=== PATIENT | female | born 1960 | race Caucasian/White ===

== ENCOUNTER 2020-01-02 15:56 | Outpatient (REF) | payer BC, SELFPAY ==
--- NOTE | 2020-01-02 16:01 | MM_ITS ---
EXAMINATION: MM SCREENING DIGITAL BREAST TOMOSYNTHESIS, BILATERAL CLINICAL INFORMATION: Screening. Asymptomatic. The lifetime risk of breast cancer based on the Tyrer-Cuzick Model is 12.9%. COMPARISON: Mammography: December 27, 2018 and studies dating back to July 02, 2011 TECHNIQUE: Digital breast tomosynthesis is performed in both the craniocaudal and mediolateral oblique views along with computer-aided detection (CAD). Synthesized 2D images are generated from the tomosynthesis. FINDINGS: The breasts are heterogeneously dense, which may obscure small masses (ACR BI-RADS breast composition Category c). There are no significant masses, abnormal calcifications, or other abnormalities. MM/MM tomosynthesis screening BI IMPRESSION: There are no significant changes from prior study. ASSESSMENT: BI-RADS 1: Negative RECOMMENDATION: Routine annual mammography screening. This patient's information was entered into a reminder system with a target due date for their next mammogram.
== END 2020-01-02 15:57 | disposition home or self-care (01) ==
LOC: HO.MAMMO 15:56
PROVIDERS: PCP Internal Medicine; Visit Provider Internal Medicine
DX: Z12.31 Encounter for screening mammogram for malignant neoplasm of breast (principal)
CPT/HCPCS: 77063; 77067

== ENCOUNTER 2020-01-16 17:06 | Outpatient (REF) | payer BC, SELFPAY | END 2020-01-16 17:07 | disposition home or self-care (01) | LOC: HO.LAB 17:06 | PROVIDERS: Visit Provider Internal Medicine | DX: Z20.828 Contact with and (suspected) exposure to other viral communicable diseases (principal) | CPT/HCPCS: C9803; U0003 ==

== ENCOUNTER → 2022-07-28 15:29 | Outpatient (BNVA) | payer BC, SELFPAY | PROVIDERS: PCP Internal Medicine; Visit Provider Physician Assistant Surgical ==

== ENCOUNTER 2022-08-15 09:48 | Outpatient (REF) | payer BC, SELFPAY ==
[2022-08-15 11:03] LABS: MANUAL DIFF FLAG NO
[2022-08-15 11:11] LABS: Eosinophils Absolute Auto 0.2 X10*3/uL (0.0-0.4); Eosinophils Percent Auto 5.7 % (0-4); Hematocrit 42.1 % (37.0-47.0); Lymphocytes Absolute Auto 1.3 X10*3/uL (1.2-4.9); Lymphocytes Percent Auto 42.3 % (20-40); Mean Corpuscular HGB Conc 33.3 g/dl (31.0-35.0); Mean Corpuscular Hemoglobin 30.4 pg (27.0-33.0); Mean Corpuscular Volume 91.3 fL (80.0-98.0); Mean Platelet Volume 9.1 fL (9.4-12.3); Monocytes Absolute Auto 0.2 X10*3/uL (0.1-1.2); Neutrophils Absolute Auto 1.3 x10*3/uL (2.0-8.3); Platelet Count 282 X10*3/uL (160-400); Red Blood Count 4.61 X10*6/uL (4.20-5.50)
[2022-08-15 11:17] LABS: Estimated Average Glucose 94 mg/dL; Hemoglobin A1c % 4.9 %
[2022-08-15 11:50] LABS: Alanine Aminotransferase 28 U/L (0-31); Albumin Level 4.2 g/dL (3.5-5.0); Alkaline Phosphatase 111 U/L (39-117); Anion Gap 12 (12-20); Aspartate Amino Transferase 35 U/L (5-31); Bilirubin Total 0.8 mg/dL (0.0-1.0); Blood Urea Nitrogen 15 mg/dL (9-16); Calcium 9.7 mg/dL (8.4-10.2); Carbon Dioxide 26 mmol/L (22-29); Chloride 107 mmol/L (96-108); Cholesterol 180 mg/dL; Estimated Glomerular Filt Rate > 60; Glucose Random 82 mg/dL (60-115); HDL Cholesterol 71 mg/dL; Iron 119 mcg/dL (30-160); LDL Cholesterol Calculated 96 mg/dl; Percent Iron Saturation 38 % (15-50); Sodium 141 mmol/L (135-145); Total Iron Binding Capacity 313 mcg/dL (228-428); Total Protein 6.9 g/dL (6.5-8.0); Triglycerides 69 mg/dL; Unsaturated Iron Binding 194 ug/dL
[2022-08-15 12:10] LABS: Ferritin 45 ng/mL (10-250); Insulin 3 uU/mL (2-29); Vitamin D 25-OH Total 60.8 ng/mL (>30)
[2022-08-15 12:24] LABS: Vitamin B12 > 2000 pg/mL (200-900)
[2022-08-19 05:03] LABS: Zinc 101 mcg/dL (60-130)
[2022-08-19 14:18] LABS: Calcium (PTHI) 9.3 mg/dL (8.6-10.4); PTHI 42 pg/mL (16-77)
[2022-08-20 02:43] LABS: Vitamin A 58 mcg/dL (38-98)
[2022-08-22 12:48] LABS: Vitamin B1 44 nmol/L (8-30)
== END 2022-08-15 09:49 | disposition home or self-care (01) ==
LOC: HO.HMGCLDS 09:48
PROVIDERS: PCP Internal Medicine; Visit Provider Physician Assistant Surgical
DX: Z98.84 Bariatric surgery status (principal); K91.2 Postsurgical malabsorption, not elsewhere classified
CPT/HCPCS: 36415; 80053; 80061; 82306; 82607; 82728; 82746; 83036; 83525; 83540; 83970; 84425; 84443; 84590; 84630; 85025; 86140

== ENCOUNTER 2022-09-18 15:39 | Outpatient (REF) | payer BC, SELFPAY ==
--- NOTE | ~2022-09-18 | MM_ITS ---
EXAMINATION: MM SCREENING DIGITAL BREAST TOMOSYNTHESIS, BILATERAL CLINICAL INFORMATION: Screening. Asymptomatic. The lifetime risk of breast cancer based on the Tyrer-Cuzick Model is 20.%. COMPARISON: Mammography: This study is compared with prior exams dating back to 2018. TECHNIQUE: Digital breast tomosynthesis is performed in both the craniocaudal and mediolateral oblique views along with computer-aided detection (CAD). Synthesized 2D images are generated from the tomosynthesis. FINDINGS: There are scattered areas of fibroglandular density (ACR BI-RADS breast composition Category b). There are no significant masses, abnormal calcifications, or other abnormalities. MM/MM tomosynthesis screening BI IMPRESSION: No mammographic evidence of malignancy. ASSESSMENT: BI-RADS BI-RADS 1 - Negative RECOMMENDATION: Routine annual mammography screening. 1 year F/U This examination should not preclude the clinical evaluation of a suspicious palpable abnormality. This patient's information was entered into a reminder system with a target due date for their next mammogram.
== END 2022-09-18 15:40 | disposition home or self-care (01) ==
LOC: HO.MAMMO 15:39
PROVIDERS: PCP Internal Medicine; Visit Provider Internal Medicine
DX: Z12.31 Encounter for screening mammogram for malignant neoplasm of breast (principal)
CPT/HCPCS: 77063; 77067

== ENCOUNTER → 2022-09-18 15:45 | Outpatient (BNV) | payer BC, SELFPAY | PROVIDERS: PCP Internal Medicine; Visit Provider Radiology Diagnostic Radiology | DX: Z12.31 Encounter for screening mammogram for malignant neoplasm of breast (principal) | CPT/HCPCS: 77063; 77067 ==

== ENCOUNTER 2022-11-19 09:56 | Outpatient (AMB) | payer BC, SELFPAY ==
[2022-11-19 10:00] VITALS: BP 132/70; PULSE 58; RESP 12; O2SAT 98; BMI 28.3
--- NOTE | 2022-11-19 10:00 | MHC.PC.OV ---
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 Patient states that she thinks she may have arthritis in her neck, her knees, hips, her foot. 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 Required: No Accompanied by: Self / Same As Patient Allergies Seasonal Allergies Allergy (Intermediate, Verified 11/19/22 10:17) Headache cat dander Allergy (Mild, Verified 11/19/22 10:17) Sneezing dog dander Allergy (Mild, Verified 11/19/22 10:17) Sneezing Medication List - Last Reconciled 11/19/22 by TRACY Barry biotin 10,000 mcg PO DAILY calcium carbonate (Calcium) 600 mg PO DAILY cetirizine (Zyrtec) 10 mg PO DAILY PRN cholecalciferol (vitamin D3) 50 mcg PO DAILY multivitamin with iron (Daily Multiple Vitamins with Iron tablet) 1 tab PO DAILY solifenacin 10 mg PO DAILY Tobacco use date assessed: 11/19/22 Dental Screening Dental Screen Date: 11/19/22 Did you have a dental visit in the last 12 months?: Yes Did you have a dental problem in the last 6 months where you did not have access to dental care?: No Was dental information given to patient?: Patient has dentist HPI HPI Comments History of Present Illness Details 62-year-old female new patient presents today to establish care. Past medical history significant for osteoarthritis hx bilateral knee pain for years, Patient sates about 7 years ago was told that she need knee replacements in the future, s/p cortisone injections in right knee. Patient reports she was previously followed by Dr. Hein for this, your referral entered. Patient also reports that she has ongoing left hip pain for few months and occasional clicking. Left hip x-ray ordered. Patient reports followed by weight management for history of gastric bypass surgery, complete lab work done in July 2022. Repeat blood work deferred at this time. Mammogram: Completed in August 2022, Bi-rad negative Eye exam: Scheduled in November, patient reports goes annually. Pap smear: Has not had a Pap smear in years, referral entered OBGYN. Colonoscopy: Scheduled in January. Complete lab work done in July After patient being checked out and patient was leaving this appointment she had turned around and came to this [facility] office and reported that she has been having some memory problems, patient advised to schedule follow-up in 2 weeks to further discuss this matter. [facility] Medical History (Updated 11/19/22 @ 10:28 by TRACY Barry) No pertinent past medical history Surgical History (Updated 11/19/22 @ 10:20 by TRACY Barry) History of Esmer-en-Y gastric bypass Hx of lumpectomy Hx of tonsillectomy Hx of bladder repair surgery Hx of foot surgery Hx of eye surgery Hx of gastric bypass Family History (Updated 11/19/22 @ 10:21 by TRACY Barry) Mother Hypertension Diabetes Father Hx of CABG Hypertension Social History (Updated 11/19/22 @ 10:22 by TRACY Barry) Housing: House Alcohol intake: current Alcohol intake frequency: a few times a month Patient Tobacco Use Status: Former Tobacco user Tobacco use type: Cigarette Cigarette Packs Per Day: 1 Cigarettes Per Day: 20 Years Smoked: 20 e-Cigarette/Vaping Use: Never Used service: No Current occupational status: employed and retired Cognitive needs: No Hearing needs: No Vision needs: Yes Review of Systems Const Denies chills, Denies fatigue, Denies fever(s) and Denies poor appetite Eyes Denies no additional complaints ENT Reports Normal hearing present Card Denies chest pain, Denies syncope, Denies rapid heart rate and Denies dyspnea Resp Denies cough and Denies dyspnea GI Denies change in stool character, Denies constipation, Denies diarrhea, Denies nausea and Denies vomiting Denies urinary frequency, Denies dysuria and Denies urinary urgency Neuro Reports Normal hearing present, Denies confusion and Denies syncope Psych Denies confusion Endo Denies fatigue Physical exam (Primary Care) Vital Signs: Last Vital Signs Pulse 58 11/19/22 10:00 Resp 12 11/19/22 10:00 BP 132/70 11/19/22 10:00 Pulse Ox 98 11/19/22 10:00 Oxygen Delivery Method Room Air 11/19/22 10:00 BMI result Body Mass Index 28.3 Tobacco/Smoking Status: Tobacco use Status Tobacco use date assessed 11/19/22 11/19/22 10:14 Patient Tobacco Use Status Former Tobacco user 11/19/22 10:22 Tobacco use type Cigarette 11/19/22 10:22 e-Cigarette/Vaping Use Never Used 11/19/22 10:22 Const General: No confusion Orientation/consciousness: No confusion HENMT Head: Yes normocephalic and Yes atraumatic Ears: external ears normal and TM's normal bilaterally General nose exam: Normal external nose present and Normal nasal mucous membranes and turbinates present Face and sinus: Yes normal facial exam and Yes sinuses nontender Mouth: moist mucous membranes Throat: Yes tonsils normal Eyes Conjunctivae: conjunctivae normal Sclerae: sclerae normal Pupils: Equal, round and reactive pupils present and Pupils normal by confrontation EOM: EOMs intact bilaterally Direct Ophthalmoscopy: normal light reflex Neck Neck: Yes no lymphadenopathy and Yes supple Thyroid: Thyroid normal Chest Chest palpation & inspection: normal inspection of the chest Resp Effort & Inspection: normal respiratory effort Auscultation: clear to auscultation bilaterally, no crackles, no rhonchi and no wheezes Cardio Rate: regular rate Rhythm: regular rhythm Peripheral pulses: radial pulses present and dorsalis pedis present GI Inspection: Yes normal to inspection Palpation (GI): Soft to palpation, nontender and No hepatosplenomegaly present Auscultation: normoactive bowel sounds Skin General skin exam: no rashes or lesions noted Neuro General: No confusion Cranial nerves: Yes Equal, round and reactive pupils present and Yes Normal hearing present Cognition (Neuro): normal cognition Gait exam (Neuro): Normal gait present Motor exam (neuro): 5/5 motor strength present throughout Deep tendon reflexes (DTR's): Right brachioradialis reflex intensity grade: 2+, Left brachioradialis reflex intensity grade: 2+, Right patellar reflex intensity grade: 2+ and Left patellar reflex intensity grade: 2+ Extrem General: No edema Assessment and Plan Assessment & Plan (1) Bilateral knee pain: Code(s): M25.561 - Pain in right knee; M25.562 - Pain in left knee Plan: Can take Tylenol Arthritis as needed for pain. Bilateral knee x-rays ordered. Referral sent to orthopedic. (2) Left hip pain: Code(s): M25.552 - Pain in left hip Plan: Can take [id number] Tylenol as needed for pain, left hip x-ray ordered. 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
== END 2022-11-19 10:41 | disposition home or self-care (01) ==
PROVIDERS: PCP Internal Medicine; Visit Provider Nurse Practitioner Family
DX: M25.561 Pain in right knee (principal); M25.562 Pain in left knee; M25.552 Pain in left hip; M19.90 Unspecified osteoarthritis, unspecified site; Z00.00 Encounter for general adult medical examination without abnormal findings
CPT/HCPCS: 99204

== ENCOUNTER 2022-11-19 10:52 | Outpatient (REF) | payer BC, SELFPAY ==
--- NOTE | ~2022-11-19 | XR_ITS ---
EXAMINATION: XR KNEE AP STANDING, BILATERAL CLINICAL INFORMATION: Right knee pain. COMPARISON: Bilateral knee radiographs dated 01/30/2016. TECHNIQUE: AP bilateral standing view of the knees was obtained. FINDINGS: Moderate to severe right and moderate left medial compartment joint space narrowing. Bilateral tricompartmental marginal osteophytes. No osseous erosion. No fracture or dislocation. No concerning lytic or blastic osseous lesion. No abnormal soft tissue calcification. XR/XR knee standing BI IMPRESSION: Tricompartmental osteoarthritis, most prominent within the medial compartment bilaterally. Findings are more prominent on the right and have slightly progressed when compared to the prior examination.
--- NOTE | ~2022-11-19 | XR_ITS ---
EXAMINATION: XR HIP, LEFT CLINICAL INFORMATION: Left hip pain. COMPARISON: None available. TECHNIQUE: Two views of the left hip. FINDINGS: No significant joint space narrowing. Small lateral acetabular marginal osteophytes. No osseous erosion. No evidence of avascular necrosis. No acute fracture or dislocation. XR/XR hip LT min 2V IMPRESSION: Mild left hip osteoarthritis.
== END 2022-11-19 10:53 | disposition home or self-care (01) ==
LOC: HO.XRAY 10:52
PROVIDERS: PCP Internal Medicine; Visit Provider Nurse Practitioner Family
DX: M25.552 Pain in left hip (principal); M25.561 Pain in right knee; M25.562 Pain in left knee
CPT/HCPCS: 73502; 73565

== ENCOUNTER 2022-12-14 13:31 | Outpatient (AMB) | payer BC, SELFPAY ==
[2022-12-14 13:35] VITALS: BP 132/76; PULSE 70; O2SAT 98; BMI 28.7
--- NOTE | 2022-12-14 13:35 | MHC.PC.OV ---
Vital Signs 12/14/22 13:35 Height 5 ft 2 in Weight 157 lb BMI 28.7 BP 132/76 Blood Pressure Location Lt brachial Position Sitting Pulse 70 Pulse Source Pulse Oximeter Pulse Oximetry (%) 98 Oxygen Delivery Method Room Air Intake Visit Reasons: Memory Problem Allergies Seasonal Allergies Allergy (Intermediate, Verified 12/14/22 13:35) Headache cat dander Allergy (Mild, Verified 12/14/22 13:35) Sneezing dog dander Allergy (Mild, Verified 12/14/22 13:35) Sneezing Tobacco use date assessed: 11/19/22 Dental Screening Dental Screen Date: 12/14/22 Did you have a dental visit in the last 12 months?: Yes Did you have a dental problem in the last 6 months where you did not have access to dental care?: No Was dental information given to patient?: Patient has dentist HPI HPI Comments History of Present Illness Details 62-year-old female past medical history significant for arthritis. Patient presents today for memory problems. Patient states she has trouble remembering things such as peoples names, or what she wanted talk about. Maybe a few times a week. Patient states hx worked 25 years over night, no works day shift x 7 years. will fall asleep maybe 2 years and then shes wide awake. Patient states has tried melatonin but doesnt like the way it makes her feel weird, like her skin is crawling. will trial hydorxyzine Mini-mental status exam completed patient patient was able to recall 3 words provided in the beginning of this appointment. Patient reports past history of sleep apnea however states snoring at resolved following her gastric bypass surgery. Given patient reporting memory trouble will repeat repeat sleep study to ensure resolution sleep apnea. [facility] Medical History No pertinent past medical history Surgical History History of Esmer-en-Y gastric bypass Hx of lumpectomy Hx of tonsillectomy Hx of bladder repair surgery Hx of foot surgery Hx of eye surgery Hx of gastric bypass Family History Mother Hypertension Diabetes Father Hx of CABG Hypertension Social History Housing: House Alcohol intake: current Alcohol intake frequency: a few times a month Patient Tobacco Use Status: Former Tobacco user Tobacco use type: Cigarette Cigarette Packs Per Day: 1 Cigarettes Per Day: 20 Years Smoked: 20 e-Cigarette/Vaping Use: Never Used service: No Current occupational status: employed and retired Cognitive needs: No Hearing needs: No Vision needs: Yes Questionnaire PHQ-9 Over the last 2 weeks, how often have you been bothered by any of the following problems? 1. Little interest or pleasure in doing things: not at all 2. Feeling down, depressed, or hopeless: not at all 3. Trouble falling or staying asleep, or sleeping too much: not at all 4. Feeling tired or having little energy: not at all 5. Poor appetite or overeating: not at all 6. Feeling bad about yourself - or that you are a failure or have let yourself or your family down: not at all 7. Trouble concentrating on things, such as reading the newspaper or watching television: not at all 8. Moving or speaking so slowly that other people could have noticed. Or the opposite - being so fidgety or restless that you have been moving around a lot more than usual: not at all 9. Thoughts that you would be better off or of hurting yourself in some way: not at all Total score: 0 Source: Developed by Drs. Montez Hartman, Gabbie Delgado, Dragan Drake and colleagues, with an educational jessenia from [employer]. Thrive Questionnaire Date Thrive assessed: 12/14/22 I am a: Patient What is your living situation today?: I have a steady place to live Within the past 12 months, did the food you bought not last and you didn't have the money to get more?: Never true Within the past 12 months, did you worry whether your food would run out before you got money to buy more?: Never true Do you have trouble paying for medicines?: No Do you have trouble getting transportation to medical appointments?: No Do you have trouble paying your heating and electricity bill?: No Do you have trouble taking care of your child, family member or friend?: No Do you have trouble with day-to-day activities such as bathing, preparing meals, shopping, managing finances, etc.?: No Are you currently unemployed and looking for a job?: No Are you interested in more education?: No Please select the resources that you would like help with: None AUDIT C Alcohol Use Questionnaire (AUDIT-C) 1. How often do you have a drink containing alcohol?: Never Total Score: 0 RICH-7 AMB Questionnaire RICH-7 Date RICH - 7 assessed: 12/14/22 Feeling nervous, anxious, or on edge: 0 = Not at all Not being able to stop or control worryin = Not at all Worrying too much about different things: 0 = Not at all Trouble relaxin = Not at all Being so restless that it is hard to sit still: 0 = Not at all Becoming easily annoyed or irritable: 0 = Not at all Feeling afraid as if something awful might happen: 0 = Not at all Total RICH-7 score (0-4 normal; 5-9 mild; 10-14 moderate; 15-21 severe): 0 Source: Developed by Drs. Montez Hartman, Gabbie Delgado, Dragan Drake and colleagues, with an educational jessenia from [employer]. Review of Systems Const Denies chills, Denies fatigue, Denies fever(s) and Denies poor appetite Eyes Denies no additional complaints ENT Reports Normal hearing present Card Denies chest pain, Denies syncope, Denies rapid heart rate and Denies dyspnea Resp Denies cough and Denies dyspnea GI Denies change in stool character, Denies constipation, Denies diarrhea, Denies nausea and Denies vomiting Denies urinary frequency, Denies dysuria and Denies urinary urgency Neuro Reports Normal hearing present, Denies confusion, Denies syncope and Reports other (memory difficulties ) Psych Denies confusion Endo Denies fatigue Physical exam (Primary Care) Vital Signs: Last Vital Signs Pulse 70 12/14/22 13:35 BP 132/76 12/14/22 13:35 Pulse Ox 98 12/14/22 13:35 Oxygen Delivery Method Room Air 12/14/22 13:35 BMI result Body Mass Index 28.7 Tobacco/Smoking Status: Tobacco use Status Tobacco use date assessed 11/19/22 12/14/22 13:36 Patient Tobacco Use Status Former Tobacco user 12/14/22 13:36 Tobacco use type Cigarette 12/14/22 13:36 e-Cigarette/Vaping Use Never Used 12/14/22 13:36 PHQ-9: PHQ-9 Score PHQ-9: Total score 0 12/14/22 14:53 Thrive Assessment: Date of Thrive Assessment Date Thrive assessed 12/14/22 12/14/22 13:36 Const General: No confusion Orientation/consciousness: No confusion HENMT Head: Yes normocephalic and Yes atraumatic Eyes Conjunctivae: conjunctivae normal Sclerae: sclerae normal Pupils: Equal, round and reactive pupils present and Pupils normal by confrontation EOM: EOMs intact bilaterally Direct Ophthalmoscopy: normal light reflex Cardio Rate: regular rate Rhythm: regular rhythm Peripheral pulses: radial pulses present and dorsalis pedis present Neuro General: No confusion Cranial nerves: Yes Equal, round and reactive pupils present and Yes Normal hearing present Cognition (Neuro): normal cognition Gait exam (Neuro): Normal gait present Extrem General: No edema Assessment and Plan Assessment & Plan (1) Memory change: Code(s): R41.3 - Other amnesia Plan: Referral entered to Neurology for thorough evaluation (2) Sleep apnea: Code(s): G47.30 - Sleep apnea, unspecified Plan: Sleep study ordered to further evaluate Orders: Orders Comprehensive [place]. Panel Fast 12/14/22 R41.3 - Other amnesia Lipid Panel 12/14/22 Z13.220 - Encounter for screening for lipoid disorders RT home sleep study 12/14/22 G47.30 - Sleep apnea, unspecified Complete Blood Count Auto Diff 12/14/22 Z13.0 - Encounter for screening for diseases of the blood and blood-forming organs and certain disorders involving the immune mechanism TSH reflex Free T4 12/14/22 Z13.29 - Encounter for screening for other suspected endocrine disorder Referrals Neurology Referral R41.3 - Other amnesia Coding Level of Care Code Est Pt Level 3 (08053) Diagnoses Memory change R41.3 Sleep apnea G47.30
== END 2022-12-14 14:08 | disposition home or self-care (01) ==
PROVIDERS: PCP Internal Medicine; Visit Provider Nurse Practitioner Family
DX: R41.3 Other amnesia (principal); G47.30 Sleep apnea, unspecified
CPT/HCPCS: 99213

== ENCOUNTER 2022-12-17 14:30 | Outpatient (AMB) | payer BC, SELFPAY ==
[2022-12-17 14:34] VITALS: BMI 28.7
--- NOTE | 2022-12-17 14:34 | MHC.OFFVIS ---
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 Patient is a previous patient of Dr. Hein. States her both knees are as bad however her right knee swells often and feels hot to touch and her left knee has pain that radiates to her hip. Denies knee giving out or doing P.T.. Patient has tried cortisone injections in the past which gave her minimal relief. She has not tried a viscosupplementation injection. The patient states that several days ago she did fall onto both of her knees. She has not tried wearing a knee brace. She has taken Tylenol which point her only mild relief. She is not able to tolerate anti-inflammatory medicines because of previous gastric bypass surgery. Allergies Seasonal Allergies Allergy (Intermediate, Verified 12/17/22 14:43) Headache cat dander Allergy (Mild, Verified 12/17/22 14:43) Sneezing dog dander Allergy (Mild, Verified 12/17/22 14:43) Sneezing Medication List - Last Reconciled 12/17/22 by William Rodrigez MD biotin 10,000 mcg PO DAILY calcium carbonate (Calcium) 600 mg PO DAILY cetirizine (Zyrtec) 10 mg PO DAILY PRN cholecalciferol (vitamin D3) 50 mcg PO DAILY multivitamin with iron (Daily Multiple Vitamins with Iron tablet) 1 tab PO DAILY solifenacin 10 mg PO DAILY PFSH Medical History No pertinent past medical history Surgical History History of Esmer-en-Y gastric bypass Hx of lumpectomy Hx of tonsillectomy Hx of bladder repair surgery Hx of foot surgery Hx of eye surgery Hx of gastric bypass Family History Mother Hypertension Diabetes Father Hx of CABG Hypertension Social History (Updated 12/17/22 @ 14:44 by Marcella Mclaughlin [facility]) Housing: House Alcohol intake: current Alcohol intake frequency: a few times a month Patient Tobacco Use Status: Former Tobacco user Tobacco use type: Cigarette Cigarette Packs Per Day: 1 Cigarettes Per Day: 20 Years Smoked: 20 e-Cigarette/Vaping Use: Never Used service: No Current occupational status: employed and 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 Cognitive needs: No Hearing needs: No Vision needs: Yes Physical Exam Vital Signs: BMI result Body Mass Index 28.7 Const Other: Well-nourished well-developed very friendly female awake alert and oriented x3 in no acute distress Extrem Other: Bilateral lower extremity examination shows good capillary refill, no skin lesions noted, normal sensation light touch Bilateral knee examination shows minimal effusions, palpable crepitus with range of motion, pain with range of motion, range of motion from -3 degrees to 115 degrees, no instability Results Reviewed Results Reviewed: X-rays of the patient's bilateral knee show joint space narrowing, subchondral sclerosis, no acute bony abnormalities Assessment & Plan Assessment & Plan (1) Arthritis of left knee: Code(s): M17.12 - Unilateral primary osteoarthritis, left knee Plan: Ms. Meza presents with bilateral knee pains due to degenerative joint disease. I had a lengthy discussion with the patient regarding the treatment options. She wishes to hold off on surgery for as long as possible. I agree with this plan. She has not gotten good relief from cortisone injections in the past. Thus, I will see whether not her insurance company will cover a viscosupplementation injection for both of her knees. I will see her back once the injections are available. I will also have the patient fitted for knee braces to help with her discomfort and instability. I do find that the knee braces are a medical necessity to help prevent further falls. The patient will follow-up as instructed. Feel free to call me at any time should questions regarding her orthopedic management arise. Thank you very much for asking me to see this very friendly patient. I spent 22 minutes in reviewing the patient's records and imaging studies, seeing the patient and documenting in the medical record. (2) Arthritis of right knee: Code(s): M17.11 - Unilateral primary osteoarthritis, right knee Coding Level of Care Code New Pt Level 2 (39799) Diagnoses Arthritis of left knee M17.12 Arthritis of right knee M17.11
== END 2022-12-17 15:15 | disposition home or self-care (01) ==
PROVIDERS: PCP Internal Medicine; Visit Provider Orthopaedic Surgery
DX: M17.0 Bilateral primary osteoarthritis of knee (principal)
CPT/HCPCS: 99202

== ENCOUNTER → 2022-12-17 14:30 | Outpatient (BNVA) | payer BC, SELFPAY | PROVIDERS: PCP Internal Medicine; Visit Provider Orthopaedic Surgery ==

== ENCOUNTER 2022-12-25 06:03 | Outpatient (REF) | payer BC, SELFPAY ==
[2022-12-25 11:36] LABS: MANUAL DIFF FLAG NO
[2022-12-25 11:42] LABS: Basophils Absolute Auto 0.1 X10*3/uL (0.0-0.2); Basophils Percent Auto 1.8 % (0-2); Eosinophils Absolute Auto 0.2 X10*3/uL (0.0-0.4); Eosinophils Percent Auto 5.5 % (0-4); Hematocrit 39.8 % (37.0-47.0); Hemoglobin 13.2 g/dl (12.0-16.0); Imm Gran Abs Auto 0.01 X10*3/uL (0.00-0.03); Imm Gran Pct Auto 0.3 % (0.0-0.4); Lymphocytes Absolute Auto 1.9 X10*3/uL (1.2-4.9); Lymphocytes Percent Auto 49.9 % (20-40); Mean Corpuscular HGB Conc 33.2 g/dl (31.0-35.0); Mean Corpuscular Hemoglobin 30.7 pg (27.0-33.0); Mean Corpuscular Volume 92.6 fL (80.0-98.0); Monocytes Absolute Auto 0.3 X10*3/uL (0.1-1.2); Monocytes Percent Auto 8.7 % (2-11); Neutrophils Absolute Auto 1.3 x10*3/uL (2.0-8.3); Neutrophils Percent Auto 33.8 % (45-73); Platelet Count 312 X10*3/uL (160-400); Red Cell Distribution Width 13.2 % (11.0-16.0); White Blood Count 3.8 X10*3/uL (4.8-10.8)
[2022-12-25 12:10] LABS: Alanine Aminotransferase 37 U/L (0-31); Albumin Level 4.1 g/dL (3.5-5.0); Alkaline Phosphatase 115 U/L (39-117); Anion Gap 12 (12-20); Aspartate Amino Transferase 41 U/L (5-31); Bilirubin Total 0.7 mg/dL (0.0-1.0); Blood Urea Nitrogen 13 mg/dL (9-16); Calcium 9.6 mg/dL (8.4-10.2); Carbon Dioxide 27 mmol/L (22-29); Chloride 107 mmol/L (96-108); Cholesterol 175 mg/dL (<200); Estimated Glomerular Filt Rate > 60; Glucose Fasting 83 mg/dL (60-99); HDL Cholesterol 74 mg/dL (>40); LDL Cholesterol Calculated 90 mg/dL (<100); Potassium 3.9 mmol/L (3.3-5.1); Sodium 142 mmol/L (135-145); Total Protein 6.7 g/dL (6.5-8.0); Triglycerides 59 mg/dL (<150)
[2022-12-25 12:28] LABS: TSH reflex Free T4 2.43 uIU/mL (0.32-4.0)
== END 2022-12-25 06:04 | disposition home or self-care (01) ==
LOC: HO.HMGCLDS 06:03
PROVIDERS: PCP Internal Medicine; Visit Provider Nurse Practitioner Family
DX: Z13.220 Encounter for screening for lipoid disorders (principal); Z13.29 Encounter for screening for other suspected endocrine disorder; Z13.0 Encounter for screening for diseases of the blood and blood-forming organs and certain disorders involving the immune mechanism; R41.3 Other amnesia; E78.5 Hyperlipidemia, unspecified
CPT/HCPCS: 36415; 80053; 80061; 84443; 85025

== ENCOUNTER 2023-01-04 15:22 | Outpatient (AMB) | payer BC, SELFPAY ==
--- NOTE | 2023-01-04 15:25 | A.OFFVIS_ITS ---
Intake VS Expanded 01/04/23 15:33 BP 139/85 Blood Pressure Location Rt brachial Blood Pressure Position Sitting Pulse 75 Pulse Source Pulse Oximeter Temp 97.7 F Temperature Source Temporal Artery Scan Pulse Oximetry 98 Oxygen Delivery Method Room Air Height 5 ft 2 in Weight 155 lb 6.4 oz BMI 28.4 Body Fat % 31.3 Body Fat Mass 48.6 Fat Free Mass 106.8 Visceral Fat Rating 8.0 Body Water % 48.6 Body Water Mass 75.4 Muscle Mass/Score 101.2 Basal Metabolic Rate/Score 1,425 Intake Visit Reasons: (OV) PO LRYGB 07/16/16 Allergies Seasonal Allergies Allergy (Intermediate, Verified 01/04/23 15:29) Headache cat dander Allergy (Mild, Verified 01/04/23 15:29) Sneezing dog dander Allergy (Mild, Verified 01/04/23 15:29) Sneezing Medication List - Last Reconciled 01/04/23 by Heather Johnson PA-C azelastine-fluticasone 137-50 mcg/spray 1 spray intranasal BID biotin 10,000 mcg PO DAILY calcium carbonate (Calcium) 600 mg PO DAILY cetirizine (Zyrtec) 10 mg PO DAILY PRN cholecalciferol (vitamin D3) 50 mcg PO DAILY multivitamin with iron (Daily Multiple Vitamins with Iron tablet) 1 tab PO DAILY solifenacin 10 mg PO DAILY HPI HPI Comments History of Present Illness Details GBP roger roberts in June 2016 - no complications. Has issues with constipation, not using fiber daily, misunderstood instructions. Would like to weight about 135 lbs. Has mildy elevated LFT's and ULS has been ordered by PCP. Works 5d/wk for 12 hours per day. 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 Exercise - has bike and eliiptical at home - 2 d/week. [facility] Medical History (Updated 01/04/23 @ 15:39 by Heather Johnson PA-C) Sleep apnea No pertinent past medical history Surgical History (Updated 01/04/23 @ 15:39 by Heather Johnson PA-C) History of Esmer-en-Y gastric bypass Hx of lumpectomy Hx of tonsillectomy Hx of bladder repair surgery Hx of foot surgery Hx of eye surgery Hx of gastric bypass Family History Mother Hypertension Diabetes Father Hx of CABG Hypertension Social History Housing: House Alcohol intake: current Alcohol intake frequency: a few times a month Patient Tobacco Use Status: Former Tobacco user Tobacco use type: Cigarette Cigarette Packs Per Day: 1 Cigarettes Per Day: 20 Years Smoked: 20 e-Cigarette/Vaping Use: Never Used service: No Current occupational status: employed and 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 Labs done in June 2022. Meal plan changes for 70 gram per day coffee 5a m- Premier protein cereal with fruit 9am - half shake 12pm - half shake 5pm - 3 oz protein and 3 oz vegetable Exericse - Pilates, TBP duirng the week for 3 d and weekends elliptical RTO May for 7 years appt and labs. I spent 30 minutes in total with patient reviewing/updating records, examining the patient and counseling the patient on weight management as detailed above. (2) Urinary incontinence: Code(s): R32 - Unspecified urinary incontinence (3) Hx of gastric bypass: Code(s): Z98.84 - Bariatric surgery status Coding Level of Care Code Est Pt Level 4 (94201) Diagnoses Overweight E66.3 Urinary incontinence R32 Hx of gastric bypass Z98.84
[2023-01-04 15:33] VITALS: BP 139/85; PULSE 75; TEMP 36.5; O2SAT 98; BMI 28.4
== END 2023-01-04 16:03 | disposition home or self-care (01) ==
PROVIDERS: Visit Provider Physician Assistant
DX: E66.3 Overweight (principal); Z68.28 Body mass index [BMI] 28.0-28.9, adult; Z98.84 Bariatric surgery status; R32 Unspecified urinary incontinence
CPT/HCPCS: 99214

== ENCOUNTER → 2023-01-04 15:22 | Outpatient (BNVA) | payer BC, SELFPAY | PROVIDERS: Visit Provider Physician Assistant ==

== ENCOUNTER 2023-01-26 14:24 | Outpatient (AMB) | payer BC, SELFPAY ==
--- NOTE | 2023-01-26 14:39 | MHC.OFFVIS ---
Intake Vital Signs 01/26/23 14:49 Height 5 ft 2 in Weight 155 lb BMI 28.3 Intake Visit Reasons: Bilateral knee pain Intake Note: Ibis 62 yr old female presents today for bilateral knee pain. Patient is a previous patient of Dr. Hein. States her both knees are as bad however her right knee swells often and feels hot to touch and her left knee has pain that radiates to her hip. Denies knee giving out or doing P.T.. Patient has tried cortisone injections in the past which gave her minimal relief. She has not tried a viscosupplementation injection. The patient states that several days ago she did fall onto both of her knees. She has not tried wearing a knee brace. She has taken Tylenol which point her only mild relief. She is not able to tolerate anti-inflammatory medicines because of previous gastric bypass surgery. Allergies Seasonal Allergies Allergy (Intermediate, Verified 01/26/23 14:50) Headache cat dander Allergy (Mild, Verified 01/26/23 14:50) Sneezing dog dander Allergy (Mild, Verified 01/26/23 14:50) Sneezing Medication List - Last Reconciled 01/27/23 by William Rodrigez MD azelastine-fluticasone 137-50 mcg/spray 1 spray intranasal BID biotin 10,000 mcg PO DAILY calcium carbonate (Calcium) 600 mg PO DAILY cetirizine (Zyrtec) 10 mg PO DAILY PRN cholecalciferol (vitamin D3) 50 mcg PO DAILY multivitamin with iron (Daily Multiple Vitamins with Iron tablet) 1 tab PO DAILY solifenacin 10 mg PO DAILY [facility] Medical History (Updated 01/04/23 @ 15:39 by Heather Johnson PA-C) Sleep apnea No pertinent past medical history Surgical History History of Esmer-en-Y gastric bypass Hx of lumpectomy Hx of tonsillectomy Hx of bladder repair surgery Hx of foot surgery Hx of eye surgery Hx of gastric bypass Family History Mother Hypertension Diabetes Father Hx of CABG Hypertension Social History Housing: House Alcohol intake: current Alcohol intake frequency: a few times a month Patient Tobacco Use Status: Former Tobacco user Tobacco use type: Cigarette Cigarette Packs Per Day: 1 Cigarettes Per Day: 20 Years Smoked: 20 e-Cigarette/Vaping Use: Never Used service: No Current occupational status: employed and 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 Cognitive needs: No Hearing needs: No Vision needs: Yes Physical Exam Vital Signs: BMI result Body Mass Index 28.3 Const Other: Well-nourished well-developed very friendly female awake alert and oriented x3 in no acute distress Extrem Other: Bilateral lower extremity examination shows good capillary refill, no skin lesions noted, normal sensation light touch Bilateral knee examination shows minimal effusions, palpable crepitus with range of motion, pain with range of motion, no instability Office Procedures Joint Injection/Drain Joint Injection/Drain Primary Site: left knee Injected: 20 mg of (Euflexxa) and 1% plain lidocaine Procedure: The patient tolerated the procedure well Coding 58937 - Large joint Procedure code (CPT) selection complete Joint Injection/Drain Joint Injection/Drain Primary Site: right knee Prep: site was prepped using aseptic technique Injected: 20 mg of (Euflexxa) and 1% plain lidocaine Procedure: The patient tolerated the procedure well Coding 53689 - Large joint Procedure code (CPT) selection complete Results Reviewed Results Reviewed: X-rays of the patient's bilateral knee show joint space narrowing, subchondral sclerosis, no acute bony abnormalities Assessment & Plan Assessment & Plan (1) Arthritis of left knee: Code(s): M17.12 - Unilateral primary osteoarthritis, left knee (2) Arthritis of right knee: Code(s): M17.11 - Unilateral primary osteoarthritis, right knee Plan: Ms. Meza presents with bilateral knee pains due to degenerative joint disease. I had a lengthy discussion with the patient regarding the treatment options. She wishes to hold off on surgery for as long as possible. I agree with this plan. She has not gotten good relief from cortisone injections in the past. Thus, the risks and benefits of bilateral knee Euflexxa viscosupplementation injections were discussed at length with the patient. The patient wished to proceed. She tolerated the injections well. She will continue with her home exercise program. She will follow up next week as scheduled. Feel free to call me at any time should questions regarding her orthopedic management arise. I spent 22 minutes in reviewing the patient's records and imaging studies, seeing the patient and documenting in the medical record. (3) Bilateral knee pain: Code(s): M25.561 - Pain in right knee; M25.562 - Pain in left knee Orders: Orders AMB Joint Injection/Aspiration 01/26/23 M17.12 - Unilateral primary osteoarthritis, left knee AMB Joint Injection/Aspiration 01/26/23 M17.11 - Unilateral primary osteoarthritis, right knee Coding Level of Care Code Est Pt Level 2 (48270) Diagnoses Arthritis of left knee M17.12 Arthritis of right knee M17.11 Bilateral knee pain M25.561; M25.562 CPT Codes Coding - 93002 Large joint: 74463 - Large joint ([id number]) Coding - 77858 Large joint: 41227 - Large joint ([id number])
[2023-01-26 14:49] VITALS: BMI 28.3
== END 2023-01-26 15:04 | disposition home or self-care (01) ==
PROVIDERS: PCP Internal Medicine; Visit Provider Orthopaedic Surgery
DX: M17.0 Bilateral primary osteoarthritis of knee (principal)
CPT/HCPCS: 20610; 99213

== ENCOUNTER → 2023-01-26 14:24 | Outpatient (BNVA) | payer BC, SELFPAY | PROVIDERS: PCP Internal Medicine; Visit Provider Orthopaedic Surgery | DX: M17.0 Bilateral primary osteoarthritis of knee (principal) | CPT/HCPCS: 20610; J7323 ==

== ENCOUNTER → 2023-01-28 15:31 | Outpatient (REF) | payer BC, SELFPAY | LOC: HO.SL 15:31 | PROVIDERS: PCP Internal Medicine; Visit Provider Nurse Practitioner Family | DX: G47.30 Sleep apnea, unspecified (principal); R06.83 Snoring | CPT/HCPCS: 95806 ==

== ENCOUNTER → 2023-01-28 15:40 | Outpatient (BNV) | payer BC, SELFPAY | PROVIDERS: PCP Internal Medicine; Visit Provider Internal Medicine | DX: R06.83 Snoring (principal) | CPT/HCPCS: 95806 ==

== ENCOUNTER 2023-01-29 08:50 | Outpatient (REF) | payer BC, SELFPAY ==
--- NOTE | ~2023-01-29 | US_ITS ---
EXAMINATION: US ABDOMEN COMPLETE CLINICAL INFORMATION: Other specified abnormal findings of blood chemistry. COMPARISON: Ultrasound abdomen complete 05/15/2016 and 08/22/2013. TECHNIQUE: Real-time imaging of the abdominal viscera. FINDINGS: PANCREAS: Normal. ABDOMINAL AORTA: There is atherosclerotic calcification the mid to distal segments. The proximal segment is mildly aneurysmal, measuring 3.4 x 3.4 cm. INFERIOR VENA CAVA: Visualized portions are normal. LIVER: There is borderline hepatomegaly, with a longitudinal span of 17.0 cm. The liver contour is normal. Parenchymal echogenicity is normal. No focal hepatic lesion. There is mild biliary ductal dilatation. GALLBLADDER: Normal. The gallbladder is physiologically distended without evidence of stones, sludge, polyps, wall thickening or pericholecystic fluid. COMMON BILE DUCT: Upper normal in caliber, measuring 0.7 cm in diameter. RIGHT KIDNEY: Normal. No hydronephrosis. No renal calculi or focal parenchymal lesions. The kidney measures 9.9 cm in maximum dimension. LEFT KIDNEY: Normal. No hydronephrosis. No renal calculi or focal parenchymal lesions. The kidney measures 9.0 cm in maximum dimension. SPLEEN: Normal. The spleen measures 9.1 cm in maximum dimension. FREE FLUID: None. US/US abdomen complete IMPRESSION: 1. There is borderline hepatomegaly, and mild intrahepatic biliary ductal dilatation is seen. 2. The common bile duct is upper normal in caliber. 3. There is a mild proximal abdominal aortic aneurysm.
[2023-01-29 11:22] LABS: HBS Num1 0.57 mIU/mL (0-7.99); HBc Num1 0.07 S/CO (0.00-0.79); Hepatitis A Antibody IgM 0.24 Index (0-0.79); Hepatitis B Core Antibody Nonreactive (Nonreactive); Hepatitis B Surface Antigen Negative (Negative); ~HepC Num1 0.09 S/CO (0.00-0.79); ~Hepatitis A Antibody IgM Nonreactive (Nonreactive); ~Hepatitis B Surface Antibody NONREACTIVE (Nonreactive); ~Hepatitis C Antibody Nonreactive (Nonreactive)
== END 2023-01-29 08:51 | disposition home or self-care (01) ==
LOC: HO.US 08:50
PROVIDERS: PCP Internal Medicine; Visit Provider Nurse Practitioner Family
DX: R79.89 Other specified abnormal findings of blood chemistry (principal)
CPT/HCPCS: 36415; 76700; 86704; 86706; 86709; 86803; 87340

== ENCOUNTER 2023-02-02 14:26 | Outpatient (AMB) | payer BC, SELFPAY ==
--- NOTE | 2023-02-02 14:46 | MHC.OFFVIS ---
Intake Intake Visit Reasons: OV - Left Knee Euflexxa #2 Intake Note: Ibis is a 62 year old female who presnets today for her bilateral knee Euflexxa #2. She reports mild to moderate discomfort in both of her knees. She denies any fevers or chills. Allergies Seasonal Allergies Allergy (Intermediate, Verified 01/26/23 14:50) Headache cat dander Allergy (Mild, Verified 01/26/23 14:50) Sneezing dog dander Allergy (Mild, Verified 01/26/23 14:50) Sneezing PFSH Medical History (Updated 01/04/23 @ 15:39 by Heather Johnson PA-C) Sleep apnea No pertinent past medical history Surgical History History of Esmer-en-Y gastric bypass Hx of lumpectomy Hx of tonsillectomy Hx of bladder repair surgery Hx of foot surgery Hx of eye surgery Hx of gastric bypass Family History Mother Hypertension Diabetes Father Hx of CABG Hypertension Social History Housing: House Alcohol intake: current Alcohol intake frequency: a few times a month Patient Tobacco Use Status: Former Tobacco user Tobacco use type: Cigarette Cigarette Packs Per Day: 1 Cigarettes Per Day: 20 Years Smoked: 20 e-Cigarette/Vaping Use: Never Used service: No Current occupational status: employed and 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 Cognitive needs: No Hearing needs: No Vision needs: Yes Physical Exam Extrem Other: Bilateral knee examination shows minimal effusions, palpable crepitus with range of motion, pain with range of motion, no instability Office Procedures Joint Injection/Drain Joint Injection/Drain Primary Site: left knee Prep: site was prepped using aseptic technique Injected: 20 mg of (Euflexxa) and 1% plain lidocaine Procedure: The patient tolerated the procedure well Coding 39503 - Large joint Procedure code (CPT) selection complete Joint Injection/Drain Joint Injection/Drain Primary Site: right knee Prep: site was prepped using aseptic technique Injected: 20 mg of (Euflexxa) and 1% plain lidocaine Procedure: The patient tolerated the procedure well Coding 58659 - Large joint Procedure code (CPT) selection complete Results Reviewed Results Reviewed: X-rays of the patient's bilateral knee show joint space narrowing, subchondral sclerosis Assessment & Plan Assessment & Plan (1) Arthritis of left knee: Code(s): M17.12 - Unilateral primary osteoarthritis, left knee (2) Arthritis of right knee: Code(s): M17.11 - Unilateral primary osteoarthritis, right knee Plan Ms. Meza presents with bilateral knee pains due to degenerative joint disease. The risks and benefits of a 2nd set of Euflexxa injections were discussed at length with the patient. The patient wished to proceed. She tolerated the injections well. She will continue with her home exercise program. She will follow up next week as instructed. Feel free to call me at any time should questions regarding her orthopedic management arise. Orders: Orders AMB Joint Injection/Aspiration 02/02/23 M17.11 - Unilateral primary osteoarthritis, right knee AMB Joint Injection/Aspiration 02/02/23 M17.12 - Unilateral primary osteoarthritis, left knee Coding Level of Care Code Procedure Only Diagnoses Arthritis of left knee M17.12 Arthritis of right knee M17.11 CPT Codes Coding - 98140 Large joint: 26551 - Large joint ([id number]) Coding - 90423 Large joint: 95849 - Large joint ([id number])
== END 2023-02-02 15:25 | disposition home or self-care (01) ==
PROVIDERS: PCP Internal Medicine; Visit Provider Orthopaedic Surgery
DX: M17.0 Bilateral primary osteoarthritis of knee (principal)
CPT/HCPCS: 20610

== ENCOUNTER → 2023-02-02 14:26 | Outpatient (BNVA) | payer BC, SELFPAY | PROVIDERS: PCP Internal Medicine; Visit Provider Orthopaedic Surgery | DX: M17.0 Bilateral primary osteoarthritis of knee (principal) | CPT/HCPCS: 20610; J7323 ==

== ENCOUNTER 2023-02-09 14:24 | Outpatient (AMB) | payer BC, SELFPAY ==
--- NOTE | 2023-02-09 14:27 | MHC.OFFVIS ---
Intake Vital Signs 02/09/23 14:28 Height 5 ft 2 in Weight 155 lb BMI 28.3 Intake Visit Reasons: Bilateral Knee Euflexxa #3 Intake Note: Ibis is a 62 year old female who presents today for her bilateral knee Euflexxa #3. The patient states that she has gotten mild relief from the 1st 2 injections. She denies any fevers or chills. Allergies Seasonal Allergies Allergy (Intermediate, Verified 02/09/23 14:28) Headache cat dander Allergy (Mild, Verified 02/09/23 14:28) Sneezing dog dander Allergy (Mild, Verified 02/09/23 14:28) Sneezing PFSH Medical History (Updated 02/09/23 @ 13:05 by TRACY Barry) Sleep apnea No pertinent past medical history Surgical History History of Esmer-en-Y gastric bypass Hx of lumpectomy Hx of tonsillectomy Hx of bladder repair surgery Hx of foot surgery Hx of eye surgery Hx of gastric bypass Family History Mother Hypertension Diabetes Father Hx of CABG Hypertension Social History Housing: House Alcohol intake: current Alcohol intake frequency: a few times a month Patient Tobacco Use Status: Former Tobacco user Tobacco use type: Cigarette Cigarette Packs Per Day: 1 Cigarettes Per Day: 20 Years Smoked: 20 e-Cigarette/Vaping Use: Never Used service: No Current occupational status: employed and 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 Cognitive needs: No Hearing needs: No Vision needs: Yes Physical Exam Vital Signs: BMI result Body Mass Index 28.3 Extrem Other: Bilateral knee examination shows minimal effusions, palpable crepitus with range of motion, pain with range of motion, no instability Office Procedures Joint Injection/Drain Joint Injection/Drain Primary Site: right knee Prep: site was prepped using aseptic technique Injected: 20 mg of (Euflexxa) and 1% plain lidocaine Procedure: The patient tolerated the procedure well Coding 41328 - Large joint Procedure code (CPT) selection complete Joint Injection/Drain Joint Injection/Drain Primary Site: left knee Prep: site was prepped using aseptic technique Injected: 20 mg of (Euflexxa) and 1% plain lidocaine Procedure: The patient tolerated the procedure well Coding 02365 - Large joint Procedure code (CPT) selection complete Results Reviewed Results Reviewed: X-rays of the patient's bilateral knee show joint space narrowing, subchondral sclerosis, no acute bony abnormalities Assessment & Plan Assessment & Plan (1) Arthritis of left knee: Code(s): M17.12 - Unilateral primary osteoarthritis, left knee (2) Arthritis of right knee: Code(s): M17.11 - Unilateral primary osteoarthritis, right knee Plan Ms. Meza presents with bilateral knee pains due to degenerative joint disease. I had a lengthy discussion with the patient regarding the treatment options. She wishes to hold off on surgery for as long as possible. She has not gotten good relief from cortisone injections in the past. The risks and benefits of her 3rd set of Euflexxa injections were discussed at length with the patient. The patient wished to proceed. She tolerated the injections well. She will continue with her home exercise program. She will contact me prior to her follow-up appointment in 3 months should any questions or concerns arise. Feel free to call me at any time should questions regarding her orthopedic management arise. Orders: Orders AMB Joint Injection/Aspiration 02/09/23 M17.12 - Unilateral primary osteoarthritis, left knee AMB Joint Injection/Aspiration 02/09/23 M17.11 - Unilateral primary osteoarthritis, right knee Coding Level of Care Code Procedure Only Diagnoses Arthritis of left knee M17.12 Arthritis of right knee M17.11 CPT Codes Coding - 22985 Large joint: 17475 - Large joint ([id number]) Coding - 22648 Large joint: 16474 - Large joint ([id number])
[2023-02-09 14:28] VITALS: BMI 28.3
== END 2023-02-09 15:02 | disposition home or self-care (01) ==
PROVIDERS: PCP Internal Medicine; Visit Provider Orthopaedic Surgery
DX: M17.0 Bilateral primary osteoarthritis of knee (principal)
CPT/HCPCS: 20610

== ENCOUNTER → 2023-02-09 14:24 | Outpatient (BNVA) | payer BC, SELFPAY | PROVIDERS: PCP Internal Medicine; Visit Provider Orthopaedic Surgery | DX: M17.0 Bilateral primary osteoarthritis of knee (principal) | CPT/HCPCS: 20610; J7323 ==

== ENCOUNTER 2023-02-18 13:44 | Outpatient (AMB) | payer BC, SELFPAY ==
--- NOTE | 2023-02-18 13:45 | MHC.OFFVIS ---
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 Pt reports having trouble word finding, and losing word what she knows. But it happens occasionally, not daily basis. It takes time to find the word. She noticed that it happens more since last year. 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 Denies difficulty concentration or learning new information. Denies head injury or headache. She takes cares of bills and finances. She reports hx of gastric bypass in 2016 and lost 150 lb. Pt had a home sleep study, and the result was no sleep apnea. She reports that she does not sleep well. No problem falling asleep but wakes up almost every 2 hrs. 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 She tried melatonin but she felt weird and not using it. 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 She has new prescription glasses, trifocal glass, she sees better. No hearing problems. She check her hearing every year. Denies depression or anxiety. [facility] Medical History Sleep apnea No pertinent past medical history Surgical History History of Esmer-en-Y gastric bypass Hx of lumpectomy Hx of tonsillectomy Hx of bladder repair surgery Hx of foot surgery Hx of eye surgery Hx of gastric bypass Family History Mother Hypertension Diabetes Father Hx of CABG Hypertension Social History Housing: House Alcohol intake: current Alcohol intake frequency: a few times a month Patient Tobacco Use Status: Former Tobacco user Tobacco use type: Cigarette Cigarette Packs Per Day: 1 Cigarettes Per Day: 20 Years Smoked: 20 e-Cigarette/Vaping Use: Never Used service: No Current occupational status: employed and 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 Cognitive needs: No Hearing needs: No Vision needs: Yes Review of Systems Const All systems reviewed & are unremarkable except as noted in HPI and below Physical Exam Vital Signs: Last Vital Signs Pulse 82 02/18/23 13:49 BP 114/76 02/18/23 13:49 Pulse Ox 98 02/18/23 13:49 Oxygen Delivery Method Room Air 02/18/23 13:49 BMI result Body Mass Index 28.8 Const General: cooperative Nutritional Appearance: overweight Orientation/consciousness: patient oriented x3 Neck Neck: Yes full ROM and Yes supple Resp Effort & Inspection: normal respiratory effort and able to speak in complete sentences Neuro General: patient oriented x3 and gait normal Cranial nerves: Yes CN's II-XII intact bilaterally Cognition (Neuro): normal cognition Gait exam (Neuro): Normal gait present Motor exam (neuro): 5/5 motor strength present throughout, Pronator motor function not present and no tremor noted Psych Appearance: grossly normal Mental Status: mental status grossly normal Speech and movement: Normal speech and movement present Affect: normal affect Attitude: cooperative Orientation What is the (year) (season) (date) (day) (month)?: year, season, date, day and month Where are we (state) (county) (town or city) (hospital) (floor)?: state, county, town or city, hospital/clinic and floor Registration Name of 3 unrelated objects clearly and slowly, then ask patient to repeat all 3 of them. (1st repeat determines score. Make sure they can repeat all three): object 1, object 2 and object 3 Attention & Calculation (CHOOSE ONE) Spell WORLD backwards (DLROW): 5 letters Recall Ask patient to repeat the 3 items from question #3.: object 1, object 2 and object 3 Language Show patient a wristwatch & ask what it is. Repeat for pencil.: watch and pencil Ask the patient to repeat the phrase 'No ifs, ands, or buts' after you.: correct Ask the patient to 'take a piece of paper with their right hand' 'fold paper in half' 'place paper on floor': take paper in right hand, fold paper in half and place paper on floor Print the sentence 'CLOSE YOUR EYES' on a piece. If patient actually closes eyes then score.: followed written direction Give patient a blank piece of paper & ask to write a sentence. Score if it contains a noun & verb.: sentence contains subject and verb Ask patient to copy figure of intersecting pentagons exactly. Score if all 10 angles & 2 intersects are included.: all 10 angles present & 2 are intersected Score Score: 30 Assessment & Plan Assessment & Plan (1) Word finding difficulty: Code(s): R47.89 - Other speech disturbances (2) Sleeping difficulty: Code(s): G47.9 - Sleep disorder, unspecified Plan Word finding difficulty can be from sleep deprivation. Pt did well MMSE today. Sleep hygiene education provided. Advised patient to try magnesium supplement for sleep. Refer patient speech therapy to do cognitive therapy. Orders: Referrals Speech and Hearing Referral R41.3 - Other amnesia Coding Level of Care Code New Pt Level 4 (24362) Diagnoses Word finding difficulty R47.89 Sleeping difficulty G47.9
[2023-02-18 13:49] VITALS: BP 114/76; PULSE 82; O2SAT 98; BMI 28.8
== END 2023-02-18 14:34 | disposition home or self-care (01) ==
PROVIDERS: PCP Internal Medicine; Visit Provider Nurse Practitioner Family
DX: R47.89 Other speech disturbances (principal); G47.9 Sleep disorder, unspecified
CPT/HCPCS: 99204

== ENCOUNTER → 2023-02-18 13:44 | Outpatient (BNVA) | payer BC, SELFPAY | PROVIDERS: PCP Internal Medicine; Visit Provider Nurse Practitioner Family ==

== ENCOUNTER 2023-05-07 07:37 | Day surgery (SDC) | payer BC, SELFPAY ==
[2023-05-05 14:29] VITALS: BMI 28.4
--- NOTE | 2023-05-05 15:02 | HO.ANESPROP2 ---
HPI - Anesthesia Eval Consult details Narrative: 63yo F for Colonoscopy PMFSH Active Problems Active Problems: All Active Problems (Updated 05/05/23 @ 14:30 by Hortencia Canseco RN) Sleeping difficulty (Acute) Word finding difficulty (Acute) Snoring (Acute) Urinary incontinence (Acute) Elevated LFTs (Acute) Arthritis of right knee (Acute) Arthritis of left knee (Acute) Memory change (Acute) Left hip pain (Acute) Bilateral knee pain (Acute) Arthritis (Acute) Overweight (Acute) Hx of gastric bypass (Acute) Past Medical History Medical History Urinary incontinence Arthritis Sleep apnea Family History Family History Mother Hypertension Diabetes Father Hx of CABG Hypertension Surgical History Surgical History H/O colonoscopy History of Esmer-en-Y gastric bypass Hx of lumpectomy Hx of tonsillectomy Hx of bladder repair surgery Hx of foot surgery Hx of eye surgery Hx of gastric bypass Social History Social History Housing: House Alcohol intake: current Alcohol intake frequency: a few times a month Patient Tobacco Use Status: Former Tobacco user Tobacco use type: Cigarette Cigarette Packs Per Day: 1 Cigarettes Per Day: 20 Years Smoked: 20 e-Cigarette/Vaping Use: Never Used Use of substances other than those prescribed or required for medical reasons: No Are you DNR?: No Advance Directives: No Advance Directives Information Provided: Yes Patient : No service: No Current occupational status: employed and 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 Cognitive needs: No Hearing needs: No Vision needs: Yes Meds Allergies Allergy/AdvReac Type Severity Reaction Status Date / Time Seasonal Allergies Allergy Intermediate Headache Verified 05/07/23 07:46 cat dander Allergy Mild Sneezing Verified 05/07/23 07:46 dog dander Allergy Mild Sneezing Verified 05/07/23 07:46 Home Medications Medication Instructions Recorded Confirmed Last Taken Type solifenacin 10 mg tablet 10 mg PO DAILY 07/28/22 05/07/23 Unknown History biotin 5,000 mcg disintegrating 10,000 mcg PO DAILY 11/19/22 05/07/23 Unknown History tablet calcium carbonate 600 mg calcium 600 mg PO DAILY 11/19/22 05/07/23 Unknown History (1,500 mg) tablet (Calcium) cetirizine 10 mg capsule (Zyrtec) 10 mg PO DAILY PRN Allergy Symptoms 11/19/22 05/07/23 Unknown History cholecalciferol (vitamin D3) 50 50 mcg PO DAILY 11/19/22 05/07/23 Unknown History mcg (2,000 unit) capsule multivitamin with iron (Daily 1 tab PO DAILY 11/19/22 05/07/23 Unknown History Multiple Vitamins with Iron tablet) azelastine 137 mcg-fluticasone 50 1 spray intranasal BID 01/04/23 05/07/23 Unknown History mcg/spray nasal spray Exam Height,Weight and Vital Signs: Height 5 ft 2.5 in Weight 71.668 kg Assessment and Plan Assessment Anesthesia Assessment: Chart Reviewed
[2023-05-07 07:46] VITALS: BMI 27.9
[2023-05-07 08:13] VITALS: BP 129/61; PULSE 58; RESP 16; TEMP 37.1; O2SAT 100
--- NOTE | 2023-05-07 08:29 | HO.ANESPROP2 ---
[facility] Active Problems Active Problems: All Active Problems (Updated 05/05/23 @ 14:32 by Hortencia Canseco RN) Sleeping difficulty (Acute) Word finding difficulty (Acute) Snoring (Acute) Urinary incontinence (Acute) Elevated LFTs (Acute) Arthritis of right knee (Acute) Arthritis of left knee (Acute) Memory change (Acute) Left hip pain (Acute) Bilateral knee pain (Acute) Arthritis (Acute) Overweight (Acute) Hx of gastric bypass (Acute) Past Medical History Medical History Urinary incontinence Arthritis Sleep apnea Functional capacity: independent ambulation Patient : No Family History Family History Mother Hypertension Diabetes Father Hx of CABG Hypertension Family history of problems with anesthesia: No Surgical History Surgical History H/O colonoscopy History of Esmer-en-Y gastric bypass Hx of lumpectomy Hx of tonsillectomy Hx of bladder repair surgery Hx of foot surgery Hx of eye surgery Hx of gastric bypass Social History Social History Housing: House Alcohol intake: current Alcohol intake frequency: a few times a month Patient Tobacco Use Status: Former Tobacco user Tobacco use type: Cigarette Cigarette Packs Per Day: 1 Cigarettes Per Day: 20 Years Smoked: 20 e-Cigarette/Vaping Use: Never Used Use of substances other than those prescribed or required for medical reasons: No Are you DNR?: No Advance Directives: No Advance Directives Information Provided: Yes service: No 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 occupational status: employed and 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 Cognitive needs: No Hearing needs: No Vision needs: Yes Meds Allergies Allergy/AdvReac Type Severity Reaction Status Date / Time Seasonal Allergies Allergy Intermediate Headache Verified 05/07/23 07:46 cat dander Allergy Mild Sneezing Verified 05/07/23 07:46 dog dander Allergy Mild Sneezing Verified 05/07/23 07:46 Active Medications: Current Medications Lactated Ringer's (Lr) 1,000 mls @ 100 mls/hr IVCONT .Q10H MIGUEL Sodium Biphosphate/Sodium Phosphate (Sodium Phosphate,Deaf Smith-Dibasic 133 Ml Enema) 133 ml MT ONCE PRN PRN Reason: Poor Colonoscopy Prep Results Home Medications Medication Instructions Recorded Confirmed Last Taken Type solifenacin 10 mg tablet 10 mg PO DAILY 07/28/22 05/07/23 Unknown History biotin 5,000 mcg disintegrating 10,000 mcg PO DAILY 11/19/22 05/07/23 Unknown History tablet calcium carbonate 600 mg calcium 600 mg PO DAILY 11/19/22 05/07/23 Unknown History (1,500 mg) tablet (Calcium) cetirizine 10 mg capsule (Zyrtec) 10 mg PO DAILY PRN Allergy Symptoms 11/19/22 05/07/23 Unknown History cholecalciferol (vitamin D3) 50 50 mcg PO DAILY 11/19/22 05/07/23 Unknown History mcg (2,000 unit) capsule multivitamin with iron (Daily 1 tab PO DAILY 11/19/22 05/07/23 Unknown History Multiple Vitamins with Iron tablet) azelastine 137 mcg-fluticasone 50 1 spray intranasal BID 01/04/23 05/07/23 Unknown History mcg/spray nasal spray Exam Height,Weight and Vital Signs: Height 5 ft 2.5 in Weight 70.307 kg Last Vital Signs Temp 98.8 F 05/07/23 08:13 Pulse 58 05/07/23 08:13 Resp 16 05/07/23 08:13 BP 129/61 05/07/23 08:13 Pulse Ox 100 05/07/23 08:13 O2 Del Method Room Air 05/07/23 08:13 Airway Mallampati Class: II TM Dist: >3cm Neck ROM: Full Heart: RRR Lungs: CTA Assessment and Plan Final Anesthetic Review Family History of Problems with Anesthesia: No NPO: Yes ASA Class: II Final Preanesthetic Review: Meds/Allgs Chart Reviewed, Consent Obtained/Reviewed and Anes Risks/Benef Reviewed Patient Risk: Low Procedure Risk: Low Anesthetic Plan Anesthetic Plan: MAC: Disposition: Standard PACU
[2023-05-07] MEDS: Lactated Ringers 1,000 ML 100 ML IVCONT (08:31)
--- NOTE | 2023-05-07 09:42 | PM.OP ---
Brief Operative Note Date of Service: 05/07/23 Pre-op diagnosis: Screening Post-op diagnosis: other (Colon polyp) Procedure: Colonoscopy to the cecum with hot snare polypectomy Surgeon: Montez Muñoz MD Anesthesia: MAC Was an Business Systems Analyst used for this Procedure?: No Estimated blood loss (mL): 0 Pathology: other (A. Polyp at 20cm) Condition: stable Disposition: PACU
[2023-05-07 09:43] VITALS: BP 105/54; PULSE 50; RESP 16; TEMP 36.1; O2SAT 98
[2023-05-07 09:58] VITALS: BP 109/56; PULSE 51; RESP 16; TEMP 36.1; O2SAT 98
--- NOTE | 2023-05-07 10:10 | HO.POSTANES ---
Post Anesthesia Evaluation Post Anesthesia Evaluation Date of Service: 05/07/23 Vital Signs: Vital Signs Temp Pulse Resp BP Pulse Ox O2 Del Method 05/07/23 09:58 97 F 51 16 109/56 L 98 Room Air 05/07/23 09:43 97 F 50 16 105/54 L 98 Room Air 05/07/23 08:13 98.8 F 58 16 129/61 100 Room Air Anesthesia: Monitored Mental Status: Awake Pain Control: Satisfactory Nausea/Vomiting: None Hydration: Adequate Anesthesia-Related Issues: No Anes. Related Issues
--- NOTE | 2023-05-07 12:29 | OP_ITS ---
DATE OF SERVICE: 05/07/2023 SURGEON: Montez Muñoz MD INDICATIONS: The patient presents for evaluation of colorectal cancer screening. Full consent has been obtained from her for this, including risks of bleeding and perforation. PREOPERATIVE DIAGNOSIS: Colorectal cancer screening. POSTOPERATIVE DIAGNOSIS: Colorectal cancer screening, colon polyp, mild diverticulosis, and internal hemorrhoids. PROCEDURE PERFORMED: Colonoscopy to the cecum with hot snare polypectomy. ESTIMATED BLOOD LOSS: COMPLICATIONS: ANESTHESIA: Monitored anesthesia care. ASSISTANTS: SPECIMENS: DESCRIPTION OF PROCEDURE: The patient was placed in the left lateral decubitus position. The digital rectal exam revealed no abnormalities. The Olympus video pediatric colonoscope was entered into the rectum and advanced easily to the cecum. Once in the cecum, I did identify normal-appearing cecal pouch with appendiceal orifice and a normal-appearing ileocecal valve. The entire cecum and ileocecal valve appeared normal. The scope was slowly withdrawn, assessing all mucosal surfaces carefully. Preparation was excellent. At 20 cm was an approximately 12 mm flat, but raised polyp. This was removed by hot snare polypectomy in piecemeal fashion. Pieces were recovered by suction. The polypectomy site appeared clean, without any sign of residual polyp nor bleeding. I did not visualize any other polyps, colitis, or angiodysplasia. There was a mild amount of sigmoid diverticulosis. In the rectum, scope was retroflexed, visualizing internal hemorrhoids, but no other pathology. The rectal mucosa appeared normal. Scope was straightened and withdrawn from the patient. She tolerated the procedure well and was returned to the recovery area in stable condition. IMPRESSION: 1. Colon polyp. 2. Diverticulosis. 3. Internal hemorrhoids. PLAN: The results of biopsies will be checked. I would recommend a repeat colonoscopy in 5 years for further screening. She was advised not to use any aspirin or NSAIDs for 1 week. MD RADHA Parsons/LETY / [phone] DIONICIO
== END 2023-05-07 10:30 | disposition home or self-care (01) ==
PROVIDERS: PCP Internal Medicine; Visit Provider Internal Medicine
PROC: 0DJD8ZZ Inspection of Lower Intestinal Tract, Via Natural or Artificial Opening Endoscopic (ICD-10-PCS; CPT 45378; principal; 2023-05-07 08:50)
DX: Z12.11 Encounter for screening for malignant neoplasm of colon (principal); Z86.010 Personal history of colon polyps; D12.5 Benign neoplasm of sigmoid colon; K57.30 Diverticulosis of large intestine without perforation or abscess without bleeding; K64.8 Other hemorrhoids; K59.00 Constipation, unspecified; R32 Unspecified urinary incontinence; G47.33 Obstructive sleep apnea (adult) (pediatric); J30.2 Other seasonal allergic rhinitis; Z87.891 Personal history of nicotine dependence; Z98.84 Bariatric surgery status; Z98.890 Other specified postprocedural states; Z79.52 Long term (current) use of systemic steroids; Z79.899 Other long term (current) drug therapy
CPT/HCPCS: 45385; 88305; J2704

== ENCOUNTER 2023-05-11 12:59 | Outpatient (AMB) | payer BC, SELFPAY ==
--- NOTE | 2023-05-11 13:05 | A.OFFVIS_ITS ---
Intake Vital Signs 05/11/23 13:06 Height 5 ft 2.5 in Weight 158 lb BMI 28.4 BP 124/74 Intake Visit Reasons: New patient Annual Electrical Test Engineer: Electrical Test Engineer Present (Estela) Allergies Seasonal Allergies Allergy (Intermediate, Verified 05/11/23 13:10) Headache cat dander Allergy (Mild, Verified 05/11/23 13:10) Sneezing dog dander Allergy (Mild, Verified 05/11/23 13:10) Sneezing HPI HPI Comments History of Present Illness Details She is a postmenopausal woman presenting for her annual supervisor fitting examination. She is doing well with no concerns. Attempting to eat a healthy diet with calcium and vitamin D and stays active with exercise. Currently sexually active with her . Denies any vaginal dryness or irritation. Last pap smear; 2014. Last mammogram; 2022. Colonoscopy is UTD. Denies any family history of breast, ovarian or colon cancer. PFSH Medical History Urinary incontinence Arthritis Sleep apnea Surgical History H/O colonoscopy History of Esmer-en-Y gastric bypass Hx of lumpectomy Hx of tonsillectomy Hx of bladder repair surgery Hx of foot surgery Hx of eye surgery Hx of gastric bypass Family History Mother Hypertension Diabetes Father Hx of CABG Hypertension Prostate CA Bone cancer Sister History of breast cancer Cervical cancer Maternal Grandmother History of breast cancer Paternal Aunt History of breast cancer Social History Housing: House Alcohol intake: current Alcohol intake frequency: a few times a month Patient Tobacco Use Status: Former Tobacco user Tobacco use type: Cigarette Cigarette Packs Per Day: 1 Cigarettes Per Day: 20 Years Smoked: 20 e-Cigarette/Vaping Use: Never Used service: No Current occupational status: employed and 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 Sexually active: Yes Sexual orientation: Straight/Heterosexual Gender identity: Female Cognitive needs: No Hearing needs: No Vision needs: Yes Female Reproductive History Menstrual Total pregnancies: 7 Full term: 3 Number of Living Children: 3 Ab spontaneous: 4 Date of last pap smear: 01/03/15 (neg pap and hpv) Date of Mammogram: 09/18/22 (Birad 1) Review of Systems Const All systems reviewed & are unremarkable except as noted in HPI and below Reports as per HPI Eyes Reports no additional complaints ENT Reports no additional complaints Card Reports no additional complaints Resp Reports no additional complaints GI Reports as per HPI and Reports no additional complaints Reports as per HPI Musc Reports no additional complaints Skin/Breast Reports as per HPI Neuro Reports no additional complaints Psych Reports no additional complaints Endo Reports no additional complaints Damian/Lymph Reports no additional complaints Aller/Immun Reports no additional complaints Physical Exam Vital Signs: Last Vital Signs BP 124/74 05/11/23 13:06 BMI result Body Mass Index 28.4 Const General: cooperative, healthy appearing, no acute distress, well developed and alert Orientation/consciousness: patient oriented x3 HEENT Head: Yes normal to inspection Eyes General: appearance normal, both eyes and all related structures Neck Neck: Yes normal visual inspection Thyroid: Thyroid normal Chest Chest palpation & inspection: normal inspection of the chest and other (no puckering, dimpling, peau de orange, retraction, discharge, masses) Breast/axilla inspection: normal inspection of the breasts Breast/axilla palpation: normal palpation of the breasts Resp Effort & Inspection: normal respiratory effort GI Inspection: Yes normal to inspection Palpation (GI): Soft to palpation Rectal Exam - Female: deferred General: Yes bladder normal to palpation External Female Exam: normal external appearance and normal appearance of the urethra Speculum Exam - Vagina: normal appearance of the vagina, normal palpation, normal vaginal discharge and vagina atrophic Speculum Exam - Cervix: normal appearance of the cervix, normal palpation and Other cervical findings present (bled with Pap) Bimanual exam- vagina & uterus: normal bimanual exam, normal palpation, uterine size normal, bladder normal to palpation, normal palpation and non-tender Bimanual Exam- Adnexa, other: no masses Skin General skin exam: no rashes or lesions noted Rashes: no rashes Neuro General: patient oriented x3 Cognition (Neuro): normal cognition Extrem General: Yes normal to inspection Psych Attitude: cooperative Thought process: Normal thought process present Assessment & Plan Assessment & Plan (1) Encounter for well woman exam with routine gynecological exam: Code(s): Z01.419 - Encounter for gynecological examination (general) (routine) without abnormal findings Plan Discussed: Current recommendations for pap smears per ASCCP guidelines. Breast awareness, periodic self breast exams and yearly mammogram. Maintain a healthy lifestyle, well balanced diet including Calcium 1,200 mg and Vitamin D 600 IU daily, and routine exercise. Contact the office with any postmenopausal bleeding. Patient verbalizes understanding and agrees to the plan of care. She was given opportunity to ask questions and all questions were answered to the best of my ability. RTO in 1 year for annual supervisor fitting exam. This note is constructed using voice recognition software. While every effort has been made to ensure accuracy, human service technician errors may have been included. Orders: Orders Pap Smear Today Z01.419 - Encounter for gynecological examination (general) (routine) without abnormal findings Coding Level of Care Code New Pt Prev Care 40-64y(03983) Diagnoses Encounter for well woman exam with routine gynecological exam Z01.419
[2023-05-11 13:06] VITALS: BP 124/74; BMI 28.4
== END 2023-05-11 13:48 | disposition home or self-care (01) ==
PROVIDERS: PCP Internal Medicine; Visit Provider Advanced Practice Midwife
DX: Z01.419 Encounter for gynecological examination (general) (routine) without abnormal findings (principal)
CPT/HCPCS: 99386

== ENCOUNTER 2023-05-11 12:59 | Outpatient (REF) | payer BC, SELFPAY ==
[2023-05-13 21:14] LABS: HPV mRNA E6/E7 rflx Not Detected (Not Detected)
== END 2023-05-11 13:00 | disposition home or self-care (01) ==
LOC: HO.LNP 12:59
PROVIDERS: PCP Internal Medicine; Visit Provider Advanced Practice Midwife
DX: Z01.419 Encounter for gynecological examination (general) (routine) without abnormal findings (principal); Z11.51 Encounter for screening for human papillomavirus (HPV)
CPT/HCPCS: 87624; 88142

== ENCOUNTER 2023-06-29 14:42 | Outpatient (AMB) | payer BC, SELFPAY ==
--- NOTE | 2023-06-29 14:42 | A.OFFVIS_ITS ---
Vital Signs 06/29/23 14:43 Height 5 ft 2.5 in Weight 158 lb BMI 28.4 Intake Visit Reasons: OV- B/L Knee pain Intake Note: Ibis is a 63 year old female who presents for a follow up for her bilateral knee pain. Patient reports she had her final bilateral euflexxa injections on 02-09-2023 and it gave her relief. She states once in a while she feels some jabbing pain. No pain today. She denies any locking or giving way. Housekeeping Laundry Worker Required: No Accompanied by: Self / Same As Patient Allergies Seasonal Allergies Allergy (Intermediate, Verified 06/29/23 14:43) Headache cat dander Allergy (Mild, Verified 06/29/23 14:43) Sneezing dog dander Allergy (Mild, Verified 06/29/23 14:43) Sneezing Medication List - Last Reconciled 06/29/23 by William Rodrigez MD azelastine-fluticasone 137-50 mcg/spray 1 spray intranasal BID biotin 10,000 mcg PO DAILY calcium carbonate (Calcium 600) 600 mg PO DAILY cetirizine (Zyrtec) 10 mg PO DAILY PRN cholecalciferol (vitamin D3) 50 mcg PO DAILY multivitamin with iron (Daily Multiple Vitamins with Iron tablet) 1 tab PO DAILY solifenacin 10 mg PO DAILY PFSH Medical History Urinary incontinence Arthritis Sleep apnea Surgical History H/O colonoscopy History of Esmer-en-Y gastric bypass Hx of lumpectomy Hx of tonsillectomy Hx of bladder repair surgery Hx of foot surgery Hx of eye surgery Hx of gastric bypass Family History Mother Hypertension Diabetes Father Hx of CABG Hypertension Prostate CA Bone cancer Sister History of breast cancer Cervical cancer Maternal Grandmother History of breast cancer Paternal Aunt History of breast cancer Social History Housing: House Alcohol intake: current Alcohol intake frequency: a few times a month Patient Tobacco Use Status: Former Tobacco user Tobacco use type: Cigarette Cigarette Packs Per Day: 1 Cigarettes Per Day: 20 Years Smoked: 20 e-Cigarette/Vaping Use: Never Used service: No 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 occupational status: employed and 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 Sexual 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: Straight/Heterosexual Gender identity: Female Cognitive needs: No Hearing needs: No Vision needs: Yes Physical Exam Vital Signs: BMI result Body Mass Index 28.4 Const Other: Well-nourished well-developed very friendly female awake alert and oriented x3 in no acute distress Extrem Other: Bilateral lower extremity examination shows good capillary refill, no skin lesions noted, normal sensation light touch Bilateral knee examination shows minimal effusions, palpable crepitus with range of motion, pain with range of motion, no instability Assessment & Plan Assessment & Plan (1) Arthritis of right knee: Code(s): M17.11 - Unilateral primary osteoarthritis, right knee Category: Medical (2) Arthritis of left knee: Code(s): M17.12 - Unilateral primary osteoarthritis, left knee Category: Medical Plan Ms. Meza presents with bilateral knee pains due to degenerative joint disease. I had a lengthy discussion with the patient regarding the treatment options. At this point the patient's symptoms are tolerable to her. She will continue with her activity modifications. She will follow up with me on an as-needed basis should his symptoms worsen in any way. Feel free to call me at any time should questions regarding her orthopedic management arise. I spent 20 minutes in reviewing the patient's records and imaging studies, seeing the patient and documenting in the medical record. Coding Level of Care Code Est Pt Level 3 (69921) Diagnoses Arthritis of right knee M17.11 Arthritis of left knee M17.12
[2023-06-29 14:43] VITALS: BMI 28.4
== END 2023-06-29 15:01 | disposition home or self-care (01) ==
PROVIDERS: PCP Internal Medicine; Visit Provider Orthopaedic Surgery
DX: M17.0 Bilateral primary osteoarthritis of knee (principal)
CPT/HCPCS: 99213

== ENCOUNTER → 2023-06-29 14:42 | Outpatient (BNVA) | payer BC, SELFPAY | PROVIDERS: PCP Internal Medicine; Visit Provider Orthopaedic Surgery ==

== ENCOUNTER 2023-07-01 11:13 | Outpatient (AMB) | payer BC, SELFPAY ==
--- NOTE | 2023-07-01 11:35 | A.OFFVIS_ITS ---
Vital Signs 07/01/23 11:46 Height 5 ft 2.5 in Weight 164 lb BMI 29.5 BP 124/70 Blood Pressure Location Rt brachial Position Sitting Pulse 66 Pulse Source Pulse Oximeter Pulse Oximetry (%) 98 Oxygen Delivery Method Room Air Intake Visit Reasons: 4 mo f/u Amnesia - LVM w/add Intake Note: Patient presents for 4 month's f/u. Allergies Seasonal Allergies Allergy (Intermediate, Verified 07/01/23 11:38) Headache cat dander Allergy (Mild, Verified 07/01/23 11:38) Sneezing dog dander Allergy (Mild, Verified 07/01/23 11:38) Sneezing Medication List - Last Reconciled 07/01/23 by TRACY Vargas azelastine-fluticasone 137-50 mcg/spray 1 spray intranasal BID biotin 10,000 mcg PO DAILY calcium carbonate (Calcium 600) 600 mg PO DAILY cetirizine (Zyrtec) 10 mg PO DAILY PRN cholecalciferol (vitamin D3) 50 mcg PO DAILY multivitamin with iron (Daily Multiple Vitamins with Iron tablet) 1 tab PO DAILY solifenacin 10 mg PO DAILY HPI Comments Details: 63-yr-old female presents for f/u visit. Pt has recently had a new bladder stimulator replacement, states she she has always had a weak bladder which was exacerbated after having children. She is f/ b Dr Sanchez at Urology. Pt reports she continues to have difficulty sleeping more than 2 hrs. 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 Her HST showed AHI 1.7/hr, O2 ramy 84%, and snoring 67% of study. PCP referred her to ENT- but has not heard yet. Does note a h/o allergies- uses zyrtec and nasal sprays. Pt thought was snoring was better after wt loss surgery. Previously tried Melatonin- but it made her feel weird. May have occasional word finding difficulty, but the words do eventually come to her. [facility] Medical History (Updated 07/01/23 @ 11:46 by Farheen Wilson CMA) Sacral neurostimulator in situ Urinary incontinence Arthritis Sleep apnea Surgical History H/O colonoscopy History of Esmer-en-Y gastric bypass Hx of lumpectomy Hx of tonsillectomy Hx of bladder repair surgery Hx of foot surgery Hx of eye surgery Hx of gastric bypass Family History Mother Hypertension Diabetes Father Hx of CABG Hypertension Prostate CA Bone cancer Sister History of breast cancer Cervical cancer Maternal Grandmother History of breast cancer Paternal Aunt History of breast cancer Social History Housing: House Alcohol intake: current Alcohol intake frequency: a few times a month Patient Tobacco Use Status: Former Tobacco user Tobacco use type: Cigarette Cigarette Packs Per Day: 1 Cigarettes Per Day: 20 Years Smoked: 20 e-Cigarette/Vaping Use: Never Used service: No Current occupational status: employed and 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 Sexual orientation: Straight/Heterosexual Gender identity: Female Cognitive needs: No Hearing needs: No Vision needs: Yes Review of Systems Const All systems reviewed & are unremarkable except as noted in HPI and below Physical Exam Vital Signs: Last Vital Signs Pulse 66 07/01/23 11:46 BP 124/70 07/01/23 11:46 Pulse Ox 98 07/01/23 11:46 Oxygen Delivery Method Room Air 07/01/23 11:46 BMI result Body Mass Index 29.5 Const General: cooperative and no acute distress Orientation/consciousness: patient oriented x3 HEENT Head: Yes normocephalic Resp Effort & Inspection: normal respiratory effort and able to speak in complete sentences Neuro General: patient oriented x3, gait normal and CN's II-XI intact bilaterally Cognition (Neuro): normal cognition Motor exam (neuro): 5/5 motor strength present throughout Psych Appearance: grossly normal Mental Status: mental status grossly normal Speech and movement: Normal speech and movement present Affect: normal affect Attitude: cooperative Thought process: Normal thought process present Thought content: Normal thought content present Insight: Good insight present (Psych) Judgement: Good judgement present (Psych) Assessment & Plan Assessment & Plan (1) Sleeping difficulty: Code(s): G47.9 - Sleep disorder, unspecified Category: Medical (2) Word finding difficulty: Code(s): R47.89 - Other speech disturbances Category: Medical (3) Snoring: Code(s): R06.83 - Snoring Category: Medical Plan Information shared on sleep hygiene and because cognitive behavioral therapy strategies to optimize sleep hygiene, specifically r/t shift-work disorder. She may benefit from re-trying Melatonin 1-3mg extended release at onste of sleep- as melatonin is more helpful in shift work disorder. Concur w/ referral to ENT. Will f/u on status. Monitor cognition. Coding Level of Care Code Est Pt Level 3 (51258) Diagnoses Sleeping difficulty G47.9 Word finding difficulty R47.89 Snoring R06.83
[2023-07-01 11:46] VITALS: BP 124/70; PULSE 66; O2SAT 98; BMI 29.5
== END 2023-07-01 12:09 | disposition home or self-care (01) ==
PROVIDERS: PCP Internal Medicine; Visit Provider Nurse Practitioner Family
DX: G47.9 Sleep disorder, unspecified (principal); R47.89 Other speech disturbances; R06.83 Snoring
CPT/HCPCS: 99213

== ENCOUNTER → 2023-07-01 11:13 | Outpatient (BNVA) | payer BC, SELFPAY | PROVIDERS: PCP Internal Medicine; Visit Provider Nurse Practitioner Family ==

== ENCOUNTER 2023-07-07 15:22 | Outpatient (AMB) | payer BC, SELFPAY ==
--- NOTE | 2023-07-07 15:24 | A.OFFVIS_ITS ---
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 Required: No Allergies Seasonal Allergies Allergy (Intermediate, Verified 07/07/23 15:36) Headache cat dander Allergy (Mild, Verified 07/07/23 15:36) Sneezing dog dander Allergy (Mild, Verified 07/07/23 15:36) Sneezing Medication List - Last Reconciled 07/07/23 by KEVIN Salazar azelastine-fluticasone 137-50 mcg/spray 1 spray intranasal BID biotin 10,000 mcg PO DAILY calcium carbonate (Calcium 600) 600 mg PO DAILY cetirizine (Zyrtec) 10 mg PO DAILY PRN cholecalciferol (vitamin D3) 50 mcg PO DAILY multivitamin with iron (Daily Multiple Vitamins with Iron tablet) 1 tab PO DAILY solifenacin 10 mg PO DAILY HPI Comments Details: 63-year-old female returns to the office today in follow-up. She is approximately 7 years status post gastric bypass performed on 07/16/2016. Weight today is 160.8 lb with a BMI of 28.9. She states she sometimes gets a burning sensation when eating and recognizes she is eating too quickly. Occasionally straining to move bowels. Started fiber gummy 2 daily over the last six months. Out of work for the last month due to changing bladder stim battery. typically 12 hr work days 3 am-3 pm States her goal is 135 pounds. Meal plan: coffee 2 % milk and a banana cup of cheerios coffee fruit or protein bar (pure protein-20 gm) premier protein 30 gm rtd shake 3 oz protein and 2 oz rice or potatoe or veg Drinking 16 oz water daily Exercise plan: on feet at work. Any post op complications: None SHARLENE: Resolved DM: Never HTN: Never Hyperlipidemia: Never GERD:?0-5 scale ??0 = no symptoms ??1 = symptoms noticeable but not bothersome 2 =symptoms bothersome but not daily ? 3 = symptoms bothersome and daily 4 = symptoms affect daily activities 5 = symptoms are incapacitating, unable to do daily activities ? How bad is the heartburn: 0 ? Heartburn while lying down: 0 ? Heartburn when standing up: 0 ? Heartburn after meals: 0 ? Does heartburn change your diet: 0 ? Does heartburn wake you up from sleep: 0 ? Do you have difficulty swallowin ? Do you have pain with swallowin ? If you take medicine for your reflux, does this affect your daily life: 0 Satisfaction with present condition - satisfied or not satisfied: mostly satisfied [facility] Medical History Sacral neurostimulator in situ Urinary incontinence Arthritis Sleep apnea Surgical History H/O colonoscopy History of Esmer-en-Y gastric bypass Hx of lumpectomy Hx of tonsillectomy Hx of bladder repair surgery Hx of foot surgery Hx of eye surgery Hx of gastric bypass Family History Mother Hypertension Diabetes Father Hx of CABG Hypertension Prostate CA Bone cancer Sister History of breast cancer Cervical cancer Maternal Grandmother History of breast cancer Paternal Aunt History of breast cancer Social History Housing: House Alcohol intake: current Alcohol intake frequency: a few times a month Patient Tobacco Use Status: Former Tobacco user Tobacco use type: Cigarette Cigarette Packs Per Day: 1 Cigarettes Per Day: 20 Years Smoked: 20 e-Cigarette/Vaping Use: Never Used service: No Current occupational status: employed and 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 Sexual orientation: Straight/Heterosexual Gender identity: Female Cognitive needs: No Hearing needs: No Vision needs: Yes Physical Exam Const General: cooperative and no acute distress Orientation/consciousness: patient oriented x3 Resp Effort & Inspection: normal respiratory effort Auscultation: clear to auscultation bilaterally Cardio Rate: regular rate Rhythm: regular rhythm GI Inspection: Yes normal to inspection and Yes incision (well healed) Palpation (GI): Soft to palpation and no masses Neuro General: patient oriented x3 Assessment & Plan Assessment & Plan (1) Hx of gastric bypass: Code(s): Z98.84 - Bariatric surgery status Category: Surgical Plan: Check yearly labs. Change meal plan: Coffee Half bar Half bar Premier protein ready to drink shake Meal 3 oz protein 2 oz veggies Fresh fruit Increase water intake to 50 oz daily Resume cardio activities including stationary bike and elliptical which she has at home. Return to the office 3 months (2) Constipation: Code(s): K59.00 - Constipation, unspecified Category: Medical Plan: Discussed the importance of water intake and constipation. Offered stool softeners. Patient declined. States she will get [id number] Colace Orders: Orders Insulin Today E66.3 - Overweight, Z98.84 - Bariatric surgery status Hemoglobin A1c Today E66.3 - Overweight, Z98.84 - Bariatric surgery status Complete Blood Count Auto Diff Today E66.3 - Overweight, Z98.84 - Bariatric surgery status Lipid Panel Today E66.3 - Overweight, Z98.84 - Bariatric surgery status Vitamin B12 and Folate Today E66.3 - Overweight, Z98.84 - Bariatric surgery status Vitamin B1 Today E66.3 - Overweight, Z98.84 - Bariatric surgery status TSH reflex Free T4 Today E66.3 - Overweight, Z98.84 - Bariatric surgery status Vitamin D 25-OH Total Today E66.3 - Overweight, Z98.84 - Bariatric surgery status Basic Metabolic Panel Today E66.3 - Overweight, Z98.84 - Bariatric surgery status IRON PROFILE Today E66.3 - Overweight, Z98.84 - Bariatric surgery status Zinc Today E66.3 - Overweight, Z98.84 - Bariatric surgery status C Reactive Protein Today E66.3 - Overweight, Z98.84 - Bariatric surgery status Vitamin A Today E66.3 - Overweight, Z98.84 - Bariatric surgery status Ferritin Today E66.3 - Overweight, Z98.84 - Bariatric surgery status
[2023-07-07 15:30] VITALS: BP 160/88; PULSE 77; TEMP 36.3; O2SAT 99; BMI 29.4
== END 2023-07-07 16:02 | disposition home or self-care (01) ==
PROVIDERS: PCP Internal Medicine; Visit Provider Physician Assistant Surgical
DX: K59.00 Constipation, unspecified (principal); E66.3 Overweight; Z68.29 Body mass index [BMI] 29.0-29.9, adult; Z98.84 Bariatric surgery status
CPT/HCPCS: 99214

== ENCOUNTER → 2023-07-07 15:22 | Outpatient (BNVA) | payer BC, SELFPAY | PROVIDERS: PCP Internal Medicine; Visit Provider Physician Assistant Surgical ==

== ENCOUNTER 2023-09-23 15:01 | Outpatient (AMB) | payer BC, SELFPAY ==
--- NOTE | 2023-09-23 15:02 | MHC.OFFVIS ---
Intake Visit Reasons: OV - Bilateral Knee Pain Intake Note: Ibis is a 63 year old female who presents with complaints of progressively worsening bilateral knee pains. The patient describes her pains as sharp in nature. Her pains have gotten worse over the last year in spite of continued non operative treatments. She has failed the last 3 months of a home exercise program as well as Tylenol and anti-inflammatory medicines. She has had cortisone injections in the past which gave her minimal relief. She has had a series of Euflexxa viscosupplementation injections given into both of her knees which gave her very good relief. Her bilateral knee pains are interfering with her activities of daily living and her ability to sleep well through the night. The patient wishes to hold off on surgery for as long as possible. Allergies Seasonal Allergies Allergy (Intermediate, Verified 09/23/23 15:02) Headache cat dander Allergy (Mild, Verified 09/23/23 15:02) Sneezing dog dander Allergy (Mild, Verified 09/23/23 15:02) Sneezing Medication List - Last Reconciled 09/24/23 by William Rodrigez MD azelastine-fluticasone 137-50 mcg/spray 1 spray intranasal BID biotin 10,000 mcg PO DAILY calcium carbonate (Calcium 600) 600 mg PO DAILY cetirizine (Zyrtec) 10 mg PO DAILY PRN cholecalciferol (vitamin D3) 50 mcg PO DAILY multivitamin with iron (Daily Multiple Vitamins with Iron tablet) 1 tab PO DAILY solifenacin 10 mg PO DAILY PFSH Medical History Sacral neurostimulator in situ Urinary incontinence Arthritis Sleep apnea Surgical History H/O colonoscopy History of Esmer-en-Y gastric bypass Hx of lumpectomy Hx of tonsillectomy Hx of bladder repair surgery Hx of foot surgery Hx of eye surgery Hx of gastric bypass Family History Mother Hypertension Diabetes Father Hx of CABG Hypertension Prostate CA Bone cancer Sister History of breast cancer Cervical cancer Maternal Grandmother History of breast cancer Paternal Aunt History of breast cancer Social History Housing: House Alcohol intake: current Alcohol intake frequency: a few times a month Patient Tobacco Use Status: Former Tobacco user Tobacco use type: Cigarette Cigarette Packs Per Day: 1 Cigarettes Per Day: 20 Years Smoked: 20 e-Cigarette/Vaping Use: Never Used service: No Current occupational status: employed and 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 Sexual orientation: Straight/Heterosexual Gender identity: Female Cognitive needs: No Hearing needs: No Vision needs: Yes Physical Exam Const Other: Well-nourished well-developed very friendly female awake alert and oriented x3 in no acute distress Extrem Other: Bilateral lower extremity examination shows good capillary refill, no skin lesions noted, normal sensation light touch Bilateral knee examination shows minimal effusions, palpable crepitus with range of motion, pain with range of motion, range of motion from -3 degrees to 115 degrees, no instability Results Reviewed Results Reviewed: X-rays of the patient's bilateral knee show joint space narrowing, subchondral sclerosis, no acute bony abnormalities Assessment & Plan Assessment & Plan (1) Osteoarthritis of left knee: Code(s): M17.12 - Unilateral primary osteoarthritis, left knee Category: Medical (2) Osteoarthritis of right knee: Code(s): M17.11 - Unilateral primary osteoarthritis, right knee Category: Medical Plan Ms. Meza presents with bilateral knee pains due to osteoarthritis. I had a lengthy discussion with the patient regarding the treatment options. She wishes to hold off on surgery for as long as possible. I agree with this plan. She has not gotten good relief from cortisone injections in the past. She has gotten good relief from Euflexxa injections in the past. Thus, I will see whether or not the patient's insurance company will cover a series of 3 Euflexxa viscosupplementation injections for both of her knees. I will see her back once the injections are available. Feel free to call me at any time should questions regarding her orthopedic management arise. I spent 21 minutes in reviewing the patient's records and imaging studies, seeing the patient and documenting in the medical record. Coding Level of Care Code Est Pt Level 3 (91949) Diagnoses Osteoarthritis of left knee M17.12 Osteoarthritis of right knee M17.11
== END 2023-09-23 15:23 | disposition home or self-care (01) ==
PROVIDERS: PCP Internal Medicine; Visit Provider Orthopaedic Surgery
DX: M17.0 Bilateral primary osteoarthritis of knee (principal)
CPT/HCPCS: 99213

== ENCOUNTER → 2023-09-23 15:01 | Outpatient (BNVA) | payer BC, SELFPAY | PROVIDERS: PCP Internal Medicine; Visit Provider Orthopaedic Surgery ==

== ENCOUNTER 2023-09-24 15:28 | Outpatient (REF) | payer BC, SELFPAY | END 2023-09-24 15:29 | disposition home or self-care (01) | LOC: HO.MAMMO 15:28 | PROVIDERS: PCP Internal Medicine; Visit Provider Internal Medicine | DX: Z12.31 Encounter for screening mammogram for malignant neoplasm of breast (principal) | CPT/HCPCS: 77063; 77067 ==

== ENCOUNTER → 2023-09-24 15:45 | Outpatient (BNV) | payer BC, SELFPAY | PROVIDERS: PCP Internal Medicine; Visit Provider Radiology Diagnostic Radiology | DX: Z12.31 Encounter for screening mammogram for malignant neoplasm of breast (principal) | CPT/HCPCS: 77063; 77067 ==

== ENCOUNTER 2023-10-27 08:35 | Outpatient (AMB) | payer BC, SELFPAY ==
--- NOTE | 2023-10-27 08:51 | MHC.OFFWIV ---
Intake Vital Signs 10/27/23 08:52 Height 5 ft 2 in Weight 162 lb BMI 29.6 BP 130/90 H Blood Pressure Location Rt brachial Position Sitting Pulse 58 Pulse Source Pulse Oximeter Pulse Oximetry (%) 99 Oxygen Delivery Method Room Air Intake Visit Reasons: EP- Lower back pain Intake Note: Patient here for lower left sided back pain. she woke up yesterday with the discomfort, difficulty walking, bending and stated that when she has to be she is unable to hold it due to the pain. Patient Tobacco Use Status: Former Tobacco user Allergies Seasonal Allergies Allergy (Intermediate, Verified 10/27/23 08:53) Headache cat dander Allergy (Mild, Verified 10/27/23 08:53) Sneezing dog dander Allergy (Mild, Verified 10/27/23 08:53) Sneezing Do you need a note to return to daycare/school/sports/work: Yes HPI EP- Lower back pain HPI Details This note is constructed using voice recognition software. While every effort has been made to ensure accuracy, website project manager errors may have been included. The patient is a 63 year old female who presents to the clinic today with left lower back pain since yesterday on waking. She reports having a bladder stimulator, which has been moved from the same area due to battery change. She denies numbness/tingling in the leg, or new/worsened loss of control of bladder/bowel. She tried tylenol, which did not help. She is unable to take oral NSAIDs due to history gastric bypass. She denies fever, chills. [facility] Medical History Sacral neurostimulator in situ Urinary incontinence Arthritis Sleep apnea Surgical History H/O colonoscopy History of Esmer-en-Y gastric bypass Hx of lumpectomy Hx of tonsillectomy Hx of bladder repair surgery Hx of foot surgery Hx of eye surgery Hx of gastric bypass Family History Mother Hypertension Diabetes Father Hx of CABG Hypertension Prostate CA Bone cancer Sister History of breast cancer Cervical cancer Maternal Grandmother History of breast cancer Paternal Aunt History of breast cancer Social History Housing: House Alcohol intake: current Alcohol intake frequency: a few times a month Patient Tobacco Use Status: Former Tobacco user Tobacco use type: Cigarette Cigarette Packs Per Day: 1 Cigarettes Per Day: 20 Years Smoked: 20 e-Cigarette/Vaping Use: Never Used service: No Current occupational status: employed and 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 Sexual orientation: Straight/Heterosexual Gender identity: Female Cognitive needs: No Hearing needs: No Vision needs: Yes Review of Systems Const All systems reviewed & are unremarkable except as noted in HPI and below Physical Exam Vital Signs: Last Vital Signs Pulse 58 10/27/23 08:52 BP 130/90 H 10/27/23 08:52 Pulse Ox 99 10/27/23 08:52 Oxygen Delivery Method Room Air 10/27/23 08:52 BMI result Body Mass Index 29.6 Const General: cooperative, healthy appearing, comfortable, no acute distress and alert Orientation/consciousness: patient oriented x3 Limitations: no limitations General: Yes no CVA tenderness Back/Spine/Pelvis Other: Left lumbar region TTP with increased muscle bulking. Negative SLR/Wells SLR. Normal rotation, flexion, extension. Back: no CVA tenderness Skin General skin exam: no rashes or lesions noted, elasticity normal and turgor normal Neuro General: patient oriented x3 Extrem General: Yes normal to inspection, Yes full ROM, Yes capillary refill normal and Yes normal exam except as noted Psych Appearance: grossly normal Mental Status: mental status grossly normal Speech and movement: Normal speech and movement present Affect: normal affect Assessment & Plan Assessment & Plan (1) Low back pain: Code(s): M54.50 - Low back pain, unspecified Qualifiers: Chronicity: acute Back pain laterality: left Sciatica presence: without sciatica Qualified Code(s): M54.50 - Low back pain, unspecified Plan: Supportive measures encouraged and reviewed. Prednisone ordered for anti inflammatory effects as well as cyclobenzaprine for support. Advised heat/ice, topical muscle rubs. Advised follow up as needed with worsening or failure to resolve with pcp for consideration of need of physical therapy or alteration to plan of care. Plan See above for full details and plan. Medications: New prednisone 40 mg (2 x 20 mg) PO DAILY 3 days 6 tabs 0RF cyclobenzaprine 5 mg PO BEDTIME 3 days PRN 3 tabs 0RF muscle spasm Coding Level of Care Code Est Pt Level 3 (18351) Diagnoses Acute left-sided low back pain without sciatica M54.50 Chronicity: acute Back pain laterality: left Sciatica presence: without sciatica
[2023-10-27 08:52] VITALS: BP 130/90; PULSE 58; O2SAT 99; BMI 29.6
== END 2023-10-27 09:28 | disposition home or self-care (01) ==
PROVIDERS: PCP Internal Medicine; Visit Provider Registered Nurse
DX: M54.50 Low back pain, unspecified (principal)
CPT/HCPCS: 99213

== ENCOUNTER 2023-12-09 15:08 | Outpatient (AMB) | payer BC, SELFPAY ==
--- NOTE | 2023-12-09 15:09 | MHC.OFFVIS ---
Intake Visit Reasons: Bilateral knee pain Intake Note: Ibis is a 63 year old female who presents with complaints of progressively worsening bilateral knee pains. She describes her pains as sharp in nature. Her pains have gotten worse over the last 6 months in spite of continued non operative treatments. She has had cortisone injections in the past which gave her minimal relief. She has also had viscosupplementation injections which gave her good relief. She wishes to hold off on surgery for as long as possible. She has tried Tylenol and anti-inflammatory medicines which gave her minimal relief. She denies any locking or giving way. Allergies Seasonal Allergies Allergy (Intermediate, Verified 10/27/23 08:53) Headache cat dander Allergy (Mild, Verified 10/27/23 08:53) Sneezing dog dander Allergy (Mild, Verified 10/27/23 08:53) Sneezing Medication List - Last Reconciled 12/10/23 by William Rodrigez MD azelastine-fluticasone 137-50 mcg/spray 1 spray intranasal BID biotin 10,000 mcg PO DAILY calcium carbonate (Calcium 600) 600 mg PO DAILY cetirizine (Zyrtec) 10 mg PO DAILY PRN cholecalciferol (vitamin D3) 50 mcg PO DAILY cyclobenzaprine 5 mg PO BEDTIME PRN 3 days multivitamin with iron (Daily Multiple Vitamins with Iron tablet) 1 tab PO DAILY prednisone 40 mg (2 x 20 mg) PO DAILY 3 days solifenacin 10 mg PO DAILY PFSH Medical History Sacral neurostimulator in situ Urinary incontinence Arthritis Sleep apnea Surgical History H/O colonoscopy History of Esmer-en-Y gastric bypass Hx of lumpectomy Hx of tonsillectomy Hx of bladder repair surgery Hx of foot surgery Hx of eye surgery Hx of gastric bypass Family History Mother Hypertension Diabetes Father Hx of CABG Hypertension Prostate CA Bone cancer Sister History of breast cancer Cervical cancer Maternal Grandmother History of breast cancer Paternal Aunt History of breast cancer Social History Housing: House Alcohol intake: current Alcohol intake frequency: a few times a month Patient Tobacco Use Status: Former Tobacco user Tobacco use type: Cigarette Cigarette Packs Per Day: 1 Cigarettes Per Day: 20 Years Smoked: 20 e-Cigarette/Vaping Use: Never Used service: No Current occupational status: employed and 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 Sexual orientation: Straight/Heterosexual Gender identity: Female Cognitive needs: No Hearing needs: No Vision needs: Yes Physical Exam Const Other: Well-nourished well-developed very friendly female awake alert and oriented x3 in no acute distress Extrem Other: Bilateral lower extremity examination shows good capillary refill, no skin lesions noted, normal sensation light touch Bilateral knee examination shows minimal effusions, palpable crepitus with range of motion, pain with range of motion, no instability Office Procedures Joint Injection/Aspiration Joint Injection/Aspiration Primary Site: left knee Prep: site was prepped using aseptic technique Injected: 20 mg of (Euflexxa viscosupplementation) and 1% plain lidocaine Procedure: The patient tolerated the procedure well Coding 95958 - Large joint Procedure code (CPT) selection complete Joint Injection/Aspiration Joint Injection/Aspiration Primary Site: right knee Prep: site was prepped using aseptic technique Injected: 20 mg of (Euflexxa viscosupplementation) and 1% plain lidocaine Procedure: The patient tolerated the procedure well Coding 68479 - Large joint Procedure code (CPT) selection complete Results Reviewed Results Reviewed: X-rays of the patient's bilateral knees taken previously show joint space narrowing, subchondral sclerosis, no acute abnormalities Assessment & Plan Assessment & Plan (1) Osteoarthritis of left knee: Code(s): M17.12 - Unilateral primary osteoarthritis, left knee Category: Medical (2) Osteoarthritis of right knee: Code(s): M17.11 - Unilateral primary osteoarthritis, right knee Category: Medical (3) Bilateral knee pain: Code(s): M25.561 - Pain in right knee; M25.562 - Pain in left knee Category: Medical Plan Ms. Meza presents with bilateral knee pains due to osteoarthritis. A lengthy discussion with the patient regarding the treatment options. The risks and benefits of a series of bilateral knee Euflexxa viscosupplementation injections were discussed at length patient. The patient wished to proceed. She tolerated the 1st set of injections well. She will continue with her home exercise program. She will follow up next week as scheduled. Feel free to call me at any time should questions regarding her orthopedic management arise. I spent 22 minutes in reviewing the patient's records and imaging studies, seeing the patient and documenting in the medical record. Orders: Orders AMB Joint Injection/Aspiration 12/09/23 M17.11 - Unilateral primary osteoarthritis, right knee AMB Joint Injection/Aspiration 12/09/23 M17.12 - Unilateral primary osteoarthritis, left knee Coding Level of Care Code Est Pt Level 3 (64089) Complex EM visit Add On G2211 Diagnoses Osteoarthritis of left knee M17.12 Osteoarthritis of right knee M17.11 Bilateral knee pain M25.561; M25.562 CPT Codes Coding - 74529 Large joint: 32822 - Large joint ([id number]) Coding - 20879 Large joint: 33256 - Large joint ([id number])
== END 2023-12-09 15:30 | disposition home or self-care (01) ==
PROVIDERS: PCP Internal Medicine; Visit Provider Orthopaedic Surgery
DX: M17.0 Bilateral primary osteoarthritis of knee (principal)
CPT/HCPCS: 20610; 99213

== ENCOUNTER → 2023-12-09 15:08 | Outpatient (BNVA) | payer BC, SELFPAY | PROVIDERS: PCP Internal Medicine; Visit Provider Orthopaedic Surgery | DX: M17.0 Bilateral primary osteoarthritis of knee (principal) | CPT/HCPCS: 20610; J2003; J7323 ==

== ENCOUNTER 2023-12-15 08:08 | Outpatient (AMB) | payer BC, SELFPAY ==
--- NOTE | 2023-12-15 08:27 | MHC.OFFWIV ---
Intake Vital Signs 12/15/23 08:28 Weight 158 lb BP 130/84 Blood Pressure Location Rt brachial Position Sitting Pulse 78 Pulse Source Pulse Oximeter Temp 98.6 F Temp Source Oral Pulse Oximetry (%) 99 Oxygen Delivery Method Room Air Intake Visit Reasons: EP Sinus congestion Intake Note: Patient here for sinus pressure, itchy ears, and cough that has been present for about 1 week. Patient Tobacco Use Status: Former Tobacco user Allergies Seasonal Allergies Allergy (Intermediate, Verified 12/15/23 08:30) Headache cat dander Allergy (Mild, Verified 12/15/23 08:30) Sneezing dog dander Allergy (Mild, Verified 12/15/23 08:30) Sneezing Do you need a note to return to daycare/school/sports/work: Yes HPI EP Sinus congestion HPI Details This note is constructed using voice recognition software. While every effort has been made to ensure accuracy, physical scientist errors may have been included. The patient is a 63 year old female who presents to the clinic today with sinus congestion. She notes that she started symptoms about a week ago, as sinus congestion, it got slightly better and then got worse again. The pain is primarily maxillary, and pushing down on her teeth, as well as the frontal region, feeling like her eye is bulging out on the right side. She reports that the pain is worse if she leans forward. She has had a mild cough with this, but no dyspnea. She did have some mild body aches early on but that seems to have gotten better. She is trying [id number]-[id number] measures which are not seeming to help the symptoms. [facility] Medical History Sacral neurostimulator in situ Urinary incontinence Arthritis Sleep apnea Surgical History H/O colonoscopy History of Esmer-en-Y gastric bypass Hx of lumpectomy Hx of tonsillectomy Hx of bladder repair surgery Hx of foot surgery Hx of eye surgery Hx of gastric bypass Family History Mother Hypertension Diabetes Father Hx of CABG Hypertension Prostate CA Bone cancer Sister History of breast cancer Cervical cancer Maternal Grandmother History of breast cancer Paternal Aunt History of breast cancer Social History Housing: House Alcohol intake: current Alcohol intake frequency: a few times a month Patient Tobacco Use Status: Former Tobacco user Tobacco use type: Cigarette Cigarette Packs Per Day: 1 Cigarettes Per Day: 20 Years Smoked: 20 e-Cigarette/Vaping Use: Never Used service: No Current occupational status: employed and 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 Sexual orientation: Straight/Heterosexual Gender identity: Female Cognitive needs: No Hearing needs: No Vision needs: Yes Review of Systems Const All systems reviewed & are unremarkable except as noted in HPI and below Physical Exam Vital Signs: Last Vital Signs Temp 98.6 F 12/15/23 08:28 Pulse 78 12/15/23 08:28 BP 130/84 12/15/23 08:28 Pulse Ox 99 12/15/23 08:28 Oxygen Delivery Method Room Air 12/15/23 08:28 Const General: cooperative, healthy appearing, comfortable and no acute distress Orientation/consciousness: patient oriented x3 Limitations: no limitations HEENT Head: Yes normal to inspection Ears: hearing grossly normal bilaterally, external ears normal and TM's normal bilaterally General nose exam: Normal external nose present, Normal nares present, Abnormal mucous membranes and turbinates present erythematous and Nasal discharge present purulent Face and sinus: Yes normal facial exam and Yes sinus tenderness Mouth: Normal oral and palatal mucosa present and moist mucous membranes Throat: Yes posterior oropharynx normal, Yes tonsils normal and Yes uvula midline Eyes General: appearance normal, both eyes and all related structures Neck Neck: Yes normal visual inspection Resp Effort & Inspection: normal respiratory effort, able to speak in complete sentences, Actively coughing, no respiratory distress, not tachypneic, no tripod positioning and no use of accessory muscles Auscultation: clear to auscultation bilaterally Cardio Rate: regular rate Rhythm: regular rhythm Heart sounds: normal S1 and S2 Skin General skin exam: no rashes or lesions noted Neuro General: patient oriented x3 Extrem General: Yes normal to inspection and Yes no clubbing, cyanosis or edema Assessment & Plan Assessment & Plan (1) Sinusitis: Code(s): J32.9 - Chronic sinusitis, unspecified Qualifiers: Sinusitis location: maxillary Chronicity: acute Recurrence: non-recurrent Qualified Code(s): J01.00 - Acute maxillary sinusitis, unspecified Plan: Supportive measures encouraged and reviewed. Advised consideration of sinus rinse if needed. Antibiotic sent to requested pharmacy, advised patient to take antibiotics until completed and not to stop if feeling better, unless the patient has side effects. Advised patient to follow up with primary care provider with worsening or failure to resolve. Plan See above for full details and plan. Medications: New amoxicillin-pot clavulanate 875-125 mg 1 tab PO BID 10 days 20 tabs 0RF Coding Level of Care Code Est Pt Level 3 (93415) Diagnoses Acute non-recurrent maxillary sinusitis J01.00 Sinusitis location: maxillary Chronicity: acute Recurrence: non-recurrent
[2023-12-15 08:28] VITALS: BP 130/84; PULSE 78; TEMP 37; O2SAT 99
== END 2023-12-15 09:01 | disposition home or self-care (01) ==
PROVIDERS: PCP Internal Medicine; Visit Provider Registered Nurse
DX: J01.00 Acute maxillary sinusitis, unspecified (principal)

== ENCOUNTER 2023-12-15 08:08 | Outpatient (REF) | payer BC, SELFPAY | END 2023-12-15 08:09 | disposition home or self-care (01) | LOC: HO.LNP 08:08 | PROVIDERS: PCP Internal Medicine | DX: Z13.89 Encounter for screening for other disorder (principal) ==

== ENCOUNTER 2023-12-15 09:02 | Outpatient (REF) | payer BC, SELFPAY ==
[2023-12-15 10:14] LABS: MANUAL DIFF FLAG NO
[2023-12-15 10:21] LABS: Basophils Absolute Auto 0.1 X10*3/uL (0.0-0.2); Basophils Percent Auto 1.1 % (0-2); Eosinophils Absolute Auto 0.1 X10*3/uL (0.0-0.4); Hematocrit 41.6 % (37.0-47.0); Hemoglobin 14.2 g/dl (12.0-16.0); Imm Gran Abs Auto 0.01 X10*3/uL (0.00-0.03); Imm Gran Pct Auto 0.2 % (0.0-0.4); Lymphocytes Absolute Auto 1.1 X10*3/uL (1.2-4.9); Lymphocytes Percent Auto 24.6 % (20-40); Mean Corpuscular HGB Conc 34.1 g/dl (31.0-35.0); Mean Corpuscular Hemoglobin 31.1 pg (27.0-33.0); Monocytes Absolute Auto 0.6 X10*3/uL (0.1-1.2); Monocytes Percent Auto 12.3 % (2-11); Neutrophils Absolute Auto 2.7 x10*3/uL (2.0-8.3); Neutrophils Percent Auto 59.8 % (45-73); Platelet Count 254 X10*3/uL (160-400); Red Blood Count 4.57 X10*6/uL (4.20-5.50); White Blood Count 4.6 X10*3/uL (4.8-10.8)
[2023-12-15 10:32] LABS: Estimated Average Glucose 100 mg/dL; Hemoglobin A1C 112.0784 umol/L; Hemoglobin A1c % 5.1 % (<6.0); Total Hemoglobin (HGBA1C) 3497.2036 umol/L
[2023-12-15 11:03] LABS: Influenza A PCR NEGATIVE (Negative); Influenza B PCR NEGATIVE (Negative); Resp Syncy Virus RNA Qual PCR NEGATIVE (Negative); SARS COV2 PCR INHOUSE POSITIVE (Negative)
[2023-12-15 11:15] LABS: Ferritin 61 ng/mL (10-250); Insulin 2 uU/mL (2-29); Vitamin D 25-OH Total 47.4 ng/mL (>30)
[2023-12-15 11:32] LABS: Folate 14.4 ng/mL (> or = 4.0); Vitamin B12 1108 pg/mL (200-900)
[2023-12-15 14:36] LABS: Alanine Aminotransferase 28 U/L (0-31); Albumin Level 4.4 g/dL (3.5-5.0); Alkaline Phosphatase 104 U/L (39-117); Anion Gap 13 (12-20); Aspartate Amino Transferase 32 U/L (5-31); Bilirubin Total 0.5 mg/dL (0.0-1.0); Blood Urea Nitrogen 10 mg/dL (9-16); C Reactive Protein 5.63 mg/dL (< or = 0.50); Calcium 9.9 mg/dL (8.4-10.2); Carbon Dioxide 26 mmol/L (22-29); Chloride 106 mmol/L (96-108); Cholesterol 176 mg/dL (<200); Estimated Glomerular Filt Rate > 60; Glucose Random 84 mg/dL (60-115); HDL Cholesterol 75 mg/dL (>40); Iron 17 mcg/dL (30-160); LDL Cholesterol Calculated 90 mg/dL (<100); Percent Iron Saturation 6 % (15-50); Potassium 3.8 mmol/L (3.3-5.1); Sodium 141 mmol/L (135-145); Total Iron Binding Capacity 279 mcg/dL (228-428); Total Protein 7.2 g/dL (6.5-8.0); Triglycerides 55 mg/dL (<150); Unsaturated Iron Binding 262 ug/dL
[2023-12-19 23:38] LABS: Zinc 67 mcg/dL (60-130)
[2023-12-21 15:03] LABS: Vitamin B1 13 nmol/L (8-30)
[2023-12-22 23:32] LABS: Vitamin A 38 mcg/dL (38-98)
== END 2023-12-15 09:03 | disposition home or self-care (01) ==
LOC: HO.HMGCLDS 09:02
PROVIDERS: Physician Assistant Surgical; Registered Nurse; PCP Internal Medicine; Visit Provider Internal Medicine
DX: E66.3 Overweight (principal); J06.9 Acute upper respiratory infection, unspecified; Z98.84 Bariatric surgery status; Z13.1 Encounter for screening for diabetes mellitus
CPT/HCPCS: 0241U; 36415; 80053; 80061; 82306; 82607; 82728; 82746; 83036; 83525; 83540; 84425; 84443; 84590; 84630; 85025; 86140

== ENCOUNTER 2023-12-20 08:52 | Outpatient (AMB) | payer BC, SELFPAY ==
--- NOTE | 2023-12-20 08:57 | MHC.PC.OV ---
Vital Signs 12/20/23 09:04 Height 5 ft 2 in Weight 161 lb BMI 29.4 BP 120/70 Blood Pressure Location Lt brachial Position Sitting Pulse 63 Pulse Source Pulse Oximeter Pulse Oximetry (%) 98 Oxygen Delivery Method Room Air Intake Visit Reasons: Annual Exam Intake Note: Patient is here today for a physical. 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 Required: No Fare Register Repairer: Not Required per policy Accompanied by: Self / Same As Patient Allergies Seasonal Allergies Allergy (Intermediate, Verified 12/20/23 08:59) Headache cat dander Allergy (Mild, Verified 12/20/23 08:59) Sneezing dog dander Allergy (Mild, Verified 12/20/23 08:59) Sneezing Medication List - Last Reconciled 12/20/23 by Trevor Pablo MD amoxicillin-pot clavulanate 875-125 mg 1 tab PO BID 10 days azelastine-fluticasone 137-50 mcg/spray 1 spray intranasal BID biotin 10,000 mcg PO DAILY calcium carbonate (Calcium 600) 600 mg PO DAILY cetirizine (Zyrtec) 10 mg PO DAILY PRN cholecalciferol (vitamin D3) 50 mcg PO DAILY iron,carbonyl-vitamin C 65 mg iron- 125 mg (Vitron-C) 1 tab PO DAILY 90 days multivitamin with iron (Daily Multiple Vitamins with Iron tablet) 1 tab PO DAILY solifenacin 10 mg PO DAILY Tobacco use date assessed: 12/20/23 Dental Screening Dental Screen Date: 12/20/23 Did you have a dental visit in the last 12 months?: No Did you have a dental problem in the last 6 months where you did not have access to dental care?: No Was dental information given to patient?: Patient has dentist HPI Annual Exam HPI Details 63-year-old female with history of gastric bypass last seen in 12/18/2022. Patient is here for physical exam. Review of the notes mammogram is up-to-date colonoscopy is 2023. Review of the notes Urgent Center visit in 12/15/2023 for sinus congestion treated with Augmentin. Patient has also seen Orthopedics for the bilateral knee pain and had injections done on both knees. Urgent care visit in September for low back pain was given prednisone and cyclobenzaprine. Patient has been complaining of memory issues and was referred to Neurology has been advised cognitive behavioral therapy to optimize sleep hygiene.. Patient has also seen urology in April 2023 patient has a neurostimulator the had battery failure breakdown. has the neurostimulator is R back and is working noted COVID-19 infection December 14 also. [facility] Medical History (Updated 12/20/23 @ 09:33 by Trevor Pablo MD) Arthritis of right knee Bilateral knee pain Word finding difficulty Urinary incontinence Arthritis of left knee Arthritis Osteoarthritis of left knee Osteoarthritis of right knee Sacral neurostimulator in situ Urinary incontinence Arthritis Sleep apnea Surgical History H/O colonoscopy History of Esmer-en-Y gastric bypass Hx of lumpectomy Hx of tonsillectomy Hx of bladder repair surgery Hx of foot surgery Hx of eye surgery Hx of gastric bypass Family History Mother Hypertension Diabetes Father Hx of CABG Hypertension Prostate CA Bone cancer Sister History of breast cancer Cervical cancer Maternal Grandmother History of breast cancer Paternal Aunt History of breast cancer Social History (Updated 12/20/23 @ 09:18 by Trevor Pablo MD) Housing: House Alcohol intake: current Alcohol intake frequency: a few times a month Comment: weekend 2 -3drinks Patient Tobacco Use Status: Former Tobacco user Tobacco use type: Cigarette Cigarette Packs Per Day: 1 Cigarettes Per Day: 20 Years Smoked: 2002 stopped e-Cigarette/Vaping Use: Never Used Second Hand Smoke Exposure: Yes service: No Current occupational status: employed and 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 1. Little interest or pleasure in doing things: not at all 2. Feeling down, depressed, or hopeless: not at all 3. Trouble falling or staying asleep, or sleeping too much: nearly every day 4. Feeling tired or having little energy: not at all 5. Poor appetite or overeating: not at all 6. Feeling bad about yourself - or that you are a failure or have let yourself or your family down: not at all 7. Trouble concentrating on things, such as reading the newspaper or watching television: not at all 8. Moving or speaking so slowly that other people could have noticed. Or the opposite - being so fidgety or restless that you have been moving around a lot more than usual: not at all 9. Thoughts that you would be better off or of hurting yourself in some way: not at all Total score: 3 Depression Screening Interpretation: Positive Depression Screening Done: Yes Source: Developed by Drs. Montez Hartman, Gabbie Delgado, Dragan Drake and colleagues, with an educational jessenia from [employer]. Thrive Questionnaire Date Thrive assessed: 12/20/23 I am a: Patient What is your living situation today?: I have a steady place to live Within the past 12 months, did the food you bought not last and you didn't have the money to get more?: Never true Within the past 12 months, did you worry whether your food would run out before you got money to buy more?: Never true Do you have trouble paying for medicines?: No Do you have trouble getting transportation to medical appointments?: No Do you have trouble paying your heating and electricity bill?: No Do you have trouble taking care of your child, family member or friend?: No Do you have trouble with day-to-day activities such as bathing, preparing meals, shopping, managing finances, etc.?: No Are you currently unemployed and looking for a job?: No Are you interested in more education?: No Please select the resources that you would like help with: None Currently or been in a relationship where the following occur: No concerns reported THRIVE Score: 0 AUDIT C Alcohol Use Questionnaire (AUDIT-C) 1. How often do you have a drink containing alcohol?: 2-3 times a week 2. How many drinks containing alcohol do you have on a typical day when you are drinking?: 1 or 2 3. How often do you have six or more drinks on one occasion?: Less than monthly Total Score: 4 RICH-7 AMB Questionnaire RICH-7 Date RICH - 7 assessed: 12/20/23 Feeling nervous, anxious, or on edge: 0 = Not at all Not being able to stop or control worryin = Not at all Worrying too much about different things: 0 = Not at all Trouble relaxin = Not at all Being so restless that it is hard to sit still: 0 = Not at all Becoming easily annoyed or irritable: 0 = Not at all Feeling afraid as if something awful might happen: 0 = Not at all Total RICH-7 score (0-4 normal; 5-9 mild; 10-14 moderate; 15-21 severe): 0 Source: Developed by Drs. Montez Hartman, Gabbie Delgado, Dragan Drake and colleagues, with an educational jessenia from [employer]. Review of Systems Const Denies poor appetite and Denies weakness Eyes Denies no additional complaints ENT Reports Normal hearing present, Denies dizziness, Denies nasal congestion, Denies tinnitus and Denies sore throat Card Denies chest pain, Denies syncope, Denies rapid heart rate and Denies dyspnea Resp Denies cough and Denies dyspnea GI Denies change in stool character, Reports constipation, Denies diarrhea, Denies nausea and Denies vomiting Denies urinary frequency, Denies difficulty voiding and Denies dysuria Neuro Reports Normal hearing present, Denies confusion, Denies dizziness, Denies syncope and Denies weakness Psych Denies confusion Physical exam (Primary Care) Vital Signs: Last Vital Signs Pulse 63 12/20/23 09:04 BP 120/70 12/20/23 09:04 Pulse Ox 98 12/20/23 09:04 Oxygen Delivery Method Room Air 12/20/23 09:04 BMI result Body Mass Index 29.4 Tobacco/Smoking Status: Tobacco use Status Tobacco use date assessed 12/20/23 12/20/23 09:05 Patient Tobacco Use Status Former Tobacco user 12/20/23 09:05 Tobacco use type Cigarette 12/20/23 09:05 e-Cigarette/Vaping Use Never Used 12/20/23 09:05 PHQ-9: PHQ-9 Score PHQ-9: Total score 3 12/20/23 09:05 Depression Screening Interpretation: Positive Thrive Assessment: Date of Thrive Assessment Date Thrive assessed 12/20/23 12/20/23 09:05 Currently or been in a relationship where the following occur: No concerns reported Const General: No confusion Orientation/consciousness: No confusion HENMT Head: Yes normocephalic Ears: external ears normal and TM's normal bilaterally Face and sinus: Yes normal facial exam Mouth: moist mucous membranes Throat: Yes tonsils normal Eyes Conjunctivae: conjunctivae normal Pupils: Equal, round and reactive pupils present and Pupil accommodation reflex normal Direct Ophthalmoscopy: normal light reflex Neck Neck: No lymphadenopathy Thyroid: Thyroid normal Chest Chest palpation & inspection: normal inspection of the chest Resp Effort & Inspection: normal respiratory effort and no audible wheezes Auscultation: clear to auscultation bilaterally, no crackles, no wheezes and lung sounds not diminished Cardio Rate: regular rate Rhythm: regular rhythm Peripheral pulses: radial pulses present and dorsalis pedis present GI Palpation (GI): no masses Auscultation: normal bowel sounds and normoactive bowel sounds Rectal Exam - Female: deferred Skin General skin exam: no rashes or lesions noted Rashes: no rashes Neuro General: No confusion Cranial nerves: Yes Equal, round and reactive pupils present and Yes Normal hearing present Cognition (Neuro): normal cognition Gait exam (Neuro): Normal gait present Motor exam (neuro): 5/5 motor strength present throughout Deep tendon reflexes (DTR's): Right brachioradialis reflex intensity grade: 2+, Left brachioradialis reflex intensity grade: 2+, Right patellar reflex intensity grade: 2+ and Left patellar reflex intensity grade: 2+ Extrem General: No edema Coding Level of Care Code Est Pt Prev Care 40-64y(20721) Diagnoses Annual physical exam Z00.00 Hx of gastric bypass Z98.84 Bilateral primary osteoarthritis of knee M17.0 Mixed urinary incontinence due to female genital prolapse N39.46; N81.9 COVID-19 virus infection U07.1 Assessment & Plan Assessment & Plan (1) Annual physical exam: Code(s): Z00.00 - Encounter for general adult medical examination without abnormal findings Category: Medical Plan: Patient is advised to eat healthy, keep well hydrated, keep active and have adequate sleep. (2) Hx of gastric bypass: Code(s): Z98.84 - Bariatric surgery status Category: Surgical Plan: Continue to follow-up with bariatric surgeon (3) Bilateral primary osteoarthritis of knee: Code(s): M17.0 - Bilateral primary osteoarthritis of knee Category: Medical Plan: Patient follows up with orthopedics and has had injections recently. (4) Mixed urinary incontinence due to female genital prolapse: Code(s): N39.46 - Mixed incontinence; N81.9 - Female genital prolapse, unspecified Category: Medical Plan: Timed voiding meaning every 1-2 hours even if you do not feel like urinating empty the bladder, avoid drinks with high sweet content like juices or caffeine that makes her urinate, 2 hours before you sleep hold liquids so that in the morning you do not get the bladder to be too full. (5) COVID-19 virus infection: Comment: 12/15/2023 Code(s): U07.1 - COVID-19 Category: Medical Plan: Resolved
[2023-12-20 09:04] VITALS: BP 120/70; PULSE 63; O2SAT 98; BMI 29.4
== END 2023-12-20 09:41 | disposition home or self-care (01) ==
PROVIDERS: PCP Internal Medicine; Visit Provider Internal Medicine
DX: Z00.00 Encounter for general adult medical examination without abnormal findings (principal); Z98.84 Bariatric surgery status; M17.0 Bilateral primary osteoarthritis of knee; N39.46 Mixed incontinence; N81.9 Female genital prolapse, unspecified; U07.1 COVID-19; Z23 Encounter for immunization

== ENCOUNTER → 2023-12-20 08:52 | Outpatient (BNVA) | payer BC, SELFPAY | PROVIDERS: PCP Internal Medicine; Visit Provider Internal Medicine | DX: Z00.00 Encounter for general adult medical examination without abnormal findings (principal); M17.0 Bilateral primary osteoarthritis of knee; N39.46 Mixed incontinence; N81.9 Female genital prolapse, unspecified; Z86.16 Personal history of COVID-19; Z98.84 Bariatric surgery status; Z23 Encounter for immunization | CPT/HCPCS: 90471; 90656; 96127 ==

== ENCOUNTER 2023-12-23 14:59 | Outpatient (AMB) | payer BC, SELFPAY ==
--- NOTE | 2023-12-23 15:00 | MHC.OFFVIS ---
Vital Signs 12/23/23 15:01 Height 5 ft 2 in Weight 161 lb BMI 29.4 Intake Visit Reasons: OV - Bilateral Knee Euflexxa #2 Intake Note: Ibis is a 63 year old female who presents for follow-up of her bilateral knee pains. She states she got mild relief from the Euflexxa injections that she was given at her last visit. She denies any fevers or chills. She continues with her home exercise program. Allergies Seasonal Allergies Allergy (Intermediate, Verified 12/23/23 15:01) Headache cat dander Allergy (Mild, Verified 12/23/23 15:01) Sneezing dog dander Allergy (Mild, Verified 12/23/23 15:01) Sneezing Medication List - Last Reconciled 12/24/23 by William Rodrigez MD amoxicillin-pot clavulanate 875-125 mg 1 tab PO BID 10 days azelastine-fluticasone 137-50 mcg/spray 1 spray intranasal BID biotin 10,000 mcg PO DAILY calcium carbonate (Calcium 600) 600 mg PO DAILY cetirizine (Zyrtec) 10 mg PO DAILY PRN cholecalciferol (vitamin D3) 50 mcg PO DAILY iron,carbonyl-vitamin C 65 mg iron- 125 mg (Vitron-C) 1 tab PO DAILY 90 days multivitamin with iron (Daily Multiple Vitamins with Iron tablet) 1 tab PO DAILY solifenacin 10 mg PO DAILY [facility] Medical History (Updated 12/24/23 @ 14:06 by William Rodrigez MD) Arthritis of right knee Arthritis of left knee Bilateral knee pain Word finding difficulty Urinary incontinence Arthritis Osteoarthritis of left knee Osteoarthritis of right knee Sacral neurostimulator in situ Urinary incontinence Arthritis Sleep apnea Surgical History H/O colonoscopy History of Esmer-en-Y gastric bypass Hx of lumpectomy Hx of tonsillectomy Hx of bladder repair surgery Hx of foot surgery Hx of eye surgery Hx of gastric bypass Family History Mother Hypertension Diabetes Father Hx of CABG Hypertension Prostate CA Bone cancer Sister History of breast cancer Cervical cancer Maternal Grandmother History of breast cancer Paternal Aunt History of breast cancer Social History (Updated 12/20/23 @ 09:18 by Trevor Pablo MD) Housing: House Alcohol intake: current Alcohol intake frequency: a few times a month Comment: weekend 2 -3drinks Patient Tobacco Use Status: Former Tobacco user Tobacco use type: Cigarette Cigarette Packs Per Day: 1 Cigarettes Per Day: 20 Years Smoked: 2002 stopped e-Cigarette/Vaping Use: Never Used Second Hand Smoke Exposure: Yes service: No Current occupational status: employed and 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 Sexual orientation: Straight/Heterosexual Gender identity: Female Cognitive needs: No Hearing needs: No Vision needs: Yes (Glasses) Physical Exam Vital Signs: BMI result Body Mass Index 29.4 Const Other: Well-nourished well-developed very friendly female awake alert and oriented x3 in no acute distress Extrem Other: Bilateral knee examination shows minimal effusions, palpable crepitus with range of motion, pain with range of motion, no instability Office Procedures Joint Injection/Aspiration Joint Injection/Aspiration Primary Site: left knee Prep: site was prepped using aseptic technique Injected: 20 mg of (Euflexxa viscosupplementation) and 1% plain lidocaine Procedure: The patient tolerated the procedure well Coding 14951 - Large joint Procedure code (CPT) selection complete Joint Injection/Aspiration Joint Injection/Aspiration Primary Site: right knee Prep: site was prepped using aseptic technique Injected: 20 mg of (Euflexxa viscosupplementation) Procedure: The patient tolerated the procedure well Coding 50814 - Large joint Procedure code (CPT) selection complete Results Reviewed Results Reviewed: X-rays of the patient's bilateral knee show joint space narrowing, subchondral sclerosis, no acute bony abnormalities Assessment & Plan Assessment & Plan (1) Arthritis of left knee: Code(s): M17.12 - Unilateral primary osteoarthritis, left knee Category: Medical (2) Arthritis of right knee: Code(s): M17.11 - Unilateral primary osteoarthritis, right knee Category: Medical Plan Ibis presents with bilateral knee pains due to degenerative joint disease. I had a lengthy discussion with the patient regarding the treatment options. The risks and benefits of a 2nd set of Euflexxa viscosupplementation injections were discussed at length with the patient. The patient wished to proceed. She tolerated the injections well. She will continue with her home exercise program. She will follow up next week as scheduled. Feel free to call me at any time should questions regarding her orthopedic management arise. Orders: Orders AMB Joint Injection/Aspiration 12/23/23 M17.12 - Unilateral primary osteoarthritis, left knee AMB Joint Injection/Aspiration 12/23/23 M17.11 - Unilateral primary osteoarthritis, right knee Coding Level of Care Code Est Pt Level 3 (30643) Complex EM visit Add On G2211 Diagnoses Arthritis of left knee M17.12 Arthritis of right knee M17.11 CPT Codes Coding - 79710 Large joint: 50409 - Large joint ([id number]) Coding - 92030 Large joint: 23985 - Large joint ([id number])
[2023-12-23 15:01] VITALS: BMI 29.4
== END 2023-12-23 15:31 | disposition home or self-care (01) ==
PROVIDERS: PCP Internal Medicine; Visit Provider Orthopaedic Surgery
DX: M17.0 Bilateral primary osteoarthritis of knee (principal)
CPT/HCPCS: 20610; 99213

== ENCOUNTER → 2023-12-23 14:59 | Outpatient (BNVA) | payer BC, SELFPAY | PROVIDERS: PCP Internal Medicine; Visit Provider Orthopaedic Surgery | DX: M17.0 Bilateral primary osteoarthritis of knee (principal) | CPT/HCPCS: 20610; J2003; J7323 ==

== ENCOUNTER 2023-12-29 14:49 | Outpatient (AMB) | payer BC, SELFPAY ==
--- NOTE | 2023-12-29 14:56 | MHC.OFFVIS ---
Vital Signs 12/29/23 15:04 Height 5 ft 2 in Weight 161 lb BMI 29.4 Intake Visit Reasons: Bilateral Knee Euflexxa #3 Intake Note: Ibis is a 63 year old female who presents for her 3rd Euflexxa Gel injection for both of her knees. Patient has been getting some relief. She denies any fevers or chills. She continues with her home exercise program. Allergies Seasonal Allergies Allergy (Intermediate, Verified 12/29/23 15:04) Headache cat dander Allergy (Mild, Verified 12/29/23 15:04) Sneezing dog dander Allergy (Mild, Verified 12/29/23 15:04) Sneezing Medication List - Last Reconciled 12/29/23 by William Rodrigez MD amoxicillin-pot clavulanate 875-125 mg 1 tab PO BID 10 days azelastine-fluticasone 137-50 mcg/spray 1 spray intranasal BID biotin 10,000 mcg PO DAILY calcium carbonate (Calcium 600) 600 mg PO DAILY cetirizine (Zyrtec) 10 mg PO DAILY PRN cholecalciferol (vitamin D3) 50 mcg PO DAILY iron,carbonyl-vitamin C 65 mg iron- 125 mg (Vitron-C) 1 tab PO DAILY 90 days multivitamin with iron (Daily Multiple Vitamins with Iron tablet) 1 tab PO DAILY solifenacin 10 mg PO DAILY [facility] Medical History (Updated 12/24/23 @ 14:06 by William Rodrigez MD) Arthritis of right knee Arthritis of left knee Bilateral knee pain Word finding difficulty Urinary incontinence Arthritis Osteoarthritis of left knee Osteoarthritis of right knee Sacral neurostimulator in situ Urinary incontinence Arthritis Sleep apnea Surgical History H/O colonoscopy History of Esmer-en-Y gastric bypass Hx of lumpectomy Hx of tonsillectomy Hx of bladder repair surgery Hx of foot surgery Hx of eye surgery Hx of gastric bypass Family History Mother Hypertension Diabetes Father Hx of CABG Hypertension Prostate CA Bone cancer Sister History of breast cancer Cervical cancer Maternal Grandmother History of breast cancer Paternal Aunt History of breast cancer Social History Housing: House Alcohol intake: current Alcohol intake frequency: a few times a month Comment: weekend 2 -3drinks Patient Tobacco Use Status: Former Tobacco user Tobacco use type: Cigarette Cigarette Packs Per Day: 1 Cigarettes Per Day: 20 Years Smoked: 2002 stopped e-Cigarette/Vaping Use: Never Used Second Hand Smoke Exposure: Yes service: No Current occupational status: employed and 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 Sexual orientation: Straight/Heterosexual Gender identity: Female Cognitive needs: No Hearing needs: No Vision needs: Yes (Glasses) Physical Exam Vital Signs: BMI result Body Mass Index 29.4 Extrem Other: Bilateral knee examination shows minimal effusions, palpable crepitus with range of motion, pain with range of motion, no instability Office Procedures AMB Joint Injection/Aspiration Joint Injection/Aspiration Primary Site: left knee Prep: site was prepped using aseptic technique Injected: 20 mg of (Euflexxa viscosupplementation) and 1% plain lidocaine Procedure: The patient tolerated the procedure well Coding 88300 - Large joint Procedure code (CPT) selection complete AMB Joint Injection/Aspiration Joint Injection/Aspiration Primary Site: right knee Prep: site was prepped using aseptic technique Injected: 20 mg of (Euflexxa viscosupplementation) and 1% plain lidocaine Procedure: The patient tolerated the procedure well Coding 72269 - Large joint Procedure code (CPT) selection complete Results Reviewed Results Reviewed: X-rays of the patient's bilateral knees taken previously show joint space narrowing, subchondral sclerosis, no acute bony abnormalities Assessment & Plan Assessment & Plan (1) Arthritis of left knee: Code(s): M17.12 - Unilateral primary osteoarthritis, left knee Category: Medical (2) Arthritis of right knee: Code(s): M17.11 - Unilateral primary osteoarthritis, right knee Category: Medical Plan Ms. Meza presents with bilateral knee pains due to degenerative joint disease. The risks and benefits of a 3rd set of Euflexxa viscosupplementation injections were discussed at length with the patient. The patient wished to proceed. She tolerated the bilateral knee injections well. She will continue with her home exercise program. She will contact me prior to her follow-up appointment in 3 months should any questions or concerns arise. Feel free to call me at any time should questions regarding her orthopedic management arise. Orders: Orders AMB Joint Injection/Aspiration Today M17.12 - Unilateral primary osteoarthritis, left knee AMB Joint Injection/Aspiration Today M17.11 - Unilateral primary osteoarthritis, right knee Coding Level of Care Code Procedure Only Diagnoses Arthritis of left knee M17.12 Arthritis of right knee M17.11 CPT Codes Coding - 28623 Large joint: 33575 - Large joint ([id number]) Coding - 67223 Large joint: 30295 - Large joint ([id number])
[2023-12-29 15:04] VITALS: BMI 29.4
== END 2023-12-29 15:22 | disposition home or self-care (01) ==
LOC: HO.HOS 14:50
PROVIDERS: PCP Internal Medicine; Visit Provider Orthopaedic Surgery
DX: M17.0 Bilateral primary osteoarthritis of knee (principal)
CPT/HCPCS: 20610

== ENCOUNTER → 2023-12-29 14:49 | Outpatient (BNVA) | payer BC, SELFPAY | PROVIDERS: PCP Internal Medicine; Visit Provider Orthopaedic Surgery | DX: M17.0 Bilateral primary osteoarthritis of knee (principal) | CPT/HCPCS: 20610; J2003; J7323 ==

== ENCOUNTER 2024-03-30 08:52 | Outpatient (REF) | payer BC, SELFPAY ==
[2024-03-30 16:27] LABS: Influenza A PCR NEGATIVE (Negative); Influenza B PCR NEGATIVE (Negative); Resp Syncy Virus RNA Qual PCR NEGATIVE (Negative); SARS COV2 PCR INHOUSE NEGATIVE (Negative)
== END 2024-03-30 08:53 | disposition home or self-care (01) ==
LOC: HO.LAB 08:52
PROVIDERS: PCP Internal Medicine; Visit Provider Nurse Practitioner Family
DX: J06.9 Acute upper respiratory infection, unspecified (principal); R09.89 Other specified symptoms and signs involving the circulatory and respiratory systems
CPT/HCPCS: 0241U

== ENCOUNTER 2024-03-30 08:52 | Outpatient (AMB) | payer BC, SELFPAY ==
--- NOTE | 2024-03-30 09:02 | AM.OFFWIN_ITS ---
Intake Vital Signs 03/30/24 09:05 Weight 161 lb BP 126/80 Blood Pressure Location Rt brachial Position Sitting Pulse 74 Pulse Source Pulse Oximeter Temp 98.1 F Temp Source Oral Pulse Oximetry (%) 99 Oxygen Delivery Method Room Air Intake Visit Reasons: EP-?sinus infection Intake Note: Patient here for headaches,congestion that has been present for about 1 month now. Patient Tobacco Use Status: Former Tobacco user Allergies Seasonal Allergies Allergy (Intermediate, Verified 03/30/24 09:05) Headache cat dander Allergy (Mild, Verified 03/30/24 09:05) Sneezing dog dander Allergy (Mild, Verified 03/30/24 09:05) Sneezing Do you need a note to return to daycare/school/sports/work: No HPI HPI Comments History of Present Illness Details 63 y/o female patient who presents to [facility] walk in clinic with c/o sinus congestion and pressure for 3 weeks now. H/o Seasonal foster parent, and currently on nasal [place] and Zyrtec medications. [facility] Medical History (Updated 03/30/24 @ 09:49 by Ashlie Dave NP) Acute respiratory disease Arthritis of right knee Arthritis of left knee Bilateral knee pain Word finding difficulty Urinary incontinence Arthritis Osteoarthritis of left knee Osteoarthritis of right knee Sacral neurostimulator in situ Urinary incontinence Arthritis Sleep apnea Surgical History H/O colonoscopy History of Esmer-en-Y gastric bypass Hx of lumpectomy Hx of tonsillectomy Hx of bladder repair surgery Hx of foot surgery Hx of eye surgery Hx of gastric bypass Family History Mother Hypertension Diabetes Father Hx of CABG Hypertension Prostate CA Bone cancer Sister History of breast cancer Cervical cancer Maternal Grandmother History of breast cancer Paternal Aunt History of breast cancer Social History Housing: House Alcohol intake: current Alcohol intake frequency: a few times a month Comment: weekend 2 -3drinks Patient Tobacco Use Status: Former Tobacco user Tobacco use type: Cigarette Cigarette Packs Per Day: 1 Cigarettes Per Day: 20 Years Smoked: 2002 stopped e-Cigarette/Vaping Use: Never Used Second Hand Smoke Exposure: Yes service: No Current occupational status: employed and 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 Sexual orientation: Straight/Heterosexual Gender identity: Female Cognitive needs: No Hearing needs: No Vision needs: Yes (Glasses) Review of Systems Const All systems reviewed & are unremarkable except as noted in HPI and below Physical Exam Vital Signs: Last Vital Signs Temp 98.1 F 03/30/24 09:05 Pulse 74 03/30/24 09:05 BP 126/80 03/30/24 09:05 Pulse Ox 99 03/30/24 09:05 Oxygen Delivery Method Room Air 03/30/24 09:05 Const General: cooperative, comfortable and no acute distress Orientation/consciousness: patient oriented x3 HEENT Head: Yes normocephalic Ears: external ears normal and TM abnormal with fluid behind the TM General nose exam: Abnormal mucous membranes and turbinates present boggy and erythematous and Nasal discharge present Face and sinus: Yes sinuses nontender Mouth: moist mucous membranes Resp Effort & Inspection: normal respiratory effort and able to speak in complete sentences Auscultation: clear to auscultation bilaterally Cardio Heart sounds: S1 normal heart sound present and S2 normal heart sound present Neuro General: patient oriented x3 Assessment & Plan Assessment & Plan (1) Acute respiratory disease: Code(s): J06.9 - Acute upper respiratory infection, unspecified Plan: Ordered SARs Ordered cough medicine. Orders: Orders SARS-CoV2/FLU/RSV Today R09.89 - Other specified symptoms and signs involving the circulatory and respiratory systems Medications: New benzonatate 100 mg PO TID 90 caps 0RF J06.9 - Acute upper respiratory infection, unspecified Coding Level of Care Code Est Pt Level 3 (03159) Diagnoses Acute respiratory disease J06.9 Time Spent (min) 15
[2024-03-30 09:05] VITALS: BP 126/80; PULSE 74; TEMP 36.7; O2SAT 99
--- OUTSIDE RECORDS SUMMARY | 2024-03-30 11:44 | XMS_ITS | Data Portability ---
Author Organization [place] - [facility], Allergy Address [address] [address] Care Team Providers Care Cad Detailer Name Role Phone BRIANA AUSTIN Primary Care Provider [phone] Assessment Encounter Date Assessment Date Assessment LastModified by Organization Details LastModified Time 08/12/2023 08/12/2023 Patient describes history of obstructive sleep apnea that improved after significant weight loss. She has recent sleep study earlier in 2023. Unfortunately results are not available for my review today. Her physical examination was otherwise unremarkable with absent tonsils, clear nasal passages and a fiberoptic examination of her pharynx and larynx that was benign. Treatment options would likely depend on the severity of her sleep apnea. Perhaps I will be able to review results when they become available with a telehealth call after 3:30pm. [email or web address] Not available 08/12/2023 11:10:41 09/03/2023 09/03/2023 The patient has history of snoring. Today we discussed the 3 tiered system for managing snoring. The first is medical management, the second is devices and the third is procedures. Medical management may include weight loss with diet and exercise, goal of 10% reduction. Additionally topical nasal steroids such as Flonase which is currently [id number] may be helpful. Devices such as a mandible advancement device which may be obtained over the counter or through your dental professional can also be helpful to reposition the jaw and tongue. And finally procedures to change the shape and vibration of the soft palate could be attempted. Success of devices and procedures is approximately 70%. Her sleep pattern is suggestive of a sleep disorder where she is unable to fall back to sleep after 2 hours of good rest each night. She has found some relief with Magnesium supplementation. [email or web address] Not available 09/03/2023 17:08:24 Plan of Treatment Reminders Order Date Submit Date Provider Last Modified By Organization Details Last Modified Time Details Appointments None record ed. Lab None record ed. Referral None record ed. Procedures None record ed. Surgeries None record ed. Imaging None record ed. Medication Orders None record ed. Patient TargetsNo targets recorded. Patient InstructionsNo instructions recorded. Reason for Referral None Reported. Problems Name Problem SNOMED Code Status Onset Date Resolution Date Notes Provider Name and Address Organization Details Recorded Time Snoring 89458738 Active 024 TAN LUEVANO MD [address] [place] [address], [place], [phone], [facility] - [facility] 4 16:59:43 Obstructive sleep apnea syndrome 20289775 Active 024 TAN LUEVANO MD [address] [place] [address], [place], [phone], [facility] - [facility] 4 11:10:46 Sleep disorder 96691338 Active 024 TAN LUEVANO MD [address] [place] [address], [place], [address], [facility] - [facility] 4 17:06:25 Problem Notes None recorded. Procedures Surgical History Date Name Laterality Status Provider Name and Address Organization Details Recorded Time 09/03/2023 Telehealth completed TAN LUEVANO MD [address] [place] [address], [phone], [facility] - [facility] 09/03/2023 16:56:53 08/12/2023 FOL_DP completed TAN LUEVANO MD [address] [place] [address], [phone], [facility] - [facility] 08/12/2023 11:08:21 Imaging Results None recorded. Procedure Notes None recorded. Medical Equipment None Reported. Medications Name Sig Start Date Stop Date Status Note LastModified by Organization Details LastModified Time sulfamethoxazol e 800 mg-trimethoprim 160 mg tablet TAKE 1 TABLET BY MOUTH TWICE A DAY active Not Available Not Available No t Available oxycodone 5 mg tablet TAKE 1 TABLET BY MOUTH EVERY 4 - 6 HOURS NEEDED FOR POST-OPE RATIVE PAIN active Not Available Not Available No t Available solifenacin 10 mg tablet TAKE 1 TABLET BY MOUTH EVERY DAY active Not Available Not Available No t Available azelastine 137 mcg-fluticasone 50 mcg/spray nasal spray SPRAY 1 SPRAY INTO EACH NOSTRIL TWICE A DAY active Not Available Not Available No t Available Vitals Date Recorded Body height Body mass index (BMI) Body weight Provider Name and Address Organization Details Last Updated DateTime 08/12/2023 157.48 cm 29.3 kg/m2 90838.78 g Lenard Cole [place] - [facility] 08/12/2023 10:53:19 Social History None recorded. Functional Status None recorded. Mental Status None recorded. Family History Nothing Reported. Medical History No medical history recorded. Gynecological HistoryNo gynecological history recorded. Obstetrics History GPAL:G 0 P 0 0 0 0 Past Encounters Encounter ID Performer Location Encounter Start Date Encounter Closed Date Diagnosis/Indication Diagnosis SNOMED-CT Code Diagnosis ICD10 Code Diagnosis Note [id number] TAN LUEVANO MD [facility] [address] [address] 08/12/2023 10:06:54 08/12/2023 11:15:24 Snoring 29799660 R06.83 Obstructiv e sleep apnea syndrome 33623738 G47.33 [id number] TAN LUEVANO MD [facility] [address] [address] 09/03/2023 17:00:24 09/03/2023 17:08:43 Snoring 83756606 R06.83 Sleep disorder 07183826 G47.9 Health Concerns Section Related Observation LastModified by Organization Detai ls LastModified Time None Recorded Concern Status LastModified by Organization Details LastModified Time None Recorded Advance Directives Directive None Recorded Payers Encounter Date Sequence Insurance Name Policy Number Policy H[place] Covered Member ID [place] Member ID Guarantor Name 08/12/2023 1 [place] [id number] Ibis Meza [id number] Ibis Meza 09/03/2023 1 [place] [id number] Ibis Meza [id number] Ibis Meza Notes Date Note Type Note Provider Name and Address Organization Details Recorded Time 08/12/2023 text/html snoringhx of sev ere SHARLENE - improved after weight loss of 150 pounds with gastric bypass 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, 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) and has had trouble adapting sleep pattern 7 or 8p and wake at 1amtried melatonin but gets abnormal skin sensationtried turmeric but poorly toleratedtried magnesium with some mild improvement surgery - tonsils removed age 4 TAN LUEVANO MD [address] [facility] [address], [place], [phone], [place] - [facility] [place] 08/12/2023 11:11:19 09/03/2023 text/html [id number]/4/2023 [facility] hx of severe SHARLENE - improved after weight loss of 150 pounds with gastric bypass 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
--- OUTSIDE RECORDS SUMMARY | 2024-03-30 11:44 | XMS_ITS ---
Author Organization [facility] Address [address] [place] [address] Care Team Providers Care Budget Examiner Name Role Phone Po Trevor GIVENS Primary Care Provider Montez Andersen [phone] REASON FOR VISIT screening,hx polyps PROBLEMS Problem Type ICD Code Onset Dates Problem Status W/U Status Risk SNOMED Code Notes Problem Diverticulosis of large intestine without perforation or abscess without bleeding (K57.30) Active confirmed Diverticul ar disease of colon (270424242) Encounters Encounter Location Date Provider Diagnosis [facility] [address] [place], [place] [phone] [place]/07/2023 Montez Muñoz Encounter for scre ening colonoscopy Z12.11 ; Colon polyps K63.5 ; Diverticulosis of large intestine without perforation or abscess without bleeding K57.30 and Other hemorrhoids K64.8 ASSESSMENTS Encounter Date Diagnosis Assessment Notes Treatment Notes Treatment Clinical Notes 05/07/2023 Encounter for screening colonoscopy (ICD-10 - Z12.11) 05/07/2023 Colon polyps (ICD-10 - K63.5) 05/07/2023 Diverticulosis of large intestine without perforation or abscess without bleeding (ICD-10 - K57.30) 05/07/2023 Other hemorrhoids (ICD-10 - K64.8) PLAN OF TREATMENT No Information
--- OUTSIDE RECORDS SUMMARY | 2024-03-30 11:44 | XMS_ITS ---
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 . . Pt out of work due to injection therapy for . 11/06/2013 Not-Taking Custom Orthotics as directed 02/18/2024 Active Solifenacin Succinate Active Dymista 137-50 MCG/ACT 1 puff in each no stril Nasally Twice a day Not-Taking Claritin 10 MG 1 tablet Orally Once a day Not-Taking Social History Tobacco Use: Social History Observation Description Date Details (start date - stop date) Former Smoker NA - NA Tobacco use other than smoking: Question Answer Notes Are you an other tobacco user? No Tobacco Control (Standard) Question Answer Notes Tobacco use: Former smoker Additional Findings: Tobacco non-user Ex-cigaret te smoker AUDIT-C (Standard) Question Answer Notes Did you have a drink contain ing alcohol in the past year? Yes How often did you have six o r more drinks on one occasion in the past year? 2 to 4 times a month (2 points) How many drinks did you have on a typical day when you were drinking in the past year? 1 or 2 drinks (0 point) How often did you have a dri nk containing alcohol in the past year? 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) Plantar fasciitis, bilateral (M72.2) Active confirmed Vital Signs Height 5ft 2in in 02/18/2024 Weight 160 lbs 02/18/2024 BMI 29.26 kg/m2 02/18/2024 Blood pressure systolic 148 mm Hg 02/18/20 24 Blood pressure diastolic 80 mm Hg 024 Encounters Encounter Location Date Provider Diagnosis [facility] [address] 02/18/2024 Cammie Black Pain in left foot M79.672 ; Plantar fasciitis, bilateral M72.2 ; Pain in left ankle and joints of left foot M25.572 ; Bursitis of left foot M77.52 ; 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 ; Pain in right foot M79.671 ; Pain in right ankle and joints of right foot M25.571 ; Bursitis of right foot M77.51 ; Osteoarthritis of midtarsal joint of right foot M19.071 ; Ingrown nail L60.0 ; Pain in right foot M79.671 ; Calcaneal spur, right foot M77.31 ; Other myositis of right foot M60.871 ; Pain in left foot M79.672 ; Calcaneal spur, left foot M77.32 and Other myositis of left foot M60.872 Assessments Encounter Date Diagnosis (ICD Code) Assessment Notes Treatment Notes Treatment Clinical Notes Section Notes 02/18/2024 Pain in left foot (ICD-10 - M79.672) 02/18/2024 Plantar fasciitis, bilateral (ICD-10 - M72.2) Patient Educated with: HEEL CORD STRETCHES.pdf (HEEL CORD STRETCHES.pdf ) Patient Educated with: RICE THERAPY.pdf (RICE THERAPY.pdf) 02/18/2024 Pain in left ankle and joints of left foot (ICD-10 - M25.572) 02/18/2024 Bursitis of left foot (ICD-10 - M77.52) 02/18/2024 Osteoarthritis of midtarsal joint of left foot (ICD-10 - M19.072) 02/18/2024 Pain in right foot (ICD-10 - M79.671) 02/18/2024 Pain in right ankle and joints of right foot (ICD-10 - M25.571) 02/18/2024 Bursitis of right foot (ICD-10 - M77.51) 02/18/2024 Osteoarthritis of midtarsal joint of right foot (ICD-10 - M19.071) 02/18/2024 Ingrown nail (ICD-10 - L60.0) 02/18/2024 Pain in right foot (ICD-10 - M79.671) 02/18/2024 Calcaneal spur, right foot (ICD-10 - M77.31) 02/18/2024 Other myositis of right foot (ICD-10 - M60.871) 02/18/2024 Pain in left foot (ICD-10 - M79.672) 02/18/2024 Calcaneal spur, left foot (ICD-10 - M77.32) 02/18/2024 Other myositis of left foot (ICD-10 - M60.872) Plan Of Treatment Medication Medication Name Sig Start Date Stop Date Notes Custom Orthotics as directed 02/18/2024 Treatment Notes Assessment Notes Plantar fasciitis, bilateral Patient Edu cated with: HEEL CORD STRETCHES.pdf (HEEL CORD STRETCHES.pdf) Patient Educated with: RICE THERAPY.pdf (RICE THERAPY.pdf) Next Appt Details Follow Up: as scheduled, Pham son: Orthotic Disp/fit/eval Provider Name:Cammie Viridiana English , 04/05/2024 10:15:00 AM, [address] [facility], [place], [address], Procedure Notes * Category Sub-Category Detail Notes DME L3000 Custom OT- Pre scription Custom Fabricated insert, each, removable Biomechanical and casting performed, Prescription Custom Fabricated Foot Insert, each, removable: This type of device is fabricated from a three dimensional model of the patient's own foot (e.g. cast, foam impression, or virtual true 3-D digital image). This type of orthotic is a functional device made of a sufficiently rigid material to control function and reduce pathological forces which has a molded heel cup and trim lines with a minimum of a 10mm heel cup height to provide both medial and lateral directive forces to control the hind and fore foot Progress Notes * Minnie MEZAanceDOB:[birth year] (63 yo F)Acc No.[id number]:02/18/2024 Progress Note Patient:?Ibis MEZA Provider:?Cammie English DPM :1960???Age:63 Y???Sex:Female D ate:02/18/2024 Address: [address] [place], [id number] Pcp:Trevor Pablo Subjective: * Chief Complaints: * ???Foot painHeel pain * HPI: ???Foot Pain:?Nature:?aching , stiffness , swelling , throbbing.?Location:?Top , Midfoot, B/L, Right > Left.?Duration:?, several years but worse last few months.?Course:?, intermittent.?Treatments:?Rest/alter normal daily activity, Tylenol, topical medications.?Heel pain:?Nature:?tenderness, sharp pain, stiffness.?Location:?Proximal plantar aspect of Heel , B/L.?Duration:?, several weeks.?Course:?worse.?Aggravated:?standing, walking, walking first thing in the morning/after rest.?Treatments:?rest/alter normal daily activity.? * ROS:?General/Constitutional:?Nausea?denies.?Vomiting?denies.?Hunger Thirst?denies.?Loss appetite?denies.?Chills?denies.?Fatigue?denies.?Fever?denies.?Night Sweats?denies.?Unexplained weight loss?denies.?Unexplained weight gain?denies.?HEENTM:?Dentures?denies.?Dizziness?denies.?Glasses/contacts?admits.?Retinopathy?de nies.?Blurred/double vision?denies.?TMJ?denies.?Discharge/drainage?denies.?Implants?denies.?Sore throat?denies.?Dental implants?admits.?Hard of hearing ?denies.?Difficulty chewing/swallowing/speaking?denies.?Nose bleeds?denies.?Sore mouth?denies.?Respiratory:?On Oxygen?denies.?Pneumonia/pleurisy?denies.?Bronchitis?denies.?Emphysema?denies.?C oughing?denies.?Cough blood?denies.?Shortness of breath?denies.?Wheezing?denies.?Cardiovascular:?Pacemaker?denies.?MVP?denies.?WPW?denies.?CHF?denies.?Heart attack?denies.?Septal defect?denies.?Rapid beat?denies.?Chest pain ?denies.?Atrial Fib.?denies.?Murmur/Palpitations?denies.?Gastrointestinal:?Hemorrhoids?denies.?Stomach/Abdominal pain?denies.?Dark blood stool?denies.?Irritable bowel ?denies.?Constipation?admits.?Diarrhea?denies.?Hematology:?Swelling?admits.?Clots?denies.?Varicose Veins?admits.?Bruising?denies.?Bleeding problem?denies.?Genitourinary:?Blood urine?denies.?Frequent/Painfu/urination/bladder control?denies.?Kidney stones?admits.?Infection (UTI)?denies.?Nephropathy?denies.?sex trans dis (STD)?denies.?Prostate?denies.?Musculoskeletal:?Hammertoes?denies.?Bunions?denies.?Back Pain?admits.?Muscle Cramps/ Resting?denies.?Muscle cramps / walking?admits.?Generalized aches and pains?admits.?Weakness?denies.?Integ.:?Perikns?denies.?Scars?denies.?Corns/calluses?admits.?Ingrown nails?admits.?Painful nails?denies.?Open Sores?denies.?Rashes?denies.?Neurologic:?Difficulty sleeping?admits.?Brain disorder?denies.?Numbness?denies.?Balance trouble?denies.?Confusion?denies.?Fainting/blackouts?denies.?Tingling?admits.?Tr emors?denies.? * Medical History:? * Surgical History:?mass remov ed 09/2012interstem 09/2012foot surgery 1989'seye surgery sbypass 2017colonoscopy 04/2023 * Hospitalization/Major Diagno stic Procedure:?Denies Past Hospitalization * Family History:?Mother: dece ased, poor circulation, foot problems, kidney/liver diseas, diagnosed with Diabetic - NIDDM, Unspecified essential hypertension, Family history of arthritis.?Father: , defects, diagnosed with Unspecified heart disease, Unspecified cerebral artery occlusion with cerebral infarction, Other malignant neoplasm of unspecified site, Unspecified essential hypertension.?Siblings: diagnosed with Other malignant neoplasm of unspecified site.? * Social History:?Tobacco Use:?Tobacco use other than smoking?Are you an other tobacco user??No ?Tobacco Control (Standard)?Tobacco use:?Former smoker ?Additional Findings: Tobacco non-user?Ex-cigarette smoker ???Drugs/Alcohol:?Drugs?Have you used drugs other than those for medical reasons in the past 12 months??No ???Miscellaneous:?Caffeine: yes, frequency:, 3-5 cups per day. ?Children: yes, 3. ?Exercise: no. ?Marital status: . 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 ???Drug/Alcohol:?AUDIT-C (Standard)?Did you have a drink containing alcohol in the past year??Yes ?How often did you have six or more drinks on one occasion in the past year??2 to 4 times a month (2 points) ?How many drinks did you have on a typical day when you were drinking in the past year??1 or 2 drinks (0 point) ?How often did you have a drink containing alcohol in the past year??2 to 4 times a month (2 points) ?Points?4 ?Interpretation?Positive * Medications:?TakingSolifenac in Succinate Fluticasone Propionate Voltaren 1 % Gel as directed Externally Taking Solifenacin Succinate Taking Fluticasone Propionate Taking Voltaren 1 % Gel as directed Externally Not-Taking/PRNWork Note . . . . Pt out of work 11/06/13 due to injection therapy VESIcare 10 MG Tablet 1 tablet Orally Once a day Claritin 10 MG Tablet 1 tablet Orally Once a day Dymista 137-50 MCG/ACT Suspension 1 puff in each nostril Nasally Twice a day Medication List reviewed and reconciled with the patientNot-Taking/PRN Work Note . . . . Pt out of work 11/06/13 due to injection therapy Not-Taking/PRN VESIcare 10 MG Tablet 1 tablet Orally Once a day Not-Taking/PRN Claritin 10 MG Tablet 1 tablet Orally Once a day Not-Taking/PRN Dymista 137-50 MCG/ACT Suspension 1 puff in each nostril Nasally Twice a day Medication List reviewed and reconciled with the patient * Allergies:?Dog Danderyes[All ergies Verified] Objective: * Vitals:?Ht: 5ft 2in, Wt:160, BMI:29.26, Shoe size: 9, BP:148/80mm Hg, Ht-cm: 157.48 cm, Wt-k.57 kg. * Examination: ???General Examination: ?GENERAL APPEARANCE:?Reveals a pleasant, alert, well nourished, well- developed, well hydrated individual, who demonstrates proper attention to hygiene/body habitus, and is in no acute distress, Pt serves as own historian for office visit today.?ORIENTED:?person, place, and time.?Orthopedic: ?MUSCLE STRENGTH:?5/5 all groups in a symmetrical fashion, B/L.?GAIT ABNORMALITY:?Supinated right ,neutral left , antalgic.?FOOT MORPHOLOGY:? Prominent, painful 1st Met-Cuneiform joint with inflammation, B/L R>L , Pes Planus structure, Decreased Ankle joint dorsiflexion ROM, knee extended.?DIGITAL DEFORMITIES:?Digital contracture, PIPJ, 2-5 B/L, incompl-reducible with WB, or to push-up test, no over, nor underlapping.?FOOTWEAR:?shoe gear properties exacerbate patients foot/toe deformity.?Neurological: ?SENSORY:?Neurological exam reveals intact sensorium, pain sensation normal, vibration sensation intact, pinprick sensation is normal in the lower extremities, , Pt relates, burning, Midfoot to the toes, B/L.?TINEL'S COMPRESSION:? Negative, Medial dorsal cutaneous nerve distribution, Intermediate dorsal cutaneous nerve distribution, Deep peroneal nerve distribution, B/L , Negative tarsal tunnel, natasha pedis, and medial calcaneal nerves.?Dermatologic: ?SKIN FINDINGS:?Skin exam reveals normal color, texture, elasticity, and turgor. There are no masses, nor excrescences. The interspaces are clear, B/L, Skin exam reveals Keratotic lesion(s) located at, SUB 5th MTBase, Right.?Heel Pain: ?INSPECTION REVEALS:?Pain on Palpation to Plantar Fascia med. and central bands, intrinsic musc., infra-calcaneal bursa, and med calc tubercle, B/L, No pain: posterior/superior heel, achilles bursa/tendon, sinus tarsi, peroneals, or with lateral heel compression; no limited STJ ROM, calor, or ecchymosis.? * Physical Examination:?L3000 Custom Fabricated OT:?Custom Orthotic?Custom Fabricated Orthoses.? 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 Plan: * Treatment: * Procedures:?DME:?L3000 Custom OT- Prescription Custom Fabricated insert, each, removable?Biomechanical and casting performed, Prescription Custom Fabricated Foot Insert, each, removable: This type of device is fabricated from a three dimensional model of the patient's own foot (e.g. cast, foam impression, or virtual true 3-D digital image). This type of orthotic is a functional device made of a sufficiently rigid material to control function and reduce pathological forces which has a molded heel cup and trim lines with a minimum of a 10mm heel cup height to provide both medial and lateral directive forces to control the hind and fore foot.? * Procedure Codes:?L3000 Presc ription Custom Fabricated Foot [id number] Prescription Custom Fabricated Foot insert * Preventive Medicine:? ??Counseling:?Discussion:?-14: Office or other outpatient visit for the evaluation and management of an established patient, which required a medically appropriate history and/or examination and MODERATE level of DECISION MAKING for: 1 OR MORE CHRONIC PROBLEM(S) THATS WORSENING, 2 STABLE CHRONIC PROBLEMS, A NEWLY DIAGNOSED PROBLEM WITH UNCERTAIN PROGNOSIS, AN ACUTE COMPLICATED INJURY WITH MULTIPLE TREATMENT OPTIONS, OR AN ACUTE PROBLEM WITH ACCOMPANYING SYSTEMIC SYMPTOMS, THAT POSE(S) A MODERATE RISK OF MORBIDITY. THIS CONDITION MAY ALSO INCLUDE RX DRUG MANAGEMENT, OR A DECISON FOR MINOR SURGERY. The visit on the day of the encounter encompassed interpreting the data and educating the patient as to the nature of their condition, treatment options available according to their individual PMH, meds, allergies, and overall health/living conditions, as well as any potential risks or complications that may occur from a failure to adhere to, and participate in, the recommended course of therapy. The discussion included a complete verbal, and/or written explanation of the examination results, any x-rays taken, the proposed diagnosis, and outline of the treatment plan. A schedule for future care needs was also explained. The patient verbalized an understanding of the instructions at this time and agreed to be an active participant in their treatment. If the patient should think of any questions or concerns after the visit, I have encouraged the patient to call the office.?Arthritis:?Discussed other tx options for the patients condition, The patient wishes to continue with the present treatment plan for their condition.?BioMech.:?I discussed the Pts foot biomechanics with them and how it relates to their problem.?Heel pain:?FASCIITIS: I explained to the patient the possible etiologies of Plantar Fasciitis including foot type/shoegear/activity level/exercise routine and the risks/benefits of all the different treatment options for heel pain including: No treatment at all, Rest, Ice, NSAIDs(only if well tolerated after meals), New/supportive Shoegear, Strappings and Tapings, Stretching exercises, Deep Tissue Massage, Heel cups/cushions, Arch support/shoe inserts, Custom orthoses, Topical analgesics including Aspercream/Voltaren gel, Night splint AFO for am stiffness, Cortisone injection therapy, Cast boot with crutches/cane/or walker for assisted ambulation, Physical Therapy, EPAT/ESWT, Interfil injection therapy, as well as surgical [place]/Endoscopic Fasciitomy surgical procedures if needed. Recommendations were made to limit barefoot walking, eliminate wearing nonsupportive shoegear (i.e. flip-flops or sandals, or a shoe with an easily bendable, foldable, or twistable sole) and wear shoegear with a good solid sole, a supportive arch, and plenty of room for an insert/orthotic if necessary. If wearing sandals was required by the patient, we recommended orthopedic sandals such as Orthoheel or Birkenstock even while in the home. If the patient wore heels in the past, we recommended they continue, but eliminate the use of flats. The advantages and disadvantages of each option were discussed and the patients questions re: types of shoegear, custom vs prefabricated inserts, activity level, PO vs Topical medications (and their respective potential complications/drug interactions/side effects), and consistency in home treatment regimens for optimal success were answered to their satisfaction. Literature detailing plantar fasciitis and the various treatment options were dispensed and reviewed, Stretching exercises for the patients injury/diagnosis were discussed and demonstrated, Handouts were also given.?Orthotics:?I explained to the patient the benefits of OT use. I explained that orthoses are medically necessary to decrease the foot pain through proper mechanical control, support of their foot, decrease stretch/strain on the plantar fascia, Custom OT: A comprehensive biomechanical exam, gate analysis, and casting for custom orthoses was performed for L3000 ea per foot.? * Follow Up:?as scheduled ([place] son: Orthotic Disp/fit/eval) * Images: * Sign off status: Completed true * Provider:?Cammie English DPM Date:?2023 Generated for Pooja king/Dhaval/Yadiraitting on:?03/30/2024 11:44 AM EST History and Physical Notes * HPI (History of Present Illness) Category Sub-Category Detail Notes Category Not es Heel pain Duration: , several weeks Nature: tenderness, sharp pa in, stiffness Location: Proximal plantar asp ect of Heel , B/L Aggravated: standing, walking, w alking first thing in the morning/after rest Course: worse Treatments: rest/alter normal da jessica activity Foot Pain Nature: aching , stiffness , swellin g , throbbing Location: Top , Midfoot, B/L, Right > Left Duration: , several years but worse last few months Course: , intermittent Treatments: Rest/alter normal da jessica activity, Tylenol, topical medications Physical Examination Category Sub-Category Detail Notes Section Note s L3000 Custom Fabricated OT Custom Orthotic Custom Fabricated Orthoses Examination Category Sub-Category Detail Notes Category Not es Ingrown Nail INSPECTION: Heel Pain INSPECTION REVEALS: Pain on Palp ation to Plantar Fascia med. and central bands, intrinsic musc., infra-calcaneal bursa, and med calc tubercle, B/L, No pain: posterior/superior heel, achilles bursa/tendon, sinus tarsi, peroneals, or with lateral heel compression; no limited STJ ROM, calor, or ecchymosis Neurological SENSORY: Neurological exa m reveals intact sensorium, pain sensation normal, vibration sensation intact, pinprick sensation is normal in the lower extremities, , Pt relates, burning, Midfoot to the toes, B/L TINEL'S COMPRESSION: Negative, Medial do rsal cutaneous nerve distribution, Intermediate dorsal cutaneous nerve distribution, Deep peroneal nerve distribution, B/L , Negative tarsal tunnel, natasha pedis, and medial calcaneal nerves Dermatologic SKIN FINDINGS: Skin exam reveal s normal color, texture, elasticity, and turgor. There are no masses, nor excrescences. The interspaces are clear, B/L, Skin exam reveals Keratotic lesion(s) located at, SUB 5th MTBase, Right Orthopedic GAIT ABNORMALITY: Supinated right ,neutra l left , antalgic FOOT MORPHOLOGY: Prominent, painful 1 st Met-Cuneiform joint with inflammation, B/L R>L , Pes Planus structure, Decreased Ankle joint dorsiflexion ROM, knee extended FOOTWEAR: shoe gear properties exacerbate patients foot/toe deformity DIGITAL DEFORMITIES: Digital contracture , PIPJ, 2-5 B/L, incompl-reducible with WB, or to push-up test, no over, nor underlapping MUSCLE STRENGTH: 5/5 all groups in a symmetrical fashion, B/L General Examination GENERAL APPEARANCE: Reveals a pleasant, alert, well nourished, well-developed, well hydrated individual, who demonstrates proper attention to hygiene/body habitus, and is in no acute distress, Pt serves as own historian for office visit today ORIENTED: person, place, and t asad
--- OUTSIDE RECORDS SUMMARY | 2024-03-30 11:44 | XMS_ITS | Patient Health Record ---
Author Organization [facility] Address [address] [facility] [place] [address] Care Team Providers Care Basting Machine Operator Name Role Phone Trevor Pablo Primary Care Provider Ilda English, Cammie Unavailable [phone] Allergies Allergen (clinical drug ingredient) Drug/Non Drug Allergy documented on EMR Reaction Allergy Type Onset Date Status Dog dander Dog Dander Unknown Allergy Active Results Component Value Reference Range Notes X ray : Foot, left 3V Reviewed date:02/09/2024 12:20:16 PM Interpretation:See Examination above Performing Lab: Notes/Report: See Examination above X ray : Foot, right 3V Reviewed date:02/09/2024 12:20:25 PM Interpretation:See Examination above Performing Lab: Notes/Report: See Examination above Reason For Referral No Information Medications Medication SIG (Take, Route, Frequency, Duration) Notes Start Date End Date Status Solifenacin Succinate Active Dymista 137-50 MCG/ACT 1 puff in each no stril Nasally Twice a day Not-Taking Claritin 10 MG 1 tablet Orally Once a day Not-Taking Voltaren 1 % as directed Externally 02/09/2024 Active Fluticasone Propionate Active VESIcare 10 MG 1 tablet Orally Once a day Not-Taking Work Note . . . Pt out of work due to injection therapy for . 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) Plantar fasciitis, bilateral (M72.2) Active confirmed Problem Osteoarthritis of midtarsal joint of left foot (3621611454899995 ) Osteoarthritis of midtarsal joint of left foot (M19.072) Active confirmed Problem Osteoarthritis of midtarsal joint of right foot (1664184078197472 ) Osteoarthritis of midtarsal joint of right foot (M19.071) Active confirmed Vital Signs Blood pressure diastolic 80 mm Hg 02/18/2024 Height 5ft 2in in 02/18/2024 Blood pressure systolic 148 mm Hg 02/18/2024 Weight 160 lbs 02/18/2024 BMI 29.26 kg/m2 02/18/2024 Encounters Encounter Location Date Provider Diagnosis [address] [address] 02/09/2024 Cammie Black Pain in left foot M79.672 ; Pain in left ankle and joints of left foot M25.572 ; Bursitis of left foot M77.52 ; 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 ; Pain in right foot M79.671 ; Pain in right ankle and joints of right foot M25.571 ; Bursitis of right foot M77.51 ; Osteoarthritis of midtarsal joint of right foot M19.071 and Ingrown nail L60.[address] [address] 02/18/2024 Cammie Black Pain in left foot [...] and Other myositis of left foot M60.872 [facility] [address] [place] [address] 02/18/2024 [facility] [address] [address] 02/02/2024 [facility] [address] [address] 02/09/2024 [facility] [address] 02/18/2024 [facility] Encounter Date Diagnosis (ICD Code) Assessment Notes Treatment Notes Treatment Clinical Notes Section Notes 02/09/2024 Pain in left ankle and joints of left foot (ICD-10 - M25.572) 02/09/2024 Pain in left foot (ICD-10 - M79.672) 02/18/2024 Pain in left foot (ICD-10 - M79.672) 02/18/2024 Plantar fasciitis, bilateral (ICD-10 - M72.2) Patient Educated with: HEEL CORD STRETCHES.pdf (HEEL CORD STRETCHES.pdf ) Patient Educated with: RICE THERAPY.pdf (RICE THERAPY.pdf) 02/18/2024 Pain in left ankle and joints of left foot (ICD-10 - M25.572) 02/09/2024 Bursitis of left foot (ICD-10 - M77.52) 02/09/2024 Osteoarthritis of midtarsal joint of left foot (ICD-10 - M19.072) 02/18/2024 Bursitis of left foot (ICD-10 - M77.52) 02/18/2024 Osteoarthritis of midtarsal joint of left foot (ICD-10 - M19.072) 02/09/2024 Pain in right foot (ICD-10 - M79.671) 02/09/2024 Pain in right ankle and joints of right foot (ICD-10 - M25.571) 02/18/2024 Pain in right foot (ICD-10 - M79.671) 02/09/2024 Bursitis of right foot (ICD-10 - M77.51) 02/18/2024 Pain in right ankle and joints of right foot (ICD-10 - M25.571) 02/09/2024 Osteoarthritis of midtarsal joint of right foot (ICD-10 - M19.071) 02/18/2024 Bursitis of right foot (ICD-10 - M77.51) 02/18/2024 Osteoarthritis of midtarsal joint of right foot (ICD-10 - M19.071) 02/09/2024 Ingrown nail (ICD-10 - L60.0) 02/18/2024 Ingrown nail (ICD-10 - L60.0) 02/18/2024 Pain in right foot (ICD-10 - M79.671) 02/18/2024 Calcaneal spur, right foot (ICD-10 - M77.31) 02/18/2024 Other myositis of right foot (ICD-10 - M60.871) 02/18/2024 Pain in left foot (ICD-10 - M79.672) 02/18/2024 Calcaneal spur, left foot (ICD-10 - M77.32) 02/18/2024 Other myositis of left foot (ICD-10 - M60.872) Plan Of Treatment Pending Test Test Name Order Date 34449- Removal of Foreign Body, Subcut 1 04/19/201388662,E2619-RFM TENDON SHEATH/LIGAMENT 0 11/06/2013 Next Appt Details Provider Name:Cammie English , 04/05/2024 10:15:00 AM, [address], [place], [address], Insurance Providers Payer Name Payer Address Payer Phone Subscriber Number Group Number Insured Name Patient Relationship to Insured Coverage Start Date Coverage End Date [facility] [address] [place] [address] [phone] [id number] Ibis Meza Self - patient is the insured Medical (General) History Medical History History ICD Code Chicken pox Arthritis Back,Hip,and Knee pain covid-19 Reflux ( GERD) Surgical History Surgery Date(Month/Year) mass removed 09/2012 interstem 09/2012 foot surgery 1989's eye surgery 1969's bypass 2017 colonoscopy 04/2023
--- OUTSIDE RECORDS SUMMARY | 2024-03-30 11:44 | XMS_ITS | Patient Health Record ---
Author Organization [facility] Address [address] [place] [address] Care Team Providers Care Car Ferrier Name Role Phone Trevor Pablo MD Primary Care Provider Montez Andersen [phone] ALLERGIES Allergen (clinical drug ingredient) Drug/Non Drug Allergy documented on EMR Reaction Allergy Type Onset Date Status cats dogs dust mites mold (uncoded) Unknown Allergy Active RESULTS Component Value Reference Range Notes Pathology (Not yet reviewed by provider) Interpretation: Performing Lab:[facility], [address] [place] [phone] Notes/Report: REASON FOR REFERRAL No Information MEDICATIONS Medication SIG (Take, Route, Frequency, Duration) Notes Start Date End Date Status Azelastine-Fluticasone 137-50 MCG/ACT Nasal for 30 Active VESIcare Active Vitamin D Active ZyrTEC 10 MG 1 tablet Orally Once a day for 30 day(s) 02/03/2023 Active Multivitamin Active Biotin Active IMMUNIZATIONS Vaccine Route Administration Date Status Comme nts Influenza Unknown 12/08/2022 Administered SOCIAL HISTORY Tobacco Use: Social History Observation Description Date Details (start date - stop date) Former Smoker NA - NA Sex Assigned At : Social History Observation Description Sex Assigned At Unknown Tobacco Use/Smoking Question Answer Notes Patient is a former smoker How long has it been since you last smoked? > 10 years Alcohol Screen Question Answer Notes Did you have a drink contain ing alcohol in the past year? Yes How often did you have a dri nk containing alcohol in the past year? Monthly or less (1 point) How many drinks did you have on a typical day when you were drinking in the past year? 1 or 2 drinks (0 point) How often did you have 6 or more drinks on one occasion in the past year? Never (0 point) Points 1 Interpretation Negative PROBLEMS Problem Type ICD Code Onset Dates Problem Status W/U Status Risk SNOMED Code Notes Problem Encounter for screening for malignant neoplasm of colon (Z12.11) Active confirmed 037713025 Problem Pre-procedural examination (Z01.818) Active confirmed 032860002 Problem Constipation, unspecified constipation type (K59.00) Active confirmed 56372177 Problem History of colon polyps (Z86.010) Active confirmed 498773141 Problem Diverticulosis of large intestine without perforation or abscess without bleeding (K57.30) Active confirmed Diverticul ar disease of colon (829021022) Encounters Encounter Location Date Provider Diagnosis [facility] Out[facility] [address] [place] [phone] 05/07/2023 Montez Muñoz Encounter for scre ening [...] hemorrhoids (ICD-10 - K64.8) PLAN OF TREATMENT Pending Test Test Name Order Date Pathology 05/07/2023 Future Test Test Name Order Date COLONOSCOPY 06/08/2017 COLONOSCOPY 02/03/2023 Insurance Providers Payer Name Payer Address Payer Phone Subscriber Number Group Number Insured Name Patient Relationship to Insured Coverage Start Date Coverage End Date [facility] [address] [place], [place] [phone] [id number] CYNDY MEZA Self - patient is the insured MEDICAL (GENERAL) HISTORY Medical History History ICD Code Seasonal allergies Denies KS,DM,CVA,Lung disease,renal dise ase Negative limited(due to prep) colonoscop y in 11/[address] Sarabia Urinary incontinence Surgical History Surgery Date(Month/Year) Laparoscopic Esmer-en-Y Gastr ic bypass with Dr. Singh---lost 135# since 06/2017 Interstim bladder 2009 Eye surgery for crossed eyes as child Plantar fasciitis age 30 Right lump removal in shoulder benign
--- OUTSIDE RECORDS SUMMARY | 2024-03-30 11:44 | XMS_ITS ---
Author Organization [facility] Address [address] [place] [address] Care Team Providers Care Environmental Remediation Specialist Name Role Phone Trevor Pablo Primary Care Provider Cammie Cisneros [phone] REASON FOR VISIT 04/05/24 Orthotics - Ins Encounters Encounter Location Date Provider Diagnosis [facility] [address] [place] [address] 02/18/2024 Cammie English Plan Of Treatment Next Appt Details Provider Name:Cammie English , 04/05/2024 10:15:00 AM, [address] [facility], [place], [address], Progress Notes * Minnie MEZAanceDOB:[birth year] (63 yo F)Acc No.[id number]:02/18/2024 Patient:?Ibis MEZA :1960???Age:63 Y???Sex:Female Address:[address] [place] [address] * true * Date:? Generated for Printi ng/Faacg/eTransmitting on:?03/30/2024 11:44 AM EST
--- OUTSIDE RECORDS SUMMARY | 2024-03-30 11:45 | XMS_ITS ---
Author Organization [facility] Address [address] [place] [address] Care Team Providers Care Mass Spec Name Role Phone Trevor Pablo MD Primary Care Provider Montez Andersen [phone] ALLERGIES Allergen (clinical drug ingredient) Drug/Non Drug Allergy documented on EMR Reaction Allergy Type Onset Date Status cats dogs dust mites mold (uncoded) Unknown Allergy Active REASON FOR VISIT Patient presents today for a colon recall MEDICATIONS Medication SIG (Take, Route, Frequency, Duration) Notes Start Date End Date Status Azelastine-Fluticasone 137-50 MCG/ACT Nasal for 30 Active VESIcare Active Vitamin D Active ZyrTEC 10 MG 1 tablet Orally Once a day for 30 day(s) 02/03/2023 Active Biotin Active Multivitamin Active SOCIAL HISTORY Tobacco Use: Social History Observation [...] W/U Status Risk SNOMED Code Notes Problem Constipation, unspecified constipation type (K59.00) Active confirmed 62552893 Problem History of colon polyps (Z86.010) Active confirmed 442284847 VITAL SIGNS BMI 28.43 kg/m2 02/03/2023 Blood pressure systolic 000 mm Hg 02/04/20 23 Blood pressure diastolic 00 mm Hg 023 Height 62.5 in 02/03/2023 Temperature 97.3 degrees Fahrenheit 02/04/20 23 Weight 158 lbs 02/03/2023 Encounters Encounter Location Date Provider Diagnosis [facility] [address] [place] [address] 02/03/2023 Montez Muñoz Encounter for screening for malignant neoplasm of colon Z12.11 ; Constipation, unspecified constipation type K59.00 ; Pre-procedural examination Z01.818 and History of colon polyps Z86.010 ASSESSMENTS Encounter Date Diagnosis Assessment Notes Treatment Notes Treatment Clinical Notes 02/03/2023 Encounter for screening for malignant neoplasm of colon (ICD-10 - Z12.11) 02/03/2023 Constipation, unspecified constipation type (ICD-10 - K59.00) 02/03/2023 Pre-procedural examination (ICD-10 - Z01.818) 02/03/2023 History of colon polyps (ICD-10 - Z86.010) PLAN OF TREATMENT Future Test Test Name Order Date COLONOSCOPY 02/03/2023 Next Appt Details Follow Up: prn, Reason: Progress Notes * Examination Category Sub-Category Detail Notes General Examination GENERAL APPEARANCE: pleasant , well nourished, well developed, in no acute distress HEAD: EYES: sclera non-icteric EARS: NOSE: THROAT: NECK/THYROID: no cervical lymphade nopathy, neck supple HEART: S1, S2 normal CHEST: LUNGS: clear to auscultatio n bilaterally ABDOMEN: normal bowel sounds, no guarding or rigidity, no guarding or rigidity, no masses palpable, soft, nontender, nondistended NEUROLOGIC: alert and oriented SKIN: nonjaundiced, no spi ceci angiomata EXTREMITIES: no edema PERIPHERAL PULSES: BACK: BREASTS: MUSCULOSKELETAL: MALE GENITOURINARY: LYMPH NODES: RECTAL EXAM: FEMALE GENITOURINARY: ORAL CAVITY: mucosa moist
--- OUTSIDE RECORDS SUMMARY | 2024-03-30 11:45 | XMS_ITS ---
Author Organization [facility] Address [address] [place] [address] Care Team Providers Care Policy Director Name Role Phone Trevor Pablo Primary Care Provider Cammie Cisneros [phone] REASON FOR VISIT DPM orthotics fruit or nut picker 04/05/24 Encounters Encounter Location Date Provider Diagnosis [facility] [address] [place] [address] 02/18/2024 Cammie English Plan Of Treatment Next Appt Details Provider Name:Cammie English , 04/05/2024 10:15:00 AM, [address] [facility], [place], [address], Progress Notes * Minnie MEZAanceDOB:[birth year] (63 yo F)Acc No.[id number]:02/18/2024 Patient:?Ibis MEZA :1960???Age:63 Y???Sex:Female Address:[address] [place] [address] * * Date:?
== END 2024-03-30 09:50 | disposition home or self-care (01) ==
PROVIDERS: PCP Internal Medicine; Visit Provider Nurse Practitioner Family
DX: J06.9 Acute upper respiratory infection, unspecified (principal)

== ENCOUNTER 2024-04-19 15:27 | Outpatient (AMB) | payer BC, SELFPAY ==
--- NOTE | 2024-04-19 15:29 | MHC.OFFVIS ---
Vital Signs 04/19/24 15:30 Height 5 ft 2 in Weight 161 lb BMI 29.4 Intake Visit Reasons: Growth on shoulder, pain Intake Note: This patient presents for Growth on shoulder, pain. Pt c/o; reports growth right shoulder and right clavicle, reports achiness pain and throbbing sensation, reports she had a growth excised on the right shoulder 10 years ago, right clavicle hard lump. 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 Required: No Accompanied by: Self / Same As Patient Allergies Seasonal Allergies Allergy (Intermediate, Verified 04/19/24 15:38) Headache cat dander Allergy (Mild, Verified 04/19/24 15:38) Sneezing dog dander Allergy (Mild, Verified 04/19/24 15:38) Sneezing Medication List - Last Reconciled 04/19/24 by Regan Nagel MD benzonatate 100 mg PO TID biotin 10,000 mcg PO DAILY calcium carbonate (Calcium 600) 600 mg PO DAILY cetirizine (Zyrtec) 10 mg PO DAILY PRN cholecalciferol (vitamin D3) 50 mcg PO DAILY iron,carbonyl-vitamin C 65 mg iron- 125 mg (Vitron-C) 1 tab PO DAILY 90 days multivitamin with iron (Daily Multiple Vitamins with Iron tablet) 1 tab PO DAILY solifenacin 10 mg PO DAILY HPI HPI Growth on shoulder, pain: Details: 63-year-old female self-referred for right shoulder pain. She had a lipoma excised from the anterior part of the right shoulder many years ago. She has been having problems with mobility of her right shoulder for the past several months now. She says she has pain with raising the right arm. She is unable to raise the shoulder all the way above the shoulder level. She denies any palpable mass. [facility] Medical History (Updated 04/19/24 @ 15:49 by Regan Nagel MD) Right shoulder pain Acute respiratory disease Arthritis of right knee Arthritis of left knee Bilateral knee pain Word finding difficulty Urinary incontinence Arthritis Osteoarthritis of left knee Osteoarthritis of right knee Sacral neurostimulator in situ Urinary incontinence Arthritis Sleep apnea Surgical History H/O colonoscopy History of Esmer-en-Y gastric bypass Hx of lumpectomy Hx of tonsillectomy Hx of bladder repair surgery Hx of foot surgery Hx of eye surgery Hx of gastric bypass Family History Mother Hypertension Diabetes Father Hx of CABG Hypertension Prostate CA Bone cancer Sister History of breast cancer Cervical cancer Maternal Grandmother History of breast cancer Paternal Aunt History of breast cancer Social History Housing: House Alcohol intake: current Alcohol intake frequency: a few times a month Comment: weekend 2 -3drinks Patient Tobacco Use Status: Former Tobacco user Tobacco use type: Cigarette Cigarette Packs Per Day: 1 Cigarettes Per Day: 20 Years Smoked: 2002 stopped e-Cigarette/Vaping Use: Never Used Second Hand Smoke Exposure: Yes service: No Current occupational status: employed and 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 Sexual orientation: Straight/Heterosexual Gender identity: Female Cognitive needs: No Hearing needs: No Vision needs: Yes (Glasses) Review of Systems Const Denies chills and Denies fever(s) Card Denies chest pain at rest Resp Denies cough GI Denies abdominal pain Denies difficulty voiding Physical Exam Vital Signs: BMI result Body Mass Index 29.4 Const Other: Walks with a limp as baseline General: comfortable and no acute distress Resp Effort & Inspection: normal respiratory effort Auscultation: clear to auscultation bilaterally Cardio Rate: regular rate GI Palpation (GI): Soft to palpation, not firm and nontender Extrem Other: No mass in the shoulder right, she has difficulty with range of motion of the arm on the right - unable to raise this above the shoulder Assessment & Plan Assessment & Plan (1) Right shoulder pain: Code(s): M25.511 - Pain in right shoulder Category: Medical Plan: Exam suggests a rotator cuff injury. I am going to order for an MRI. I am going to referred to the orthopedic service. She understands the plan. There were no masses on the right shoulder. Coding Level of Care Code New Pt Level 3 (82663) Diagnoses Right shoulder pain M25.511
[2024-04-19 15:30] VITALS: BMI 29.4
--- OUTSIDE RECORDS SUMMARY | 2024-04-19 15:31 | XMS_ITS ---
Author Organization [facility] Address [address] [place] [address] Care Team Providers Care Claims Examiner Name Role Phone Trevor Pablo Primary Care Provider Cammie Cisneros [phone] REASON FOR VISIT orthotics Encounters Encounter Location Date Provider Diagnosis [facility] [address] [place] [address] 04/05/2024 Cammie English Plan Of Treatment Next Appt Details Provider Name:Cammie English , 05/30/2024 04:00:00 PM, [address] [facility], [place], [address], Progress Notes * Minnie MEZAanceDOB:[birth year] (63 yo F)Acc No.[id number]:04/05/2024 Patient:?Ibis MEZA :1960???Age:63 Y???Sex:Female Address:[address] [place] [address] * * Date:?
--- OUTSIDE RECORDS SUMMARY | 2024-04-19 15:31 | XMS_ITS | Data Portability ---
Author Organization [place] [facility] Address [address] [address] Care Team Providers Care Screen Machine Operator Name Role Phone BRIANA AUSTIN Primary Care Provider Assessment Encounter Date Assessment Date Assessment LastModified [...] steroids such as Flonase which is currently guqy-onx-hgdndwq may be helpful. Devices such as a [...] and Address Organization Details Recorded Time Snoring 06441307 Active 024 TAN LUEVANO MD [address] [place] [address], [place], [phone], [facility] - [facility] 4 16:59:43 Obstructive sleep apnea syndrome 51325395 Active 024 TAN LUEVANO MD [address] [place] [address], [place], [phone], [facility] - [facility] 4 11:10:46 Sleep disorder 08737975 Active 024 TAN LUEVANO MD [address] [place] [address], [place], [address], [facility] - [facility] 4 17:06:25 Problem Notes None recorded. Procedures Surgical History Date Name Laterality Status Provider Name and Address Organization Details Recorded Time 09/03/2023 Telehealth completed TAN LUEVANO MD [address] [place] [address], [phone], [facility] - [facility] 09/03/2023 16:56:53 08/12/2023 FOL_DP completed TAN LUEVANO MD [address] [place] [address], [phone], [facility] - [facility] 08/12/2023 11:08:21 Imaging Results None recorded. [...] Updated DateTime 08/12/2023 157.48 cm 29.3 kg/m2 20144.78 g Lenard Cole [place] [facility] 08/12/2023 10:53:19 Social History None recorded. [...] Note 3893 TAN LUEVANO MD [facility] [address] [address] 08/12/2023 10:06:54 08/12/2023 11:15:24 Snoring 87317699 R06.83 Obstructiv e sleep apnea syndrome 85782644 G47.33 6729 TAN LUEVANO MD [facility] [address] [address] 09/03/2023 17:00:24 09/03/2023 17:08:43 Snoring 21501589 R06.83 Sleep disorder 75295544 G47.9 Health Concerns Section Related Observation LastModified by Organization Detai ls LastModified Time None Recorded Concern Status LastModified by Organization Details LastModified Time None Recorded Advance Directives Directive None Recorded Payers Encounter Date Sequence Insurance Name Policy Number Policy Hinton Covered Member ID Hinton Member ID Guarantor Name 08/12/2023 1 [place] [id number] Ibis Meza [id number] Ibis Meza 09/03/2023 1 [place] [id number] Ibis Meza [id number] Ibis Meza Notes Date Note Type Note Provider Name and Address Organization Details Recorded Time 08/12/2023 text/html snoringhx of sev ere SHARLENE - improved after weight loss of 150 pounds with gastric bypass 2017most recent PSG at [place] 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, 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) and has had trouble adapting sleep pattern 7 or 8p and wake at 1amtried melatonin but gets abnormal skin sensationtried turmeric but poorly toleratedtried magnesium with some mild improvement surgery - tonsils removed age 4 TAN LUEVANO MD [address] [facility],[place] [address], [place], [address], [place] [facility] 08/12/2023 11:11:19 09/03/2023 text/html wxxnalt42/4/2023 [facility]x of severe SHARLENE [...] removed age 4 TAN LUEVANO MD [address] [facility] [address], [place], [address], [place] - [facility] 09/03/2023 17:08:36 OBGyn Episode No OBEpisode recorded.
--- OUTSIDE RECORDS SUMMARY | 2024-04-19 15:31 | XMS_ITS ---
Author Organization [facility] Address [address] [place] [address] Care Team Providers Care Mold Mechanic Name Role Phone Po Trevor GIVENS Primary Care Provider Montez Andersen [phone] REASON FOR VISIT screening,hx polyps PROBLEMS Problem Type ICD Code Onset Dates Problem Status W/U Status Risk SNOMED Code Notes Problem Diverticulosis of large intestine without perforation or abscess without bleeding (K57.30) Active confirmed Diverticul ar disease of colon (985294582) Encounters Encounter Location Date Provider Diagnosis [facility] [place] [address], [place] [phone] 05/07/2023 Montez Muñoz Encounter for scre ening [...]
--- OUTSIDE RECORDS SUMMARY | 2024-04-19 15:31 | XMS_ITS | Patient Health Record ---
[facility] Address [address] [facility] [place] [address] Care Team Providers Care Dental Coordinator Name Role Phone Trevor Pablo Primary Care Provider Ilda EnglishCammie Unavailable [phone] Allergies Allergen (clinical drug ingredient) Drug/Non Drug [...] Duration) Notes Start Date End Date Status Custom Orthotics as directed 02/18/2024 Active Voltaren 1 % as directed Externally 02/09/2024 Active Fluticasone Propionate Active Solifenacin Succinate Active VESIcare 10 MG 1 tablet Orally Once a day Not-Taking Work Note . . . Pt out of work due to injection therapy for . 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) Plantar fasciitis, bilateral (M72.2) Active confirmed Problem Osteoarthritis of midtarsal joint of left foot (7312011887807509 ) Osteoarthritis of midtarsal joint of left foot (M19.072) Active confirmed Problem Osteoarthritis of midtarsal joint of right foot (1350775672250999 ) Osteoarthritis of midtarsal joint of right foot (M19.071) Active confirmed Vital Signs Blood pressure diastolic 30 mm Hg 04/05/2024 Height 5ft 2in in 04/05/2024 Blood pressure systolic 140 mm Hg 04/05/2024 Weight 158 lbs 04/05/2024 BMI 28.9 kg/m2 04/05/2024 Encounters Encounter Location Date Provider Diagnosis [address] [address] 02/09/2024 Cammie Black Pain in left foot [...] right foot M19.071 and Ingrown nail L60.[address] [address] 02/18/2024 Cammie Black Pain in left foot [...] and Other myositis of left foot M60.[address] [facility] [address] 04/05/2024 Cammie Black Pain in left foot M79.672 [...] and Other myositis of left foot M60.[address] [facility] [address] 04/05/2024 [facility] [address] [facility] [address] [facility] [address] [address] 02/18/2024 Cammie Amador [facility] [address] [address] 02/18/2024 Cammie English Assessments Encounter Date Diagnosis (ICD Code) Assessment [...] Patient Educated with: RICE THERAPY.pdf (RICE THERAPY.pdf) 04/05/2024 Pain in left foot (ICD-10 - M79.672) 04/05/2024 Plantar fasciitis, bilateral (ICD-10 - M72.2) 02/18/2024 Pain in left ankle and joints of left foot (ICD-10 - M25.572) 02/09/2024 Bursitis of left foot (ICD-10 - M77.52) 02/09/2024 Osteoarthritis of midtarsal joint of left foot (ICD-10 - M19.072) 04/05/2024 Pain in left ankle and joints of left foot (ICD-10 - M25.572) 02/18/2024 Bursitis of left foot (ICD-10 - M77.52) 02/18/2024 Osteoarthritis of midtarsal joint of left foot (ICD-10 - M19.072) 04/05/2024 Bursitis of left foot (ICD-10 - M77.52) 02/09/2024 Pain in right foot (ICD-10 - M79.671) 02/09/2024 Pain in right ankle and joints of right foot (ICD-10 - M25.571) 02/18/2024 Pain in right foot (ICD-10 - M79.671) 04/05/2024 Osteoarthritis of midtarsal joint of left foot (ICD-10 - M19.072) 04/05/2024 Pain in right foot (ICD-10 - M79.671) 02/09/2024 Bursitis of right foot (ICD-10 - M77.51) 02/18/2024 Pain in right ankle and joints of right foot (ICD-10 - M25.571) 02/09/2024 Osteoarthritis of midtarsal joint of right foot (ICD-10 - M19.071) 02/18/2024 Bursitis of right foot (ICD-10 - M77.51) 04/05/2024 Pain in right ankle and joints of right foot (ICD-10 - M25.571) 02/18/2024 Osteoarthritis of midtarsal joint of right foot (ICD-10 - M19.071) 04/05/2024 Bursitis of right foot (ICD-10 - M77.51) 02/09/2024 Ingrown nail (ICD-10 - L60.0) 02/18/2024 Ingrown nail (ICD-10 - L60.0) 04/05/2024 Osteoarthritis of midtarsal joint of right foot (ICD-10 - M19.071) 04/05/2024 Ingrown nail (ICD-10 - L60.0) 02/18/2024 Pain in right foot (ICD-10 - M79.671) 02/18/2024 Calcaneal spur, right foot (ICD-10 - M77.31) 04/05/2024 Pain in right foot (ICD-10 - M79.671) 04/05/2024 Calcaneal spur, right foot (ICD-10 - M77.31) 02/18/2024 Other myositis of right foot (ICD-10 - M60.871) 02/18/2024 Pain in left foot (ICD-10 - M79.672) 04/05/2024 Other myositis of right foot (ICD-10 - M60.871) 04/05/2024 Pain in left foot (ICD-10 - M79.672) 02/18/2024 Calcaneal spur, left foot (ICD-10 - M77.32) 02/18/2024 Other myositis of left foot (ICD-10 - M60.872) 04/05/2024 Calcaneal spur, left foot (ICD-10 - M77.32) 04/05/2024 Other myositis of left foot (ICD-10 - M60.872) Plan Of Treatment Pending Test Test Name Order Date 24309- Removal of Foreign Body, Subcut 1 04/19/201302909,B3386-CNN TENDON SHEATH/LIGAMENT 0 11/06/2013 Next Appt Details Provider Name:Cammie Kemp Amador , 05/30/2024 04:00:00 PM, [address] [facility], [place], [address], Insurance Providers Payer Name Payer Address Payer Phone Subscriber Number Group Number Insured Name Patient Relationship to Insured Coverage Start Date Coverage End Date [facility] All Others [address] [place] [address] [phone] [id number] Ibis Meza Self - patient is the insured Medical (General) History Medical History History ICD Code Chicken pox Arthritis Back,Hip,and Knee pain covid-19 Reflux ( GERD) Surgical History Surgery Date(Month/Year) mass removed 09/2012 interstem 09/2012 foot surgery 1989's eye surgery 1970's bypass 2017 colonoscopy 04/2023
--- OUTSIDE RECORDS SUMMARY | 2024-04-19 15:31 | XMS_ITS | Patient Health Record ---
Author Organization [facility] Address [address] [place] [address] Care Team Providers Care Medical Surgical Tech Name Role Phone Trevor Pablo MD Primary Care Provider Montez Andersen [phone] ALLERGIES Allergen (clinical drug ingredient) Drug/Non Drug Allergy documented on EMR Reaction Allergy Type Onset Date Status cats dogs dust mites mold (uncoded) Unknown Allergy Active RESULTS Component Value Reference Range Notes Pathology (Not yet reviewed by provider) Interpretation: Performing Lab:[facility], [address] [place] [id number] Notes/Report: REASON FOR REFERRAL No Information MEDICATIONS [...] malignant neoplasm of colon (Z12.11) Active confirmed 697553719 Problem Pre-procedural examination (Z01.818) Active confirmed 777134125 Problem Constipation, unspecified constipation type (K59.00) Active confirmed 41605246 Problem History of colon polyps (Z86.010) Active confirmed 286997724 Problem Diverticulosis of large intestine without perforation or abscess without bleeding (K57.30) Active confirmed Diverticul ar disease of colon (310382124) Encounters Encounter Location Date Provider Diagnosis [facility] Outpatient [address] [place] [phone] 05/07/2023 Montez Muñoz Encounter for scre ening [...] Insured Coverage Start Date Coverage End Date [facility] [address] [place], [place] [phone] [id number] CYNDY MEZA Self - patient is the insured MEDICAL (GENERAL) HISTORY Medical History History ICD Code Seasonal allergies Denies RI,DM,CVA,Lung disease,renal dise ase Negative limited(due to prep) colonoscop y in 11/[address] Sarabia Urinary incontinence Surgical History Surgery Date(Month/Year) Laparoscopic Esmer-en-Y Gastr ic bypass with Dr. Singh---lost 135# since 06/2017 Interstim bladder 2009 Eye surgery for crossed eyes as child Plantar fasciitis age 30 Right lump removal in shoulder benign
--- OUTSIDE RECORDS SUMMARY | 2024-04-19 15:31 | XMS_ITS ---
Author Organization [facility] Address [address] [place] [address] Care Team Providers Care Watch Train Inspector Name Role Phone Trevor Pablo MD Primary Care Provider Montez Andersen [phone] ALLERGIES Allergen (clinical drug ingredient) Drug/Non Drug [...] Constipation, unspecified constipation type (K59.00) Active confirmed 50059127 Problem History of colon polyps (Z86.010) Active confirmed 533074683 VITAL SIGNS BMI 28.43 kg/m2 02/03/2023 Blood pressure systolic 000 mm Hg 02/04/20 23 Blood pressure diastolic 00 mm Hg 023 Height 62.5 in 02/03/2023 Temperature 97.3 degrees Fahrenheit 02/04/20 23 Weight 158 lbs 02/03/2023 Encounters Encounter Location Date Provider Diagnosis [facility] [address] [place] [address] 02/03/2023 Montez Muñoz Encounter for screening for [...]
--- OUTSIDE RECORDS SUMMARY | 2024-04-19 15:32 | XMS_ITS ---
[facility] Address [address] [place] [address] Care Team Providers Care Filling Mixer Name Role Phone SamyMarielledarshana Primary Care Provider Ilda EnglishCammie Unavailable [phone] Allergies Allergen (clinical drug ingredient) Drug/Non Drug Allergy documented on EMR Reaction Allergy Type Onset Date Status Dog dander Dog Dander Unknown Allergy Active REASON FOR VISIT PCP: 01/2024, Foot pain, Heel pain Medications Medication SIG (Take, Route, Frequency, Duration) Notes Start Date End Date Status Custom Orthotics as directed 02/18/2024 Active Voltaren 1 % as directed Externally 02/09/2024 Active VESIcare 10 MG 1 tablet Orally Once a day Not-Taking Work Note . . . Pt out of work due to injection therapy for . 11/06/2013 Not-Taking Claritin 10 MG 1 tablet Orally Once a day Not-Taking Fluticasone Propionate Active Solifenacin Succinate Active Dymista 137-50 MCG/ACT 1 puff in each no stril Nasally Twice a day Not-Taking Social History Tobacco Use: [...] month (2 points) Points 4 Interpretation Positive Vital Signs Height 5ft 2in in 04/05/2024 Weight 158 lbs 04/05/2024 BMI 28.9 kg/m2 04/05/2024 Blood pressure systolic 140 mm Hg 04/05/19 25 Blood pressure diastolic 30 mm Hg 025 Encounters Encounter Location Date Provider Diagnosis [facility] [address] 04/05/2024 Cammie Black Pain in left foot [...] Treatment Notes Treatment Clinical Notes Section Notes 04/05/2024 Pain in left foot (ICD-10 - M79.672) 04/05/2024 Plantar fasciitis, bilateral (ICD-10 - M72.2) 04/05/2024 Pain in left ankle and joints of left foot (ICD-10 - M25.572) 04/05/2024 Bursitis of left foot (ICD-10 - M77.52) 04/05/2024 Osteoarthritis of midtarsal joint of left foot (ICD-10 - M19.072) 04/05/2024 Pain in right foot (ICD-10 - M79.671) 04/05/2024 Pain in right ankle and joints of right foot (ICD-10 - M25.571) 04/05/2024 Bursitis of right foot (ICD-10 - M77.51) 04/05/2024 Osteoarthritis of midtarsal joint of right foot (ICD-10 - M19.071) 04/05/2024 Ingrown nail (ICD-10 - L60.0) 04/05/2024 Pain in right foot (ICD-10 - M79.671) 04/05/2024 Calcaneal spur, right foot (ICD-10 - M77.31) 04/05/2024 Other myositis of right foot (ICD-10 - M60.871) 04/05/2024 Pain in left foot (ICD-10 - M79.672) 04/05/2024 Calcaneal spur, left foot (ICD-10 - M77.32) 04/05/2024 Other myositis of left foot (ICD-10 - M60.872) Plan Of Treatment Next Appt Details Follow Up: 6 Weeks, Reason: Provider Name:Cammie English , 05/30/2024 04:00:00 PM, [address] [facility], [place], [address], Progress Notes * Javon MEZAOB:[birth year] (63 yo F)Acc No.[id number]:04/05/2024 Progress Note Patient:?Ibis MEZA Provider:?Cammie English DPM :1960???Age:63 Y???Sex:Female D ate:04/05/2024 Address: [address], [facility] Pcp:Trevor Pablo Subjective: * Chief Complaints: * ???PCP: 01/2024Foot painHeel pain * HPI: ???Foot Pain:?Nature:?aching , stiffness , swelling , throbbing.?Location:?Top , Midfoot, B/L, Right > Left.?Duration:?, several years but worse last few months.?Course:?, intermittent.?Treatments:?Rest/alter normal daily activity, Tylenol, topical medications.?Heel pain:?Nature:?tenderness, sharp pain, stiffness.?Location:?Proximal plantar aspect of Heel , B/L.?Duration:?, several weeks.?Course:?, improved, at approximately 30 %.?Aggravated:?standing, walking, walking first thing in the morning/after rest.?Treatments:?rest/alter normal daily activity.? * ROS:?General/Constitutional:?Nausea?denies.?Vomiting?denies.?Hunger Thirst?denies.?Loss appetite?denies.?Chills?denies.?Fatigue?denies.?Fever?denies.?Night Sweats?denies.?Unexplained weight loss?denies.?Unexplained weight gain?denies.?HEENTM:?Dentures?denies.?Dizziness?denies.?Glasses/contacts?admits.?Retinopathy?de nies.?Blurred/double vision?denies.?TMJ?denies.?Discharge/drainage?denies.?Implants?denies.?Sore throat?denies.?Dental implants?admits.?Hard of hearing ?denies.?Difficulty chewing/swallowing/speaking?denies.?Nose bleeds?denies.?Sore mouth?denies.?Respiratory:?On Oxygen?denies.?Pneumonia/pleurisy?denies.?Bronchitis?denies.?Emphysema?denies.?C oughing?denies.?Cough blood?denies.?Shortness of breath?denies.?Wheezing?denies.?Cardiovascular:?Pacemaker?denies.?MVP?denies.?WPW?denies.?CHF?denies.?Heart attack?denies.?Septal defect?denies.?Rapid beat?denies.?Chest pain ?denies.?Atrial Fib.?denies.?Murmur/Palpitations?denies.?Gastrointestinal:?Hemorrhoids?denies.?Stomach/Abdominal pain?denies.?Dark blood stool?denies.?Irritable bowel ?denies.?Constipation?admits.?Diarrhea?denies.?Hematology:?Swelling?admits.?Clots?denies.?Varicose Veins?admits.?Bruising?denies.?Bleeding problem?denies.?Genitourinary:?Blood urine?denies.?Frequent/Painfu/urination/bladder control?denies.?Kidney stones?admits.?Infection (UTI)?denies.?Nephropathy?denies.?sex trans dis (STD)?denies.?Prostate?denies.?Musculoskeletal:?Hammertoes?denies.?Bunions?denies.?Back Pain?admits.?Muscle Cramps/ Resting?denies.?Muscle cramps / walking?admits.?Generalized aches and pains?admits.?Weakness?denies.?Integ.:?Perkins?denies.?Scars?denies.?Corns/calluses?admits.?Ingrown nails?admits.?Painful nails?denies.?Open Sores?denies.?Rashes?denies.?Neurologic:?Difficulty sleeping?admits.?Brain disorder?denies.?Numbness?denies.?Balance trouble?denies.?Confusion?denies.?Fainting/blackouts?denies.?Tingling?admits.?Tr emors?denies.? * Medical History:? * Surgical History:?mass remov ed 09/2012interstem 09/2012foot surgery 1989'seye surgery 1969'sbypass 2017colonoscopy 04/2023 * Hospitalization/Major Diagno stic Procedure:?Denies Past Hospitalization * Family History:?Mother: dece ased, poor circulation, foot problems, kidney/liver diseas, diagnosed with Diabetic - NIDDM, Unspecified essential hypertension, Family history of arthritis.?Father: , defects, diagnosed with Other malignant neoplasm of unspecified site, Unspecified essential hypertension, Unspecified heart disease, Unspecified cerebral artery occlusion with cerebral infarction.?Siblings: diagnosed with Other malignant neoplasm of unspecified site.? * Social History:?Tobacco Use:?Tobacco use other than smoking?Are you an other tobacco user??No ?Tobacco Control (Standard)?Tobacco use:?Former smoker ?Additional Findings: Tobacco non-user?Ex-cigarette smoker ???Drugs/Alcohol:?Drugs?Have you used drugs other than those for medical reasons in the past 12 months??No ???Miscellaneous:?Caffeine: yes, frequency:, 3-5 cups per day. ?Children: yes, 3. ?Exercise: no. ?Marital status: . 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 ???Drug/Alcohol:?AUDIT-C (Standard)?Did you have a drink [...] Voltaren 1 % Gel as directed Externally Custom Orthotics as directed Taking Solifenacin Succinate Taking Fluticasone Propionate Taking Voltaren 1 % Gel as directed Externally Taking Custom Orthotics as directed Not-Taking/PRNWork Note . . . . Pt [...] * Allergies:?Dog Danderyes[All ergies Verified] Objective: * Vitals:?Ht:5ft 2in, Wt:158, BMI:28.9, Shoe size:9, BP:140/30mm Hg, Ht-cm: 157.48 cm, Wt-k.67 kg. * Examination: ???General Examination: ?GENERAL APPEARANCE:?Reveals [...] compression; no limited STJ ROM, calor, or ecchymosis, Approximately 30? percent LESS.? Assessment: * Assessment: 1.?Pain in left foot [...] foot - M60.872??? Plan: * Treatment: * Procedure Codes:? * Preventive Medicine:? ??Counseling:?Discussion:?-13: Office or other outpatient visit for the evaluation and management of an established patient, which required a medically appropriate history and/or examination and LOW level of DECISION MAKING for: 1 STABLE ACUTE UNCOMPLICATED PROBLEM, 2 OR MORE MINOR PROBLEMS, OR 1 STABLE CHRONIC PROBLEM, THAT POSE(S) A LOW RISK FOR MORBIDITY/MORTALITY. The visit on the day of the [...] have encouraged the patient to call the office.?Orthotic Dispensing:?The patient presents today for fitting and dispensing of orthotics. The inserts were checked against the prescription and found to be accurate. They were properly fitted to the patients feet and shoes in both weight-bearing and non-weight bearing attitudes. The patient was instructed to gradually increase the amount of time they are wearing the orthoses, starting with one hour the first day and thereon progressively increasing the amount of time used by one hours per day until they are comfortable to be worn all day and with all activities. They were asked to call the office if any signs of skin irritation were noted including redness, blistering or callous formation. The patient verbally indicated a full understanding of all the above information, Handout reviewed and dispensed.Old pair will be sent back for refurbishment- increase arch height.? * Follow Up:?6 Weeks * Images: * Sign off status: Completed true * Provider:?Cammie English DPM Date:?2024 Generated for Pooja king/Dhaval/Todd on:?04/19/2024 03:31 PM EST History and Physical Notes * HPI (History of Present Illness) Category Sub-Category Detail Notes Category Not es Heel pain Duration: , several weeks Nature: tenderness, sharp pa in, stiffness Location: Proximal plantar asp ect of Heel , B/L Aggravated: standing, walking, w alking first thing in the morning/after rest Course: , improved, at appro ximately 30 % Treatments: rest/alter normal da jessica activity Foot Pain Nature: aching , stiffness , swellin g , throbbing Location: Top , Midfoot, B/L, Right > Left Duration: , several years but worse last few months Course: , intermittent Treatments: Rest/alter normal da jessica activity, Tylenol, topical medications Examination Category Sub-Category Detail Notes Category Not es Ingrown Nail INSPECTION: Heel Pain INSPECTION REVEALS: Pain on Palp ation to Plantar Fascia med. and central bands, intrinsic musc., infra-calcaneal bursa, and med calc tubercle, B/L, No pain: posterior/superior heel, achilles bursa/tendon, sinus tarsi, peroneals, or with lateral heel compression; no limited STJ ROM, calor, or ecchymosis, Approximately 30 percent LESS Neurological SENSORY: Neurological exa m reveals intact [...]
--- OUTSIDE RECORDS SUMMARY | 2024-04-19 15:32 | XMS_ITS ---
Author Organization [facility] Address [address] [place] [address] Care Team Providers Care Gun Profiler Name Role Phone Trevor Pablo Primary Care Provider Cammie Cisneros [phone] REASON FOR VISIT DPM orthotics shrimp picker 04/05/24 Encounters Encounter Location Date Provider Diagnosis [facility] [address] [place] [address] 02/18/2024 Cammie English Plan Of Treatment Next Appt Details Provider Name:Cammie English , 05/30/2024 04:00:00 PM, [address] [facility], [place], [address], Progress Notes * Minnie MEZAanceDOB:[birth year] (63 yo F)Acc No.[id number]:02/18/2024 Patient:?Ibis MEZA :1960???Age:63 Y???Sex:Female Address:[address] [place] [address] * true * Date:? Generated for Printi ng/Faacg/eTransmitting on:?04/19/2024 03:32 PM EST
== END 2024-04-19 15:44 | disposition home or self-care (01) ==
PROVIDERS: PCP Internal Medicine; Visit Provider Surgery
DX: M25.511 Pain in right shoulder (principal)
CPT/HCPCS: 99203

== ENCOUNTER → 2024-04-19 15:27 | Outpatient (BNVA) | payer BC, SELFPAY | PROVIDERS: PCP Internal Medicine; Visit Provider Surgery ==

== ENCOUNTER 2024-05-11 09:50 | Outpatient (REF) | payer BC, SELFPAY ==
--- NOTE | ~2024-05-11 | MR_ITS ---
EXAMINATION: MR SHOULDER, RIGHT. CLINICAL INFORMATION: Right shoulder pain 6 months duration. Rule out rotator cuff tear. COMPARISON: None TECHNIQUE: Multiplanar multisequence MR imaging of the right shoulder was done without IV contrast. Examination performed on a 1.5 Carol Siemens unit utilizing standard sequences. FINDINGS: Rotator Cuff and Biceps Tendon: Supraspinatus: There is no definite discrete tear. There is mild hyperintensity of the tendon throughout the critical zone, in keeping with mild tendinopathy. No tendinous retraction. The muscle belly is normal. Infraspinatus: Within the most superior tendon at the junction of the supraspinatous fibers, there is a 3 x 4 mm focus of high signal involving the medial footplate attachment suggesting small rim rent type tear (series 8, image 15; series 9, image 20). Remainder of the tendon appears normal and intact. Normal muscle belly. Subscapularis: There is approximately 50% undersurface tear of the distal tendon involving the medial attachment zone and medial tendon (series 5, images 8-11; series 9, images 17-21). There is no gross tendinous retraction. The muscle belly is normal. Teres Minor: Intact and normal in signal. Biceps Long Head: Normally located within the bicipital groove. Normal morphology. The tendon within the rotator interval is normal. [place] appears intact. AC Joint and Acromiohumeral Arch: There is a type II acromion. No significant undersurface spurs. The AC joint demonstrates mild to moderate capsular distention and predominantly superior surface spurring. Minimal undersurface spurring. No supraspinatus outlet stenosis. Glenohumeral Joint and Labrum: Normal joint fluid. No loose body. No cartilaginous defects or significant degenerative arthritis. Normal alignment. The labrum appears grossly intact without definite tear. Osseous Structures: No gross bone marrow edema to suggest contusion or fracture. Minimal lesser tuberosity edema abutting the insertion of the subscapularis tendon. Spino-glenoid Notch: Normal. Quadrilateral Space: Normal. Other: Normal glenohumeral ligaments. Hyperintensity in the subacromial/subdeltoid bursa is consistent with mild bursitis. MR/MR shoulder RT wo con IMPRESSION: 1. Approximately 50% broad undersurface tear of the subscapularis tendon involving the medial attachment zone and mid aspect of the tendon. No full-thickness tear or tendinous retraction. Normal muscle belly. 2. Mild tendinopathy of the supraspinatous tendon without tear. 3. Small rim rent type tear involving the medial footplate attachment of the superior infraspinatus tendon at the junction of the supraspinatus fibers. 4. Mild to moderate degenerative spurring the AC joint with small undersurface spurs. No supraspinatus outlet stenosis. 5. Mild subacromial/subdeltoid bursitis. Electronically signed by: Enrique Murillo MD 05/11/2024 01:19 PM EDT
--- NOTE | ~2024-05-11 | XR_ITS ---
EXAMINATION: XR SCREENING FILM FOR MR HISTORY: PT HX 3 BLADDER STIMS, ? RETAINED LEAD PRE MRI PELVIS COMPARISON: There are no prior studies for comparison. FINDINGS: A single AP view of the pelvis is submitted. Osseous mineralization is normal. There is no fracture or dislocation. The hip and sacroiliac joint spaces are maintained. A sacral stimulator is noted with the battery pack overlying the right iliac wing. The lead is intact. XR/XR pre mri screening IMPRESSION: Sacral stimulator in place. Electronically signed by: Montez Mccray MD 05/11/2024 10:37 AM EDT
--- OUTSIDE RECORDS SUMMARY | 2024-05-11 11:59 | XMS_ITS ---
Author Organization [facility] Address [address] [place] [address] Care Team Providers Care Mitochondrial Disorders Counselor Name Role Phone Trevor Pablo MD Primary Care Provider Montez Andersen [phone] Allergies Allergen (clinical drug ingredient) Drug/Non Drug Allergy documented on EMR Reaction Allergy Type Onset Date Status cats dogs dust mites mold (uncoded) Unknown Allergy Active REASON FOR VISIT Patient presents today for a colon recall Medications Medication SIG (Take, Route, Frequency, Duration) Notes Start Date End Date Status Azelastine-Fluticasone 137-50 MCG/ACT Nasal for 30 Active VESIcare Active Vitamin D Active ZyrTEC 10 MG 1 tablet Orally Once a day for 30 day(s) 02/03/2023 Active Biotin Active Multivitamin Active Social History Tobacco Use: Social History Observation Description Date Details (start date - stop date) Former Smoker NA - NA Tobacco Use/Smoking Question Answer Notes Patient is [...] Never (0 point) Points 1 Interpretation Negative Section Notes: Former smoker over 25 years ago Occasional drink Problems Problem Type SNOMED Code ICD Code Onset Dates Problem Status W/U Status Risk Notes Problem 89603059 Constipation, unspecified constipation type (K59.00) Active confirmed Problem 942659343 History of colon polyps (Z86.010) Active confirmed Vital Signs Temperature 97.3 degrees Fahrenheit 02/04/20 23 Blood pressure systolic 000 mm Hg 02/04/20 23 Blood pressure diastolic 00 mm Hg 023 Height 62.5 in 02/03/2023 Weight 158 lbs 02/03/2023 BMI 28.43 kg/m2 02/03/2023 Encounters Encounter Location Date Provider Diagnosis [facility] [address] [place] [address] 02/03/2023 Montez Muñoz Encounter for screening for malignant neoplasm of colon Z12.11 ; Constipation, unspecified constipation type K59.00 ; Pre-procedural examination Z01.818 and History of colon polyps Z86.010 Assessments Encounter Date Diagnosis (ICD Code) Assessment Notes Treatment Notes Treatment Clinical Notes Section Notes 02/03/2023 Encounter for screening for malignant neoplasm of colon (ICD-10 - Z12.11) Overall, Stacy appears well. I did recommend a followup colonoscopy for further screening purposes given her history of a polyp removed in 2017 and a somewhat limited prep. We did review the rationale for this in regard to colon cancer prevention and/or early detection. She will have a 2 day preparation this time to hopefully allow for a better cleanout. Full consent was obtained from her for this, including risks of bleeding and perforation. The procedure will be done with monitored anesthesia care. In regard to her constipation in general, I did recommend that she add some fiber supplements on a daily basis along with plenty of fluids to see if that can help improve her bowel movement regularity. Stacy was comfortable with this plan. Thank you again for allowing me to participate in Stacy's care. I shall continue to keep you advised of her progress. 02/03/2023 Constipation, unspecified constipation type (ICD-10 - K59.00) Overall, Stacy appears well. I did recommend a followup colonoscopy for further screening purposes given her history of a polyp removed in 2017 and a somewhat limited prep. We did review the rationale for this in regard to colon cancer prevention and/or early detection. She will have a 2 day preparation this time to hopefully allow for a better cleanout. Full consent was obtained from her for this, including risks of bleeding and perforation. The procedure will be done with monitored anesthesia care. In regard to her constipation in general, I did recommend that she add some fiber supplements on a daily basis along with plenty of fluids to see if that can help improve her bowel movement regularity. Stacy was comfortable with this plan. Thank you again for allowing me to participate in Stacy's care. I shall continue to keep you advised of her progress. 02/03/2023 Pre-procedural examination (ICD-10 - Z01.818) Overall, Stacy appears well. I did recommend a followup colonoscopy for further screening purposes given her history of a polyp removed in 2018 and a somewhat limited prep. We did review the rationale for this in regard to colon cancer prevention and/or early detection. She will have a 2 day preparation this time to hopefully allow for a better cleanout. Full consent was obtained from her for this, including risks of bleeding and perforation. The procedure will be done with monitored anesthesia care. In regard to her constipation in general, I did recommend that she add some fiber supplements on a daily basis along with plenty of fluids to see if that can help improve her bowel movement regularity. Stacy was comfortable with this plan. Thank you again for allowing me to participate in Stacy's care. I shall continue to keep you advised of her progress. 02/03/2023 History of colon polyps (ICD-10 - Z86.010) Overall, Stacy appears well. I did recommend a followup colonoscopy for further screening purposes given her history of a polyp removed in 2018 and a somewhat limited prep. We did review the rationale for this in regard to colon cancer prevention and/or early detection. She will have a 2 day preparation this time to hopefully allow for a better cleanout. Full consent was obtained from her for this, including risks of bleeding and perforation. The procedure will be done with monitored anesthesia care. In regard to her constipation in general, I did recommend that she add some fiber supplements on a daily basis along with plenty of fluids to see if that can help improve her bowel movement regularity. Stacy was comfortable with this plan. Thank you again for allowing me to participate in Stacy's care. I shall continue to keep you advised of her progress. Plan Of Treatment Future Test Test Name Order Date COLONOSCOPY 02/03/2023 Next Appt Details Follow Up: prn, Reason: Progress Notes * CYNDY MEZA CDOB:1960 (62 yo F)Acc No.[id number]:02/03/2023 Progress Notes Patient:CYNDY ARZOLA Provider:?Montez Muñoz MD :1960???Age:62 Y???Sex:Female D ate:02/03/2023 [address] [facility] Pcp:Trevor Pablo MD Subjective: * Chief Complaints: * ???Patient presents today fo r a colon recall * HPI: ???incontinence:? I saw Stcay in consultation today in regard to further evaluation of her constipation, personal history of a colon polyp, and need for colorectal cancer screening. ?I last saw Stacy in July of 2017, at which time she underwent a followup screening colonoscopy. This revealed a single grossly adenomatous polyp that was removed, but was not recovered for pathology analysis. The procedure was somewhat limited by a somewhat incomplete prep. She does describe some fairly chronic constipation, particularly since her gastric bypass surgery. She attributes this to not eating as much, as well not having as much water during the day that she should be drinking. She has had a history of urinary incontinence and therefore limits her fluid intake. She denies any hematochezia nor melena. She does enjoy good appetite and denies any significant heartburn or dysphagia. She denies abdominal pain, jaundice, nor unintentional weight loss. She denies any known family history of colon cancer. Of note, she did have a colonoscopy in 2010 that was also described as somewhat incomplete as well due to a limited prep. * ROS:?General/Constitutional:?Change in appetite?denies.?Chills?denies.?Fatigue?denies.?Ophthalmologic:?Comments?all negative.?ENT:?Comments?all negative.?Respiratory:?hemoptysis?denies.?Cough?denies.?Cardiovascular:?Chest pain?denies.?Orthopnea?denies.?Gastrointestinal:?Comments?See HPI for details.?Genitourinary:?Hematuria?denies.?Dysuria?denies.?Musculoskeletal:?Painful joints?denies.?Weakness?denies.?Skin:?Itching?denies.?Rash?denies.?Neurologic:?Headache?denies.?Seizures?denies.?Psychiatric:?Comments?all negative.? * Medical History:? * Surgical History:?Laparoscop ic Esmer-en-Y Gastric bypass with Dr. Singh---lost 135# since 06/2017Interstim bladder 2009Eye surgery for crossed eyes as childPlantar fasciitis age 30Right lump removal in shoulder benign * Hospitalization/Major Diagno stic Procedure:?No Hospitalization History. * Family History:?Father: dece ased, diagnosed with Heart disease, HTN (hypertension).?Mother: , diagnosed with Diabetes, Heart disease, HTN (hypertension).?Siblings: sister and brother, diagnosed with HTN (hypertension), Diabetes.? No known hx of colon cancer. No liver cancer. * Social History:?Tobacco Use:?Tobacco Use/Smoking?Patient is a?former smoker,?How long has it been since you last smoked??> 10 years.?Drugs/Alcohol:?Alcohol Screen?Did you have a drink containing alcohol in the past year??Yes,?How often did you have a drink containing alcohol in the past year??Monthly or less (1 point), How many drinks did you have on a typical day when you were drinking in the past year??1 or 2 drinks (0 point),?How often did you have 6 or more drinks on one occasion in the past year??Never (0 point),?Points?1,?Interpretation?Negative.?Miscellaneous:?Marital status: . Occupation: [employer]. ???Former smoker over 25 years ago Occasional drink. * Medications:?TakingMultivita min Biotin Vitamin D ZyrTEC 10 MG Tablet 1 tablet Orally Once a dayAzelastine-Fluticasone 137-50 MCG/ACT Suspension Nasal VESIcare Medication List reviewed and reconciled with the patientTaking Multivitamin Taking Biotin Taking Vitamin D Taking ZyrTEC 10 MG Tablet 1 tablet Orally Once a dayTaking Azelastine-Fluticasone 137-50 MCG/ACT Suspension Nasal Taking VESIcare Medication List reviewed and reconciled with the patient * Allergies:?cats dogs dust mi kaykay moldyes[Allergies Verified] Objective: * Vitals:?Wt: 158 lbs, Ht: 62. 5 in, BMI:28.43 Index, BP: 000/00 mm Hg, Temp: 97.3. * Examination: ???General Examination: ?GENERAL APPEARANCE:?pleasant, well nourished, well developed, in no acute distress.?EYES:?sclera non-icteric.?ORAL CAVITY:?mucosa moist.?NECK/THYROID:?no cervical lymphadenopathy, neck supple.?SKIN:?nonjaundiced, no spider angiomata.?HEART:?S1, S2 normal.?LUNGS:?clear to auscultation bilaterally.?ABDOMEN:?normal bowel sounds, no guarding or rigidity, no guarding or rigidity, no masses palpable, soft, nontender, nondistended.?EXTREMITIES:?no edema.?NEUROLOGIC:?alert and oriented.? Assessment: * Assessment: 1.?Constipation, unspecified constipation type - K59.00 (Primary)?2.?Encounter for screening for malignant neoplasm of colon - Z12.11?3.?Pre-procedural examination - Z01.818?4.?History of colon polyps - Z86.010? Overall, Stacy appears well . I did recommend a followup colonoscopy for further screening purposes given her history of a polyp removed in 2018 and a somewhat limited prep. We did review the rationale for this in regard to colon cancer prevention and/or early detection. She will have a 2 day preparation this time to hopefully allow for a better cleanout. Full consent was obtained from her for this, including risks of bleeding and perforation. The procedure will be done with monitored anesthesia care. In regard to her constipation in general, I did recommend that she add some fiber supplements on a daily basis along with plenty of fluids to see if that can help improve her bowel movement regularity. Stacy was comfortable with this plan. Thank you again for allowing me to participate in Stacy's care. I shall continue to keep you advised of her progress. Plan: * Treatment: 2.?History of colon polyps?Procedure: COLONOSCOPY (Ordered for 02/03/2023)* with MAC and a 2 day prepsch ed for 05/07/23 at 8:40 ammiralax * Procedure Codes:?3017F COLOR ECTAL CA SCREEN DOC MGH9013N TOBACCO NON-IRUPG8515 BP SCR NOT PRFRM REC REASON NOS * Preventive Medicine:? ??Counseling:?Care goal follow-up plan:?Above Normal BMI Follow-up?Giving encouragement to exercise,?BMI management provided?Yes.? * Follow Up:?prn * * Sign off status: Completed true * Provider:?Montez Muñoz MD Date:? 023 Generated for Pooja king/Dhaval/Yadiraitting on:?05/11/2024 11:59 AM EDT History and Physical Notes * HPI (History of Present Illness) Category Sub-Category Detail Notes Category Not es incontinence I saw Stacy in consultation today in regard to further evaluation of her constipation, personal history of a colon polyp, and need for colorectal cancer screening. I last saw Stacy in July of 2017, at which time she underwent a followup screening colonoscopy. This revealed a single grossly adenomatous polyp that was removed, but was not recovered for pathology analysis. The procedure was somewhat limited by a somewhat incomplete prep. She does describe some fairly chronic constipation, particularly since her gastric bypass surgery. She attributes this to not eating as much, as well not having as much water during the day that she should be drinking. She has had a history of urinary incontinence and therefore limits her fluid intake. She denies any hematochezia nor melena. She does enjoy good appetite and denies any significant heartburn or dysphagia. She denies abdominal pain, jaundice, nor unintentional weight loss. She denies any known family history of colon cancer. Of note, she did have a colonoscopy in 2010 that was also described as somewhat incomplete as well due to a limited prep. Examination Category Sub-Category Detail Notes Category Not es General Examination GENERAL APPEARANCE: pleasant , well [...]
--- OUTSIDE RECORDS SUMMARY | 2024-05-11 11:59 | XMS_ITS ---
Author Organization [facility] Address [address] [place] [address] Care Team Providers Care Hypo Splasher Name Role Phone Trevor Pablo Primary Care Provider Cammie Cisneros [phone] REASON FOR VISIT orthotics Encounters Encounter Location Date Provider Diagnosis [facility] [address] [place] [address] 04/05/2024 Cammie English Plan Of Treatment Next Appt Details Provider Name:Cammie English , 05/30/2024 04:00:00 PM, [address] [facility], [place], [address], Progress Notes * Minnie MEZAanceDOB:[birth year] (64 yo F)Acc No.[id number]:04/05/2024 Patient:?Ibis MEZA :1960???Age:63 Y???Sex:Female Address:[address] [place] [address] * * Date:?
--- OUTSIDE RECORDS SUMMARY | 2024-05-11 11:59 | XMS_ITS | Patient Health Record ---
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 confirmed Problem Osteoarthritis of midtarsal joint of right foot (9873687513989483 ) Osteoarthritis of midtarsal joint of right foot (M19.071) Active confirmed Vital Signs Blood pressure diastolic 30 mm Hg 04/05/2024 Height 5ft 2in in 04/05/2024 Blood pressure systolic 140 mm Hg 04/05/2024 Weight 158 lbs 04/05/2024 BMI 28.9 kg/m2 04/05/2024 Encounters Encounter Location Date Provider Diagnosis [address] [address] 02/09/2024 Cammie Black Pain in left foot [...] right foot M19.071 and Ingrown nail L60.[address] [address] 02/18/2024 Cammie Black Pain in left foot [...] and Other myositis of left foot M60.[address] [facility] [address] 04/05/2024 Cammie Black Pain in left foot [...] and Other myositis of left foot M60.[address] [facility] [address] 04/05/2024 [facility] [address] [facility] [address] [facility] [address] [address] 02/18/2024 Cammie Amador [facility] [address] [address] 02/18/2024 Cammie English Assessments Encounter Date Diagnosis [...] Treatment Pending Test Test Name Order Date 68587- Removal of Foreign Body, Subcut 1 04/19/201333087,D4442-SZL TENDON SHEATH/LIGAMENT 0 11/06/2013 Next Appt Details Provider Name:Cammie Kemp Amador , 05/30/2024 04:00:00 PM, [address] [employer], [place], [address], Insurance Providers Payer Name Payer Address Payer Phone Subscriber Number Group Number Insured Name Patient Relationship to Insured Coverage Start Date Coverage End Date [facility] [address] [place] [address] [phone] [id number] Ibis Meza Self - patient is the insured Medical (General) History Medical History History ICD Code Chicken pox Arthritis Back,Hip,and Knee pain covid-19 Reflux ( GERD) Surgical History Surgery Date(Month/Year) mass removed 09/2012 interstem 09/2012 foot surgery 1989's eye surgery 1970's bypass 2017 colonoscopy 04/2023
--- OUTSIDE RECORDS SUMMARY | 2024-05-11 11:59 | XMS_ITS | Data Portability ---
Author Organization [place] [facility] Address [address] [address] Care Team Providers Care Manager Alliance Name Role Phone BRIANA AUSTIN Primary Care Provider [phone] Assessment Encounter Date Assessment Date Assessment LastModified [...] steroids such as Flonase which is currently [id number] may be helpful. Devices such as a [...] and Address Organization Details Recorded Time Snoring 74238070 Active 024 TAN LUEVANO MD [address] [place] [address], [place], [address], [facility] - [facility] 4 16:59:43 Obstructive sleep apnea syndrome 91506551 Active 024 TAN LUEVANO MD [address] [place] [address], [place], [address], [facility] - [facility] 4 11:10:46 Sleep disorder 71222123 Active 024 TAN LUEVANO MD [address] [place] [address], [place], [address], [facility] - [facility] 4 17:06:25 Problem Notes None recorded. Procedures Surgical History Date Name Laterality Status Provider Name and Address Organization Details Recorded Time 09/03/2023 Telehealth completed TAN LUEVANO MD [address] [place] [address], [address], [facility] - [facility] 09/03/2023 16:56:53 08/12/2023 FOL_DP completed TAN LUEVANO MD [address] [place] [address], [address], [facility] - [facility] 08/12/2023 11:08:21 Imaging Results None recorded. [...] Updated DateTime 08/12/2023 157.48 cm 29.3 kg/m2 09886.78 g Lenard Cole [place] [facility] 08/12/2023 10:53:19 Social History None recorded. [...] Note 3893 TAN LUEVANO MD [facility] [address] [address] 08/12/2023 10:06:54 08/12/2023 11:15:24 Snoring 94868872 R06.83 Obstructiv e sleep apnea syndrome 97441471 G47.33 6729 TAN LUEVANO MD [facility] [address] [address] 09/03/2023 17:00:24 09/03/2023 17:08:43 Snoring 84376695 R06.83 Sleep disorder 91042537 G47.9 Health Concerns Section Related Observation LastModified by Organization Detai ls LastModified Time None Recorded Concern Status LastModified by Organization Details LastModified Time None Recorded Advance Directives Directive None Recorded Payers Encounter Date Sequence Insurance Name Policy Number Policy Hinton Covered Member ID Hinton Member ID Guarantor Name 08/12/2023 1 [place] [id number] Iibs Meza [id number] Ibis Meza 09/03/2023 1 [place] [id number] Ibis Meza [id number] Ibis Meza Notes Date Note Type Note Provider Name and Address Organization Details Recorded Time 08/12/2023 text/html snoringhx of sev ere SHARLENE - improved after weight loss of 150 pounds with gastric bypass 2017most 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 hx of severe SHARLENE [...] removed age 4 TAN LUEVANO MD [address] [facility] [address], [place], [address], [place] - [facility] 09/03/2023 17:08:36 OBGyn Episode No OBEpisode recorded.
--- OUTSIDE RECORDS SUMMARY | 2024-05-11 11:59 | XMS_ITS | Patient Health Record ---
Author Organization [facility] Address [address] [place] [address] Care Team Providers Care Bakery Pastry Internship Name Role Phone Trevor Pablo MD Primary Care Provider Montez Andersen [phone] Allergies Allergen (clinical drug ingredient) Drug/Non Drug Allergy documented on EMR Reaction Allergy Type Onset Date Status cats dogs dust mites mold (uncoded) Unknown Allergy Active Reason For Referral No Information Medications Medication SIG (Take, Route, Frequency, Duration) Notes Start Date End Date Status Azelastine-Fluticasone 137-50 MCG/ACT Nasal for 30 Active VESIcare Active Vitamin D Active ZyrTEC 10 MG 1 tablet Orally Once a day for 30 day(s) 02/03/2023 Active Multivitamin Active Biotin Active Immunizations Vaccine Route Administration Date Status Comme nts Influenza Unknown 12/08/2022 Administered Social History Tobacco Use: Social History Observation [...] smoker over 25 years ago Occasional drink Former smoker over 25 years ago Occasional drink Problems Problem Type SNOMED Code ICD Code Onset Dates Problem Status W/U Status Risk Notes Problem 092694839 Encounter for screening for malignant neoplasm of colon (Z12.11) Active confirmed Problem Diverticular disease of colon (508988357) Diverticulosis of large intestine without perforation or abscess without bleeding (K57.30) Active confirmed Problem 501820251 History of colon polyps (Z86.010) Active confirmed Problem 26882618 Constipation, unspecified constipation type (K59.00) Active confirmed Problem 016160384 Pre-procedural examination (Z01.818) Active confirmed Plan Of Treatment Pending Test Test Name Order Date Pathology 05/07/2023 Future Test Test Name Order Date COLONOSCOPY 06/08/2017 COLONOSCOPY 02/03/2023 Insurance Providers Payer Name Payer Address Payer Phone Subscriber Number Group Number Insured Name Patient Relationship to Insured Coverage Start Date Coverage End Date [facility] [address] [place], [place] [phone] [id number] CYNDY MEZA Self - patient is the insured Medical (General) History Medical History History ICD Code Seasonal allergies Denies NC,DM,CVA,Lung disease,renal dise ase Negative limited(due to prep) colonoscop y in 11/[address] Sarabia Urinary incontinence Surgical History Surgery Date(Month/Year) Laparoscopic Esmer-en-Y Gastr ic bypass with Dr. Singh---lost 135# since 06/2017 Interstim bladder 2009 Eye surgery for crossed eyes as child Plantar fasciitis age 30 Right lump removal in shoulder benign
--- OUTSIDE RECORDS SUMMARY | 2024-05-11 11:59 | XMS_ITS ---
Author Organization [facility] Address [address] [place] [address] Care Team Providers Care Paper Bag Machine Operator Name Role Phone Trevor Pablo MD Primary Care Provider Montez Andersen [phone] REASON FOR VISIT screening,hx polyps Problems Problem Type SNOMED Code ICD Code Onset Dates Problem Status W/U Status Risk Notes Problem Diverticular disease of colon (727701789) Diverticulosis of large intestine without perforation or abscess without bleeding (K57.30) Active confirmed Encounters Encounter Location Date Provider Diagnosis [facility] [place] [address] [place] [phone] 05/07/2023 Montez Muñoz Encounter for scre ening [...] Of Treatment No Information Progress Notes * CYNDY MEZA CDOB:1960 (64 yo F)Acc No.[id number]:05/07/2023 COLON WITH MAC Patient:?CYNDY MEZA Provider:?Montez Muñoz MD :1960???Age:63 Y???Sex:Female D ate:05/07/2023 Address:[address] [facility] Pcp:Trevor Pablo MD Subjective: * Chief Complaints: * ???1. Screening,hx polyps. * Medical History:? Objective: * Vitals:? Assessment: * Assessment: 1.?Encounter for screening c olonoscopy - Z12.11 (Primary)???2.?Colon polyps - K63.5???3.?Diverticulosis of large intestine without perforation or abscess without bleeding - K57.30???4.?Other hemorrhoids - K64.8??? Plan: * Treatment: * Procedure Codes:?93984 LESIO N REMOVAL COLONOSCOPY, Modifiers: PT * * The named appointment provid er may or may not be the originator of this progress note, and it is not deemed complete until electronically signed by the appointment provider. Sign off status: Pending * Provider:?Montez Muñoz MD Date:? 024 Generated for Pooja king/Dhaval/eTransmitting on:?05/11/2024 11:59 AM EDT
--- OUTSIDE RECORDS SUMMARY | 2024-05-11 12:00 | XMS_ITS ---
Author Organization [facility] Address [address] [place] [address] Care Team Providers Care Legal Paraprofessional Name Role Phone SamyMarielledarshana Primary Care Provider Ilda EnglishCammie Unavailable [phone] Allergies Allergen (clinical drug ingredient) Drug/Non Drug [...] 025 Encounters Encounter Location Date Provider Diagnosis [facility] [address] 04/05/2024 Cammie Black Pain in left foot [...] Name:Cammie English , 05/30/2024 04:00:00 PM, [address] [facility], [place], [address], Progress Notes * Javon MEZAOB:[birth year] (63 yo F)Acc No.[id number]:04/05/2024 Progress Note Patient:?Ibis MEZA Provider:?Cammie English DPM :1960???Age:63 Y???Sex:Female D ate:04/05/2024 Address: [address], [facility] Pcp:Trevor Pbalo Subjective: * Chief Complaints: * ???PCP: 01/2024Foot [...] Provider:?Cammie English DPM Date:?2024 Generated for Pooja king/Dhaval/Yadiraitting on:?05/11/2024 11:59 AM [...]
--- OUTSIDE RECORDS SUMMARY | 2024-05-11 12:00 | XMS_ITS ---
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 Generated for Printi ng/Faxing/eTransmitting on:?05/11/2024 12:00 PM EDT
== END 2024-05-11 09:51 | disposition home or self-care (01) ==
LOC: HO.MRI 09:50
PROVIDERS: PCP Internal Medicine; Visit Provider Surgery
DX: M25.511 Pain in right shoulder (principal)
CPT/HCPCS: 73221

== ENCOUNTER → 2024-05-11 09:58 | Outpatient (BNV) | payer BC, SELFPAY | PROVIDERS: PCP Internal Medicine; Visit Provider Radiology Diagnostic Radiology | DX: M75.111 Incomplete rotator cuff tear or rupture of right shoulder, not specified as traumatic (principal) | CPT/HCPCS: 73221 ==

== ENCOUNTER 2024-05-30 14:27 | Outpatient (AMB) | payer BC, SELFPAY ==
[2024-05-30 14:36] VITALS: BMI 29.4
--- NOTE | 2024-05-30 14:36 | MHC.OFFVIS ---
Vital Signs 05/30/24 14:36 Height 5 ft 2 in Weight 161 lb BMI 29.4 Intake Visit Reasons: New prob- RT shoulder pain Intake Note: Ibis is a 64 year old right hand dominant female who presents progressively worsening right shoulder pain and stiffness. The patient states that her symptoms have gotten worse over the last 2 years in spite of continued non operative treatments. She has tried ibuprofen and Tylenol which gave her minimal relief. She has also done physical therapy exercises which aggravated her pain. She has failed the last 6 weeks of conservative treatment. She has difficulty lifting her right hand above shoulder height. She did undergo surgical remove her of a non malignant soft tissue mass over her right shoulder by Dr. Nagel approximately 10 years ago. Allergies Seasonal Allergies Allergy (Intermediate, Verified 05/30/24 14:37) Headache cat dander Allergy (Mild, Verified 05/30/24 14:37) Sneezing dog dander Allergy (Mild, Verified 05/30/24 14:37) Sneezing Medication List - Last Reconciled 05/31/24 by William Rodrigez MD benzonatate 100 mg PO TID biotin 10,000 mcg PO DAILY calcium carbonate (Calcium 600) 600 mg PO DAILY cetirizine (Zyrtec) 10 mg PO DAILY PRN cholecalciferol (vitamin D3) 50 mcg PO DAILY iron,carbonyl-vitamin C 65 mg iron- 125 mg (Vitron-C) 1 tab PO DAILY 90 days multivitamin with iron (Daily Multiple Vitamins with Iron tablet) 1 tab PO DAILY solifenacin 10 mg PO DAILY COUNT INCLUDES THE [facility] Medical History Right shoulder pain Acute respiratory disease Arthritis of right knee Arthritis of left knee Bilateral knee pain Word finding difficulty Urinary incontinence Arthritis Osteoarthritis of left knee Osteoarthritis of right knee Sacral neurostimulator in situ Urinary incontinence Arthritis Sleep apnea Surgical History H/O colonoscopy History of Esmer-en-Y gastric bypass Hx of lumpectomy Hx of tonsillectomy Hx of bladder repair surgery Hx of foot surgery Hx of eye surgery Hx of gastric bypass Family History Mother Hypertension Diabetes Father Hx of CABG Hypertension Prostate CA Bone cancer Sister History of breast cancer Cervical cancer Maternal Grandmother History of breast cancer Paternal Aunt History of breast cancer Social History Housing: House Alcohol intake: current Alcohol intake frequency: a few times a month Comment: weekend 2 -3drinks Patient Tobacco Use Status: Former Tobacco user Tobacco use type: Cigarette Cigarette Packs Per Day: 1 Cigarettes Per Day: 20 Years Smoked: 2002 stopped e-Cigarette/Vaping Use: Never Used Second Hand Smoke Exposure: Yes service: No Current occupational status: employed and 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 Sexual orientation: Straight/Heterosexual Gender identity: Female Cognitive needs: No Hearing needs: No Vision needs: Yes (Glasses) Physical Exam Vital Signs: BMI result Body Mass Index 29.4 Const Other: Well-nourished well-developed very friendly female awake alert and oriented x3 in no acute distress Extrem Other: Bilateral upper extremity examination shows good capillary refill, no skin lesions noted, normal sensation light touch Right shoulder examination shows decreased active and passive range of motion when compared to her left shoulder, positive impingement signs, tenderness over her acromioclavicular joint, no instability Results Reviewed Results Reviewed: MRI of the patient's right shoulder show severe acromioclavicular joint narrowing, a type 2 acromion, signal change within the supraspinatus tendon most likely due to adhesive capsulitis Assessment & Plan Assessment & Plan (1) Impingement syndrome of right shoulder: Code(s): M75.41 - Impingement syndrome of right shoulder Category: Medical Plan Ms. Meza presents with progressively worsening right shoulder pain and stiffness due to impingement syndrome, acromioclavicular joint arthritis and adhesive capsulitis. I had a lengthy discussion with the patient regarding the treatment options. At this point she has failed continued non operative treatments. The risks and benefits of right shoulder arthroscopic surgery were discussed at length with the patient. The patient wishes to proceed. Surgery will most likely involve right shoulder diagnostic arthroscopy with distal clavicle excision, acromioplasty, capsular release and manipulation under anesthesia. The patient will be scheduled for next available date. She will follow-up as instructed. Feel free to call me at any time should questions regarding her orthopedic management arise. I spent 22 minutes in reviewing the patient's records and imaging studies, seeing the patient and documenting in the medical record. Coding Level of Care Code Est Pt Level 3 (56514) Complex EM visit Add On G2211 Diagnoses Impingement syndrome of right shoulder M75.41
--- OUTSIDE RECORDS SUMMARY | 2024-05-30 17:17 | XMS_ITS ---
Author Organization [facility] Address [address] [place] [address] Care Team Providers Care Shop Tailor Apprentice Name Role Phone Trevor Pablo MD Primary Care Provider Montez Andersen [phone] REASON FOR VISIT screening,hx polyps Problems Problem Type SNOMED Code ICD Code Onset Dates Problem Status W/U Status Risk Notes Problem Diverticular disease of colon (631613695) Diverticulosis of large intestine without perforation or abscess without bleeding (K57.30) Active confirmed Encounters Encounter Location Date Provider Diagnosis [facility] [address] [place] [phone] 05/07/2023 Montez Muñoz Encounter for scre ening [...] * CYNDY MEZA CDOB:1960 (64 yo F)Acc No.[id number]:05/07/2023 COLON WITH MAC Patient:?CYNDY MEZA Provider:?Montez Muñoz MD :1960???Age:63 Y???Sex:Female D ate:05/07/2023 Address[address] [facility] Pcp:Trevor Pablo MD Subjective: * Chief Complaints: * ???1. Screening,hx polyps. * Medical History:? Objective: * Vitals:? Assessment: * Assessment: 1.?Encounter for screening c olonoscopy - Z12.11 (Primary)???2.?Colon polyps - K63.5???3.?Diverticulosis of large intestine without perforation or abscess without bleeding - K57.30???4.?Other hemorrhoids - K64.8??? Plan: * Treatment: * Procedure Codes:?93911 LESIO N REMOVAL COLONOSCOPY, Modifiers: PT * * The named appointment provid er may or may not be the originator of this progress note, and it is not deemed complete until electronically signed by the appointment provider. Sign off status: Pending * Provider:?Montez Muñoz MD Date:? 024 Generated for Pooja king/Dhaval/eTransmitting on:?05/30/2024 05:17 PM EDT
--- OUTSIDE RECORDS SUMMARY | 2024-05-30 17:17 | XMS_ITS ---
Author Organization [facility] Address [address] [place] [address] Care Team Providers Care Cage Manager Name Role Phone Trevor Pablo Primary Care Provider Unavailministerio key Black, Cammie Unavailable [phone] REASON FOR VISIT orthotics Encounters Encounter Location Date Provider Diagnosis [facility] [address] [place] [address] 04/05/2024 Cammie English Plan Of Treatment No Information Progress Notes * Minnie MEZAanceDOB:[birth year] (64 yo F)Acc No.[id number]:04/05/2024 Patient:?Ibis MEZA :1960???Age:63 Y???Sex:Female Address[address] [place] [address] * * Date:?
--- OUTSIDE RECORDS SUMMARY | 2024-05-30 17:17 | XMS_ITS ---
Author Organization [facility] Address [address] [facility] [place] [address] Care Team Providers Care Florist Designer Name Role Phone Trevor Pablo Primary Care Provider Cammie Cisneros [phone] Encounters Encounter Location Date Provider Diagnosis [address] [address] 05/30/2024 Cammie English Plan Of Treatment No Information Progress Notes * Javon MEZAOB:[birth year] (64 yo F)Acc No.[id number]:05/30/2024 Progress Notes Patient:Ibis ARZOLA Provider:?Cammie English DPM :1960???Age:64 Y???Sex:Female D ate:05/30/2024 Address[address] [place] Pcp:Trevor Pablo Subjective: * Chief Complaints: * ??? * Medical History:? Objective: * Vitals:? Assessment: Plan: * Treatment: * Images: * The named appointment provid er may or may not be the originator of this progress note, and it is not deemed complete until electronically signed by the appointment provider. Sign off status: Pending * Provider:Norberto English DPM Date:?2024 Generated for Printi ng/Faacg/eTransmitting on:?05/30/2024 05:17 PM EDT
--- OUTSIDE RECORDS SUMMARY | 2024-05-30 17:17 | XMS_ITS | Data Portability ---
Author Organization [place] [facility], Allergy Address [address] [address] Care Team Providers Care Testing Engineer Name Role Phone BRIANA AUSTIN Primary Care [...] steroids such as Flonase which is currently pgrq-pol-wgbleou may be helpful. Devices such as a [...] and Address Organization Details Recorded Time Snoring 42541631 Active 024 TAN LUEVANO MD [address] [place] [address], [place], [address], [facility] - [facility] 4 16:59:43 Obstructive sleep apnea syndrome 98571771 Active 024 TAN LUEVANO MD [address] [place] [address], [place], [address], [facility] - [facility] 4 11:10:46 Sleep disorder 41355867 Active 024 TAN LUEVANO MD [address] [place] [address], [place], [address], [facility] - [facility] 4 17:06:25 Problem Notes None recorded. Procedures Surgical History Date Name Laterality Status Provider Name and Address Organization Details Recorded Time 09/03/2023 Telehealth completed TAN LUEVANO MD [address] [place] [address], [address], [facility] - [facility] 09/03/2023 16:56:53 08/12/2023 FOL_DP completed TAN LUEVANO MD [address] [place] [address], [address], [facility] - [facility] 08/12/2023 11:08:21 Imaging Results None recorded. Procedure [...] Updated DateTime 08/12/2023 157.48 cm 29.3 kg/m2 93227.78 g Lenard Cole [place] - [facility] 08/12/2023 10:53:19 Social History None recorded. Functional [...] Note 3893 TAN LUEVANO MD [facility] [address] [address] 08/12/2023 10:06:54 08/12/2023 11:15:24 Snoring 13938893 R06.83 Obstructiv e sleep apnea syndrome 46899648 G47.33 6729 TAN LUEVANO MD [facility] [address] [address] 09/03/2023 17:00:24 09/03/2023 17:08:43 Snoring 07798538 R06.83 Sleep disorder 89384365 G47.9 Health Concerns Section Related Observation LastModified by Organization Detai ls LastModified Time None Recorded Concern Status LastModified by Organization Details LastModified Time None Recorded Advance Directives Directive None Recorded Payers Encounter Date Sequence Insurance Name Policy Number Policy Hinton Covered Member ID Hinton Member ID Guarantor Name 08/12/2023 1 [place] [id number] Ibis Meza [id number] Ibis Meza 09/03/2023 1 [place] [id number] Ibis Meza [id number] Ibis Meza Notes Date Note Type Note Provider Name and Address Organization Details Recorded Time 08/12/2023 text/html snoringhx of sev ere SHARLENE - improved after weight loss of 150 pounds with gastric bypass 2017most 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, 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) and has had trouble adapting sleep pattern 7 or 8p and wake at 1amtried melatonin but gets abnormal skin sensationtried turmeric but poorly toleratedtried magnesium with some mild improvement surgery - tonsils removed age 4 TAN LUEVANO MD [address] [facility],[place] [address], [place], [address], [place] - [facility] 08/12/2023 11:11:19 09/03/2023 text/html kpbupwt08/4/2023 [facility] hx of severe SHARLENE [...] removed age 4 TAN LUEVANO MD 100 [facility],[place] [address], [place], [address], [place] [facility] 09/03/2023 17:08:36 OBGyn Episode No OBEpisode recorded.
--- OUTSIDE RECORDS SUMMARY | 2024-05-30 17:18 | XMS_ITS ---
Author Organization [facility] Address [address] [place] [address] Care Team Providers Care Information Coordinator Name Role Phone Samy Marielledarshana Primary Care Provider Ilda EnglishCammie Unavailable [phone] Allergies Allergen (clinical drug ingredient) Drug/Non Drug [...] 025 Encounters Encounter Location Date Provider Diagnosis [facility] [address] 04/05/2024 Cammie Black Pain in left foot [...] Appt Details Follow Up: 6 Weeks, Reason: Progress Notes * Minnie MEZAanceDOB:[birth year] (63 yo F)Acc No.[id number]:04/05/2024 Progress Note Patient:Ibis ARZOLA Provider:?Cammie English DPM :1960???Age:63 Y???Sex:Female D ate:04/05/2024 [place] Pcp:Trevor Pablo Subjective: * Chief Complaints: * [...] English DPM Date:?2024 Generated for Pooja king/Dhaval/Todd on:?05/30/2024 05:18 PM EDT History and Physical Notes * HPI [...] Decreased Ankle joint dorsiflexion ROM, knee extended FOOTWEAR EVALUATION: shoe gear propertie s exacerbate patients foot/toe deformity DIGITAL DEFORMITIES: Digital [...]
--- OUTSIDE RECORDS SUMMARY | 2024-05-30 17:18 | XMS_ITS | Patient Health Record ---
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 confirmed Problem Osteoarthritis of midtarsal joint of right foot (5270971012442827 ) Osteoarthritis of midtarsal joint of right foot (M19.071) Active confirmed Vital Signs Blood pressure diastolic 30 mm Hg 04/05/2024 Height 5ft 2in in 04/05/2024 Blood pressure systolic 140 mm Hg 04/05/2024 Weight 158 lbs 04/05/2024 BMI 28.9 kg/m2 04/05/2024 Encounters Encounter Location Date Provider Diagnosis [address] [address] 02/09/2024 Cammie Black Pain in left foot [...] right foot M19.071 and Ingrown nail L60.[address] [address] 02/18/2024 Cammie Black Pain in left foot [...] and Other myositis of left foot M60.[address] [facility] [address] 04/05/2024 Cammie Black Pain in left foot [...] and Other myositis of left foot M60.[address] [facility] [address] 04/05/2024 [facility] [address] [facility] [address] 02/09[facility] [address] [address] 02/18/2024 Cammie Amador [facility] [address] [address] 02/18/2024 Cammie English Assessments Encounter Date Diagnosis [...] Treatment Pending Test Test Name Order Date 31325- Removal of Foreign Body, Subcut 1 04/19/2013,C0908-ABX TENDON SHEATH/LIGAMENT 0 11/06/2013 Insurance Providers Payer Name Payer Address Payer Phone Subscriber Number Group Number Insured Name Patient Relationship to Insured Coverage Start Date Coverage End Date [facility] [id number] [phone] [id number] Ibis Meza Self - patient is the insured Medical (General) History Medical History History ICD Code Chicken pox Arthritis Back,Hip,and Knee pain covid-19 Reflux ( GERD) Surgical History Surgery Date(Month/Year) mass removed 09/2012 interstem 09/2012 foot surgery 1989's eye surgery 1969's bypass 2017 colonoscopy 04/2023
--- OUTSIDE RECORDS SUMMARY | 2024-05-30 17:18 | XMS_ITS | Patient Health Record ---
Author Organization [facility] Address [address] [place] [address] Care Team Providers Care Clothing Manager Name Role Phone Trevor Pablo MD Primary Care Provider Montez Andersen [phone] Allergies Allergen (clinical drug ingredient) Drug/Non Drug [...] Problem Status W/U Status Risk Notes Problem 990827505 Encounter for screening for malignant neoplasm of colon (Z12.11) Active confirmed Problem Diverticular disease of colon (972364295) Diverticulosis of large intestine without perforation or abscess without bleeding (K57.30) Active confirmed Problem 719712826 History of colon polyps (Z86.010) Active confirmed Problem 52394809 Constipation, unspecified constipation type (K59.00) Active confirmed Problem 790501172 Pre-procedural examination (Z01.818) Active confirmed Plan Of Treatment Pending Test Test Name Order Date Pathology 05/07/2023 Future Test Test Name Order Date COLONOSCOPY 06/08/2017 COLONOSCOPY 02/03/2023 Insurance Providers Payer Name Payer Address Payer Phone Subscriber Number Group Number Insured Name Patient Relationship to Insured Coverage Start Date Coverage End Date [facility] [address] [place], [place] [id number] [phone] [id number] CYNDY MEZA Self - patient is the insured Medical (General) History Medical History History ICD Code Seasonal allergies Denies [place],DM,CVA,Lung disease,renal dise ase Negative limited(due to prep) colonoscop y in 11/[address] Sarabia Urinary incontinence Surgical History Surgery Date(Month/Year) Laparoscopic Esmer-en-Y Gastr ic bypass with Dr. Singh---lost 135# since 06/2017 Interstim bladder 2009 Eye surgery for crossed eyes as child Plantar fasciitis age 30 Right lump removal in shoulder benign
--- OUTSIDE RECORDS SUMMARY | 2024-05-30 17:18 | XMS_ITS ---
Author Organization [facility] Address [address] [place] [address] Care Team Providers Care Cdl Truck Driver Name Role Phone Trevor Pablo MD Primary Care Provider Montez Andersen [phone] Allergies Allergen (clinical drug ingredient) Drug/Non Drug [...] Problem Status W/U Status Risk Notes Problem 01627885 Constipation, unspecified constipation type (K59.00) Active confirmed Problem 567250163 History of colon polyps (Z86.010) Active confirmed Vital Signs Temperature 97.3 degrees Fahrenheit 02/04/20 23 Blood pressure systolic 000 mm Hg 02/04/20 23 Blood pressure diastolic 00 mm Hg 023 Height 62.5 in 02/03/2023 Weight 158 lbs 02/03/2023 BMI 28.43 kg/m2 02/03/2023 Encounters Encounter Location Date Provider Diagnosis [facility] [address] [place] [address] 02/03/2023 Montez Muñoz Encounter for screening for [...] * CYNDY MEZA CDOB:1960 (62 yo F)Acc No.[id number]:02/03/2023 Progress Notes Patient:CYNDY ARZOLA Provider:?Montez Muñoz MD :1960???Age:62 Y???Sex:Female D ate:02/03/2023 [address] [place] [facility] Pcp:Trevor Pablo MD Subjective: * Chief Complaints: * ???Patient presents today fo r a colon recall * HPI: ???incontinence:? I saw Stacy in consultation today in [...] past year??Never (0 point),?Points?1,?Interpretation?Negative.?Miscellaneous:?Marital status: . Occupation: [employer]. ???Former smoker over 25 years ago Occasional [...] Procedure Codes:?3017F COLOR ECTAL CA SCREEN DOC PGH5078P TOBACCO NON-ROUZN1565 BP SCR NOT PRFRM REC REASON NOS * Preventive Medicine:? ??Counseling:?Care goal follow-up plan:?Above Normal BMI Follow-up?Giving encouragement to exercise,?BMI management provided?Yes.? * Follow Up:?prn * * Sign off status: Completed true * Provider:?Montez Muñoz MD Date:? 023 Generated for Pooja kign/Dhaval/Yadiraitting on:?05/30/2024 05:18 PM EDT History and Physical [...]
== END 2024-05-30 15:09 | disposition home or self-care (01) ==
LOC: HO.HOS 14:28
PROVIDERS: PCP Internal Medicine; Visit Provider Orthopaedic Surgery
DX: M75.41 Impingement syndrome of right shoulder (principal); M19.041 Primary osteoarthritis, right hand
CPT/HCPCS: 99213

== ENCOUNTER 2024-07-14 09:43 | Day surgery (SDC) | payer BC, SELFPAY ==
--- OUTSIDE RECORDS SUMMARY | 2024-06-02 13:54 | XMS_ITS ---
Author Organization [facility] Address [address] [place] [address] Care Team Providers Care Top Closer Name Role Phone Trevor Pablo MD Primary Care Provider Montez Andersen [phone] REASON FOR VISIT screening,hx polyps Problems Problem Type SNOMED Code ICD Code Onset Dates Problem Status W/U Status Risk Notes Problem Diverticular disease of colon (524267550) Diverticulosis of large intestine without perforation or abscess without bleeding (K57.30) Active confirmed Encounters Encounter Location Date Provider Diagnosis [facility] Outpatient [address] [place] [id number] 05/07/2023 Montez Muñoz Encounter for scre ening [...] * CYNDY MEZA CDOB:1960 (64 yo F)Acc No.[id number]:05/07/2023 COLON WITH MAC Patient:?CYNDY MEZA Provider:?Montez Muñoz MD :1960???Age:63 Y???Sex:Female D ate:05/07/2023 Address:[address] [facility] Pcp:Trevor Pablo MD Subjective: * Chief Complaints: * ???1. Screening,hx polyps. * Medical History:? Objective: * Vitals:? Assessment: * Assessment: 1.?Encounter for screening c olonoscopy - Z12.11 (Primary)???2.?Colon polyps - K63.5???3.?Diverticulosis of large intestine without perforation or abscess without bleeding - K57.30???4.?Other hemorrhoids - K64.8??? Plan: * Treatment: * Procedure Codes:?78621 LESIO N REMOVAL COLONOSCOPY, Modifiers: PT * * The named appointment provid er may or may not be the originator of this progress note, and it is not deemed complete until electronically signed by the appointment provider. Sign off status: Pending * Provider:?Montez Muñoz MD Date:? 024 Generated for Pooja king/Dhaval/eTransmitting on:?06/02/2024 01:54 PM EDT
--- OUTSIDE RECORDS SUMMARY | 2024-06-02 13:54 | XMS_ITS ---
Author Organization [facility] Address [address] [place] [address] Care Team Providers Care Vessel Liner Name Role Phone Trevor Pablo Primary Care Provider Unavailministerio key Black, Cammie Unavailable [phone] REASON FOR VISIT orthotics Encounters Encounter Location Date Provider Diagnosis [facility] [address] [place] [address] 04/05/2024 Cammie English Plan Of Treatment No Information Progress Notes * Minnie MEZAanceDOB:[birth year] (64 yo F)Acc No.[id number]:04/05/2024 Patient:?Ibis MEZA :1960???Age:63 Y???Sex:Female Address[address] [place] [address] * * Date:?
--- OUTSIDE RECORDS SUMMARY | 2024-06-02 13:54 | XMS_ITS ---
Author Organization [facility] Address [address] [place] [address] Care Team Providers Care Racking Technician Name Role Phone Trevor Pablo Primary Care Provider Cammie Cisneros [phone] Encounters Encounter Location Date Provider Diagnosis [address] [address] 05/30/2024 Cammie English Plan Of Treatment No Information Progress Notes * Javon MEZAOB:[birth year] (64 yo F)Acc No.[id number]:05/30/2024 Progress Notes Patient:Ibis ARZOLA Provider:?Cammie English DPM :1960???Age:64 Y???Sex:Female D ate:05/30/2024 Address[place] Pcp:Trevor Pablo Subjective: * Chief Complaints: * ??? * Medical History:? Objective: * Vitals:? Assessment: Plan: * Treatment: * Images: * The named appointment provid er may or may not be the originator of this progress note, and it is not deemed complete until electronically signed by the appointment provider. Sign off status: Pending * Provider:Norberto English DPM Date:?2024 Generated for Printi ng/Faxing/eTransmitting on:?06/02/2024 01:53 PM EDT
--- OUTSIDE RECORDS SUMMARY | 2024-06-02 13:54 | XMS_ITS | Patient Health Record ---
Author Organization [facility] Address [address] [place] [address] Care Team Providers Care Certified Real Estate Appraiser Name Role Phone Trevor Pablo MD Primary Care Provider Montez Andersen [phone] Allergies Allergen (clinical drug ingredient) Drug/Non Drug [...] Problem Status W/U Status Risk Notes Problem 584839865 Encounter for screening for malignant neoplasm of colon (Z12.11) Active confirmed Problem Diverticular disease of colon (338692773) Diverticulosis of large intestine without perforation or abscess without bleeding (K57.30) Active confirmed Problem 251693588 History of colon polyps (Z86.010) Active confirmed Problem 37183248 Constipation, unspecified constipation type (K59.00) Active confirmed Problem 403882733 Pre-procedural examination (Z01.818) Active confirmed Plan Of Treatment Pending Test Test Name Order Date Pathology 05/07/2023 Future Test Test Name Order Date COLONOSCOPY 06/08/2017 COLONOSCOPY 02/03/2023 Insurance Providers Payer Name Payer Address Payer Phone Subscriber Number Group Number Insured Name Patient Relationship to Insured Coverage Start Date Coverage End Date [facility] [address] [place], [place] [id number] [phone] [id number] CYNDY MEZA Self - patient is the insured Medical (General) History Medical History History ICD Code Seasonal allergies Denies [place],DM,CVA,Lung disease,renal dise ase Negative limited(due to prep) colonoscop y in 11/[address] Sarabia Urinary incontinence Surgical History Surgery Date(Month/Year) Laparoscopic Esmer-en-Y Gastr ic bypass with Dr. Singh---lost 135# since 06/2017 Interstim bladder 2009 Eye surgery for crossed eyes as child Plantar fasciitis age 30 Right lump removal in shoulder benign
--- OUTSIDE RECORDS SUMMARY | 2024-06-02 13:54 | XMS_ITS ---
Author Organization [facility] Address [address] [place] [address] Care Team Providers Care Qm Consultant Name Role Phone Trevor Pablo MD Primary Care Provider Montez Andersen [phone] Allergies Allergen (clinical drug ingredient) Drug/Non Drug [...] Problem Status W/U Status Risk Notes Problem 47378183 Constipation, unspecified constipation type (K59.00) Active confirmed Problem 048682483 History of colon polyps (Z86.010) Active confirmed Vital Signs Temperature 97.3 degrees Fahrenheit 02/04/20 23 Blood pressure systolic 000 mm Hg 02/04/20 23 Blood pressure diastolic 00 mm Hg 023 Height 62.5 in 02/03/2023 Weight 158 lbs 02/03/2023 BMI 28.43 kg/m2 02/03/2023 Encounters Encounter Location Date Provider Diagnosis [facility] [address] [place] [address] 02/03/2023 Montez Muñoz Encounter for screening for [...] * CYNDY MEZA CDOB:1960 (62 yo F)Acc No.[id number]:02/03/2023 Progress Notes Patient:CYNDY ARZOLA Provider:?Montez Muñoz MD :1960???Age:62 Y???Sex:Female D ate:02/03/2023 [address] [place] [facility] Pcp:Trevor Pablo MD Subjective: * Chief Complaints: [...] past year??Never (0 point),?Points?1,?Interpretation?Negative.?Miscellaneous:?Marital status: . Occupation: [employer]. ???Former smoker over 25 years ago Occasional [...] Procedure Codes:?3017F COLOR ECTAL CA SCREEN DOC KCL5517A TOBACCO NON-IFPRJ4451 BP SCR NOT PRFRM REC REASON NOS * Preventive Medicine:? ??Counseling:?Care goal follow-up plan:?Above Normal BMI Follow-up?Giving encouragement to exercise,?BMI management provided?Yes.? * Follow Up:?prn * * Sign off status: Completed true * Provider:?Montez Muñoz MD Date:? 023 Generated for Pooja king/Dhaval/Yadiraitting on:?06/02/2024 01:54 PM EDT History and Physical Notes * [...]
--- OUTSIDE RECORDS SUMMARY | 2024-06-02 13:54 | XMS_ITS | Data Portability ---
Author Organization [place] [facility], Allergy Address [address] [address] Care Team Providers Care Push Connector Assembler Name Role Phone BRIANA AUSTIN Primary Care Provider [phone] Assessment Encounter Date Assessment Date Assessment LastModified [...] steroids such as Flonase which is currently vysl-evm-enfqpmd may be helpful. Devices such as a [...] and Address Organization Details Recorded Time Snoring 04308967 Active 024 TAN LUEVANO MD [address] [place] [address], [place], [address], [facility] - [facility] 4 16:59:43 Obstructive sleep apnea syndrome 81847973 Active 024 TAN LUEVANO MD [address] [place] [address], [place], [address], [facility] - [facility] 4 11:10:46 Sleep disorder 60516381 Active 024 TAN LUEVANO MD [address] [place] [address], [place], [address], [facility] - [facility] 4 17:06:25 Problem Notes None recorded. Procedures Surgical History Date Name Laterality Status Provider Name and Address Organization Details Recorded Time 09/03/2023 Telehealth completed TAN LUEVANO MD [address] [place] [address], [phone], [facility] - [facility] 09/03/2023 16:56:53 08/12/2023 FOL_DP completed TAN LUEVANO MD [address] [place] [address], [address], [facility] - [facility] [...] Updated DateTime 08/12/2023 157.48 cm 29.3 kg/m2 62877.78 g Lenard Cole [place] [facility] [place] [...] Note 3893 TAN LUEVANO MD [facility] [address] [address] 08/12/2023 10:06:54 08/12/2023 11:15:24 Snoring 28509622 R06.83 Obstructiv e sleep apnea syndrome 93639423 G47.33 6729 TAN LUEVANO MD [facility] [address] [address] 09/03/2023 17:00:24 09/03/2023 17:08:43 Snoring 44000800 R06.83 Sleep disorder 91605381 G47.9 Health Concerns Section Related Observation LastModified by Organization Detai ls LastModified Time None Recorded Concern Status LastModified by Organization Details LastModified Time None Recorded Advance Directives Directive None Recorded Payers Encounter Date Sequence Insurance Name Policy Number Policy H[place] Covered Member ID H[place] Member ID Guarantor Name 08/12/2023 1 [place] [id number] Ibis Meza [id number] Ibis Meza 09/03/2023 1 [place] [id number] Ibis Meza [id number] Ibis Meza Notes Date Note Type Note Provider Name and Address Organization Details Recorded Time 08/12/2023 text/html snoringhx of sev ere SHARLENE - improved after weight loss of 150 pounds with gastric bypass 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, 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) and has had trouble adapting sleep pattern 7 or 8p and wake at 1amtried melatonin but gets abnormal skin sensationtried turmeric but poorly toleratedtried magnesium with some mild improvement surgery - tonsils removed age 4 TAN LUEVANO MD [address] [facility],[place] [address], [place], [address], [place] - [facility] [place] 08/12/2023 11:11:19 09/03/2023 text/html /[facility] hx of severe SHARLENE [...] 4 TAN LUEVANO MD [address] [facility],[place] [address], [place], [address], [place] - [facility] 09/03/2023 17:08:36 OBGyn Episode No OBEpisode recorded.
--- OUTSIDE RECORDS SUMMARY | 2024-06-02 13:54 | XMS_ITS | Patient Health Record ---
[facility] Address [address] [facility] [place] [address] Care Team Providers Care Cook Relief Name Role Phone Trevor Pablo Primary Care Provider Ilda EnglishCammie Unavailable [phone] Allergies Allergen (clinical drug ingredient) Drug/Non Drug Allergy documented on EMR Reaction Allergy Type Onset Date Status Dog dander Dog Dander Unknown Allergy Active Results Component Value Reference Range Notes X ray : Foot, right 3V Reviewed date:02/09/2024 12:20:25 PM Interpretation:See Examination above Performing Lab: Notes/Report: See Examination above X ray : Foot, left 3V Reviewed [...] Status Risk Notes Problem Plantar fascial fibromatosis (50461959) Plantar fasciitis, bilateral (M72.2) Active confirmed Problem Osteoarthritis of midtarsal joint of left foot (5183239004041614 ) Osteoarthritis of midtarsal joint of left foot (M19.072) Active confirmed Problem Osteoarthritis of midtarsal joint of right foot (8415433112578590 ) Osteoarthritis of midtarsal joint of right foot (M19.071) Active confirmed Vital Signs Blood pressure diastolic 30 mm Hg 04/05/2024 Height 5ft 2in in 04/05/2024 Blood pressure systolic 140 mm Hg 04/05/2024 Weight 158 lbs 04/05/2024 BMI 28.9 kg/m2 04/05/2024 Encounters Encounter Location Date Provider Diagnosis [address] [address] 02/09/2024 Cammie Black Pain in left foot [...] right foot M19.071 and Ingrown nail L60.[address] [address] 02/18/2024 Cammie Black Pain in left foot [...] and Other myositis of left foot M60.[address] [facility] [address] 04/05/2024 Cammie Black Pain in left foot [...] and Other myositis of left foot M60.[address] [facility] [address] 04/05/2024 [facility] [address] [facility] [address] [facility] [address] [address] 02/18/2024 Cammie Amador [facility] [address] [address] 02/18/2024 Cammie English Assessments Encounter Date Diagnosis [...] Treatment Pending Test Test Name Order Date 94880- Removal of Foreign Body, Subcut 1 04/19/2013,[id number] TENDON SHEATH/LIGAMENT 0 11/06/2013 Insurance Providers Payer Name Payer Address Payer Phone Subscriber Number Group Number Insured Name Patient Relationship to Insured Coverage Start Date Coverage End Date [facility] Others [address] [place] [address] [phone] [id number] [id number] Ibis Meza Self - patient is the insured Medical (General) History Medical History History ICD Code Chicken pox Arthritis Back,Hip,and Knee pain covid-19 Reflux ( GERD) Surgical History Surgery Date(Month/Year) mass removed 09/2012 interstem 09/2012 foot surgery 1989's eye surgery 1969's bypass 2017 colonoscopy 04/2023
--- OUTSIDE RECORDS SUMMARY | 2024-06-02 13:55 | XMS_ITS ---
[facility] Organization [facility] Address [address] [place] [address] Care Team Providers Care Car Repossessor Name Role Phone Samy Marielledarshana Primary Care Provider Ilda EnglishCammie Unavailable [phone] Allergies Allergen (clinical drug ingredient) Drug/Non Drug [...] 025 Encounters Encounter Location Date Provider Diagnosis [facility] [address] 04/05/2024 Cammie Black Pain in left foot [...] * Minnie MEZAanceDOB:[birth year] (63 yo F)Acc No.[id number]:04/05/2024 Progress Note Patient:Ibis ARZOLA Provider:?Cammie English DPM :1960???Age:63 Y???Sex:Female D ate:04/05/2024 [place] Pcp:Trevor Pablo Subjective: * Chief Complaints: * [...] English DPM Date:?2024 Generated for Pooja king/Dhaval/Todd on:?06/02/2024 01:54 PM EDT History and Physical [...]
[2024-06-30 09:37] VITALS: BMI 29.3
--- NOTE | 2024-07-12 12:12 | HO.ANESPROP2 ---
Documented by User: Alicia Heller NP 07/13/24 13:55 HPI - Anesthesia Eval Consult details Narrative: 64yo F for Right Shoulder Arthroscopy,distal clavicle excision,acromioplasty,capsular release,and manipulation Sacral neurostimulator in situ - instructed to bring remote PMFSH Active Problems Active Problems: All Active Problems Impingement syndrome of right shoulder (Acute) COVID-19 virus infection (Acute) Mixed urinary incontinence due to female genital prolapse (Acute) Bilateral primary osteoarthritis of knee (Acute) Annual physical exam (Acute) Constipation (Acute) Sleeping difficulty (Acute) Snoring (Acute) Elevated LFTs (Acute) Memory change (Acute) Left hip pain (Acute) Overweight (Acute) Right shoulder pain (Acute) Acute respiratory disease (Acute) Arthritis of right knee (Acute) Arthritis of left knee (Acute) Hx of gastric bypass (Acute) Past Medical History Medical History Right shoulder pain Acute respiratory disease Osteoarthritis of right knee Osteoarthritis of left knee Sacral neurostimulator in situ Word finding difficulty Urinary incontinence Arthritis of right knee Arthritis of left knee Sleep apnea Bilateral knee pain Family History Family History Mother Hypertension Diabetes Father Hx of CABG Hypertension Prostate CA Bone cancer Sister History of breast cancer Cervical cancer Maternal Grandmother History of breast cancer Paternal Aunt History of breast cancer Family history of problems with anesthesia: No Surgical History Surgical History H/O colonoscopy History of Esmer-en-Y gastric bypass Hx of lumpectomy Hx of tonsillectomy Hx of bladder repair surgery Hx of foot surgery Hx of eye surgery Hx of gastric bypass Social History Social History Housing: House Are you a primary director of career resources to a significant other at home: No Do you presently have visiting nurse or other home services: No Alcohol intake: current Alcohol intake frequency: a few times a month Comment: weekend 2 -3drinks Patient Tobacco Use Status: Former Tobacco user Tobacco use type: Cigarette Cigarette Packs Per Day: 1 Cigarettes Per Day: 20 Years Smoked: 2002 stopped e-Cigarette/Vaping Use: Never Used Second Hand Smoke Exposure: Yes Use of substances other than those prescribed or required for medical reasons: No Have you been hit, kicked, punched, or otherwise hurt by someone within the past year? 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 Sexual orientation: Straight/Heterosexual Gender identity: Female Cognitive needs: No Hearing needs: No Vision needs: Yes (Glasses) Meds Allergies Allergy/AdvReac Type Severity Reaction Status Date / Time Seasonal Allergies Allergy Intermediate Headache Verified 07/14/24 10:58 cat dander Allergy Mild Sneezing Verified 07/14/24 10:58 dog dander Allergy Mild Sneezing Verified 07/14/24 10:58 glucosamine Allergy Eye Verified 07/14/24 10:58 Swelling Active Medications: Current Medications Cefazolin Sodium/Dextrose (Ancef) 2 gm in 50 mls @ 100 mls/hr IV PREOP ONE Stop: 07/14/24 06:27 Home Medications ?Medication ?Instructions ?Recorded ?Confirmed ?Last Taken ?Type solifenacin 10 mg tablet 10 mg PO DAILY 07/28/22 06/30/24 Unknown History biotin 5,000 mcg disintegrating 10,000 mcg PO DAILY 11/19/22 06/30/24 Unknown History tablet calcium carbonate (Calcium 600) 600 mg PO DAILY 11/19/22 06/30/24 Unknown History cetirizine 10 mg capsule (Zyrtec) 10 mg PO DAILY PRN Allergy Symptoms 11/19/22 06/30/24 Unknown History cholecalciferol (vitamin D3) 50 50 mcg PO DAILY 11/19/22 06/30/24 Unknown History mcg (2,000 unit) capsule fluticasone propionate 50 1 spray intranasal DAILY PRN 06/30/24 06/30/24 Unknown History mcg/actuation nasal Allergy Symptoms spray,suspension (Flonase Allergy Relief) multivitamin 1 tab PO DAILY 06/30/24 06/30/24 Unknown History Exam Height,Weight and Vital Signs: Height 5 ft 2 in Weight 72.575 kg Pertinent Lab Results Pertinent Lab Results: Laboratory Tests 12/15/23 09:06 WBC 4.6 L Hgb 14.2 Hct 41.6 Plt Count 254 Sodium 141 Potassium 3.8 Chloride 106 Carbon Dioxide 26 BUN 10 Creatinine 0.72 Assessment and Plan Assessment Anesthesia Assessment: Chart Reviewed Final Anesthetic Review Family History of Problems with Anesthesia: No Documented by User: Laure Marsh MD 07/14/24 11:06 [facility] Past Medical History Medical History Right shoulder pain Acute respiratory disease Osteoarthritis of right knee Osteoarthritis of left knee Sacral neurostimulator in situ Word finding difficulty Urinary incontinence Arthritis of right knee Arthritis of left knee Sleep apnea Bilateral knee pain Family History Family History Mother Hypertension Diabetes Father Hx of CABG Hypertension Prostate CA Bone cancer Sister History of breast cancer Cervical cancer Maternal Grandmother History of breast cancer Paternal Aunt History of breast cancer Surgical History Surgical History H/O colonoscopy History of Esmer-en-Y gastric bypass Hx of lumpectomy Hx of tonsillectomy Hx of bladder repair surgery Hx of foot surgery Hx of eye surgery Hx of gastric bypass History of Problems with Anesthesia: No Social History Social History Housing: House Are you a primary director of career resources to a significant other at home: No Do you presently have visiting nurse or other home services: No Alcohol intake: current Alcohol intake frequency: a few times a month Comment: weekend 2 -3drinks Patient Tobacco Use Status: Former Tobacco user Tobacco use type: Cigarette Cigarette Packs Per Day: 1 Cigarettes Per Day: 20 Years Smoked: 2002 stopped e-Cigarette/Vaping Use: Never Used Second Hand Smoke Exposure: Yes Use of substances other than those prescribed or required for medical reasons: No Have you been hit, kicked, punched, or otherwise hurt by someone within the past year? 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 Sexual orientation: Straight/Heterosexual Gender identity: Female Cognitive needs: No Hearing needs: No Vision needs: Yes (Glasses) Meds Allergies Allergy/AdvReac Type Severity Reaction Status Date / Time Seasonal Allergies Allergy Intermediate Headache Verified 07/14/24 10:58 cat dander Allergy Mild Sneezing Verified 07/14/24 10:58 dog dander Allergy Mild Sneezing Verified 07/14/24 10:58 glucosamine Allergy Eye Verified 07/14/24 10:58 Swelling Home Medications ?Medication ?Instructions ?Recorded ?Confirmed ?Last Taken ?Type solifenacin 10 mg tablet 10 mg PO DAILY 07/28/22 06/30/24 Unknown History biotin 5,000 mcg disintegrating 10,000 mcg PO DAILY 11/19/22 06/30/24 Unknown History tablet calcium carbonate (Calcium 600) 600 mg PO DAILY 11/19/22 06/30/24 Unknown History cetirizine 10 mg capsule (Zyrtec) 10 mg PO DAILY PRN Allergy Symptoms 11/19/22 06/30/24 Unknown History cholecalciferol (vitamin D3) 50 50 mcg PO DAILY 11/19/22 06/30/24 Unknown History mcg (2,000 unit) capsule fluticasone propionate 50 1 spray intranasal DAILY PRN 06/30/24 06/30/24 Unknown History mcg/actuation nasal Allergy Symptoms spray,suspension (Flonase Allergy Relief) multivitamin 1 tab PO DAILY 06/30/24 06/30/24 Unknown History Exam Airway Mallampati Class: II TM Dist: >3cm Neck ROM: Full Heart: rrrcta Assessment and Plan Assessment Anesthesia Assessment: Anesthesia Plan Discussed Final Anesthetic Review History of Problems with Anesthesia: No NPO: Yes ASA Class: III Final Preanesthetic Review: No Changes in Pt Med Stat, Meds/Allgs Chart Reviewed, Consent Obtained/Reviewed and Anes Risks/Benef Reviewed Patient Risk: Intermediate Procedure Risk: Intermediate Anesthetic Plan Anesthetic Plan: GA, Regional Block and Agree w/ Assess. and Plan Disposition: Standard PACU
[2024-07-14] VITALS (8 sets, daily range): BP systolic 119–132; BP diastolic 62–75; PULSE 59–69; RESP 10–23; TEMP 36.1–37; O2SAT 95–100
[2024-07-14] MEDS: Lactated Ringers 1,000 ML 100 ML IVCONT (10:57)
[2024-07-14] MEDS: Acetaminophen 1,000 MG/100 ML PIGGYBACK 400 MG IV (12:00)
[2024-07-14] MEDS: ceFAZolin Sodium/Dextrose,Iso 2 GM/50 ML PIGGYBACK IV (12:00)
--- NOTE | 2024-07-14 13:21 | P.BOP_ITS ---
Brief Operative Note Date of Service: 07/14/24 Pre-op diagnosis: Right shoulder impingement syndrome, right shoulder acromioclavicular joint arthritis, right shoulder adhesive capsulitis Post-op diagnosis: same Procedure: Right shoulder arthroscopic distal clavicle excision, right shoulder arthroscopic acromioplasty, right shoulder arthroscopic anterior capsular release, right shoulder manipulation under anesthesia Implants: none Surgeon: William Rodrigez MD Anesthesia: GETA and regional Was an General Activities Therapist used for this Procedure?: No Estimated blood loss (mL): 15 Pathology: none sent Condition: stable Disposition: PACU
--- NOTE | 2024-07-14 13:22 | P.OP_ITS ---
Operative Note Operative Note Date of Service: 07/14/24 Narrative: After the patient was identified as Ibis Meza and her right shoulder was initialed by myself the patient was brought to the holding area where a right shoulder interscalene regional block was performed by the anesthesiologist in routine fashion. The patient was then brought to the operating room where general anesthesia was induced by the anesthesiologist in routine fashion. The patient was given 2 g of IV Ancef preoperatively for infection prophylaxis. Examination under anesthesia of the patient's right shoulder showed decreased passive range of motion when compared to the left shoulder. The patient's right shoulder had passive forward flexion to 140 degrees compared to 170 degrees, external rotation to 40 degrees compared to 70 degrees, and internal rotation to 50 degrees compared to 60 degrees. The patient was gently positioned in the beach chair position with all bony prominences well padded. The patient's right shoulder region and upper extremity were prepped and draped in sterile fashion. A formal time-out was completed. A #11 scalpel blade was used to make a posterior portal 2 cm inferior and 1 cm medial to the posterolateral corner of the acromion. Blunt trocar technique was used to enter the glenohumeral joint in routine fashion. An anterior portal was made just lateral to the coracoid process after proper positioning was confirmed using a spinal needle. Diagnostic arthroscopy showed minimal degenerative changes of the glenoid and humeral head articular surfaces. There was no evidence of rotator cuff tearing. There was no evidence of injury to the biceps tendon or its insertion onto the glenoid. There was inflammation of the anterior joint capsule consistent with adhesive capsulitis. The ArthroCare Wand was then used to perform an anterior capsular release between the inferior border of the biceps tendon and the superior border of the subscapularis tendon. The arthroscope was then placed from the posterior portal into the subacromial space. A lateral portal was made 2 fingerbreadths lateral to the anterior lateral corner of the acromion. The ArthroCare Wand was used to ablate soft tissues along the undersurface of the acromion as well as to excise the coracoacromial ligament. There was a sharp spur along the undersurface of the acromion which was removed using the hooded bur. The arthroscope was then placed into the lateral portal and the acromi oplasty was completed with the bur in the posterior portal using the posterior aspect of the acromion as a cutting block. The ArthroCare Wand was then brought in through the anterior portal and was used to ablate soft tissues along the acromioclavicular joint and distal clavicle. The posterior and superior ligamentous structures were left intact. A distal clavicle excision of 8 mm was performed using the fluted bur. Any remaining bursal tissue was removed using the arthroscopic shaver. The subacromial space was irrigated and then drained. All arthroscopic instruments were removed. A gentle manipulation under anesthesia was then performed. Full passive range of motion was easily attained. The 3 portals were closed with 3-0 nylon interrupted suture. The subacromial space was injected with Marcaine. Dry sterile dressing was placed over all incisions. The patient's right upper extremity was placed into a sling. The patient was awoken and extubated in the operating room. The patient was transferred to the recovery room in stable condition.
[2024-07-14] MEDS: cefTRIAXone sodium 1 GM VIAL IVPUSH (14:09)
== END 2024-07-14 14:56 | disposition home or self-care (01) ==
PROVIDERS: PCP Internal Medicine; Visit Provider Orthopaedic Surgery
PROC: (CPT 29805; principal; 2024-07-14 12:00)
DX: M75.41 Impingement syndrome of right shoulder (principal); M75.01 Adhesive capsulitis of right shoulder; M25.511 Pain in right shoulder; M25.611 Stiffness of right shoulder, not elsewhere classified; M19.011 Primary osteoarthritis, right shoulder; J06.9 Acute upper respiratory infection, unspecified; J30.2 Other seasonal allergic rhinitis; J30.81 Allergic rhinitis due to animal (cat) (dog) hair and dander; Z79.899 Other long term (current) drug therapy; Z98.84 Bariatric surgery status; Z98.890 Other specified postprocedural states; Z87.891 Personal history of nicotine dependence
CPT/HCPCS: 29824; 29825; 29826; J0131; J0171; J0665; J0690; J0696; J1100; J2003; J2250; J2405; J2704; J2795; J3010

== ENCOUNTER → 2024-07-14 09:43 | Outpatient (BNV) | payer BC, SELFPAY | PROVIDERS: PCP Internal Medicine; Visit Provider Orthopaedic Surgery | DX: M75.41 Impingement syndrome of right shoulder (principal); M19.011 Primary osteoarthritis, right shoulder; M75.01 Adhesive capsulitis of right shoulder | CPT/HCPCS: 29824; 29826 ==

== ENCOUNTER 2024-07-27 10:40 | Outpatient (AMB) | payer BC, SELFPAY ==
--- NOTE | 2024-07-27 10:45 | MHC.OFFVIS ---
Intake Visit Reasons: PO RT Shoulder 07/14/24 DR Intake Note: Ibis is a 64 year old right hand dominant female who presents with complaints of mild to moderate discomfort in her right shoulder after undergoing right shoulder arthroscopic surgery on 07/14/2024. She continues with her home stretching program. She denies any fevers or chills. She takes just Tylenol for her discomfort. Allergies Seasonal Allergies Allergy (Intermediate, Verified 07/27/24 10:53) Headache cat dander Allergy (Mild, Verified 07/27/24 10:53) Sneezing dog dander Allergy (Mild, Verified 07/27/24 10:53) Sneezing glucosamine Allergy (Verified 07/27/24 10:53) Eye Swelling Medication List - Last Reviewed 07/27/24 by ROLAN Watson biotin 10,000 mcg PO DAILY calcium carbonate (Calcium 600) 600 mg PO DAILY cetirizine (Zyrtec) 10 mg PO DAILY PRN cholecalciferol (vitamin D3) 50 mcg PO DAILY fluticasone propionate 50 mcg/actuation (Flonase Allergy Relief) 1 spray intranasal DAILY PRN multivitamin 1 tab PO DAILY solifenacin 10 mg PO DAILY PFSH Medical History Right shoulder pain Acute respiratory disease Osteoarthritis of right knee Osteoarthritis of left knee Sacral neurostimulator in situ Word finding difficulty Urinary incontinence Arthritis of right knee Arthritis of left knee Sleep apnea Bilateral knee pain Surgical History H/O colonoscopy History of Esmer-en-Y gastric bypass Hx of lumpectomy Hx of tonsillectomy Hx of bladder repair surgery Hx of foot surgery Hx of eye surgery Hx of gastric bypass Family History Mother Hypertension Diabetes Father Hx of CABG Hypertension Prostate CA Bone cancer Sister History of breast cancer Cervical cancer Maternal Grandmother History of breast cancer Paternal Aunt History of breast cancer Social History Housing: House Are you a primary child day care teacher to a significant other at home: No Do you presently have visiting nurse or other home services: No Alcohol intake: current Alcohol intake frequency: a few times a month Comment: weekend 2 -3drinks Patient Tobacco Use Status: Former Tobacco user Tobacco use type: Cigarette Cigarette Packs Per Day: 1 Cigarettes Per Day: 20 Years Smoked: 2002 stopped e-Cigarette/Vaping Use: Never Used Second Hand Smoke Exposure: Yes service: No Current occupational status: employed and 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 Meza is doing well after undergoing right shoulder arthroscopic surgery on 07/14/2024. Her sutures were removed and Steri-Strips placed over her incisions. She will continue with her home stretching program. The do's and don'ts of lifting were discussed at length with the patient. She will contact me prior to her follow-up appointment in 2 months should any questions or concerns arise. Feel free to call me at any time should questions regarding her orthopedic management arise. Coding Level of Care Code Global (94215) Diagnoses Right shoulder pain M25.511
--- OUTSIDE RECORDS SUMMARY | 2024-07-27 11:11 | XMS_ITS ---
Author Organization [facility] Address [address] [facility] [place] [address] Care Team Providers Care Processing Lead Name Role Phone Trevor Pablo Primary Care Provider Cammie Cisneros [phone] Encounters Encounter Location Date Provider Diagnosis [address] [address] 05/30/2024 Cammie English Plan Of Treatment No Information Progress Notes * Javon MEZAOB:[birth year] (64 yo F)Acc No.[id number]:05/30/2024 Progress Notes Patient:Ibis ARZOLA Provider:?Cammie English DPM :1960???Age:64 Y???Sex:Female D ate:05/30/2024 Address:[place] Pcp:Trevor Pablo Subjective: * Chief Complaints: * ??? * Medical History:? Objective: * Vitals:? Assessment: Plan: * Treatment: * Images: * The named appointment provid er may or may not be the originator of this progress note, and it is not deemed complete until electronically signed by the appointment provider. Sign off status: Pending * Provider:Norberto English DPM Date:?2024 Generated for Printi ng/Faacg/eTransmitting on:?07/27/2024 11:11 AM EDT
== END 2024-07-27 10:59 | disposition home or self-care (01) ==
LOC: HO.HOS 10:41
PROVIDERS: PCP Internal Medicine; Visit Provider Orthopaedic Surgery
DX: M25.511 Pain in right shoulder (principal)
CPT/HCPCS: 99024

== ENCOUNTER 2024-08-30 09:05 | Outpatient (AMB) | payer BC, SELFPAY ==
--- OUTSIDE RECORDS SUMMARY | 2023-05-07 04:40 | XMS_ITS ---
Author Organization [facility] Address [address] [place] [address] Care Team Providers Care Senior Auditor Name Role Phone Po Trevor GIVENS Primary Care Provider Montez Andersen [phone] REASON FOR VISIT screening,hx polyps Problems Problem Type SNOMED Code ICD Code Onset Dates Problem Status W/U Status Risk Notes Problem Diverticular disease of colon (023755799) Diverticulosis of large intestine without perforation or abscess without bleeding (K57.30) Active confirmed Encounters Encounter Location Date Provider Diagnosis [facility] [place] [place] Outpatient [address] [place] [address] [phone] 05/07/2023 Montez Muñoz Encounter for scre ening colonoscopy Z12.11 ; Colon polyps K63.5 ; Diverticulosis of large intestine without perforation or abscess without bleeding K57.30 and Other hemorrhoids K64.8 Assessments Encounter Date Diagnosis (ICD Code) Assessment Notes Treatment Notes Treatment Clinical Notes Section Notes 05/07/2023 Encounter for screening colonoscopy (ICD-10 - Z12.11) 05/07/2023 Colon polyps (ICD-10 - K63.5) 05/07/2023 Diverticulosis of large intestine without perforation or abscess without bleeding (ICD-10 - K57.30) 05/07/2023 Other hemorrhoids (ICD-10 - K64.8) Plan Of Treatment No Information Progress Notes * LORETA CYNDY CDOB:1960 (64 yo F)Acc No.[id number]:05/07/2023 COLON WITH MAC Patient: Real JAGDEEP CYNDY James Provider: Kassie Muñoz MD :1960 A ge:63 Y S ex:Female Date:05/07/2023 Address:[address] [id number] Pcp:Trevor Pablo MD Subjective: * Chief Complaints: * 1 . Screening,hx polyps. * Medical History: Objective: * Vitals: Assessment: * Assessment: 1. E ncounter for screening colonoscopy - Z12.11 (Primary) 2 . C olon polyps - K63.5 3 . D iverticulosis of large intestine without perforation or abscess without bleeding - K57.30 4 . O ther hemorrhoids - K64.8 Plan: * Treatment: * Procedure Codes: 4 5385 LESION REMOVAL COLONOSCOPY, Modifiers: PT * * The named appointment provid er may or may not be the originator of this progress note, and it is not deemed complete until electronically signed by the appointment provider. Sign off status: Pending * Provider: Kassie Muñoz MD Date: 0 05/07/2023 Generated for Pooja king/Dhaval/Yadiraitting on: 0 08/30/2024 09:16 AM EDT
--- OUTSIDE RECORDS SUMMARY | 2024-05-30 12:00 | XMS_ITS ---
Author Organization [facility] Address [address] [facility] [place] [address] Care Team Providers Care Master Glazier Name Role Phone Trevor Pablo Primary Care Provider Cammie Cisneros [phone] Encounters Encounter Location Date Provider Diagnosis [address] [address] 05/30/2024 Cammie English Plan Of Treatment No Information Progress Notes * Javon MEZAOB:[birth year] (64 yo F)Acc No.[id number]:05/30/2024 Progress Notes Patient: Ibis DIA Provider: Veronica English DPM :1960 A ge:64 Y S ex:Female Date:05/30/2024 Address[address] [place] Pcp:Trevor Pablo Subjective: * Chief Complaints: * * Medical History: Objective: * Vitals: Assessment: Plan: * Treatment: * Images: * The named appointment provid er may or may not be the originator of this progress note, and it is not deemed complete until electronically signed by the appointment provider. Sign off status: Pending * Provider: Veronica English DPM Date: 05/30/2024 Generated for Printi ng/Faxing/eTransmitting on: 08/30/2024 09:16 AM EDT
--- NOTE | 2024-08-30 09:10 | A.OFFVIS_ITS ---
Vital Signs 08/30/24 09:11 Height 5 ft 2 in Weight 160 lb BMI 29.3 Intake Visit Reasons: PO RT Shoulder 07/14/24 DR Intake Note: She reports mild to moderate discomfort in her right shoulder. She has not yet returned to work. She denies any fevers or chills. She does report mild weakness when lifting her hand above shoulder height. Ibis is a 64 year old right hand dominant female who presents today post-operatively after undergoing right shoulder arthroscopic surgery on 07/14/2024. Allergies Seasonal Allergies Allergy (Intermediate, Verified 08/30/24 09:11) Headache cat dander Allergy (Mild, Verified 08/30/24 09:11) Sneezing dog dander Allergy (Mild, Verified 08/30/24 09:11) Sneezing glucosamine Allergy (Verified 08/30/24 09:11) Eye Swelling Medication List - Last Reconciled 08/30/24 by William Rodrigez MD biotin 10,000 mcg PO DAILY calcium carbonate (Calcium 600) 600 mg PO DAILY cetirizine (Zyrtec) 10 mg PO DAILY PRN cholecalciferol (vitamin D3) 50 mcg PO DAILY fluticasone propionate 50 mcg/actuation (Flonase Allergy Relief) 1 spray intranasal DAILY PRN multivitamin 1 tab PO DAILY solifenacin 10 mg PO DAILY PFSH Medical History Right shoulder pain Acute respiratory disease Osteoarthritis of right knee Osteoarthritis of left knee Sacral neurostimulator in situ Word finding difficulty Urinary incontinence Arthritis of right knee Arthritis of left knee Sleep apnea Bilateral knee pain Surgical History H/O colonoscopy History of Esmer-en-Y gastric bypass Hx of lumpectomy Hx of tonsillectomy Hx of bladder repair surgery Hx of foot surgery Hx of eye surgery Hx of gastric bypass Family History Mother Hypertension Diabetes Father Hx of CABG Hypertension Prostate CA Bone cancer Sister History of breast cancer Cervical cancer Maternal Grandmother History of breast cancer Paternal Aunt History of breast cancer Social History Housing: House Are you a primary health care law specialist to a significant other at home: No Do you presently have visiting nurse or other home services: No Alcohol intake: current Alcohol intake frequency: a few times a month Comment: weekend 2 -3drinks Patient Tobacco Use Status: Former Tobacco user Tobacco use type: Cigarette Cigarette Packs Per Day: 1 Cigarettes Per Day: 20 Years Smoked: 2002 stopped e-Cigarette/Vaping Use: Never Used Second Hand Smoke Exposure: Yes service: No Current occupational status: employed and 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 Meza continues to do well after undergoing right shoulder arthroscopic surgery. She will continue with her home stretching program. The do's and don'ts of lifting were discussed at length with the patient. I will clear her to return to work once her discomfort and strength have improved. She will contact me prior to her follow-up appointment in 3 months should any questions or concerns arise. Feel free to call me at any time should questions regarding her orthopedic management arise. Coding Level of Care Code Global (72848) Diagnoses Right shoulder pain M25.511
[2024-08-30 09:11] VITALS: BMI 29.3
--- OUTSIDE RECORDS SUMMARY | 2024-08-30 09:17 | XMS_ITS | Data Portability ---
Author Organization [place] - [facility], Allergy Address [address] [address] Care Team Providers Care Tool Machine Setup Operator Name Role Phone BRIANA AUSTIN Primary [...] steroids such as Flonase which is currently [id number] may be helpful. Devices such as a [...] and Address Organization Details Recorded Time Snoring 02289234 Active 024 TAN LUEVANO MD [address] [place] [address], [place], [phone], [facility] - [facility] 4 16:59:43 Obstructive sleep apnea syndrome 69152180 Active 024 TAN LUEVANO MD [address] [place] [address], [place], [phone], [facility] - [facility] 4 11:10:46 Sleep disorder 62525196 Active 024 TAN LUEVANO MD [address] [place] [address], [place], [phone], [facility] - [facility] 4 17:06:25 Problem Notes None recorded. Procedures Surgical History Date Name Laterality Status Provider Name and Address Organization Details Recorded Time 09/03/2023 Telehealth completed TAN LUEVANO MD [address] [place] [address], [phone], [facility] - [facility] 09/03/2023 16:56:53 08/12/2023 FOL_DP completed TAN LUEVANO MD [address] [place] [address], [phone], [facility] - [facility] 08/12/2023 11:08:21 Imaging Results None recorded. [...] Updated DateTime 08/12/2023 157.48 cm 29.3 kg/m2 48567.78 g Lenard Cole [place] - [facility] 08/12/2023 10:53:19 Social History None recorded. [...] Note [id number] TAN LUEVANO MD [facility] [address] [phone] 08/12/2023 10:06:54 08/12/2023 11:15:24 Snoring 47069111 R06.83 Obstructiv e sleep apnea syndrome 85620932 G47.33 [id number] TAN LUEVANO MD [facility] [address] [phone] 09/03/2023 17:00:24 09/03/2023 17:08:43 Snoring 85413470 R06.83 Sleep disorder 62069755 G47.9 Health Concerns Section Related Observation LastModified by Organization Detai ls LastModified Time None Recorded Concern Status LastModified by Organization Details LastModified Time None Recorded Advance Directives Directive None Recorded Payers Insurance Date Sequence Insurance Name Policy Number Policy Hinton Covered Member ID Hinton Member ID Guarantor Name 09/11/2023 1 FAMILIA (PPO) [id number] Ibis Meza [id number] Ibis Meza Notes Date Note Type Note Provider Name and Address Organization Details Recorded Time 08/12/2023 text/html snoringhx of sev ere SHARLENE - improved after weight loss of 150 pounds with gastric bypass 2017most 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, 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) and has had trouble adapting sleep pattern 7 or 8p and wake at 1amtried melatonin but gets abnormal skin sensationtried turmeric but poorly toleratedtried magnesium with some mild improvement surgery - tonsils removed age 4 TAN LUEVANO MD [address] [facility] [address], [place], [phone], [place] - [facility] 08/12/2023 11:11:19 09/03/2023 text/html lzeruce11/4/20[facility]x of severe [...] removed age 4 TAN LUEVANO MD [address] [facility] [address], [place], [address], [place] - [facility] 09/03/2023 17:08:36 OBGyn Episode No OBEpisode recorded.
== END 2024-08-30 09:17 | disposition home or self-care (01) ==
LOC: HO.HOS 09:06
PROVIDERS: PCP Internal Medicine; Visit Provider Orthopaedic Surgery
DX: M25.511 Pain in right shoulder (principal)
CPT/HCPCS: 99024

== ENCOUNTER 2024-08-30 15:19 | Outpatient (AMB) | payer BC, SELFPAY ==
--- NOTE | 2024-08-30 15:39 | MHC.OFFVIS ---
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 Intake Note: room 4 Vinyl Top Installer Required: No Secy: Secy Present (Karo) Accompanied by: Self / Same As Patient Allergies Seasonal Allergies Allergy (Intermediate, Verified 08/30/24 15:42) Headache cat dander Allergy (Mild, Verified 08/30/24 15:42) Sneezing dog dander Allergy (Mild, Verified 08/30/24 15:42) Sneezing glucosamine Allergy (Verified 08/30/24 15:42) Eye Swelling Medication List - Last Reconciled 08/30/24 by Christine Suggs LPN biotin 10,000 mcg PO DAILY calcium carbonate (Calcium 600) 600 mg PO DAILY cetirizine (Zyrtec) 10 mg PO DAILY PRN cholecalciferol (vitamin D3) 50 mcg PO DAILY fluticasone propionate 50 mcg/actuation (Flonase Allergy Relief) 1 spray intranasal DAILY PRN multivitamin 1 tab PO DAILY solifenacin 10 mg PO DAILY Post menopausal: Yes Followed by:: Christine Suggs LPN Do you need a note to return to daycare/school/sports/work: No HPI Comments Details: Patient is a 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 She is doing well with video game programmer concerns. Currently sexually active. Denies any vaginal dryness or irritation. STI testing offered; declined. Attempting to eat a healthy diet with calcium and vitamin D, admits to not eating the large amount of volume and has experienced constipation. Active with exercise-walks. Last pap smear; 2023, negative. Last mammogram; 2023. Colonoscopy is UTD. Denies any family history of ovarian or colon cancer. FH breast cancer. [facility] Medical History Right shoulder pain Acute respiratory disease Osteoarthritis of right knee Osteoarthritis of left knee Sacral neurostimulator in situ Word finding difficulty Urinary incontinence Arthritis of right knee Arthritis of left knee Sleep apnea Bilateral knee pain Surgical History H/O colonoscopy History of Esmer-en-Y gastric bypass Hx of lumpectomy Hx of tonsillectomy Hx of bladder repair surgery Hx of foot surgery Hx of eye surgery Hx of gastric bypass Family History Mother Hypertension Diabetes Father Hx of CABG Hypertension Prostate CA Bone cancer Sister History of breast cancer, Onset Age: 28 Cervical cancer Maternal Grandmother History of breast cancer Paternal Aunt History of breast cancer Social History Housing: House Are you a primary hospice patient care secretary to a significant other at home: No Do you presently have visiting nurse or other home services: No Alcohol intake: current Alcohol intake frequency: a few times a month Comment: weekend 2 -3drinks Patient Tobacco Use Status: Former Tobacco user Tobacco use type: Cigarette Cigarette Packs Per Day: 1 Cigarettes Per Day: 20 Years Smoked: 2002 stopped e-Cigarette/Vaping Use: Never Used Second Hand Smoke Exposure: Yes service: No Current occupational status: employed and 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 Sexual orientation: Straight/Heterosexual Gender identity: Female Cognitive needs: No Hearing needs: No Vision needs: Yes (Glasses) Female Reproductive History Menstrual Age of Menarche: 12 Menopause type: natural Age of menopause: 54 Total pregnancies: 7 Full term: 3 Number of Living Children: 3 History of abnormal pap smear: No History of STI: No Review of Systems Const All systems reviewed & are unremarkable except as noted in HPI and below Reports as per HPI Eyes Reports no additional complaints ENT Reports no additional complaints Card Reports no additional complaints Resp Reports no additional complaints GI Reports as per HPI and Reports no additional complaints Reports as per HPI Musc Reports no additional complaints Skin/Breast Reports as per HPI Neuro Reports no additional complaints Psych Reports no additional complaints Endo Reports no additional complaints Damian/Lymph Reports no additional complaints Aller/Immun Reports no additional complaints Physical Exam Vital Signs: Last Vital Signs BP 118/82 08/30/24 15:40 BMI result Body Mass Index 29.4 Const General: cooperative, healthy appearing, no acute distress, well developed and alert Orientation/consciousness: patient oriented x3 HEENT Head: Yes normal to inspection Eyes General: appearance normal, both eyes and all related structures Neck Neck: Yes normal visual inspection Thyroid: Thyroid normal Chest Chest palpation & inspection: normal inspection of the chest and other (no puckering, dimpling, peau de orange, retraction, discharge, masses) Breast/axilla inspection: normal inspection of the breasts Breast/axilla palpation: normal palpation of the breasts Resp Effort & Inspection: normal respiratory effort GI Inspection: Yes normal to inspection Palpation (GI): Soft to palpation Rectal Exam - Female: deferred General: Yes bladder normal to palpation External Female Exam: normal external appearance and normal appearance of the urethra Speculum Exam - Vagina: normal appearance of the vagina, normal palpation, normal vaginal discharge and vagina atrophic Speculum Exam - Cervix: normal appearance of the cervix and normal palpation Bimanual exam- vagina & uterus: normal bimanual exam, normal palpation, uterine size normal, bladder normal to palpation, normal palpation and non-tender Bimanual Exam- Adnexa, other: Adnexal mass present (Fullness on right side, possible loop of bowel) Skin General skin exam: no rashes or lesions noted Rashes: no rashes Neuro General: patient oriented x3 Cognition (Neuro): normal cognition Extrem General: Yes normal to inspection Psych Attitude: cooperative Thought process: Normal thought process present Assessment & Plan Assessment & Plan (1) Pelvic fullness: Code(s): R19.00 - Intra-abdominal and pelvic swelling, mass and lump, unspecified site Category: Medical Plan: Discussed: Constipation prevention with increased fluid and fiber in exercise. Plan pelvic ultrasound and follow up pending results. The patient expressed understanding and agreement with the plan of care. All of her questions and concerns were addressed to the best of my ability. (2) Encounter for well woman exam with routine gynecological exam: Code(s): Z01.419 - Encounter for gynecological examination (general) (routine) without abnormal findings Category: Medical (3) Family history of breast cancer in first degree relative: Code(s): Z80.3 - Family history of malignant neoplasm of breast Category: Medical Plan: Discuss BRCA testing- recommend referral, patient agrees, referral placed. The patient expressed understanding and agreement with the plan of care. All of her questions and concerns were addressed to the best of my ability. Plan Discussed: Current recommendations for pap smears per ASCCP guidelines. Breast awareness, periodic self breast exams and yearly mammogram. Maintain a healthy lifestyle, well balanced diet including Calcium 1,200 mg and Vitamin D 600 IU daily, and routine exercise. Contact the office with any postmenopausal bleeding. BRCA testing, agrees to have referral placed for evaluation. Patient verbalizes understanding and agrees to the plan of care. She was given opportunity to ask questions and all questions were answered to the best of my ability. RTO in 1 year for annual video game programmer exam. This note is constructed using voice recognition software. While every effort has been made to ensure accuracy, rubber compounder mixer errors may have been included. Orders: Orders US pelvic and transvaginal Today R19.00 - Intra-abdominal and pelvic swelling, mass and lump, unspecified site Referrals Breast Surgery Referral Z80.3 - Family history of malignant neoplasm of breast Coding Level of Care Code Est Pt Prev Care 40-64y(80796) Diagnoses Pelvic fullness R19.00 Encounter for well woman exam with routine gynecological exam Z01.419 Family history of breast cancer in first degree relative Z80.3
[2024-08-30 15:40] VITALS: BP 118/82; BMI 29.4
== END 2024-08-30 16:26 | disposition home or self-care (01) ==
LOC: HO.HWS 15:20
PROVIDERS: PCP Internal Medicine; Visit Provider Advanced Practice Midwife
DX: Z01.419 Encounter for gynecological examination (general) (routine) without abnormal findings (principal); R19.00 Intra-abdominal and pelvic swelling, mass and lump, unspecified site; Z80.3 Family history of malignant neoplasm of breast
CPT/HCPCS: 99396; 99459

== ENCOUNTER 2024-09-29 15:19 | Outpatient (REF) | payer BC, SELFPAY ==
--- OUTSIDE RECORDS SUMMARY | 2023-05-07 04:40 | XMS_ITS ---
Author Organization [facility] Address [address] [place] [address] Care Team Providers Care Receiving Weigher Name Role Phone Po Trevor GIVENS Primary Care Provider Montez Andersen [phone] REASON FOR VISIT screening,hx polyps Problems Problem Type SNOMED Code ICD Code Onset Dates Problem Status W/U Status Risk Notes Problem Diverticulosis o f large intestine without perforation or abscess without bleeding (K57.30) Active confirmed Encounters Encounter Location Date Provider Diagnosis [facility] [place] [address] [place] [phone] 05/07/2023 Montez Muñoz Encounter for scre ening [...] Of Treatment No Information Progress Notes * ROGER MEZAANCE CDOB:1960 (64 yo F)Acc No.[id number]:05/07/2023 COLON WITH MAC Patient: CYNDY DIA Provider: Kassie Muñoz MD :1960 A ge:63 Y S ex:Female Date:05/07/2023 Address:[address], [facility] Pcp:Trevor Pablo MD Subjective: * Chief Complaints: [...] MD Date: 0 05/07/2023 Generated for Pooja king/Dhaval/Chiragransmitting on: 0 09/29/2024 03:21 PM EDT
--- OUTSIDE RECORDS SUMMARY | 2024-05-30 12:00 | XMS_ITS ---
Author Organization [facility] Address [address] [facility] [place] [address] Care Team Providers Care Teaching Dietitian Name Role Phone Trevor Pablo Primary Care Provider Cammie Cisneros [phone] Encounters Encounter Location Date Provider Diagnosis [address] [address] 05/30/2024 Cammie English Plan Of Treatment No Information Progress Notes * Javon MEZAOB:[birth year] (64 yo F)Acc No.[id number]:05/30/2024 Progress Notes Patient: Ibis DIA Provider: Veronica English DPM :1960 A ge:64 Y S ex:Female Date:05/30/2024 Address[place] [place] Pcp:Trevor Pablo Subjective: * Chief Complaints: * [...] Date: 05/30/2024 Generated for Printi ng/Faxing/eTransmitting on: 09/29/2024 03:21 PM EDT
== END 2024-09-29 15:20 | disposition home or self-care (01) ==
LOC: HO.MAMMO 15:19
PROVIDERS: PCP Internal Medicine; Visit Provider Internal Medicine
DX: Z12.31 Encounter for screening mammogram for malignant neoplasm of breast (principal)
CPT/HCPCS: 77063; 77067

== ENCOUNTER → 2024-09-29 15:30 | Outpatient (BNV) | payer BC, SELFPAY | PROVIDERS: PCP Internal Medicine; Visit Provider Internal Medicine | DX: Z12.31 Encounter for screening mammogram for malignant neoplasm of breast (principal) | CPT/HCPCS: 77063; 77067 ==

== ENCOUNTER 2024-10-05 14:10 | Outpatient (REF) | payer BC, SELFPAY ==
--- OUTSIDE RECORDS SUMMARY | 2023-05-07 04:40 | XMS_ITS ---
Author Organization [facility] Address [address] [place] [address] Care Team Providers Care Warehouse Operations Manager Name Role Phone Po Trevor GIVENS Primary Care Provider Montez Andersen [phone] REASON FOR VISIT screening,hx polyps Problems Problem Type SNOMED Code ICD Code Onset Dates Problem Status W/U Status Risk Notes Problem Diverticulosis o f large intestine without perforation or abscess without bleeding (K57.30) Active confirmed Encounters Encounter Location Date Provider Diagnosis [facility] [place] Outpatient [address] [place] [address] [phone] 05/07/2023 Montez Muñoz Encounter for scre ening [...] * ROGER MEZAANCE CDOB:1960 (64 yo F)Acc No.[id number]:05/07/2023 COLON WITH MAC Patient: CYNDY DIA Provider: Kassie Muñoz MD :1960 A ge:63 Y S ex:Female Date:05/07/2023 Address:[address], [facility] Pcp:Trevor Pablo MD Subjective: * Chief Complaints: [...] 05/07/2023 Generated for Pooja king/Dhaval/Chiragransmitting on: 0 10/05/2024 02:17 PM EDT
--- NOTE | ~2024-10-05 | US_ITS ---
EXAMINATION: US PELVIS CLINICAL INFORMATION: Left pelvic fullness. COMPARISON: 04/17/2016. TECHNIQUE: Ultrasound of the pelvis is performed using both transabdominal and transvaginal transducers along with Doppler. Transvaginal imaging is performed due to inadequate visualization transabdominally. FINDINGS: Uterus: The uterus is anteverted, retroflexed, and measures 6.8 x 2.5 x 4.2 cm. The cervix appears normal. The double wall endometrial thickness is 3 mm. Trace amount of fluid in the endometrial canal is nonspecific. The uterus is smooth in contour and has normal myometrial echogenicity. No visible fibroid. Adnexa: Both ovaries are visualized. There is normal color flow to the adnexa. There is no ovarian torsion. There is no pelvic ascites or fluid collection. No adnexal masses. Right ovary measures 1.6 x 0.8 x 1.5 cm. Volume = 1.0 mL. Normal sonographic appearance. Left ovary measures 1.1 x 0.6 x 0.6 cm. Volume = 0.2 mL. Normal sonographic appearance. US/US pelvic and transvaginal IMPRESSION: Normal pelvic ultrasound. Electronically signed by: Enrique Murillo MD 10/05/2024 02:56 PM EDT
== END 2024-10-05 14:11 | disposition home or self-care (01) ==
LOC: HO.US 14:10
PROVIDERS: PCP Internal Medicine; Visit Provider Advanced Practice Midwife
DX: R19.00 Intra-abdominal and pelvic swelling, mass and lump, unspecified site (principal); Z80.3 Family history of malignant neoplasm of breast
CPT/HCPCS: 76830; 76856

== ENCOUNTER → 2024-10-05 14:12 | Outpatient (BNV) | payer BC, SELFPAY | PROVIDERS: PCP Internal Medicine; Visit Provider Radiology Diagnostic Radiology | DX: R19.04 Left lower quadrant abdominal swelling, mass and lump (principal) | CPT/HCPCS: 76830; 76856 ==

== ENCOUNTER 2024-10-05 14:47 | Outpatient (AMB) | payer BC, SELFPAY ==
--- NOTE | 2024-10-05 15:01 | MHC.OFFVIS ---
Vital Signs 10/05/24 15:29 Height 5 ft 2 in Weight 167 lb BMI 30.5 BP 173/88 H Blood Pressure Location Lt brachial Position Sitting Pulse 70 Intake Visit Reasons: FHX of malignant neoplasm of breast Intake Note: Patient is seen in office for family history of malignant neoplasm of the breast. Pt c/o: no self concerns regarding the breast, has extensive family hx of breast cancer, first child at age of 27, no prior breast surgeries or infections, here for genetic testing mm:09/29/24 (not read) Nozzle And Sleeve Worker Required: No Director Retail Brand Development: Director Retail Brand Development Present Accompanied by: Self / Same As Patient Allergies Seasonal Allergies Allergy (Intermediate, Verified 10/05/24 15:30) Headache cat dander Allergy (Mild, Verified 10/05/24 15:30) Sneezing dog dander Allergy (Mild, Verified 10/05/24 15:30) Sneezing glucosamine Allergy (Verified 10/05/24 15:30) Eye Swelling Medication List - Last Reconciled 10/06/24 by Eliud Hirsch MD biotin 10,000 mcg PO DAILY calcium carbonate (Calcium 600) 600 mg PO DAILY cetirizine (Zyrtec) 10 mg PO DAILY PRN cholecalciferol (vitamin D3) 50 mcg PO DAILY fluticasone propionate 50 mcg/actuation (Flonase Allergy Relief) 1 spray intranasal DAILY PRN multivitamin 1 tab PO DAILY solifenacin 10 mg PO DAILY HPI Comments Details: 64-year-old female patient presenting with an extensive family history of breast cancer presenting for high-risk breast cancer assessment and possible genetic testing. She denies any current breast pain, lumps, enlarged lymph nodes or nipple discharge. She denies a previous history of breast problems or breast surgery. Family history includes her mother with breast cancer (50s), sister with breast and cervical cancer (28), maternal grandmother with breast cancer and maternal aunt with breast cancer. She is 7 para 3. Her 1st child was born when she was 27. Menarche at age 14, postmenopausal at age 54. Her most recent mammogram of 09/24/2023 revealed no mammographic evidence of malignancy (BI-RADS 1). She did have a mammogram on 09/29/2024 the results of which are not available to time of this dictation. [facility] Medical History Pelvic fullness Right shoulder pain Acute respiratory disease Osteoarthritis of right knee Osteoarthritis of left knee Sacral neurostimulator in situ Word finding difficulty Urinary incontinence Arthritis of right knee Arthritis of left knee Sleep apnea Bilateral knee pain Surgical History H/O colonoscopy History of Esmer-en-Y gastric bypass Hx of lumpectomy Hx of tonsillectomy Hx of bladder repair surgery Hx of foot surgery Hx of eye surgery Hx of gastric bypass Family History Mother Hypertension Diabetes Father Hx of CABG Hypertension Prostate CA Bone cancer Leukemia Sister History of breast cancer, Onset Age: 28 Cervical cancer, Onset Age: 28 Brain cancer Maternal Grandmother History of breast cancer Paternal Aunt History of breast cancer Family/Other History of breast cancer Social History Housing: House Are you a primary career development manager to a significant other at home: No Do you presently have visiting nurse or other home services: No Alcohol intake: current Alcohol intake frequency: a few times a month Comment: weekend 2 -3drinks Patient Tobacco Use Status: Former Tobacco user Tobacco use type: Cigarette Cigarette Packs Per Day: 1 Cigarettes Per Day: 20 Years Smoked: 2002 stopped e-Cigarette/Vaping Use: Never Used Second Hand Smoke Exposure: Yes service: No Current occupational status: employed and 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 Sexual orientation: Straight/Heterosexual Gender identity: Female Cognitive needs: No Hearing needs: No Vision needs: Yes (Glasses) Female Reproductive History Menstrual Age of Menarche: 12 Menopause type: natural Age of menopause: 54 Total pregnancies: 7 Number of Living Children: 3 Ab spontaneous: 4 Review of Systems Const All systems reviewed & are unremarkable except as noted in HPI and below Physical Exam Vital Signs: Last Vital Signs Pulse 70 10/05/24 15:29 BP 173/88 H 10/05/24 15:29 BMI result Body Mass Index 30.5 Const General: cooperative and no acute distress Nutritional Appearance: well nourished Orientation/consciousness: patient oriented x3 Limitations: no limitations HEENT Head: Yes normocephalic and Yes atraumatic Ears: hearing grossly normal bilaterally Chest Other: Left breast: No skin change, no nipple retraction, no nipple discharge, no palpable mass, no enlarged lymph nodes. Right breast: No skin change, no nipple retraction, no nipple discharge, no palpable mass, no enlarged lymph nodes Resp Effort & Inspection: normal respiratory effort, no audible wheezes, no cough and no respiratory distress Cardio Jugular venous distension: no JVD GI Inspection: Yes normal to inspection Skin Other: Warm, dry, no rash Neuro General: patient oriented x3 Extrem General: Yes no clubbing, cyanosis or edema Assessment & Plan Assessment & Plan (1) Family history of breast cancer in first degree relative: Code(s): Z80.3 - Family history of malignant neoplasm of breast Category: Medical Plan 64-year-old female patient presenting for a possible high risk for breast cancer due to strong family history including mother and sister. Examination today revealed no suspicious changes in either breast. Her most recent mammogram of 09/29/2024 [facility] however the previous mammogram of 09/24/2023 revealed no mammographic evidence of malignancy (BI-RADS 1). We discussed genetic testing given her strong family history and she wishes to proceed with this testing today. She will return approximately 6 weeks to review the results. She expressed understanding and agrees with the plan. Coding Level of Care Code New Pt Level 4 (69900) Diagnoses Family history of breast cancer in first degree relative Z80.3
[2024-10-05 15:29] VITALS: BP 173/88; PULSE 70; BMI 30.5
== END 2024-10-05 15:51 | disposition home or self-care (01) ==
LOC: HO.HGS 14:48
PROVIDERS: PCP Internal Medicine; Visit Provider Surgery
DX: Z80.3 Family history of malignant neoplasm of breast (principal)
CPT/HCPCS: 99204

== ENCOUNTER 2024-11-20 15:23 | Outpatient (AMB) | payer BC, SELFPAY ==
--- NOTE | 2024-11-20 15:37 | MHC.OFFVIS ---
Vital Signs 11/20/24 15:38 Height 5 ft 2 in Weight 164 lb 7.437 oz BMI 30.1 Pulse 72 Intake Visit Reasons: genetic results Intake Note: Patient is seen in office for genetic testing results. Patient c/o: no changes or concerns Shotweld Operator Required: No Accompanied by: Self / Same As Patient Allergies Seasonal Allergies Allergy (Intermediate, Verified 11/20/24 15:37) Headache cat dander Allergy (Mild, Verified 11/20/24 15:37) Sneezing dog dander Allergy (Mild, Verified 11/20/24 15:37) Sneezing glucosamine Allergy (Verified 11/20/24 15:37) Eye Swelling HPI Comments Details: 64-year-old female patient presenting with an extensive family history of breast cancer returning for high-risk breast cancer assessment and possible genetic testing. She denies any current breast pain, lumps, enlarged lymph nodes or nipple discharge. She denies a previous history of breast problems or breast surgery. Family history includes her mother with breast cancer (50s), sister with breast and cervical cancer (28), maternal grandmother with breast cancer and maternal aunt with breast cancer. She is 7 para 3. Her 1st child was born when she was 27. Menarche at age 14, postmenopausal at age 54. Her most recent mammogram of 09/29/2024 revealed no mammographic evidence of malignancy (BI-RADS 1). She underwent genetic testing and returns today to review the results. This revealed no clinically significant mutations and no variance of unknown significance. Her breast cancer risk score was 13.5 % which is below the 20% threshold of high risk. [facility] Medical History Pelvic fullness Right shoulder pain Acute respiratory disease Osteoarthritis of right knee Osteoarthritis of left knee Sacral neurostimulator in situ Word finding difficulty Urinary incontinence Arthritis of right knee Arthritis of left knee Sleep apnea Bilateral knee pain Surgical History H/O colonoscopy History of Esmer-en-Y gastric bypass Hx of lumpectomy Hx of tonsillectomy Hx of bladder repair surgery Hx of foot surgery Hx of eye surgery Hx of gastric bypass Family History Mother Hypertension Diabetes Father Hx of CABG Hypertension Prostate CA Bone cancer Leukemia Sister History of breast cancer, Onset Age: 28 Cervical cancer, Onset Age: 28 Brain cancer Maternal Grandmother History of breast cancer Paternal Aunt History of breast cancer Family/Other History of breast cancer Social History Housing: House Are you a primary technical healthcare consultant to a significant other at home: No Do you presently have visiting nurse or other home services: No Alcohol intake: current Alcohol intake frequency: a few times a month Comment: weekend 2 -3drinks Patient Tobacco Use Status: Former Tobacco user Tobacco use type: Cigarette Cigarette Packs Per Day: 1 Cigarettes Per Day: 20 Years Smoked: 2002 stopped e-Cigarette/Vaping Use: Never Used Second Hand Smoke Exposure: Yes service: No Current occupational status: employed and 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 Sexual orientation: Straight/Heterosexual Gender identity: Female Cognitive needs: No Hearing needs: No Vision needs: Yes (Glasses) Female Reproductive History Menstrual Age of Menarche: 12 Review of Systems Const All systems reviewed & are unremarkable except as noted in HPI and below Physical Exam Exam Exam: Exam deferred Vital Signs: BMI result Body Mass Index 30.1 Assessment & Plan Assessment & Plan (1) Family history of breast cancer in first degree relative: Code(s): Z80.3 - Family history of malignant neoplasm of breast Category: Medical Plan 64-year-old female patient with a strong family history of breast cancer returning following genetic testing which revealed no clinically significant genetic mutations and no variance of unknown significance. Her breast cancer risk score was below the threshold of high risk therefore she should continue routine screening including yearly breast examinations and annual mammograms. She should return as needed. Coding Level of Care Code Est Pt Level 3 (44802) Diagnoses Family history of breast cancer in first degree relative Z80.3
[2024-11-20 15:38] VITALS: PULSE 72; BMI 30.1
== END 2024-11-20 15:53 | disposition home or self-care (01) ==
LOC: HO.HGS 15:24
PROVIDERS: PCP Internal Medicine; Visit Provider Surgery
DX: Z80.3 Family history of malignant neoplasm of breast (principal)
CPT/HCPCS: 99213

== ENCOUNTER 2024-11-29 08:23 | Outpatient (AMB) | payer BC, SELFPAY ==
--- OUTSIDE RECORDS SUMMARY | 2024-05-30 12:00 | XMS_ITS ---
Author Organization [facility] Address [address] [facility] [place] [address] Care Team Providers Care Manager Intelligence Name Role Phone Trevor Pablo Primary Care Provider Cammie Cisneros [phone] Encounters Encounter Location Date Provider Diagnosis [address] [address] 05/30/2024 Cammie English Plan Of Treatment No Information Progress Notes * Javon MEZAOB:[birth year] (64 yo F)Acc No.[id number]:05/30/2024 Progress Notes Patient: Ibis DIA Provider: Veronica English DPM :1960 A ge:64 Y S ex:Female Date:05/30/2024 Address[place] [place] Pcp:Trevor Pablo Subjective: * Chief Complaints: * [...] 0 05/30/2024 Generated for Printi ng/Faxing/eTransmitting on: 1 08:55 AM EDT
--- NOTE | 2024-11-29 08:27 | A.OFFVIS_ITS ---
Vital Signs 11/29/24 08:29 Height 5 ft 2 in Weight 155 lb BMI 28.3 Intake Visit Reasons: OV-RT Shoulder 07/14/24 Intake Note: Ibis is a 64 year old female who presents today as a follow up for her right Shoulder 07/14/24 . At last visit we discussed to continue with at home exercises. At today's visit she reports no pain in the right shoulder. She states that her ROM is doing much better with her at home exercises. Allergies Seasonal Allergies Allergy (Intermediate, Verified 11/29/24 08:29) Headache cat dander Allergy (Mild, Verified 11/29/24 08:29) Sneezing dog dander Allergy (Mild, Verified 11/29/24 08:29) Sneezing glucosamine Allergy (Verified 11/29/24 08:29) Eye Swelling Medication List - Last Reconciled 11/29/24 by William Rodrigez MD biotin 10,000 mcg PO DAILY calcium carbonate (Calcium 600) 600 mg PO DAILY cetirizine (Zyrtec) 10 mg PO DAILY PRN cholecalciferol (vitamin D3) 50 mcg PO DAILY fluticasone propionate 50 mcg/actuation (Flonase Allergy Relief) 1 spray intranasal DAILY PRN multivitamin 1 tab PO DAILY solifenacin 10 mg PO DAILY PFSH Medical History Pelvic fullness Right shoulder pain Acute respiratory disease Osteoarthritis of right knee Osteoarthritis of left knee Sacral neurostimulator in situ Word finding difficulty Urinary incontinence Arthritis of right knee Arthritis of left knee Sleep apnea Bilateral knee pain Surgical History H/O colonoscopy History of Esmer-en-Y gastric bypass Hx of lumpectomy Hx of tonsillectomy Hx of bladder repair surgery Hx of foot surgery Hx of eye surgery Hx of gastric bypass Family History Mother Hypertension Diabetes Father Hx of CABG Hypertension Prostate CA Bone cancer Leukemia Sister History of breast cancer, Onset Age: 28 Cervical cancer, Onset Age: 28 Brain cancer Maternal Grandmother History of breast cancer Paternal Aunt History of breast cancer Family/Other History of breast cancer Social History Housing: House Are you a primary family day care provider to a significant other at home: No Do you presently have visiting nurse or other home services: No Alcohol intake: current Alcohol intake frequency: a few times a month Comment: weekend 2 -3drinks Patient Tobacco Use Status: Former Tobacco user Tobacco use type: Cigarette Cigarette Packs Per Day: 1 Cigarettes Per Day: 20 Years Smoked: 2002 stopped e-Cigarette/Vaping Use: Never Used Second Hand Smoke Exposure: Yes service: No Current occupational status: employed and 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 Sexual 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: Straight/Heterosexual Gender identity: Female Cognitive needs: No Hearing needs: No Vision needs: Yes (Glasses) Female Reproductive History Menstrual Age of Menarche: 12 Physical Exam Vital Signs: BMI result Body Mass Index 28.3 Const Other: Well-nourished well-developed very friendly female awake alert and oriented x3 in no acute distress Extrem Other: Right shoulder examination shows that the surgical incisions are well healed, no erythema, almost full range of motion when compared to her left shoulder, minimal discomfort with range of motion, no instability Assessment & Plan Assessment & Plan (1) Right shoulder pain: Code(s): M25.511 - Pain in right shoulder Category: Medical Plan Ms. Meza continues to do very well after undergoing right shoulder arthroscopic surgery on 07/14/2024. She will continue with her home stretching program. She will follow up with me on an as-needed basis should her symptoms not plateau at an unacceptable level over the next few months. Feel free to call me at any time should questions regarding her orthopedic management arise. I spent 22 minutes in reviewing the patient's records and imaging studies, seeing the patient and documenting in the medical record. Coding Level of Care Code Est Pt Level 3 (96305) Complex EM visit Add On G2211 Diagnoses Right shoulder pain M25.511
[2024-11-29 08:29] VITALS: BMI 28.3
--- OUTSIDE RECORDS SUMMARY | 2024-11-29 08:56 | XMS_ITS | Patient Health Record ---
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 Name Role Phone Trevor Pablo MD Primary Care Provider Montez Andersen [phone] Allergies Allergen (clinical drug ingredient) Drug/Non Drug [...] Problem Status W/U Status Risk Notes Problem 102571941 Encounter for screening for malignant neoplasm of colon (Z12.11) Active confirmed Problem Diverticular disease of colon (299414456) Diverticulosis of large intestine without perforation or abscess without bleeding (K57.30) Active confirmed Problem 515061993 History of colon polyps (Z86.010) Active confirmed Problem 79768250 Constipation, unspecified constipation type (K59.00) Active confirmed Problem 744251826 Pre-procedural examination (Z01.818) Active confirmed Plan Of Treatment Pending Test Test Name Order Date Pathology 05/07/2023 Future Test Test Name Order Date COLONOSCOPY 06/08/2017 COLONOSCOPY 02/03/2023 Insurance Providers Payer Name Payer Address Payer Phone Subscriber Number Group Number Insured Name Patient Relationship to Insured Coverage Start Date Coverage End Date [facility] [address] [place], [place] [phone] [id number] MEZA Self - patient is the insured Medical (General) History Medical History History ICD Code Seasonal allergies Denies MD,DM,CVA,Lung disease,renal dise ase Negative limited(due to prep) colonoscop y in 11/[address] Sarabia Urinary incontinence Surgical History Surgery Date(Month/Year) Laparoscopic Esmer-en-Y Gastr ic bypass with Dr. Singh---lost 135# since 06/2017 Interstim bladder 2009 Eye surgery for crossed eyes as child Plantar fasciitis age 30 Right lump removal in shoulder benign
--- OUTSIDE RECORDS SUMMARY | 2024-11-29 08:56 | XMS_ITS | Patient Health Record ---
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) Plantar fasciitis, bilateral (M72.2) Active confirmed Problem Osteoarthritis of midtarsal joint of left foot (1358382823974615 ) Osteoarthritis of midtarsal joint of left foot (M19.072) Active confirmed Problem Osteoarthritis of midtarsal joint of right foot (0928884443839381 ) Osteoarthritis of midtarsal joint of right foot (M19.071) Active confirmed Vital Signs Blood pressure diastolic 30 mm Hg 04/05/2024 Height 5ft 2in in 04/05/2024 Blood pressure systolic 140 mm Hg 04/05/2024 Weight 158 lbs 04/05/2024 BMI 28.9 kg/m2 04/05/2024 Encounters Encounter Location Date Provider Diagnosis [address] [place] [id number] 02/09/2024 Cammie Black Pain in left foot [...] foot M19.071 and Ingrown nail L60.[address] [place] [id number] 02/18/2024 Cammie Black Pain in left foot [...] and Other myositis of left foot M60.[address] [address] 04/05/2024 Cammie Black Pain in left foot [...] and Other myositis of left foot M60.[address] [facility] [address] 02/02/2024 [facility] [address] [facility] [address] [facility] [address] [place] [address] 02/18/2024 Cammieshahid English [facility] [address] [address] 04/05/2024 Cammie English [place] Encounter Date Diagnosis (ICD Code) Assessment Notes [...] Treatment Pending Test Test Name Order Date 07802- Removal of Foreign Body, Subcut 1 04/19/201315820,B9766-GXR TENDON SHEATH/LIGAMENT 0 11/06/2013 Insurance Providers Payer Name Payer Address Payer Phone Subscriber Number Group Number Insured Name Patient Relationship to Insured Coverage Start Date Coverage End Date [facility] [address] [place] [address] [phone] [id number] Ibis Meza Self - patient is the insured Medical (General) History Medical History History ICD Code Chicken pox Arthritis Back,Hip,and Knee pain covid-19 Reflux ( GERD) Surgical History Surgery Date(Month/Year) mass removed 09/2012 interstem 09/2012 foot surgery 1989's eye surgery 1969's bypass 2017 colonoscopy 04/2023
== END 2024-11-29 08:47 | disposition home or self-care (01) ==
LOC: HO.HOS 08:24
PROVIDERS: PCP Internal Medicine; Visit Provider Orthopaedic Surgery
DX: M25.511 Pain in right shoulder (principal)
CPT/HCPCS: 99213

== ENCOUNTER 2024-12-22 09:19 | Outpatient (AMB) | payer BC, SELFPAY ==
--- OUTSIDE RECORDS SUMMARY | 2024-05-30 12:00 | XMS_ITS ---
Author Organization [facility] Address [address] [place] [address] Care Team Providers Care Seat Nailer Name Role Phone Trevor Pablo Primary Care Provider Cammie Cisneros [phone] Encounters Encounter Location Date Provider Diagnosis [address] [address] 05/30/2024 Cammie English Plan Of Treatment No Information Progress Notes * Javon MEZAOB:[birth year] (64 yo F)Acc No.[id number]:05/30/2024 Progress Notes Patient: Ibis DIA Provider: Veronica English DPM :1960 A ge:64 Y S ex:Female Date:05/30/2024 Address[place] [place] Pcp:Trevor Pablo Subjective: * Chief Complaints: * [...] DPM Date: 0 05/30/2024 Generated for Printi ng/Faxing/eTransmitting on: 10:10 AM EDT
[2024-12-22 09:21] VITALS: BP 130/84; PULSE 65; TEMP 36.3; O2SAT 99; BMI 29.3
--- NOTE | 2024-12-22 09:21 | A.OFFPC_ITS ---
Vital Signs 12/22/24 09:21 Height 5 ft 2 in Weight 160 lb BMI 29.3 BP 130/84 Blood Pressure Location Lt brachial Position Sitting Pulse 65 Pulse Source Pulse Oximeter Temp 97.3 F Temp Source Temporal Artery Scan Pulse Oximetry (%) 99 Oxygen Delivery Method Room Air Intake Visit Reasons: annual exam Allergies Seasonal Allergies Allergy (Intermediate, Verified 12/22/24 09:24) Headache cat dander Allergy (Mild, Verified 12/22/24 09:24) Sneezing dog dander Allergy (Mild, Verified 12/22/24 09:24) Sneezing glucosamine Allergy (Verified 12/22/24 09:24) Eye Swelling Medication List - Last Reconciled 12/22/24 by Trevor Pablo MD biotin 10,000 mcg PO DAILY calcium carbonate (Calcium 600) 600 mg PO DAILY cetirizine (Zyrtec) 10 mg PO DAILY PRN cholecalciferol (vitamin D3) 50 mcg PO DAILY fluticasone propionate 50 mcg/actuation (Flonase Allergy Relief) 1 spray intranasal DAILY PRN multivitamin 1 tab PO DAILY solifenacin 10 mg PO DAILY Tobacco use date assessed: 12/22/24 Fall risk assessment: No Falls in past year Last assessed Fall Risk: 12/22/24 Dental Screening Dental Screen Date: 12/22/24 Did you have a dental visit in the last 12 months?: Yes Did you have a dental problem in the last 6 months where you did not have access to dental care?: No Was dental information given to patient?: Patient has dentist [facility] Medical History Pelvic fullness Right shoulder pain Acute respiratory disease Osteoarthritis of right knee Osteoarthritis of left knee Sacral neurostimulator in situ Word finding difficulty Urinary incontinence Arthritis of right knee Arthritis of left knee Sleep apnea Bilateral knee pain Surgical History H/O colonoscopy History of Esmer-en-Y gastric bypass Hx of lumpectomy Hx of tonsillectomy Hx of bladder repair surgery Hx of foot surgery Hx of eye surgery Hx of gastric bypass Family History Mother Hypertension Diabetes Father Hx of CABG Hypertension Prostate CA Bone cancer Leukemia Sister History of breast cancer, Onset Age: 28 Cervical cancer, Onset Age: 28 Brain cancer Maternal Grandmother History of breast cancer Paternal Aunt History of breast cancer Family/Other History of breast cancer Social History (Updated 12/22/24 @ 09:51 by Trevor Pablo MD) Housing: House Are you a primary care specialist to a significant other at home: No Do you presently have visiting nurse or other home services: No Alcohol intake: current Alcohol intake frequency: a few times a month Comment: weekend 2 -3-4drinks Patient Tobacco Use Status: Former Tobacco user Tobacco use type: Cigarette Cigarette Packs Per Day: 1 Cigarettes Per Day: 20 Years Smoked: 2002 stopped e-Cigarette/Vaping Use: Never Used Second Hand Smoke Exposure: Yes service: No Current occupational status: employed and 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 1. Little interest or pleasure in doing things: not at all 2. Feeling down, depressed, or hopeless: not at all 3. Trouble falling or staying asleep, or sleeping too much: not at all 4. Feeling tired or having little energy: not at all 5. Poor appetite or overeating: not at all 6. Feeling bad about yourself - or that you are a failure or have let yourself or your family down: not at all 7. Trouble concentrating on things, such as reading the newspaper or watching television: not at all 8. Moving or speaking so slowly that other people could have noticed. Or the opposite - being so fidgety or restless that you have been moving around a lot more than usual: not at all 9. Thoughts that you would be better off or of hurting yourself in some way: not at all Total score: 0 Depression Screening Interpretation: Negative Depression Screening Done: Yes 77298 - PHQ-9 Billing: Yes Source: Developed by Drs. Montez Hartman, Gabbie Delgado, Dragan Drake and colleagues, with an educational jessenia from [employer]. Thrive Questionnaire Date Thrive assessed: 12/19/24 I am a: Patient What is your living situation today?: I have a steady place to live Within the past 12 months, did the food you bought not last and you didn't have the money to get more?: Never true Within the past 12 months, did you worry whether your food would run out before you got money to buy more?: Never true Do you have trouble paying for medicines?: No Do you have trouble getting transportation to medical appointments?: No Do you have trouble paying your heating and electricity bill?: No Do you have trouble taking care of your child, family member or friend?: No Do you have trouble with day-to-day activities such as bathing, preparing meals, shopping, managing finances, etc.?: No Are you currently unemployed and looking for a job?: No Are you interested in more education?: No Please select the resources that you would like help with: None Currently or been in a relationship where the following occur: No concerns reported THRIVE Score: 0 AUDIT C Alcohol Use Questionnaire (AUDIT-C) 1. How often do you have a drink containing alcohol?: 2-3 times a week 2. How many drinks containing alcohol do you have on a typical day when you are drinking?: 3 or 4 3. How often do you have six or more drinks on one occasion?: Never Total Score: 4 RICH-7 AMB Questionnaire RICH-7 Date RICH - 7 assessed: 12/22/24 Feeling nervous, anxious, or on edge: 0 = Not at all Not being able to stop or control worryin = More than half the days Worrying too much about different things: 1 = Several days Trouble relaxin = Not at all Being so restless that it is hard to sit still: 0 = Not at all Becoming easily annoyed or irritable: 1 = Several days Feeling afraid as if something awful might happen: 0 = Not at all Total RICH-7 score (0-4 normal; 5-9 mild; 10-14 moderate; 15-21 severe): 4 Source: Developed by Drs. Montez Hartman, Gabbie Delgado, Dragan Drake and colleagues, with an educational jessenia from [employer] RICH-7 Assessment Billing RICH-7 Assessment Tool: RICH-7 Assessment 65000 Review of Systems Const Denies poor appetite and Denies weakness Eyes Denies no additional complaints ENT Reports Normal hearing present, Denies dizziness, Denies nasal congestion, Denies tinnitus and Denies sore throat Card Denies chest pain, Denies syncope, Denies rapid heart rate and Denies dyspnea Resp Denies cough and Denies dyspnea GI Denies change in stool character, Reports constipation, Denies diarrhea, Denies nausea and Denies vomiting Denies urinary frequency, Denies difficulty voiding and Denies dysuria Neuro Reports Normal hearing present, Denies confusion, Denies dizziness, Denies syncope and Denies weakness Psych Denies confusion Physical exam (Primary Care) Vital Signs: Last Vital Signs Temp 97.3 F 12/22/24 09:21 Pulse 65 12/22/24 09:21 BP 130/84 12/22/24 09:21 Pulse Ox 99 12/22/24 09:21 Oxygen Delivery Method Room Air 12/22/24 09:21 BMI result Body Mass Index 29.3 Tobacco/Smoking Status: Tobacco use Status Tobacco use date assessed 12/22/24 12/22/24 09:25 Patient Tobacco Use Status Former Tobacco user 12/22/24 09:51 Tobacco use type Cigarette 12/22/24 09:51 e-Cigarette/Vaping Use Never Used 12/22/24 09:51 PHQ-9: PHQ-9 Score PHQ-9: Total score 0 12/22/24 09:51 Depression Screening Interpretation: Negative Thrive Assessment: Date of Thrive Assessment Date Thrive assessed 12/19/24 12/22/24 09:25 Currently or been in a relationship where the following occur: No concerns reported Const General: No confusion Orientation/consciousness: No confusion HENMT Head: Yes normocephalic Ears: external ears normal and TM's normal bilaterally Face and sinus: Yes normal facial exam Mouth: moist mucous membranes Throat: Yes tonsils normal Eyes Conjunctivae: conjunctivae normal Pupils: Equal, round and reactive pupils present and Pupil accommodation reflex normal Direct Ophthalmoscopy: normal light reflex Neck Neck: No lymphadenopathy Thyroid: Thyroid normal Chest Chest palpation & inspection: normal inspection of the chest Resp Effort & Inspection: normal respiratory effort and no audible wheezes Auscultation: clear to auscultation bilaterally, no crackles, no wheezes and lung sounds not diminished Cardio Rate: regular rate Rhythm: regular rhythm Peripheral pulses: radial pulses present and dorsalis pedis present GI Palpation (GI): no masses Auscultation: normal bowel sounds and normoactive bowel sounds Rectal Exam - Female: deferred Skin General skin exam: no rashes or lesions noted Rashes: no rashes Neuro General: No confusion Cranial nerves: Yes Equal, round and reactive pupils present and Yes Normal hearing present Cognition (Neuro): normal cognition Gait exam (Neuro): Normal gait present Motor exam (neuro): 5/5 motor strength present throughout Deep tendon reflexes (DTR's): Right brachioradialis reflex intensity grade: 2+, Left brachioradialis reflex intensity grade: 2+, Right patellar reflex intensity grade: 2+ and Left patellar reflex intensity grade: 2+ Extrem General: No edema Office Procedures Flu Questionnaire Does the patient have a severe egg allergy?: No Does the patient have severe life threatening allergies?: No Does the patient have a fever or illness today?: No Has the patient ever had Guillain-Melbourne Syndrome?: No Has the patient ever had any past reaction to a flu shot?: No Immunizations Fluarix [id number] (PF) 45 mcg (15 mcg x 3)/0.5 mL IM syringe Performing Provider: Trevor Pablo MD [facility] Administered by: Janet Ng CMA on 12/22/24 09:28 Dose Route Admin Location Dispensed Lot Number Expiration Date [facility] [employer] 0.5 mL IM Left Deltoid 0.5 mL [id number] 08/28/25 [id number] [employer] VIS Given Date VIS Provided VIS Publication Date 12/22/24 Single Vaccine 24 Eligibility Eligibility Date Funding Source Not [facility] [employer] Eligible 12/22/24 Private Coding Level of Care Code Est Pt Prev Care 40-64y(41058) Diagnoses Annual physical exam Z00.00 S/P arthroscopy of right shoulder Z98.890 Family history of breast cancer in first degree relative Z80.3 Mixed urinary incontinence due to female genital prolapse N39.46; N81.9 Hx of gastric bypass Z98.84 Overweight E66.3 Palpitations R00.2 Additional Codes RICH-7 Assessment Billing - RICH-7 Assessment Tool: RICH-7 Assessment 25863 ([id number]) PHQ-9 - 09891 - PHQ-9 Billing: Yes ([id number]) Assessment & Plan Assessment & Plan (1) Annual physical exam: Code(s): Z00.00 - Encounter for general adult medical examination without abnormal findings Category: Medical Plan: Patient is advised to eat healthy, keep well hydrated, keep active and have adequate sleep. (2) S/P arthroscopy of right shoulder: Comment: June 2024 Code(s): Z98.890 - Other specified postprocedural states Category: Surgical Plan: Continue to follow-up with orthopedics. Patient is status post arthroscopy right shoulder (3) Family history of breast cancer in first degree relative: Code(s): Z80.3 - Family history of malignant neoplasm of breast Category: Medical Plan: Patient follows up with the surgeon regarding breast exams and is up-to-date with mammogram (4) Mixed urinary incontinence due to female genital prolapse: Comment: Neurostimulator urology Code(s): N39.46 - Mixed incontinence; N81.9 - Female genital prolapse, unspecified Category: Medical Plan: Patient follows up with urology and has the neurostimulator (5) Hx of gastric bypass: Code(s): Z98.84 - Bariatric surgery status Category: Surgical Plan: Continue to follow-up with bariatric (6) Overweight: Code(s): E66.3 - Overweight Category: Medical Plan: Keep active (7) Palpitations: Code(s): R00.2 - Palpitations Category: Medical Plan History of Present Illness The patient is a 64-year-old female presenting for a physical examination and [facility]. The patient has a history of being overweight and underwent gastric bypass surgery in the past. She follows up with bariatrics to manage her weight post- surgery. The patient underwent right shoulder arthroscopy in June 2024 and follows up with orthopedics for postoperative care. She reports improvement in shoulder function, although she did not undergo formal physical therapy. The patient has a neurostimulator placed for incomplete bladder emptying, which was last adjusted in December 2023. She reports that the new device is not functioning as effectively as the previous one, leading to episodes of urinary leakage. The patient reports occasional palpitations, which occur infrequently and are not associated with dizziness or syncope. She is active, climbing stairs without difficulty, and denies any significant shortness of breath or chest pain. The patient has a significant family history of cancer, including bone, prostate, brain, cervical, and breast cancer. She is up to date with her mammogram and colonoscopy screenings, and a recent pelvic ultrasound was negative. Health Maintenance - Mammogram is up to date - Colonoscopy performed in April 2023 - Pelvic ultrasound was negative - Blood work including CBC, glucose, renal, hepatic, thyroid function, lipid profile, B12, and vitamin D levels ordered - EKG and chest X-ray ordered - Flu shot administered - COVID-19 vaccination recommended - Shingles vaccination discussed - Tetanus vaccination due this year Social History - Alcohol consumption: Drinks 2-4 drinks on weekends - Physical activity: Active, climbs stairs without difficulty, works regularly - Dietary habits: Consumes fruits and vegetables, reports variable bowel habits depending on diet - Family history: Significant for multiple cancers including bone, prostate, brain, cervical, and breast cancer Review of Systems - Cardiovascular: Reports occasional palpitations, denies chest pain or syncope - Respiratory: Denies dyspnea or cough - Gastrointestinal: Reports variable bowel habits, denies constipation - Neurological: Denies dizziness or headaches - Genitourinary: Reports urinary leakage - Musculoskeletal: Reports improved shoulder function post-arthroscopy Physical Exam General: Cooperative, healthy appearing, comfortable, no acute distress and well developed Orientation: Patient oriented x3 Limitations: No limitations Head: Normal to inspection Ears: Hearing grossly normal bilaterally Nose: Normal external nose present Face and sinus: Normal facial exam Eyes: Appearance normal, both eyes and all related structures Neck: Normal visual inspection and Yes full ROM Respiratory: Normal respiratory effort and able to speak in complete sentences. Clear to auscultation bilaterally Cardiovascular: Regular rate and rhythm. Normal S1 and S2. Occasional palpitations noted, but no dizziness or chest pain reported. GI: Normal to inspection. Soft to palpation and nontender. Bowel movements vary with diet; no constipation or diarrhea. Skin: No rashes or lesions noted Neuro: Patient oriented x3 Extremities: Normal to inspection Results - Pelvic ultrasound: Negative - Blood tests: Ordered for CBC, glucose, renal, hepatic, thyroid function, lipid profile, B12, and vitamin D levels - EKG: Ordered - Chest X-ray: Ordered Plan Patient was informed and verbally consented to the use of an ambient scribe for clinic note documentation during this visit. 1. Overweight Status The patient is advised to continue follow-up with bariatrics for weight management post-gastric bypass surgery. 2. Right Shoulder Arthroscopy The patient is advised to continue follow-up with orthopedics for postoperative care and to maintain shoulder exercises to improve function. 3. Neurostimulator Placement For Bladder Emptying Issues The patient is advised to follow up with urology regarding the neurostimulator, as the current device is not functioning optimally. 4. Palpitations The patient is advised to monitor the frequency of palpitations and report any increase in frequency or associated symptoms such as dizziness or syncope. A baseline EKG and blood work have been ordered to assess cardiac function. Discussion Notes During the visit, I discussed with the patient the importance of continuing follow-up with bariatrics for weight management and orthopedics for shoulder care. We also reviewed the need for urology follow-up due to the suboptimal function of the neurostimulator. I advised the patient to monitor palpitations and report any changes, and we planned for a baseline EKG and blood work to evaluate cardiac health. Patient Instructions - Continue follow-up with bariatrics for weight management. - Follow up with orthopedics for shoulder care and continue exercises. - Schedule a follow-up with urology regarding the neurostimulator. - Monitor palpitations and report any changes or new symptoms. - Complete the ordered blood work and EKG. - Stay up to date with vaccinations, including flu and COVID-19 shots. Orders: Orders Influenza [id number] Immunization Today Z23 - Encounter for immunization Complete Blood Count Auto Diff Today R79.89 - Other specified abnormal findings of blood chemistry Comprehensive Met. Panel Today R79.89 - Other specified abnormal findings of blood chemistry Lipid Panel Today E78.00 - Pure hypercholesterolemia, unspecified, R79.89 - Other specified abnormal findings of blood chemistry XR chest 2V Today R00.2 - Palpitations Free T4 (Free Thyroxine) Today R79.89 - Other specified abnormal findings of blood chemistry Thyroid Stimulating Hormone Today R79.89 - Other specified abnormal findings of blood chemistry Vitamin B12 and Folate Today R79.89 - Other specified abnormal findings of blood chemistry Vitamin D 25-OH Total Today R79.89 - Other specified abnormal findings of blood chemistry UA CC w/rflx Micro + Cult Today R30.0 - Dysuria, R79.89 - Other specified abnormal findings of blood chemistry ECG 12 lead EKG Today R00.2 - Palpitations
--- OUTSIDE RECORDS SUMMARY | 2024-12-22 10:10 | XMS_ITS | Data Portability ---
Author Organization [place] [facility], Allergy Address [address] [address] Care Team Providers Care Strip Deburrer Name Role Phone BRIANA AUSTIN Primary Care Provider [phone] Assessment Encounter Date Assessment Date Assessment LastModified [...] steroids such as Flonase which is currently [id number] may be helpful. Devices such as a [...] and Address Organization Details Recorded Time Snoring 34667415 Active 024 TAN LUEVANO MD [address] [place] [address], [place], [phone], [facility] - [facility] 4 16:59:43 Obstructive sleep apnea syndrome 28092631 Active 024 TAN LUEVANO MD [address] [place] [address], [place], [phone], [facility] - [facility] 4 11:10:46 Sleep disorder 93212731 Active 024 TAN LUEVANO MD [address] [place] [address], [place], [phone], [facility] - [facility] 4 17:06:25 Problem Notes None recorded. Procedures Surgical History Date Name Laterality Status Provider Name and Address Organization Details Recorded Time 09/03/2023 Telehealth completed TAN LUEVANO MD [address] [place] [address], [phone], [facility] - [facility] 09/03/2023 16:56:53 08/12/2023 FOL_DP completed TAN LUEVANO MD [address] [place] [address], [phone], [facility] - [facility] 08/12/2023 11:08:21 Imaging Results None recorded. Procedure [...] Updated DateTime 08/12/2023 157.48 cm 29.3 kg/m2 96404.78 g Lenard Cole [place] [facility] 08/12/2023 10:53:19 Social History None recorded. Functional Status None recorded. Mental Status None recorded. Family History Nothing Reported. Medical History No medical history recorded. Gynecological HistoryNo gynecological history recorded. Obstetrics History GPAL:G 0 P 0 0 0 0 Past Encounters Encounter ID Performer Location Encounter Start Date Encounter Closed Date Diagnosis/Indication Diagnosis SNOMED-CT Code Diagnosis ICD10 Code Diagnosis IMO Codes Diagnosis Note [id number] TAN LUEVANO MD [facility] [address] [address] 08/12/2023 10:06:54 08/12/2023 11:15:24 Snoring 90585399 R06.83 Obstructiv e sleep apnea syndrome 42888423 G47.33 [id number] TAN LUEVANO MD [facility] [address] [address] 09/03/2023 17:00:24 09/03/2023 17:08:43 Snoring 04891289 R06.83 Sleep disorder 35504308 G47.9 Health Concerns Section Related Observation LastModified by Organization Detai ls LastModified Time None Recorded Concern Status LastModified by Organization Details LastModified Time None Recorded Advance Directives Directive None Recorded Payers Insurance Date Sequence Insurance Name Policy Number Policy Hinton Covered Member ID Hinton Member ID Guarantor Name 09/11/2023 1 FAMILIA (PPO) [id number] Ibis Meza [id number] [employer] Notes Date Note Type Note Provider Name and Address Organization Details Recorded Time 08/12/2023 text/html ROS as noted in the HPI snoringhx of severe SHARLENE - improved after weight loss of 150 pounds with gastric bypass 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, 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) and has had trouble adapting sleep pattern 7 or 8p and wake at 1amtried melatonin but gets abnormal skin sensationtried turmeric but poorly toleratedtried magnesium with some mild improvement surgery - tonsils removed age 4 TAN LUEVANO MD [address] [facility],[place] [address], [place], [phone], [place] - [facility] 08/12/2023 11:11:19 09/03/2023 text/html ROS as noted in the HPI bhradvi92/4/2023 [facility] hx of severe SHARLENE - [...] removed age 4 TAN LUEVANO MD [address] [facility],[address], [place], [address], [place] - [facility] 09/03/2023 17:08:36 OBGyn Episode No OBEpisode recorded.
--- OUTSIDE RECORDS SUMMARY | 2024-12-22 10:10 | XMS_ITS | Patient Health Record ---
Author Organization [facility] Address [address] [place] [address] Care Team Providers Care Sql Server Dba Name Role Phone Trevor Pablo MD Primary Care Provider Montez Andersen [phone] Allergies Allergen (clinical drug ingredient) Drug/Non Drug Allergy documented on EMR Reaction Allergy Type Onset Date Status Information temporarily unavailable cats dogs dust mites mold (uncoded) Unknown Allergy Active Reason For Referral No Information Medications Medication SIG (Take, Route, Frequency, Duration) Notes Start Date End Date Status Azelastine-Fluticasone 137-50 MCG/ACT Nasal; Duration: 30 Active VESIcare Active Vitamin D Active ZyrTEC 10 MG 1 tablet Orally Once a day; Duration: 30 day(s) 02/03/2023 Active Multivitamin Active Biotin [...] Problem Status W/U Status Risk Notes Problem Information temporarily unavailable Encounter for screening for malignant neoplasm of colon (Z12.11) Active confirmed Problem Information temporarily unavailable Diverticulosis of large intestine without perforation or abscess without bleeding (K57.30) Active confirmed Problem Information temporarily unavailable History of colon polyps (Z86.010) Active confirmed Problem Information temporarily unavailable Constipation, unspecified constipation type (K59.00) Active confirmed Problem Information temporarily unavailable Pre-procedural examination (Z01.818) Active confirmed Plan Of Treatment Pending Test Test Name Order Date Pathology 05/07/2023 Future Test Test Name Order Date COLONOSCOPY 06/08/2017 COLONOSCOPY 02/03/2023 Insurance Providers Payer Name Payer Address Payer Phone Subscriber Number Group Number Insured Name Patient Relationship to Insured Coverage Start Date Coverage End Date [facility] [address] [place], [place] [id number] CYNDY MEZA Self - patient is [...]
--- OUTSIDE RECORDS SUMMARY | 2024-12-22 10:11 | XMS_ITS | Patient Health Record ---
Author Organization [facility] Address [address] [place] [address] Care Team Providers Care Pharmacy Clinical Coordinator Name Role Phone Trevor Pablo Primary Care Provider Ilda key Black, Cammie Unavailable [phone] Allergies Allergen (clinical drug ingredient) Drug/Non Drug Allergy documented on EMR Reaction Allergy Type Onset Date Status Information temporarily unavailable Dog Dander Unknown Allergy Active Results Component [...] Status Risk Notes Problem Information temporarily unavailable Plantar fasciitis, bilateral (M72.2) Active confirmed Problem Information temporarily unavailable Osteoarthritis of midtarsal joint of left foot (M19.072) Active confirmed Problem Information temporarily unavailable Osteoarthritis of midtarsal joint of right foot (M19.071) Active confirmed Vital Signs Blood pressure diastolic 30 mm Hg 04/05/2024 Height 5ft 2in in 04/05/2024 Blood pressure systolic 140 mm Hg 04/05/2024 Weight 158 lbs 04/05/2024 BMI 28.9 kg/m2 04/05/2024 Encounters Encounter Location Date Provider Diagnosis [address] [address] 02/09/2024 Cammie Black Pain in left foot [...] right foot M19.071 and Ingrown nail L60.[address] [facility] [address] 02/18/2024 Cammie Black Pain in left foot [...] and Other myositis of left foot M60.872 [facility] [address] 04/05/2024 Cammie Black Pain in left foot [...] and Other myositis of left foot M60.[address] [facility] [address] 02/02/2024 [facility] [address] [address] 02/09/2024 [facility] [address] [address] 02/18/2024 [facility] [address] 02/18/2024 Cammie Black [facility] [place] [address] 04/05/2024 Cammie English Assessments Encounter Date Diagnosis (ICD [...] Treatment Pending Test Test Name Order Date 44959- Removal of Foreign Body, Subcut 1 04/19/201337335,A8253-EXU TENDON SHEATH/LIGAMENT 0 11/06/2013 Insurance Providers Payer Name Payer Address Payer Phone Subscriber Number Group Number Insured Name Patient Relationship to Insured Coverage Start Date Coverage End Date [facility] [address] [place] [phone] [id number] Ibis Meza Self - patient is the insured Medical (General) History Medical History History ICD Code Chicken pox Arthritis Back,Hip,and Knee pain covid-19 Reflux ( GERD) Surgical History Surgery Date(Month/Year) mass removed 09/2012 interstem 09/2012 foot surgery 1989's eye surgery 1969's bypass 2017 colonoscopy 04/2023
== END 2024-12-22 10:08 | disposition home or self-care (01) ==
LOC: HO.HMCH 09:19
PROVIDERS: PCP Internal Medicine; Visit Provider Internal Medicine
DX: Z00.00 Encounter for general adult medical examination without abnormal findings (principal); Z98.890 Other specified postprocedural states; Z80.3 Family history of malignant neoplasm of breast; N39.46 Mixed incontinence; N81.9 Female genital prolapse, unspecified; Z98.84 Bariatric surgery status; E66.3 Overweight; R00.2 Palpitations; Z23 Encounter for immunization

== ENCOUNTER → 2024-12-22 09:19 | Outpatient (BNVA) | payer BC, SELFPAY | PROVIDERS: PCP Internal Medicine; Visit Provider Internal Medicine | DX: Z00.00 Encounter for general adult medical examination without abnormal findings (principal); N39.46 Mixed incontinence; N81.9 Female genital prolapse, unspecified; E66.3 Overweight; R00.2 Palpitations; Z23 Encounter for immunization; Z98.84 Bariatric surgery status; Z98.890 Other specified postprocedural states; Z80.3 Family history of malignant neoplasm of breast; Z96.82 Presence of neurostimulator; Z68.29 Body mass index [BMI] 29.0-29.9, adult | CPT/HCPCS: 90471; 90656; 96127 ==

== ENCOUNTER 2025-02-01 07:25 | Outpatient (REF) | payer BC, SELFPAY ==
--- OUTSIDE RECORDS SUMMARY | 2024-05-30 11:00 | XMS_ITS ---
Author Organization [facility] Address [address] [place] [address] Care Team Providers Care Manager Underwriting Name Role Phone Trevor Pablo Primary Care Provider Cammie Cisneros [phone] Encounters Encounter Location Date Provider Diagnosis [address] [address] 05/30/2024 Cammie English Plan Of Treatment No Information Progress Notes * Javon MEZAOB:[birth year] (64 yo F)Acc No.[id number]:05/30/2024 Progress Notes Patient: Ibis DIA Provider: Veronica English DPM :1960 A ge:64 Y S ex:Female Date:05/30/2024 Address[address] [place] Pcp:Trevor Pablo Subjective: * Chief Complaints: * * Medical History: Objective: * Vitals: Assessment: Plan: * Treatment: * Images: * The named appointment provid er may or may not be the originator of this progress note, and it is not deemed complete until electronically signed by the appointment provider. Sign off status: Pending * Provider: Veronica English DPM Date: 0 05/30/2024 Generated for Printi ng/Faacg/eTransmitting on: 1 04/04/2024 07:27 AM EST
--- OUTSIDE RECORDS SUMMARY | 2025-02-01 07:28 | XMS_ITS | Patient Health Record ---
Author Organization [facility] Address [address] [place] [address] Care Team Providers Care Licensed Architect Name Role Phone Trevor Pablo MD Primary Care Provider Montez Andersen [phone] Allergies Allergen (clinical drug ingredient) Drug/Non Drug Allergy documented on EMR Reaction Allergy Type Onset Date Status cats dogs dust mites mold (uncoded) Unknown Allergy Active Reason For Referral No Information Medications Medication SIG (Take, Route, Frequency, Duration) Notes Start Date End Date Status Azelastine-Fluticasone 137-50 MCG/ACT Suspension Nasal; Duration: 30 Active VESIcare Active Vitamin D Active ZyrTEC 10 MG Tablet 1 tablet Orally Once a day; Duration: 30 day(s) 02/03/2023 Active Multivitamin Active Biotin Active Immunizations Vaccine Route Administration Date Status Comme nts Influenza Unknown 12/08/2022 Administered Social History Tobacco Use: Social History Observation Description Date Details (start date - stop date) Former Smoker NA - NA Social History Drugs/Alcohol: Social Info Question Answer Notes Alcohol Screen Did you have a drink containing alcohol in the past year? Yes How often did you have a drink containing alcohol in the past year? Monthly or less (1 point) How many drinks did you have on a typical day when you were drinking in the past year? 1 or 2 drinks (0 point) How often did you have 6 or more drinks on one occasion in the past year? Never (0 point) Points 1 Interpretation Negative Tobacco Use: Social Info Question Answer Notes Tobacco Use/Smoking Patient is a former smoker How long has it been since you last smoked? 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: Former smoker over 25 years ago Occasional drink Former smoker over 25 years ago Occasional drink Problems Problem Type SNOMED Code ICD Code Onset Dates Problem Status W/U Status Risk Notes Problem Screening for malignant neoplasm of colon (688464961) Encounter for screening for malignant neoplasm of colon (Z12.11) Active confirmed Problem Diverticular disease of colon (956270401) Diverticulosis of large intestine without perforation or abscess without bleeding (K57.30) Active confirmed Problem History of polyp of colon (situation) (932326241) History of colon polyps (Z86.010) Active confirmed Problem Constipation (28454564) Constipation, unspecified constipation type (K59.00) Active confirmed Problem Pre-procedure evaluation check (772563553) Pre-procedural examination (Z01.818) Active confirmed Plan Of Treatment Pending Test Test Name Order Date Pathology 05/07/2023 Future Test Test Name Order Date COLONOSCOPY 06/08/2017 COLONOSCOPY 02/03/2023 Insurance Providers Payer Name Payer Address Payer Phone Subscriber Number Group Number Insured Name Patient Relationship to Insured Coverage Start Date Coverage End Date [facility] [address] [place], [place] [phone] [id number] CYNDY MEZA Self - patient is the insured Medical (General) History Medical History History ICD Code Seasonal allergies Denies AL,DM,CVA,Lung disease,renal dise ase Negative limited(due to prep) colonoscop y in 11/[address] Sarabia Urinary incontinence Surgical History Surgery Date(Month/Year) Laparoscopic Esmer-en-Y Gastr ic bypass with Dr. Singh---lost 135# since 06/2017 Interstim bladder 2009 Eye surgery for crossed eyes as child Plantar fasciitis age 30 Right lump removal in shoulder benign
--- OUTSIDE RECORDS SUMMARY | 2025-02-01 07:28 | XMS_ITS | Data Portability ---
Author Organization [place] [facility] Address [address] [address] Care Team Providers Care Html Developer Name Role Phone BRIANA AUSTIN Primary Care [...] steroids such as Flonase which is currently [id number] may be helpful. Devices such as a [...] and Address Organization Details Recorded Time Snoring 85635979 Active 024 TAN LUEVANO MD [address] [place] [address], [place], [address], [facility] - [facility] 4 16:59:43 Obstructive sleep apnea syndrome 04445054 Active 024 TAN LUEVANO MD [address] [place] [address], [place], [address], [facility] - [facility] 4 11:10:46 Sleep disorder 18193775 Active 024 TAN LUEVANO MD [address] [place] [address], [place], [address], [facility] - [facility] 4 17:06:25 Problem Notes None recorded. Procedures Surgical History Date Name Laterality Status Provider Name and Address Organization Details Recorded Time 09/03/2023 Telehealth completed TAN LUEVANO MD [address] [place] [address], [phone], [facility] - [facility] 09/03/2023 16:56:53 08/12/2023 FOL_DP completed TAN LUEVANO MD [address] [place] [address], [phone], [facility] - [facility] 08/12/2023 11:08:21 Imaging Results None recorded. Procedure [...] Updated DateTime 08/12/2023 157.48 cm 29.3 kg/m2 91789.78 g Lenard Cole [place] [facility] 08/12/2023 10:53:19 Social History None recorded. Functional [...] Note [id number] TAN LUEVANO MD [facility] [address] [address] 08/12/2023 10:06:54 08/12/2023 11:15:24 Snoring 67264875 R06.83 Obstructiv e sleep apnea syndrome 01692823 G47.33 [id number] TAN LUEVANO MD [facility] [address] [address] 09/03/2023 17:00:24 09/03/2023 17:08:43 Snoring 26335052 R06.83 Sleep disorder 35366891 G47.9 Health Concerns Section Related Observation LastModified by Organization Detai ls LastModified Time None Recorded Concern Status LastModified by Organization Details LastModified Time None Recorded Advance Directives Directive None Recorded Payers Insurance Date Sequence Insurance Name Policy Number Policy Hinton Covered Member ID Hinton Member ID Guarantor Name 09/11/2023 1 FAMILIA (PPO) [id number] Ibis Meza [id number] Ibis Meza Notes Date Note Type Note Provider Name and Address Organization Details Recorded Time 08/12/2023 text/html ROS as noted in the HPI snoringhx of severe SHARLENE - improved after weight loss of 150 pounds with gastric bypass 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, 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) and has had trouble adapting sleep pattern 7 or 8p and wake at 1amtried melatonin but gets abnormal skin sensationtried turmeric but poorly toleratedtried magnesium with some mild improvement surgery - tonsils removed age 4 TAN LUEVANO MD [address] [facility],[place] [address], [place], [address], [place] - [facility] 08/12/2023 11:11:19 09/03/2023 text/html ROS as noted in the HPI /4[facility]20[facility] hx of severe SHARLENE [...] 4 TAN LUEVANO MD [address] [facility] [address], [place], [address], [place] - [facility] 09/03/2023 17:08:36 OBGyn Episode No OBEpisode recorded.
[2025-02-01 10:28] LABS: MANUAL DIFF FLAG NO
[2025-02-01 10:34] LABS: Hematocrit 39.4 % (37.0-47.0); Hemoglobin 13.2 g/dl (12.0-16.0); Imm Gran Abs Auto 0.00 X10*3/uL (0.00-0.03); Imm Gran Pct Auto 0.0 % (0.0-0.4); Lymphocytes Absolute Auto 1.6 X10*3/uL (1.2-4.9); Mean Corpuscular HGB Conc 33.5 g/dl (31.0-35.0); Mean Corpuscular Hemoglobin 30.8 pg (27.0-33.0); Mean Corpuscular Volume 92.1 fL (80.0-98.0); NRBC Abs Auto 0.000 X10*3/uL (0.0-0.012); NRBC Pct Auto 0.0 /100WBC (0.0-0.2); Platelet Count 288 X10*3/uL (160-400); Red Blood Count 4.28 X10*6/uL (4.20-5.50); White Blood Count 4.0 X10*3/uL (4.8-10.8)
[2025-02-01 10:41] LABS: Appearance Urine Clear; Glucose Urine UA Negative (Negative); PH 7.0 (5.0-9.0); Specific Gravity - Urine 1.025 (1.005-1.025); UMIC TRIGGER UACC YES
--- NOTE | 2025-02-01 10:44 | ECG_ITS ---
Test Reason : PALPITATIONS Blood Pressure : */* mmHG Vent. Rate : 62 BPM Atrial Rate : 62 BPM P-R Int : 130 ms QRS Dur : 84 ms QT Int : 402 ms P-R-T Axes : 55 35 48 degrees QTcB Int : 408 ms Normal sinus rhythm Nonspecific ST abnormality Abnormal ECG When compared with ECG of 25-Jun-2016 13:43, No significant change was found Referred By: Trevor Pablo Electronically Signed By: ALPA HUERTA
[2025-02-01 10:59] LABS: UACC Culture Trigger YES
[2025-02-01 11:49] LABS: Alanine Aminotransferase 24 U/L (0-31); Albumin Level 4.4 g/dL (3.5-5.0); Alkaline Phosphatase 108 U/L (39-117); Anion Gap 11 (12-20); Aspartate Amino Transferase 34 U/L (5-31); Blood Urea Nitrogen 19 mg/dL (9-16); Calcium 9.5 mg/dL (8.4-10.2); Carbon Dioxide 26 mmol/L (22-29); Chloride 110 mmol/L (96-108); Cholesterol 186 mg/dL (<200); Estimated Glomerular Filt Rate > 60; HDL Cholesterol 74 mg/dL (>40); Potassium 4.0 mmol/L (3.3-5.1); Sodium 143 mmol/L (135-145); Total Protein 6.6 g/dL (6.5-8.0); Triglycerides 55 mg/dL (<150)
[2025-02-01 12:09] LABS: Free T4 (Free Thyroxine) 1.01 ng/dL (0.71-1.85); Thyroid Stimulating Hormone 1.35 uIU/mL (0.32-4.0)
[2025-02-01 12:32] LABS: Folate 13.5 ng/mL (> or = 4.0); Vitamin B12 421 pg/mL (200-900)
== END 2025-02-01 07:26 | disposition home or self-care (01) ==
LOC: HO.HMGCLDS 07:25
PROVIDERS: PCP Internal Medicine; Visit Provider Internal Medicine
DX: R00.2 Palpitations (principal); R79.89 Other specified abnormal findings of blood chemistry; E78.00 Pure hypercholesterolemia, unspecified; R30.0 Dysuria; Z13.21 Encounter for screening for nutritional disorder
CPT/HCPCS: 36415; 80053; 80061; 81001; 82306; 82607; 82746; 84439; 84443; 85025; 87086; 93005

== ENCOUNTER 2025-02-01 09:44 | Outpatient (AMB) | payer BC, SELFPAY ==
[2025-02-01 09:53] VITALS: BMI 29.3
--- NOTE | 2025-02-01 09:53 | MHC.OFFVIS ---
Vital Signs 02/01/25 09:53 Height 5 ft 2 in Weight 160 lb BMI 29.3 Intake Visit Reasons: Right knee pain and giving way Intake Note: Ibis 64 yr old female presents with complaints of progressively worsening right knee pain and giving way. She describes her pain as sharp in nature. Most of her pain is along the medial aspect of her knee. She has failed the last 6 weeks of conservative treatment which has included Tylenol, anti-inflammatory medicines, physical therapy exercises and a home exercise program. She has had both cortisone injections and viscosupplementation injections which gave her only temporary relief. At this point her right knee pain and mechanical symptoms are interfering with her activities of daily living and her ability to sleep well through the night. She states that her right knee will give out several times per day. Allergies Seasonal Allergies Allergy (Intermediate, Verified 02/01/25 09:59) Headache cat dander Allergy (Mild, Verified 02/01/25 09:59) Sneezing dog dander Allergy (Mild, Verified 02/01/25 09:59) Sneezing glucosamine Allergy (Verified 02/01/25 09:59) Eye Swelling Medication List - Last Reconciled 02/01/25 by William Rodrigez MD biotin 10,000 mcg PO DAILY calcium carbonate (Calcium 600) 600 mg PO DAILY cetirizine (Zyrtec) 10 mg PO DAILY PRN cholecalciferol (vitamin D3) 50 mcg PO DAILY fluticasone propionate 50 mcg/actuation (Flonase Allergy Relief) 1 spray intranasal DAILY PRN multivitamin 1 tab PO DAILY solifenacin 10 mg PO DAILY PFSH Medical History Pelvic fullness Right shoulder pain Acute respiratory disease Osteoarthritis of right knee Osteoarthritis of left knee Sacral neurostimulator in situ Word finding difficulty Urinary incontinence Arthritis of right knee Arthritis of left knee Sleep apnea Bilateral knee pain Surgical History (Reviewed 02/01/25 @ 09:59 by Marcella Mclaughlin [facility]) H/O colonoscopy History of Esmer-en-Y gastric bypass Hx of lumpectomy Hx of tonsillectomy Hx of bladder repair surgery Hx of foot surgery Hx of eye surgery Hx of gastric bypass Family History Mother Hypertension Diabetes Father Hx of CABG Hypertension Prostate CA Bone cancer Leukemia Sister History of breast cancer, Onset Age: 28 Cervical cancer, Onset Age: 28 Brain cancer Maternal Grandmother History of breast cancer Paternal Aunt History of breast cancer Family/Other History of breast cancer Social History Housing: House Are you a primary auto care center manager to a significant other at home: No Do you presently have visiting nurse or other home services: No Alcohol intake: current Alcohol intake frequency: a few times a month Comment: weekend 2 -3-4drinks Patient Tobacco Use Status: Former Tobacco user Tobacco use type: Cigarette Cigarette Packs Per Day: 1 Cigarettes Per Day: 20 Years Smoked: 2002 stopped e-Cigarette/Vaping Use: Never Used Second Hand Smoke Exposure: Yes service: No Current occupational status: employed and 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 Sexual orientation: Straight/Heterosexual Gender identity: Female Cognitive needs: No Hearing needs: No Vision needs: Yes (Glasses) Female Reproductive History Menstrual Age of Menarche: 12 Physical Exam Vital Signs: BMI result Body Mass Index 29.3 Extrem Other: Right knee examination shows a minimal effusion, mild crepitus with range of motion, tenderness along her medial joint line, positive Joseph's test, no instability Results Reviewed Results Reviewed: X-rays of the patient's right knee show moderate joint space narrowing most significant in the medial compartment, no acute bony abnormalities Assessment & Plan Assessment & Plan (1) Tear of medial meniscus of right knee: Code(s): S83.241A - Other tear of medial meniscus, current injury, right knee, initial encounter Category: Medical Plan Ms. Meza presents with right knee pain and mechanical symptoms due to degenerative joint disease as well as possible medial meniscus tearing. Thus, I will send the patient for an MRI of her right knee for further evaluation. I will see her back once the MRI is completed to discuss the findings and treatment options. Feel free to call me at any time should questions regarding her orthopedic management arise. I spent 20 minutes in reviewing the patient's records and imaging studies, seeing the patient and documenting in the medical record. Orders: Orders XR knee RT 3V Today M25.561 - Pain in right knee MR knee RT wo con 02/02/25 S83.241A - Other tear of medial meniscus, current injury, right knee, initial encounter Coding Level of Care Code Est Pt Level 3 (32332) Complex visit Add On G2211 Diagnoses Tear of medial meniscus of right knee S83.241A
== END 2025-02-01 10:16 | disposition home or self-care (01) ==
LOC: HO.HOS 09:45
PROVIDERS: PCP Internal Medicine; Visit Provider Orthopaedic Surgery
DX: S83.241A Other tear of medial meniscus, current injury, right knee, initial encounter (principal)
CPT/HCPCS: 99213

== ENCOUNTER → 2025-02-01 09:46 | Outpatient (BNV) | payer BC, SELFPAY | PROVIDERS: Visit Provider Radiology Diagnostic Radiology | DX: R00.2 Palpitations (principal); M17.11 Unilateral primary osteoarthritis, right knee | CPT/HCPCS: 71046; 73562 ==

== ENCOUNTER 2025-02-01 10:22 | Outpatient (REF) | payer BC, SELFPAY ==
--- NOTE | ~2025-02-01 | XR_ITS ---
EXAMINATION: XR CHEST CLINICAL INFORMATION: R00.2 - Palpitations COMPARISON: None available. TECHNIQUE: 2 views of the chest were obtained. FINDINGS: Lungs: No focal consolidation or evidence of pulmonary edema. Pleura: No pleural effusion or pneumothorax. Heart/Mediastinum: Cardiomediastinal silhouette is within normal limits. Bones: No acute findings. XR/XR chest 2V IMPRESSION: No acute cardiopulmonary process. Electronically signed by: Cecilia Back MD 02/01/2025 10:44 AM EST
== END 2025-02-01 10:23 | disposition home or self-care (01) ==
LOC: HO.XRAY 10:22
PROVIDERS: PCP Internal Medicine; Visit Provider Internal Medicine
DX: R00.2 Palpitations (principal)
CPT/HCPCS: 71046

== ENCOUNTER → 2025-02-01 10:44 | Outpatient (BNV) | payer BC, SELFPAY | PROVIDERS: PCP Internal Medicine; Visit Provider Internal Medicine | DX: R94.31 Abnormal electrocardiogram [ECG] [EKG] (principal); R00.2 Palpitations | CPT/HCPCS: 93010 ==

== ENCOUNTER 2025-02-01 15:18 | Outpatient (REF) | payer BC, SELFPAY ==
--- OUTSIDE RECORDS SUMMARY | 2024-05-30 11:00 | XMS_ITS ---
Author Organization [facility] Address [address] [facility] [place] [address] Care Team Providers Care Psychology Teacher Name Role Phone Trevor Pablo Primary Care Provider Cammie Cisneros [phone] Encounters Encounter Location Date Provider Diagnosis [address] [address] 05/30/2024 Cammie English Plan Of Treatment No Information Progress Notes * Javon MEZAOB:[birth year] (64 yo F)Acc No.[id number]:05/30/2024 Progress Notes Patient: Ibis DIA Provider: Veronica English DPM :1960 A ge:64 Y S ex:Female Date:05/30/2024 Address[place] [place] Pcp:Trevor Pablo Subjective: * Chief Complaints: * [...] 05/30/2024 Generated for Printi ng/Faacg/eTransmitting on: 1 04/05/2024 07:15 PM EST
--- NOTE | ~2025-02-01 | XR_ITS ---
EXAMINATION: XR KNEE, RIGHT CLINICAL INFORMATION: M25.561 - Pain in right knee COMPARISON: January 30, 2016 TECHNIQUE: AP view in standing position. Lateral and sunrise views of the right knee. FINDINGS: Joint space narrowing involving mostly the medial compartment with sclerosis along the articular surface of the femoral condyle and tibial plateau and marginal osteophyte formation. No acute fracture or dislocation. No lytic or blastic lesions. No suprapatellar bursa joint effusion. No gross soft tissue calcifications. XR/XR knee RT 3V IMPRESSION: Medial compartment osteoarthrosis/osteoarthritis, moderate to severe. Overall no gross change. Electronically signed by: Tariq Shi MD 02/01/2025 09:57 AM EST
--- OUTSIDE RECORDS SUMMARY | 2025-02-02 19:15 | XMS_ITS | Patient Health Record ---
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: Former smoker over 25 years ago Occasional drink Former smoker over 25 years ago Occasional drink Problems Problem Type SNOMED Code ICD Code Onset Dates Problem Status W/U Status Risk Notes Problem Screening for malignant neoplasm of colon (129739388) Encounter for screening for malignant neoplasm of colon (Z12.11) Active confirmed Problem Diverticular disease of colon (287155060) Diverticulosis of large intestine without perforation or abscess without bleeding (K57.30) Active confirmed Problem History of polyp of colon (situation) (039538334) History of colon polyps (Z86.010) Active confirmed Problem Constipation (65480085) Constipation, unspecified constipation type (K59.00) Active confirmed Problem Pre-procedure evaluation check (318318897) Pre-procedural examination (Z01.818) Active confirmed Plan Of Treatment Pending Test Test Name Order Date Pathology 05/07/2023 Future Test Test Name Order Date COLONOSCOPY 06/08/2017 COLONOSCOPY 02/03/2023 Insurance Providers Payer Name Payer Address Payer Phone Subscriber Number Group Number Insured Name Patient Relationship to Insured Coverage Start Date Coverage End Date [facility] [address] [place], [place] [id number] CYNDY MEZA Self - patient is the insured Medical (General) History Medical History History ICD Code Seasonal allergies Denies [place],DM,CVA,Lung disease,renal dise ase Negative limited(due to prep) colonoscop y in 11/[address] Sarabia Urinary incontinence Surgical History Surgery Date(Month/Year) Laparoscopic Esmer-en-Y Gastr ic bypass with Dr. Singh---lost 135# since 06/2017 Interstim bladder 2009 Eye surgery for crossed eyes as child Plantar fasciitis age 30 Right lump removal in shoulder benign
--- OUTSIDE RECORDS SUMMARY | 2025-02-02 19:17 | XMS_ITS | Data Portability ---
Author Organization [place] - [facility], Allergy Address [address] [address] Care Team Providers Care Bobcat Driver/Labor Name Role Phone BRIANA AUSTIN Primary Care [...] steroids such as Flonase which is currently [id number] may be helpful. Devices such as a [...] and Address Organization Details Recorded Time Snoring 26584545 Active 024 TAN LUEVANO MD [address] [place] [address], [place], [address], [facility] - [facility] 4 16:59:43 Obstructive sleep apnea syndrome 29625895 Active 024 TAN LUEVANO MD [address] [place] [address], [place], [address], [facility] - [facility] 4 11:10:46 Sleep disorder 87424345 Active 024 TAN LUEVANO MD [address] [place] [address], [place], [address], [facility] - [facility] 4 17:06:25 Problem Notes None recorded. Procedures Surgical History Date Name Laterality Status Provider Name and Address Organization Details Recorded Time 09/03/2023 Telehealth completed TAN LUEVANO MD [address] [place] [address], [phone], [facility] - [facility] 09/03/2023 16:56:53 08/12/2023 FOL_DP completed TAN LUEVANO MD [address] [place] [address], [address], [facility] Updated DateTime 08/12/2023 157.48 cm 29.3 kg/m2 30158.78 g Lenard Cole [place] - [facility] [...] Note 3893 TAN LUEVANO MD [facility] [address] [address] 08/12/2023 10:06:54 08/12/2023 11:15:24 Snoring 20695258 R06.83 Obstructiv e sleep apnea syndrome 97910999 G47.33 6729 TAN LUEVANO MD [facility] [address] [address] 09/03/2023 17:00:24 09/03/2023 17:08:43 Snoring 70881037 R06.83 Sleep disorder 60784464 G47.9 Health Concerns Section Related Observation LastModified by Organization Detai ls LastModified Time None Recorded Concern Status LastModified by Organization Details LastModified Time None Recorded Advance Directives Directive None Recorded Payers Insurance Date Sequence Insurance Name Policy Number Policy Hinton Covered Member ID Hinton Member ID Guarantor Name 09/11/2023 1 FAMILIA (PPO) [id number] Ibis Meza [id number] I[employer] Meza Notes Date Note Type Note Provider Name and Address Organization Details Recorded Time 08/12/2023 text/html ROS as noted in the HPI snoringhx of severe SHARLENE - improved after weight loss of 150 pounds with gastric bypass 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,[place] [address], [place], [address], [place] - [facility] 08/12/2023 11:11:19 09/03/2023 text/html ROS as noted in the HPI exeztjo80/4/20[facility] hx of severe SHARLENE [...] removed age 4 TAN LUEVANO MD [address] [facility], [place], [address], [place] [facility] 09/03/2023 17:08:36 OBGyn Episode No OBEpisode recorded.
== END 2025-02-01 15:19 | disposition home or self-care (01) ==
LOC: HO.HOSX 15:18
PROVIDERS: Visit Provider Orthopaedic Surgery
DX: S83.241A Other tear of medial meniscus, current injury, right knee, initial encounter (principal)
CPT/HCPCS: 73562

== ENCOUNTER 2025-02-23 07:20 | Outpatient (REF) | payer BC, SELFPAY ==
--- OUTSIDE RECORDS SUMMARY | 2024-05-30 11:00 | XMS_ITS ---
Author Organization [facility] Address [address] [facility] [place] [address] Care Team Providers Care Corner Brace Block Machine Operator Name Role Phone Trevor Pablo Primary Care Provider Cammie Cisneros [phone] Encounters Encounter Location Date Provider Diagnosis [address] [address] 05/30/2024 Cammie English Plan Of Treatment No Information Progress Notes * Javon MEZAOB:[birth year] (64 yo F)Acc No.[id number]:05/30/2024 Progress Notes Patient: Ibis DIA Provider: Veronica English DPM :1960 A ge:64 Y S ex:Female Date:05/30/2024 Address[place] [place] Pcp:Trevor Pablo Subjective: * Chief Complaints: * [...] 05/30/2024 Generated for Printi ng/Faacg/eTransmitting on: 1 04/26/2024 07:22 AM EST
--- NOTE | ~2025-02-23 | MR_ITS ---
EXAMINATION: MR KNEE WITHOUT CONTRAST, RIGHT CLINICAL INFORMATION: Tear of the medial meniscus COMPARISON: X-ray 02/01/2025 TECHNIQUE: MRI of the knee without contrast was performed using routine sequences on a high-field scanner. FINDINGS: MENISCI: Medial Meniscus: Prominent T2 signal in the body, extending to the articular surfaces and free edge, consistent with complex degenerative tear. Partial medial subluxation of the body.. Degeneration of posterior horn, with superior articular surface fraying/ill-defined tear. Increased signal in the peripheral third posterior horn could reflect fraying/ill-defined tear. Lateral Meniscus: Horizontal tear of the anterior horn. Inferior articular surface and free edge degenerative fraying/tear of the body. Mild degenerative fraying of the posterior root. LIGAMENTS: Cruciate: Asymmetric increased signal, with ill-definition of the posterior fibers from mucoid degeneration plus/minus partial tear.. Mild T2 signal in the proximal PCL suggesting mucoid degeneration. Collateral: Intact EXTENSOR MECHANISM: Intact ARTICULAR CARTILAGE/BONE: Patellofemoral Compartment: Mild patellofemoral arthritis. Medial Compartment: Moderate-severe arthritis, subchondral cysts, edema and marginal osteophytes. Lateral Compartment: Moderate arthritis. High-grade/full-thickness chondral loss in the posterior weightbearing femoral condyle. JOINT FLUID AND BURSAE: Small effusion. Low signal foci in the anterior intercondylar region, suggestive of synovitis/loose bodies.. Trace James's cyst. Subcutaneous edema. MR/MR knee RT wo con IMPRESSION: * Tear of the medial meniscal body. Degenerative fraying/tearing of the posterior horn. * Tear of the lateral meniscal anterior horn and body. Degenerative fraying of the posterior root.. * ACL findings from mucoid degeneration plus/minus partial tear. * PCL mucoid degeneration *Tricompartment arthritis. Moderate to severe medial compartment arthritis. *Small effusion. Synovitis/loose bodies. Electronically signed by: Fabricio Cornejo MD 02/23/2025 01:43 PM EST
--- OUTSIDE RECORDS SUMMARY | 2025-02-23 07:23 | XMS_ITS | Patient Health Record ---
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[employer] Section Notes: Former smoker over 25 years ago Occasional drink Former smoker over 25 years ago Occasional drink Problems Problem Type SNOMED Code ICD Code Onset Dates Problem Status W/U Status Risk Notes Problem Screening for malignant neoplasm of colon (390761386) Encounter for screening for malignant neoplasm of colon (Z12.11) Active confirmed Problem Diverticular disease of colon (771846310) Diverticulosis of large intestine without perforation or abscess without bleeding (K57.30) Active confirmed Problem History of polyp of colon (situation) (518668348) History of colon polyps (Z86.010) Active confirmed Problem Constipation (22545661) Constipation, unspecified constipation type (K59.00) Active confirmed Problem Pre-procedure evaluation check (943283752) Pre-procedural examination (Z01.818) Active confirmed Plan Of Treatment Pending Test Test Name Order Date Pathology 05/07/2023 Future Test Test Name Order Date COLONOSCOPY 06/08/2017 COLONOSCOPY 02/03/2023 Insurance Providers Payer Name Payer Address Payer Phone Subscriber Number Group Number Insured Name Patient Relationship to Insured Coverage Start Date Coverage End Date [facility] [address] [place], [place] [id number] CYNDY MEZA Self - patient is the insured Medical (General) History Medical History History ICD Code Seasonal allergies Denies NE,DM,CVA,Lung disease,renal dise ase Negative limited(due to prep) colonoscop y in 11/[address] Sarabia Urinary incontinence Surgical History Surgery Date(Month/Year) Laparoscopic Esmer-en-Y Gastr ic bypass with Dr. Singh---lost 135# since 06/2017 Interstim bladder 2009 Eye surgery for crossed eyes as child Plantar fasciitis age 30 Right lump removal in shoulder benign
--- OUTSIDE RECORDS SUMMARY | 2025-02-23 07:23 | XMS_ITS | Data Portability ---
Author Organization [place] - [facility], Allergy Address [address] [address] Care Team Providers Care Teamcenter Solution Architect Name Role Phone BRIANA AUSTIN Primary Care [...] steroids such as Flonase which is currently qgre-los-cicvuow may be helpful. Devices such as a [...] and Address Organization Details Recorded Time Snoring 64940373 Active 024 TAN LUEVANO MD [address] [place] [address], [place], [address], [facility] - [facility] 4 16:59:43 Obstructive sleep apnea syndrome 99624353 Active 024 TAN LUEVANO MD [address] [place] [address], [place], [address], [facility] - [facility] 4 11:10:46 Sleep disorder 17972218 Active 024 TAN LUEVANO MD [address] [place] [address], [place], [address], [facility] - [facility] 4 17:06:25 Problem Notes None recorded. Procedures Surgical History Date Name Laterality Status Provider Name and Address Organization Details Recorded Time 09/03/2023 Telehealth completed TAN LUEVANO MD [address] [place] [address], [phone], [facility] - [facility] 09/03/2023 16:56:53 08/12/2023 FOL_DP completed TAN LUEVANO MD [address] [place] [address], [phone], [facility] - [facility] 08/12/2023 11:08:21 Imaging Results None recorded. [...] Updated DateTime 08/12/2023 157.48 cm 29.3 kg/m2 54953.78 g Lenard Cole [place] [facility] 08/12/2023 10:53:19 Social History None recorded. [...] Note 3893 TAN LUEVANO MD [facility] [address] [address] 08/12/2023 10:06:54 08/12/2023 11:15:24 Snoring 66761433 R06.83 Obstructiv e sleep apnea syndrome 98824348 G47.33 6729 TAN LUEVANO MD [facility] [address] [address] 09/03/2023 17:00:24 09/03/2023 17:08:43 Snoring 76606572 R06.83 Sleep disorder 00955170 G47.9 Health Concerns Section Related Observation LastModified by Organization Detai ls LastModified Time None Recorded Concern Status LastModified by Organization Details LastModified Time None Recorded Advance Directives Directive None Recorded Payers Insurance Date Sequence Insurance Name Policy Number Policy Hinton Covered Member ID Hinton Member ID Guarantor Name 09/11/2023 1 FAMILIA (PPO) [id number] Ibis Meza [id number] Ibis Meza Notes Date Note Type Note Provider Name and Address Organization Details Recorded Time 08/12/2023 text/html ROS as noted in the HPI snoringhx of severe SAHRLENE - improved after weight loss of 150 pounds with gastric bypass 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, 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) and has had trouble adapting sleep pattern 7 or 8p and wake at 1amtried melatonin but gets abnormal skin sensationtried turmeric but poorly toleratedtried magnesium with some mild improvement surgery - tonsils removed age 4 TAN LUEVANO MD [address] [facility],[place] [address], [place], [address], [place] - [facility] 08/12/2023 11:11:19 09/03/2023 text/html ROS as noted in the HPI jotfnoz18/4/20[facility]x of severe SHARLENE [...] removed age 4 TAN LUEVANO MD [address] [facility], [place], [address], [place] - [facility] 09/03/2023 17:08:36 OBGyn Episode No OBEpisode recorded.
--- OUTSIDE RECORDS SUMMARY | 2025-02-23 07:23 | XMS_ITS | Patient Health Record ---
[facility] Address [address] [facility] [place] [address] Care Team Providers Care Offbearer Name Role Phone Trevor Pablo Primary Care Provider Ilda EnglishCammie Unavailable [phone] Allergies Allergen (clinical drug ingredient) Drug/Non Drug Allergy documented on EMR Reaction Allergy Type Onset Date Status Dog dander Dog Dander Unknown Allergy Active Reason For Referral No [...] Status Risk Notes Problem Plantar fascial fibromatosis (08873413) Plantar fasciitis, bilateral (M72.2) Active confirmed Problem Osteoarthritis of midtarsal joint of left foot (0870588870104705 ) Osteoarthritis of midtarsal joint of left foot (M19.072) Active confirmed Problem Osteoarthritis of midtarsal joint of right foot (9591436803946870 ) Osteoarthritis of midtarsal joint of right foot (M19.071) Active confirmed Vital Signs Blood pressure diastolic 30 mm Hg 04/05/2024 Height 5ft 2in in 04/05/2024 Blood pressure systolic 140 mm Hg 04/05/2024 Weight 158 lbs 04/05/2024 BMI 28.9 kg/m2 04/05/2024 Encounters Encounter Location Date [facility] [address] [place] [address] 04/05/2024 Cammie English Pain in left foot M79.672 ; Plantar [...] and Other myositis of left foot M60.872 [facility] [address] [place] [address] 04/05/2024 Cammie English Assessments Encounter Date Diagnosis [...] Treatment Pending Test Test Name Order Date 83441- Removal of Foreign Body, Subcut 1 04/19/201344093,G5289-DUW TENDON SHEATH/LIGAMENT 0 11/06/2013 Insurance Providers Payer Name Payer Address Payer Phone Subscriber Number Group Number Insured Name Patient Relationship to Insured Coverage Start Date Coverage End Date [facility] All Others [facility] [id number] [place] [address] [phone] [id number] Ibis Meza Self - patient is the insured Medical (General) History Medical History History ICD Code Chicken pox Arthritis Back,Hip,and Knee pain covid-19 Reflux ( GERD) Surgical History Surgery Date(Month/Year) mass removed 09/2012 interstem 09/2012 foot surgery 1989' eye surgery 1969' bypass 2017 colonoscopy 04/2023
== END 2025-02-23 07:21 | disposition home or self-care (01) ==
LOC: HO.MRI 07:20
PROVIDERS: Visit Provider Orthopaedic Surgery
DX: S83.241A Other tear of medial meniscus, current injury, right knee, initial encounter (principal)
CPT/HCPCS: 73721

== ENCOUNTER → 2025-02-23 07:25 | Outpatient (BNV) | payer BC, SELFPAY | PROVIDERS: Visit Provider Radiology Diagnostic Ultrasound | DX: S83.241A Other tear of medial meniscus, current injury, right knee, initial encounter (principal); M17.11 Unilateral primary osteoarthritis, right knee; M25.461 Effusion, right knee | CPT/HCPCS: 73721 ==